=== PATIENT | female | born 1935 | race Caucasian/White ===

== ENCOUNTER 2017-01-09 09:01 | Day surgery (SDC) | payer MEDICARE ==
[~2017-01-09] VITALS: Ht 165.1 cm; Wt 75.3 kg
[~2017-01-09 09:01] MED LIST: AMLODIPINE BESY10 MG PO; COMBIGAN EYE DRO5 ML OD; CONTOUR NEXT1 EACH MISC; FENOFIBRATE160 MG PO; FUROSEMIDE20 MG PO; HYDRALAZINE; HYDROCODON-ACE1 EA10 PO; LATANOPROST2.5 ML OPTH; METFORMIN HCL500 MG PO; MORPHINE SULFAT10 MG PO; SIMVASTATIN40 MG PO
[2017-01-09] MEDS ORDERED: HYDRALAZINE HCL10 MG PO (09:38)
[2017-01-09] MEDS ORDERED: VITAMIN D-32000 UNI1 PO (09:39)
[2017-01-09] MEDS ORDERED: B COMPLEX # 11 EACH PO (09:40)
== END 2017-01-09 11:00 | disposition home or self-care (01) ==
LOC: OPS 09:01 → DS 09:01 → OPS 10:00
PROVIDERS: Ophthalmology
PROC: 08933ZZ Drainage of Left Anterior Chamber, Percutaneous Approach (ICD-10-PCS; principal; 2017-01-09 10:00)
DX: H40.1123 Primary open-angle glaucoma, left eye, severe stage (principal); E11.9 Type 2 diabetes mellitus without complications; I10 Essential (primary) hypertension; E78.00 Pure hypercholesterolemia, unspecified; Z87.891 Personal history of nicotine dependence
CPT/HCPCS: 140

== ENCOUNTER 2017-04-21 12:52 | Observation (INO) | payer MEDICARE ==
[~2017-04-21] VITALS: Ht 175.3 cm; Wt 75.3 kg
[~2017-04-21 12:52] MED LIST changes: +B COMPLEX # 11 EACH PO; +HYDRALAZINE HCL10 MG PO; +VITAMIN D-32000 UNI1 PO
[2017-04-21] MEDS ORDERED: BACLOFEN20 MG PO (13:14)
--- NOTE | 2017-04-21 16:20 | NUR ---
PATIENT ADMITTED FROM ER VIA WHEELCHAIR, ORIENTED TO HER ROOM AT THIS TIME. PATIENT IS ON RA AND GOWN PLACED ON THE PATIENT.
--- NOTE | 2017-04-21 16:33 | NUR ---
IV ABX GIVEN AT THIS TIME.
[2017-04-21] MEDS ORDERED: HYDRALAZINE HCL50 MG PO (16:37)
--- NOTE | 2017-04-21 16:45 | NUR ---
PT RECEIVED FROM ED, ARRIVED IN WHEEL CHAIR, TRANSFERED TO BED. PT SALINE LOCKED. PT VERY HARD OF HEARING, ORIENTED TO ALL BUT YEARS, STATES IT IS 2016. PT DENIES NAUSEA, DENIES HEAD AHCE, DENIES NUMBNESS/TINGLING. NEUROCHECK COMPLETED, SLIGHT LEFT SIDED DRIFTING. BOWEL TONES ACTIVE, ASSISTED WITH ORDERING DINNER. PT WITHOUT EDEMA, CMS INTACT, PULSES STRONG. PT WITH BRUISING TO LEFT UPPER ARM AND SCATTERED LOWER ARM, SKIN GROSSLY INTACT. PT ASSISTED TO CHAIR FOR DINNER. PT DENIES OTHER NEEDS AT THIS TIME.
--- NOTE | 2017-04-21 16:48 | NUR ---
insulin held at this time due to blood glucose of 86
--- NOTE | 2017-04-21 17:52 | NUR ---
PATIENT C/O CHRONIC NECK PAIN, 05/16 PATIENT GIVEN 500MG OF TYLENOL PO AT THSI TIME
--- NOTE | 2017-04-21 18:10 | NUR ---
HEALTH HISTORY COMPLETED WITH DAUGHTER CONNOR. PT RESTING IN BED, COMPLAINT OF NECK PAIN, RECENTLY RECEIVED TYLENOL. PROVIDED WITH WARM PACK. PT TAKES NORCO FOR CHRONIC PAIN, DISCUSSED WITH MD SIL TO ORDER NORCO. PT DENIES OTHER NEEDS AT THIS TIME.
--- NOTE | 2017-04-21 18:15 | NUR ---
PT RECEIVED FROM ED FOR STROKE SYMPTOMS. NEUROCHECK SHOWS SLIGHT LEFT SIDE DRIFT, ALERT AND ORIENTED EXCEPT FOR YEAR. PT ON ROOM AIR, LUNG SOUNDS CLEAR. PT TOELRATING ADA DIET, ACHS ACCUCHECK, BLOOD SUGAR AT DINNER 86, SS INSULIN HELD. PT UP WITH 1PA. HYPERTENSIVE SINCE ARRIVING, GIVEN NORVASC AND HYDRALAZINE.
--- NOTE | 2017-04-21 18:21 | NUR ---
PATIENT IN BED, DAUGHTER AND CHELO DIXON IN ROOM. VITALS DONE. RESP, KB IN TO SEE PATIENT. CALL LIGHT IN REACH. NO OTHER ROOMS.
--- NOTE | 2017-04-21 19:00 | NUR ---
SHIFT REPORT RECEIVED AT BEDSIDE. FAMILY IN ROOM. PATIENT RESTING IN BED WATCHING TV. DENIES NEEDS.
--- NOTE | 2017-04-21 19:50 | NUR ---
SCHEDULED HYDRALAZINE PROVIDED. BP 141/57, HR 62. DISCUSSED PLAN OF CARE WITH PATIENT AND FAMILY. NO QUESTIONS AT THIS TIME.
--- NOTE | 2017-04-21 20:04 | NUR ---
CHARGE NURSE ROUNDING NOTE:. PT IN BED WATCHING TV. EKUK. NO C/O PAIN OR N/V. FAMILY AT BEDSIDE, CALL LIGHT AT BEDSIDE.
--- NOTE | 2017-04-21 21:00 | NUR ---
EVENING MEDS GIVEN TO PATIENT. SHE IS ATTEMPTING TO SLEEP, AROUSED EASILY TO VOICE. SHE IS ORIENTED TO ALL EXCEPT THE DATE/YEAR. HER SPEECH IS SLIGHTLY SLURRED. STRENGTH IS EQUAL AND NORMAL. CORRDINATION INTACT. CMS INTACT. LUNGS ARE CLEAR. NO GI CONCERNS. NO EDEMA. PATIENT DENIES PAIN. PATIENT DENIES TOILETING NEEDS AT THIS TIME. FAMILY AT BEDSIDE. CALL LIGHT IN REACH.
--- NOTE | 2017-04-21 23:17 | NUR ---
PATIENT UP TO THE BATHROOM. HER DAUGHTER ASSISTED HER. SHE APPEARED STEADY ON HER FEET BUT REPORTS FEELING DIZZY. SHE IS ABLE TO FOLLOW COMMANDS, IS ORIENTED TO ALL EXCEPT THE YEAR. HER SPEECH IS CLEAR AND NO DEFECITS NOTED. HER PUPILS ARE EQUAL, ROUND AND REACTIVE. PATIENT DENIES VISUAL DISTURBANCES. FAMILY AT BEDSIDE. PATIENT RESTING. SHE DENIES PAIN.
--- NOTE | 2017-04-22 00:15 | NUR ---
SCHEDULED HYDRALAZINE PROVIDED. BP 142/62, HR 91 AT REST. PATIENT'S NERUO CHECK IS UNCHANGED. NO WEAKNESS. DISORIENTED ONLY TO THE DATE. PATIENT ATTEMPTING TO SLEEP.
--- NOTE | 2017-04-22 01:50 | NUR ---
PATIENT'S VS WNL. SHE DENIED TOILETING NEEDS. CALL LIGHT IN REACH. DAUGHTER IN ROOM.
--- NOTE | 2017-04-22 05:16 | NUR ---
VITAL SIGNS COMPLETE. PATIENT IS ORIENTED TO ALL BUT THE DATE. SPEECH IS CLEAR, SHE DOES SEEM TO BE SEARCHING FOR WORDS AT TIMES. PATIENT REPORTS BEING DIZZY. 2PA TO THE BATHROOM, PATIENT APPEARED SLIGHTLY UNSTEADY ON HER FEET. PATIENT BACK IN BED.
--- NOTE | 2017-04-22 05:22 | NUR ---
PATIENT SLEPT WELL THROGUHOUT THE NIGHT. SHE REMAINS ORIENTED TO ALL BY THE DATE. SPEECH IS CLEAR. SHE DOES APPEAR TO BE SPEARCHING FOR WORDS AT TIMES. COMPLAINS OF DIZZINESS. 1PA TO BATHROOM. PATIENT HAS BEEN SLIGHTLY HYPERTENSIVE SINCE ADMISSION, MD AWARE. URINE OUTPUT IS QS. FAMILY IN ROOM.
--- NOTE | 2017-04-22 07:00 | NUR ---
BEDSIDE HANDOFF REPORT RECEIVED FROM [employer]ER[employer] MERCHANDISING MANAGER RN. PT RESTING IN BED. FAMILY AT BEDSIDE. PT ASSISTED WITH ORDERING BREAKFAST. PT DENIES OTHER NEEDS AT THIS TIME.
--- NOTE | 2017-04-22 07:46 | NUR ---
MARTHA SITTING UP IN BED, FAMILY IN ROOM. PT STATES SHE DID NOT SLEEP AT ALL LAST NIGHT, DAUGHTER SAYS SHE INFACT SLEPT QUITE A BIT. PRADIP RIVAS IN FOR B/S CHECK, CHELO DIXON IN .
--- NOTE | 2017-04-22 08:00 | NUR ---
MRI SCREENING FORM COMPLETED WITH PT AND DAUGHTER. DENTURES AND JEWELRY REMOVED. PT TO MRI WITH TECH.
--- NOTE | 2017-04-22 08:45 | NUR ---
PT RESTING IN BED, EATING BREAKFAST, FAMILY AT BEDSIDE. PT ALERT AND ORIENTED X3, STATES IT IS OFF BY 2 DAYS. PT ON ROOM AIR, LUNG SOUNDS CLEAR. PT STRENGTH EQUAL IN ALL EXTREMITIES, DENIES NUMBNESS OR TINGLING. PT WITH GOOD APPETITE, TOLERATING ADA DIET, BOWEL TONES ACTIVE. PT WIHTOUT EDEMA. PT DENIES PAIN AT THIS TIME. SALINE LOCKED. PT CONTINUES TO BE HYPERTENSIVE, HYDRALAZINE GIVEN. PT DENIES OTHER NEEDS AT THIS TIME.
[2017-04-22] MEDS ORDERED: VITAMIN D3400 UNI1 PO (09:05)
[2017-04-22] MEDS ORDERED: NORCO 5-325 TA1 EACH PO (09:08)
[2017-04-22] MEDS ORDERED: PRESERVISION A1 EAC1 PO (09:09)
[2017-04-22] MEDS ORDERED: FOLIC ACID0.4 MG PO (09:10)
[2017-04-22] MEDS ORDERED: DAILY VITAMIN1 EAC3 PO (09:12)
--- NOTE | 2017-04-22 09:17 | NUR ---
MED REC COMPLETE WITH PATIENT'S HOME LIST AND DAUGHTER INTERVIEW.
--- NOTE | 2017-04-22 09:29 | NUR ---
DR WEBB IN ROOM, PATIENTS DAUGHTER SAYS PATIENT IS READY FOR PAIN MEDS.RN NOTIFIED.
--- NOTE | 2017-04-22 09:30 | NUR ---
PATIENT SITTING UP IN BED. VITALS DONE. DR WEBB IN TO SEE PATIENT. CALL LIGHT IN REACH.
[2017-04-22] MEDS ORDERED: HYDRALAZINE HCL50 MG PO (09:41)
[2017-04-22] MEDS ORDERED: CEPHALEXIN500 MG PO (09:42)
--- NOTE | 2017-04-22 12:03 | NUR ---
PATIENT SITTING UP IN BED, DAUGHTER IN RM. FRESH ICE WATER IN CUP. PRADIP RIVAS IN TO DO BLOOD SUGAR. CALL BUTTON IN REACH
--- NOTE | 2017-04-22 14:53 | EKG ---
[facility] [address] [place], [place] [address] Signed Sinus bradycardia Septal infarct , age undetermined Abnormal ECG No previous ECGs available Confirmed by EPHRAIM WEBB MD ([id number]) on 04/22/2017 2:52:59 PM Electronically Signed By: EPHRAIM WEBB MD 04/22/17 1453 PATIENT NAME: EUGENIO GÓMEZ Electrocardiogram DATE OF : 35 PHYSICIAN: EPHRAIM WEBB MD REPORT #: [id number] REPORT IS CONFIDENTIAL AND NOT TO BE RELEASED WITHOUT AUTHORIZATION
[2017-04-25] MEDS ORDERED: COREG6.25 MG PO (11:17)
== END 2017-04-22 14:18 | disposition home or self-care (01) ==
LOC: ED 12:52 → MS 12:54
PROVIDERS: ADMIT Internal Medicine
DX: N39.0 Urinary tract infection, site not specified (principal); G93.41 Metabolic encephalopathy; I10 Essential (primary) hypertension; E11.9 Type 2 diabetes mellitus without complications; E78.5 Hyperlipidemia, unspecified; H40.9 Unspecified glaucoma; H91.10 Presbycusis, unspecified ear; Z87.891 Personal history of nicotine dependence; Z79.899 Other long term (current) drug therapy; Z66 Do not resuscitate; Z79.84 Long term (current) use of oral hypoglycemic drugs; Z88.5 Allergy status to narcotic agent; Z88.2 Allergy status to sulfonamides
CPT/HCPCS: 70450; 70551; 71045; 80053; 81001; 83690; 85025; 87088; 93005; 93010; 96372; 96374; 99285; G0378; J0696; J1650; J7040

== ENCOUNTER 2017-10-20 22:37 | Inpatient (IN) | payer MEDICARE ==
[~2017-10-20] VITALS: Ht 175.3 cm; Wt 69.0 kg
--- OUTSIDE RECORDS SUMMARY | ~2017-10-20 | XMS | Clinical Summary ---
Demographics + + + | Address | [address] | | | [place] [address] | + + + | Home Phone | | + + + | Preferred Language | Unknown | + + + | Marital Status | | + + + | Hindu Affiliation | Unknown | + + + [...] Providers + +------+ + | Care Manager Night Name | Role | Phone | + +------+ + | Manuel Adames MD | PP | | + +------+ + Source Comments DANIA is fully live on both [facility] and [facility] Allergies Not on File Current Medications [...] | + + + + + | INFLUENZA VACCINE | | | | | (FLU SHOT) | 8 | | | + + [...] MEDICA | | re | [phone] | [place] [address] | | | RE HMO | | [...] | Self | [birth year] | Home: | [address] | | | al/Fam | | [phone] | [phone] | [place] | | | [place] | | | [phone] | + +--------+ +--------+ + +"
--- OUTSIDE RECORDS SUMMARY | ~2017-10-20 | XMS | Clinical Summary ---
Demographics + + + | Address | [address] | | | [place] [address] | + + + | Home Phone | | + + + | Preferred Language | Unknown | + + + | Marital Status | | + + + | Church Affiliation | Unknown | + + + [...] Team Providers + +------+ + | Care Technical Business Systems Analyst Name | Role | Phone | + +------+ + | Manuel Adames MD | PP | | + +------+ + Source Comments DANIA is fully live on both [facility] and [facility] Allergies Not on File Current Medications [...] MEDICA | | re | [phone] | [place] [address] | | | RE HMO | | [...] | Self | [birth year] | Home: | [address] | | | al/Fam | | [phone] | [phone] | [place] | | | [place] | | | [phone] | [phone] | + +--------+ +--------+ + +"
--- OUTSIDE RECORDS SUMMARY | ~2017-10-20 | XMS | Clinical Summary ---
Demographics + + + | Address | [address] | | | [place] [address] | + + + | Home Phone [...] Team Providers + +------+ + | Care Guzzler Builder Name | Role | Phone | + +------+ + | Manuel Adames MD | PP | | + +------+ + Source Comments DANIA is fully live on both [facility] and [facility] Allergies Not on File Current Medications [...] MEDICA | | re | [phone] | [place] [address] | | | RE HMO | | [...] | Self | [birth year] | Home: | [address] | | | al/Fam | | 1936 | [phone] | [place] | | | [place] | | | [phone] | + +--------+ +--------+ + +"
--- OUTSIDE RECORDS SUMMARY | ~2017-10-20 | XMS | Clinical Summary ---
Demographics + + + | Address | [address] | | | [place] [address] | + + + | Home Phone | | + + + | Preferred Language | Unknown | + + + | Marital Status | | + + + | Caodaism Affiliation | Unknown | + + + | Race | Unknown | + + + | Ethnic Group | Unknown | + + + Author + + + | Author | [facility] [employer] [facility] | + + + | Organization | [facility] [employer] | + + + | Address | Unknown | + + + | Phone | Unavailable | + + + Support + + + + + | Name | Relationship | Address | Phone | + + + + + | Vera Somers | [place] | [place] | | | | | [phone] | | + + + + + | John Casillas | ECON | Unknown | | + + + + + Care Team Providers + +------+ + | Care Scalemaker Name | Role | Phone | + +------+ + | Manuel Adames MD | PP | | + +------+ + Allergies + + + + + + | Active Allergy | Reactions | Severity | Noted | Comments | | | | | Date | | + + + + + + | Cephalexin | Other (See Comments) | Medium | 12/06/19 | unknown | | | | | 11 | | + + + + + + | Penicillins | Other (See Comments) | Medium | 12/06/19 | unknown | | | | | 11 | | + + + + + + | Saccharin | Other (See Comments) | Medium | 12/06/19 | unknown | | | | | 11 | | + + + + + + | Sulfa Antibiotics | Other (See Comments) | Medium | 12/06/19 | unknown | | | | | [...] | + + + + + | Diabetic Eye Exam | | | | | | 6 | | | + + + + + | Diabetic Foot Exam | | | | | | 6 | | | + + + + + | Hemoglobin A1c | | | | | | 6 | | | + + + + + | Microalbumin | | | | | Screening | 6 | | | + + [...] | | | | | (#1) | 8 | | | + [...] | MA - PREMIERCARE | MA-PRE | [id number] | Medica | | | | FAMILY [...] | Self | [birth year] | Home: | [address] | | | al/Fam | | [phone] | [phone] | [address] [place] | | | [place] | | | [phone] | [phone] | + +--------+ +--------+ + + | MAGDALENA CASILLAS | Third | Self | [birth year] | Home: | [address] | | | [employer] [place] | | [phone] | [phone] | [place] | | | [place] | | | [phone] | [phone] | | | ity | | | | | + +--------+ +--------+ + +
--- OUTSIDE RECORDS SUMMARY | ~2017-10-20 | XMS | Clinical Summary ---
Demographics + + + | Address | [address] | | | [place] [address] | + + + | Home Phone | | + + + | Preferred Language | Unknown | + + + | Marital Status | | + + + | Cheondoism Affiliation | Unknown | + + + | Race | Unknown | + + + | Ethnic Group | Unknown | + + + Author + + + | Author | [facility] [employer] [facility] | + + + | Organization | [facility] [facility] | + + + | Address | Unknown | + + + | Phone | Unavailable | + + + Support + + + + + | Name | Relationship | Address | Phone | + + + + + | Vera Somers | [place] | [place] | | | | | [phone] | | + + + + + | John Casillas | ECON | Unknown | | + + + + + Care Team Providers + +------+ + | Care Card Filer Name | Role | Phone | + [...] | MA - PREMIERCARE | MA-PRE | [id number] | Medica | | | | FAMILY [...] | Self | [birth year] | Home: | [address] | | | al/Fam | | [phone] | [phone] | [address] [place] | | | [place] | | | [phone] | [phone] | + +--------+ +--------+ + + | MAGDALENA CASILLAS | Third | Self | [birth year] | Home: | [address] | | | [employer] | | [phone] | [phone] | [place] | | | [place] | | | [phone] | [phone] | | | ity | | | | | + +--------+ +--------+ + +
--- OUTSIDE RECORDS SUMMARY | ~2017-10-20 | XMS | Clinical Summary ---
Demographics + + + | Address | [address] | | | [place] [address] | + + + | Home Phone | | + + + | Preferred Language | Unknown | + + + | Marital Status | | + + + | Latter-Day Affiliation | Unknown | + + + | Race | Unknown | + + + | Ethnic Group | Unknown | + + + Author + + + | Author | [facility] [email or web address] [facility] | + + + | Organization | [facility] [email or web address] [facility] | + + + | Address | Unknown | + + + | Phone | Unavailable | + + + Support + + + + + | Name | Relationship | Address | Phone | + + + + + | Vera Somers | [place] | [place] | | | | | [phone] | | + + + + + | John Casillas | ECON | Unknown | | + + + + + Care Team Providers + +------+ + | Care Container Shop Welder Name | Role | Phone | + +------+ + | Manuel dAames MD | PP | | + +------+ [...] | MA - PREMIERCARE | MA-PRE | [id number] | Medica | | | | FAMILY [...] | Self | [birth year] | Home: | [address] | | | al/Fam | | [phone] | [phone] | [address] [place] | | | [place] | | | [phone] | [phone] | + +--------+ +--------+ + + | MAGDALENA CASILLAS | Third | Self | [birth year] | Home: | [address] | | | Libertarian | | [phone] | [phone] | [place] | | | [place] | | | [phone] | [phone] | | | ity | | | | | + +--------+ +--------+ + +
[~2017-10-20 22:37] MED LIST changes: +BACLOFEN20 MG PO; +CEPHALEXIN500 MG PO; -COMBIGAN EYE DRO5 ML OD; +COMBIGAN EYE DRO5 ML OPTH; +COREG6.25 MG PO; +DAILY VITAMIN1 EAC3 PO; +FOLIC ACID0.4 MG PO; +HYDRALAZINE HCL50 MG PO; +NORCO 5-325 TA1 EACH PO; +PRESERVISION A1 EAC1 PO; +VITAMIN D3400 UNI1 PO
--- NOTE | 2017-10-21 02:50 | NUR ---
PT ARRIVES TO ICU ROOM 128 ADMITTED FROM ER FOR NEW CHF AND PNEUMONIA. SHE IS ALERT AND ORIENTED, AWAKE ON 2L/O2 WITH SPO2 94% RR 18 AND SLIGHTLY LABORED. TRANSFERRED TO BED WITH SLIDER SHEET. ACCOMPANIED BY DAUGHTER AND , DISCUSSED PLAN OF CARE WITH FAMILY AND PT, NO QUESTIONS AT THIS TIME. POTASSIUM PILLS GIVEN AND TAKEN WITHOUT DIFFICULTY AND IV ABX STARTED. LUNGS HAVE A FEW CRACKLES IN THE BASES, WAS GIVEN LASIX IV IN ED AND VOIDED 400 ML AFTER. DAUGHTER TO STAY THE NIGHT.
--- NOTE | 2017-10-21 04:06 | NUR ---
UP TO BSC TO VOID 200ML CLEAR YELLOW URINE, HR STEADY WHILE UP BUT DOES GET SLIGHTLY SOB WITH SMALL AMOUNT OF ACTIVITY. BACK TO BED AND TRYING TO SLEEP NOW.
--- NOTE | 2017-10-21 04:45 | NUR ---
PT SLEEPING, O2/2L ON AND SPO2 DOWN TO 88% SO OXYGEN TURNED UP TO 3L/NC.
--- NOTE | 2017-10-21 05:27 | NUR ---
PT PULLED O2 OFF WHILE SLEEPING- SPO2 80% ON ROOM AIR, RR 18 AND HR 60'S. O2 REPLACED AND SATS SLOWLY BACK UP TO 91%.
--- NOTE | 2017-10-21 08:17 | NUR ---
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 PT TIRED AT THIS TIME, IS COOPERATIVE WITH HOSPITAL ROUTINE, DAUGHTER HAS REMAINED AT THE BEDSIDE ALL NIGHT.
--- NOTE | 2017-10-21 09:14 | NUR ---
PT DID NOT EAT WELL THIS AM, SHE APPEARS TO HAVE A HARD TIME TO SWOLLOW SOLID FOODS, DAUGHTER STATES THAT THIS IS NOT NEW AND SHE FEELS SHE IS ASPERATING AT TIME. PT TOOK HER PO MEDS WELL AND WHEN TAKE SHE LIFTS HEAD AND NECK UP TO SWOLLOW. PTS DAUGHTERS DOES NOT WANT PT TO HAVE HER FLU INJUCTION AT THIS TIME.
--- NOTE | 2017-10-21 10:00 | NUR ---
SPUTUM SAMPLE SENT TO LAB AT THIS TIME. DAUGHTER AND AT THE BEDSIDE AT THIS TIME.
--- NOTE | 2017-10-21 10:51 | NUR ---
PT REMAINS IN BED, TALKING WITH AND GRANDSON.
--- NOTE | 2017-10-21 11:43 | NUR ---
PT APPEARS TO BE SLEEPING AT THIS TIME, AND GRANDSON REMAIN AT THE BEDSIDE, PT REMAIN IN SBRADY AT THIS TIME, SPO2 100% ON 2 L'S VIA NC.
[2017-10-21] MEDS ORDERED: COMBIGAN EYE DRO5 ML OPTH (11:47)
[2017-10-21] MEDS ORDERED: HYDRALAZINE HCL50 MG PO (11:50)
--- NOTE | 2017-10-21 12:01 | NUR ---
PT FAMILY HAS LEFT AT THIS TIME, BED ALARM ON AT THIS TIME. SIDE RAILS X 4 AND BED IN THE LOWEST POSITION. PT IS ACROSS FROM THE NURSES STATION.
--- NOTE | 2017-10-21 12:09 | NUR ---
PT UP TO THE BEDSIDE COMMODE, DID NOT VOID AND BACK TO BED. SIDE RAILS X 4, BED ALARM ON.
--- NOTE | 2017-10-21 12:41 | NUR ---
PT DENIES THE NEED TO EAT LUNCH AT THIS TIME, STAFF WILL ORDER HER SOMETHING LATER TODAY.
--- NOTE | 2017-10-21 13:15 | NUR ---
PT GIVEN PUDDING THICK FOOD FOR LUNCH; MASH POPATOES AND COTTAGE CHEESE, SHE DID WELL WITH THIS, NO COUGHING AND OR SPITTING FOOD UP AT THIS TIME. SHE DOES WELL WITH TAKING FLUIDS, PT WANTED A PEPSI OR COKE SO ONE GIVEN. PT HUSBANDS HAS RETURNED AT THIS TIME.
--- NOTE | 2017-10-21 13:18 | NUR ---
PT DOES REQUIRD THE HOB UP
--- NOTE | 2017-10-21 13:30 | NUR ---
PT UP TO BEDSIDE COMMODE, VOIDED SMALL AMOUNT AT THIS TIME. PT IS AT BEDSIDE NOW.
--- NOTE | 2017-10-21 14:17 | NUR ---
UP TO BSC, BED ALARM SOUNDING. PATIENT TO EDGE OF BED BEFORE STAFF IN ROOM. AT BEDSIDE SLEEPING. PATIENT STATED " I CAN'T WAIT FOR YOU, I NEED TO PEE NOW". ASSISTED PATIENT TO BSC, APPEARS STEADY TRANSFERING. UNABLE TO URINATE, STATES " I GET SO FRUSTRATED WHEN I FEEL LIKE I HAVE TO GO AND JUST CAN'T." PATIENT BACK TO BED, BED ALARM ON. CALL LIGHT WITHIN REACH. NOW AWAKE AND CONVERSING WITH PATIENT.
--- NOTE | 2017-10-21 14:52 | NUR ---
PT IN BED FAMILY AND FREINDS ARE AT THE BEDSIDE.
--- NOTE | 2017-10-21 17:08 | NUR ---
PT IS WANTING TO GO HOME, AT TIMES SHE WILL SIT UP IN BED AND TRY TO GET OUT, BUT IS REDIRECTABLE AT THIS TIME. SHE IS GIVING HER A BAD TIME.
--- NOTE | 2017-10-21 17:21 | NUR ---
PT SITTING FOR DINNER AT THIS TIME, TAKING PO MEDS WELL AND DOES WELL WITH THIN LIQUIDS. DINNER ORDER FOR PT IN PUDDING THICK ITEMS. PT WAS UP TO THE BEDSIDE COMMODE VOIDED AND BACK TO BED. BED ALARM IS ON AT THIS TIME.
--- NOTE | 2017-10-21 17:48 | NUR ---
PT REQUSTED HER PURSE TO GET HEARING AID BATTERY, THEN TRYED TO PLCE THE BATTERY IN HER GLASSES. EXPLAINED THAT IT WENT IN HER EAR, SHE GOT FLUSTERED AND PUT THE BATTERY ON THE TABLE. AND THEN CONTIOUED TO DRINK HER ORANGE JUICE.
--- NOTE | 2017-10-21 20:32 | NUR ---
IN TO SEE PT AT 2004. MOSTLY SLEEPING SINCE SHIFT REPORT AT 1900. PT DIOMEDE, CONFUSED AT TIMES TO SITUATION/EVENT. LIMITED UNDERSTANDING OF MEDICAL PROCEDURES. AT BEDSIDE. PT DENIES PT. C/O OF BP CUFF BEING TIGHT AND TRIES TO REMOVE. EXPLAINED TO PT AND REASSURED. REMOVED PREVIOUS NITROPASTE AND PLACED NEW 0.5IN. BED ALARM ON. PT REFUSED TO REMOVE DENTURES OR BRUSH AT THIS TIME. O2 ON 3L NC.
--- NOTE | 2017-10-21 21:11 | EKG ---
[facility] [address] [place] [address] Signed Sinus rhythm with premature supraventricular complexes Anteroseptal infarct , age undetermined Abnormal ECG When compared with ECG of 23-APR-2017 21:00, premature supraventricular complexes are now present Vent. rate has increased BY 37 BPM Anteroseptal infarct is now present ST now depressed in Inferior leads ST now depressed in Anterior leads Confirmed by GALI KNIGHT MD ([id number]) on 10/21/2017 9:11:40 PM Electronically Signed By: GALI KNIGHT MD 10/21/172110 PATIENT NAME: EUGENIO GÓMEZ Electrocardiogram DATE OF : 35 PHYSICIAN: GALI KNIGHT MD REPORT #: [id number] REPORT IS CONFIDENTIAL AND NOT TO BE RELEASED WITHOUT AUTHORIZATION
--- NOTE | 2017-10-21 21:12 | EKG ---
[facility] [address] [place] [address] Signed Sinus rhythm with occasional premature ventricular complexes and premature atrial complexes Septal infarct (cited on or before 20-OCT-2017) Abnormal ECG When compared with ECG of 20-OCT-2017 22:55, (Unconfirmed) premature ventricular complexes are now present Confirmed by GALI KNIGHT MD ([id number]) on 10/21/2017 9:12:02 PM Electronically Signed By: GALI KNIGHT MD 10/21/17 2112 PATIENT NAME: EUGENIO GÓMEZ Electrocardiogram DATE OF : 35 PHYSICIAN: GALI KNIGHT MD REPORT #: [id number] REPORT IS CONFIDENTIAL AND NOT TO BE RELEASED WITHOUT AUTHORIZATION
--- NOTE | 2017-10-22 00:03 | NUR ---
PT SLEEPING MOSTLY SINCE LAST ASSESSMENT, DAUGHTER AT BEDSIDE WELL. DENIES NEEDS. BED ALARM ON. RAILS UPX4.
--- NOTE | 2017-10-22 03:02 | NUR ---
PT UP TO BSC TO ATTEMPT TO VOID. UNABLE TO VOID. BLADDER SCANNED FOR 55ML. PT IRRITABLE. PREVIOUSLY REMOVED LEADS AND PULSE OX. REMOVING O2 WELL. DAUGHTER TO ASSIST WITH REPLACING MONITOR LEADS AND O2. BED ALARM ON NOW. ASSESSMENT COMPLETE.
--- NOTE | 2017-10-22 03:36 | NUR ---
PT GIVEN 650MG TYLENOL PO FOR C/O OF R KNEE PAIN. HOLDING KNEE AND CRYING OUT. PLACED WARM PACK ON KNEE WELL. BED ALARM ON.
--- NOTE | 2017-10-22 06:44 | NUR ---
PT REMOVED O2, MONITOR LEADS, SPO2 MONITOR. STARTING TO GET OOB. UP TO BSC WITH ASSIST TO VOID 250ML CONCENTRATED URINE. PT REFUSING TO WEAR MONTITOR LEADS. DAUGHTER CONVINCED TO WEAR 02. FREQUENTLY ATTEMPTS TO REMOVE AND REMAINS CONFUSED.
--- NOTE | 2017-10-22 08:25 | NUR ---
PT HAS PULLED ALL EQUIPMENT OFF HER BODY THIS EVENING AND NOW GAS METER REPAIRER HAS PLACED A TELE #4 ON HER TO MONITOR HEART RATE. PT HAD BEEN UP TO THE CHAIR THIS AM, AND TO THE BS COMMODE. THEN BACK TO BED. [facility] ORDER FOR PT AND SHE IS CURRENTLY SITTING UP IN BED EATTING BKF.
--- NOTE | 2017-10-22 08:41 | NUR ---
PT ATE SOME OF HER FOOD FOR BKF, BUT THEN WENT BACK TO SLEEP.
--- NOTE | 2017-10-22 09:34 | NUR ---
PT UP TO BEDSIDE COMMODE VOIDED AND BACK TO BED AT THIS TIME, SHE ATE SOME BKF. FAMILY AND FREINDS REMAIN AT THE BEDSIDE.
--- NOTE | 2017-10-22 09:46 | NUR ---
DR KNIGHT INTO SEE PT THIS AM, PT WILL BE TRANSFERD TO THE M/S UNIT AT SOMEPOINT TODAY. TELE #4 REMOVED, DAUGHTER REMAINS AT THE BEDSIDE AT THIS TIME, PT APPEARS VERY TIRED TODAY.
--- NOTE | 2017-10-22 10:30 | NUR ---
REPORT CALLED TO M/S UNIT ALL QUESTIONS ANSWERED AT THIS TIME, ALL PERSOANL BELONGINGS AND PT DAUGHTER WENT TO ROOM 110 ON THE M/S UNIT.
--- NOTE | 2017-10-22 10:36 | NUR ---
PT HAS ARRIVED INTO ROOM 110 ON MED/SURG AT THIS TIME. PT IS PLEASANT, CALM AND COOPERATIVE. 2 FAMILY MEMBERS AT BEDSIDE. NO C/O PAIN. OXYGEN VIA NC AT 3L/MIN. PT ORIENTED TO ROOM AND CALL LIGHT. PT X1 ASSIST TO AND FROM WHEELCHAIR, COMMODE AND BED. PT HAS NO CURRENT QUESTIONS OR CONCERNS. VSS. ASSESSMENT COMPLETED. CALL LIGHT WITHIN REACH. BED LOCKED IN LOWEST POSITION WITH BED ALARM ON. PT VISIBLE FROM NURSES STATION. WILL CONTINUE TO MONITOR.
--- NOTE | 2017-10-22 12:50 | NUR ---
PT RESTING IN BED COMFORTABLY AT THIS TIME WITH FAMILY VISITING AT BEDSIDE. PT STATES THAT SHE'S HAVING NO PAIN AND IS COMFORTABLE. NO QUESTIONS OR CONCERNS AT THIS TIME. CALL LIGHT WITHIN REACH. BED ALARM ON AND FALL PRECAUTIONS IN PLACE. WILL CONTINUE TO MONITOR.
--- NOTE | 2017-10-22 14:33 | NUR ---
PT RESTING COMFORTABLY IN HER BED AT THIS TIME WITH 2 VISITOR FRIENDS AT BEDSIDE. ASSESSMENT COMPLETED AND NITRO PATCH ADDED TO CHEST; OLD ONE REMOVED. PT 02 SAT WAS MAINTAINING AT 88, SO I INCREASED HER TO 3.5 L/MIN O2 VIA NC. HER O2 SAT INCREASED TO 91 AND IS MAINTAINING THERE. PT HAS NO C/O PAIN, NO SOB OR BREATHING ISSUES. PT HAS NO QUESTIONS OR CONCERNS. CALL LIGHT WITHIN REACH, BED ALARM ON AND FALL PRECAUTIONS IN PLACE. WILL CONTINUE TO MONITOR.
--- NOTE | 2017-10-22 16:40 | NUR ---
PT RESTING IN BED WITH SOME VISITORS AT THE BEDSIDE. PT HAS NO QUESTIONS OR CONCERNS AT THIS TIME. CALL LIGHT WITHIN REACH. BED LOCKED, LOW AND WITH ALARM ON. WILL CONTINUE TO MONITOR.
--- NOTE | 2017-10-22 18:04 | NUR ---
PT VS AND CONDITION STABLE TODAY ON 10/22/17 DAY SHIFT SINCE ARRIVING ON UNIT FROM CCU. PT HAS BEEN PLEASANT, CALM AND COOPERATIVE THROUGHOUT SHIFT. SHE IS DISORIENTED TO PLACE, TIME AND SITUATION- SHE'S ORIENTED TO HERSELF AND FAMILY MEMBERS. NO AGITATION OR RESTLESSNESS. PT CONFUSED AND FORGETFUL, REQUIRES REORIENTATION AND REINFORCEMENT OF INFORMATION. PT CURRENTLY AT 3.5 L/MIN OF O2 VIA NC WITH HUMIDITY. PT HAVING PRODUCTIVE COUGH, SMALL AMOUNT OF CLEAR SPUTUM SHE SPITS INTO TISSUE. NITRO PASTE PRESENT ON LEFT SIDE OF CHEST. STAND BY ASSISTANCE; SOME WEAKNESS BUT STEADY ON HER FEET; USES COMMODE; URGENCY WHEN NEEDING TO URINATE. SALINE LOCKED. AWAITING ST EVAL AND BARIUM SWALLOW STUDY. PT CURRENTLY RESTING IN BED WITH NO QUESTIONS OR CONCERNS. CALL LIGHT WITHIN REACH. BED LOCKED, LOW AND BED ALARM IN PLACE. WILL CONTINUE TO MONITOR.
--- NOTE | 2017-10-22 19:05 | NUR ---
bedside report received from offgoing rn. pt lying in bed. pt ham[place], attempting to adjust hearing aide. pt assisted with hearing aide. pt denies needs at this time. call light within reach, bed alarm active. room within view of rn station.
--- NOTE | 2017-10-22 20:45 | NUR ---
PT ASSESSMENT COMPLETE. PT DENIES PAIN, NAUSEA, SOB. LUNG SOUNDS DIM TO R BASE, CRACKLES TO L BASE. OCCASIONAL COUGH NOTED WHILE PRESS CLIPPINGS CUTTER AND PASTER IN ROOM, NON PRODUCTIVE AT THIS TIME. PT DISORIENTED TO PLACE, TIME, EVENTS. PT TALKING ABOUT HOBBIES SHE USED TO PARTAKE IN, AT BEDSIDE. PT DENIES NEEDS AT THIS TIME. CALL LIGHT WITHIN REACH. BED ALARM ACTIVE. ROOM WITHIN VIEW OF RN STATION WITH CURTAIN OPEN.
--- NOTE | 2017-10-22 21:55 | NUR ---
PT REPORTS HEADACHE, UNABLE TO RATE PAIN. PRN TYLENOL ADMINISTERED. PT'S AND DAUGHTER ARE AT BEDSIDE. CALL LIGHT WITHIN REACH. BED ALARM ACTIVE. ROOM WITHIN VIEW OF RN STATION.
--- NOTE | 2017-10-22 23:01 | NUR ---
PT ASSISTED TO THE BSC. TOLERATED WELL. PT UNABLE TO VOID AT THIS TIME. NOTIFIED REGARDING ZERO URINE OUTPUT FOR 0.
--- NOTE | 2017-10-23 00:11 | NUR ---
PT RESTING IN BED WITH EYES CLOSED. RESPIRATIONS EVEN AND UNLABORED. PT APPEARS TO BE SLEEPING. PT'S DAUGHTER AWAKE AT BEDSIDE. CALL LIGHT WITHIN PT REACH. ROOM WITHIN VIEW OF RN STATION.
--- NOTE | 2017-10-23 00:34 | NUR ---
PT'S DAUGHTER IN ROOM, SAO2 ALARM SOUNDING. PT'S DAUGHTER STATES THAT PT TOOK HER O2 OFF, DAUGHTER CHECKING SAO2 OUTOF CURIOSITY. SAO2 71% ON RA. O2 REPLACED AT 3 LPM, SAO2 INCREASED TO 92%. PT REPORTS SEEING MEN IN HER ROOM. POINTS TOWARDS THE CEILING. PT'S DAUGHTER STATES THAT HALLUCINATIONS ARE NOT PT'S BASELIEN. PT STATES SHE WILL TRY TO GO BACK TO SLEEP. DENIES SEEING ANYTHING OUT OF THE ORDINARY IN ROOM AT THIS TIME. PT'S DAUGHTER REMAINS AT BEDSIDE. CALL LIGHT WITHIN REACH. ROOM WITHIN VIEW OF RN STATION.
--- NOTE | 2017-10-23 02:38 | NUR ---
PT ASSESSMENT COMPLETE. PT WAKES EASILY FOR BP MEASUREMENT. PT REMAINS DROWSY THROUGHOUT THE ASSESSMENT. NO REPORTS OF PAIN, NAUSEA, OR SOB. LUNG SOUNDS CLEAR IN UPPER LOBES BILATERALLY, DIMINISHED IN BILATERAL LOWER LOBES. NO COUGH NOTED DURING THIS ASSESSMENT. O2 REMAINS IN PLACE VIA NC, 3 LPM. PT'S DAUGHTER STAYING THE NIGHT, RESTING ON COUCH IN ROOM. CALL LIGHT WITHIN PT REACH. ROOM WITHIN VIEW OF RN STATION.
--- NOTE | 2017-10-23 05:57 | NUR ---
PT EXPERIENCING INCREASED CONFUSION. PT REQUESTING REPEATEDLY TO GO HOME DESPITE REORIENTATION FROM TILE SHADER AND PT'S DAUGHTER. PT'S DAUGHTER REQUESTS PT HAVE TYLENOL FOR POTENTIAL PAIN. PT BECOMES AGRESSIVE, HITS TYLENOL FROM WRITERS HANDS. PT STATES, "YOU'RE JUST TRYING TO GIVE ME SOMETHING BAD AND DO WHAT YOU WANT TO ME." PT REFUSING TO WEAR O2, SITTING UP IN RECLIENR. PT'S DAUGHTER REMAINS IN ROOM. SHE STATES, "WHATEVER HAPPENS, HAPPENS." PT SITTING IN RECLINER WITH PT'S DAUGHTER IN ROOM. DAUGHTER WOULD LIKE HER MOM TO HAVE SOME TIME TO RELAX, AGREES TO CALL TILE SHADER FOR NEEDS.
--- NOTE | 2017-10-23 06:06 | NUR ---
PT SLEPT OFF AND ON THIS SHIFT. TYLENOL X 1 FOR ARZATE @ ~2200. PT ORIENTED TO SELF ONLY. DEMENTIA AT BASELINE. PT BECOMMING INCREASINGLY AGITATED AND COMBATIVE THIS AM, REQUESTING TO GO HOME DESPITE REORIENTATION FROM STAFF AND HER DAUGHTER. PT REFUSING TO WEAR O2. O2 SATS IN 70'S ON RA. 92-94 ON 3.5 LPM VIA NC. OCC NON PRODUCTIVE COUGH. LUNG SOUNDS CLEAR IN UPPER LOBES, DIM IN R BASE, CRACKLES TO DIM IN LLL. 1 PA TO BR/BSC. SL. UO INSUFFICIENT THIS SHIFT, NOTIFIED. PT AWAITING ST AND BARIUM STUDY. NITROPASTE SCHEDULED.
--- NOTE | 2017-10-23 07:11 | NUR ---
HAND OFF REPORT TAKEN FROM CHELO ROJAS. PT REPORTS HEADACHE, DAUGHTER REQUESTS TYLENOL FOR PT. PT WILL ONLY TAKE 1 TABLET OF TYLENOL STATING "ILL TAKE THE OTHER ONE LATER." 3.5 L O2 BY NC REPLACED TO PTS FACE. PT RESTING IN BED. BED RAILS UP. CALL LIGHT WITHIN REACH. BED ALARM ON.
--- NOTE | 2017-10-23 08:23 | NUR ---
MORNING ASSESSMENT AND MEDICATION DUE. THIS RN TO BEDSIDE. PT RESTING CALMLY IN BED. O2 BY NC AT 3.[address] PT DENIES PAIN. ASSESSMENT DONE. OCCATIONAL COUGH NOTED. MEDICATIONS GIVEN (SEE APR). PHARMACY CONSULTED REGARDING PTS HR OF 51 AND NITRO ADMINISTRATION. PHARAMCIST STATES NITRO IS SAFE TO GIVE WITH THIS HEART RATE. PT ABLE TO SWALLOW PILLS WITH WATER. AWAITING SWALLOW STUDY. PT ASSISTED UP TO COMODE (NO RESULTS) AND BACK TO BED. WARM BLANKET PROVIDED. BED RAILS UP. CALL LIGHT WITHIN REACH. FAMILY AT BEDSIDE. BED ALARM ON.
--- NOTE | 2017-10-23 08:25 | NUR ---
Patient sitting in bed hands and face washed, patient stated that she might like a shower later.warm blanket waas given, call light in reach. No other needs at this time.
--- NOTE | 2017-10-23 09:30 | NUR ---
SUBSTANCE ABUSE SERVICES DIRECTOR INFORMED THIS RN THAT PT IS HAVING PAIN AT IV SITE. PIV ASSESSED, LEAKING AND PAINFUL WITH FLUSH. PIV DC'D PER PROTOCOL. THIS RN AND CHELO CARDENAS ATTEMPTED IV START PER PROTOCOL. NO SUCESS. TRANSPORTATION DEPARTMENT HEAD CALLED. WILL START IV. PT RESTING IN BED. NO REQUESTS OR COMPLAINTS. BED ALARM ON. FAMILY AT BEDSIDE. MD TO ROOM FOR ROUNDS
--- NOTE | 2017-10-23 10:03 | NUR ---
PIV STARTED PER PROTOCOL BY ADAMS RN/BUDDHIST MONK. IV ABX RESTRATED BY THIS RN. PT RESTING IN BED. AND DAUGHTER AT BEDSIDE. BED RAILS UP. CALL LIGHT WITHIN REACH. BED ALARM ON.
--- NOTE | 2017-10-23 11:00 | NUR ---
PUMP ALARMING, ABX INFUSION AND FLUSH COMPLETE. PIV ASSESSED, WNL. PIV SALINE LOCKED. PER PROTOCOL. PT RESTING IN BED. NO REQUESTS OR COMPLAINTS. FAMILY AT BEDSIDE. BED ALARM ON. BED RAILS UP. CALL LIGHT WITHIN REACH.
--- NOTE | 2017-10-23 11:45 | NUR ---
PATIENT UP TO COMMODE. ASSESSMENT DONE. PATIENT EATING LUNCH. PATIENT OXYGEN SAT 94% ON 3.5 LPM VIA NC. PATIENT COMPLAINED OF PAIN IN HAND, WRAP ON IV ADJUSTED, NO OTHER PAIN REPORTED. PATIENT ORIENTED ONLY TO SELF. DAUGHTER AT BEDSIDE. BED ALARM ON. CALL LIGHT WITHIN REACH. CURTAIN OPEN TO NURSES STATION. NO FURTHER REQUESTS AT THIS TIME.
--- NOTE | 2017-10-23 11:53 | NUR ---
NOTIFIED MD OF CHANGE IN LUNG SOUNDS. NO NEW ORDERS AT THIS TIME.
--- NOTE | 2017-10-23 13:15 | NUR ---
PATIENT ASLEEP IN BED. SPOKE WITH PATIENTS . PATIENT LIVES WITH AND ADULT GRANDDAUGHTER. STATES THEY HAVE A DAUGHTER WHO IS A NURSE AND SHE COMES ONCE A WEEK TO OVER SEE MEDICATIONS. THEY HAVE OTHER FAMILY MEMBERS WHO HELP WHEN ASKED. STATES PATIENT HAS MEMORY ISSUES AND MORE AND MORE CANNOT BE LEFT ALONE. HE IS THINKING OF HIRING SOME IN-HOME CARE SO HE CAN HAVE SOME TIMES DURING THE WEEK TO GET THINGS DONE. HE STATES HE HAS SEVERAL RENTALS HE TAKES CARE OF AND HE HAS PROJECTS AROUND THE HOME HE NEEDS TO GET DONE, SUCH PUTTING IN A WALK-IN SHOWER FOR PATIENT. DISCUSSED POSSIBLE OPTIONS INCLUDING HELPING HANDS WHO HE CAN HIRE HELP FROM. HE STATES HE WANTS TO CHECK WITH FAMILY FIRST THEY MIGHT BE ABLE TO COME IN MORE REGULAR OR KNOW OF SOMEONE TO HIRE. DISCUSSED THAT I CAN HAVE A CHW CHECK IN WITH THEM AFTER DISCHARGE IN CASE HE NEEDS RESOURCES. HE IS IN AGREEMENT WITH THIS.
--- NOTE | 2017-10-23 13:39 | NUR ---
PATIENT IN BED RESTING WITH EYES CLOSED. BEDSIDE. CALL LIGHT IN REACH. NO FURTHER NEEDS AT THIS TIME.
--- NOTE | 2017-10-23 14:36 | NUR ---
BOTH PT AND HER ASLEEP. WILL COME BACK BY AGAIN.
--- NOTE | 2017-10-23 14:41 | NUR ---
MEDICATION DUE. PT FINISHED WITH SHOWER. PT RESTING IN BED. O2 IN PLACE. MEDICAITON GIVEN ORDERED. BED RAILS UP. AT BEDSIDE. BED ALARM ON. CALL LIGHT WITHIN REACH.
--- NOTE | 2017-10-23 16:13 | NUR ---
ASSESSMENT DUE. PATIENT RESTING WITH EYES CLOSED RESPIRATIONS 16 PER MINUTE. PATIENT COOPERATIVE WITH ASSESSMENT. ORIENTED TO SELF. OXYGEN SAT 94% ON 3.5 LPM VIA NC. BED ALARM ON, SIDE RAILS UP. CURTAIN OPEN TO NURSES STATION FOR EASY VIEWING. CALL LIGHT WITHIN REACH.
--- NOTE | 2017-10-23 17:21 | NUR ---
MEDICATIONS DUE. CONTACT LENS FITTER TAKING VITAL SIGNS. AT BEDSIDE. PATIENT AWAKE. MEDICATIONS GIVEN (SEE MAR). PATIENT TOOK MEDICATIONS WITH OUT COUGHING JUST CLEARING HER THROAT A FEW TIMES. BED ALARM ON. CALL LIGHT WITHIN REACH. NO FURTHER REQUESTS AT THIS TIME. CURTAIN OPEN TO NURSES STATION FOR EASY VIEWING.
--- NOTE | 2017-10-23 17:29 | NUR ---
PATIENT HERE FOR PNEUMONIA AND NEW DIAGNOSIS OF CHF. PATIENT IS FREQUENTLY AND URGENTLY UP TO THE COMMODE, SBA. PATIENT IS IMPULSIVE WITH ACTIVITY. BED ALARM ON. PATIENT IS ON 3.5 LPM VIA NC TO MAINTAIN OXYGEN SATURATIONS. SPEECH EVALUATION DONE, THERAPIST SUGGESTED BARIUM SWALLOW. PATIENT IS ON A SOFT DIET. PATIENT HAS DEMENTIA AND DOES NOT USE CALL LIGHT APPROPRIATELY.
--- NOTE | 2017-10-23 19:15 | NUR ---
IN ROOM FOR REPORT, PT IS RESTING WITH EYES CLOSED AND RESPIRATIONS ARE EVEN AND NONLABORED. PT'S IS AT BEDSIDE. CALL LIGHT IS WITHIN REACH.
--- NOTE | 2017-10-23 21:15 | NUR ---
IN ROOM TO ASSESS PT AND ADMINISTER MEDICATIONS. PT DENIES PAIN. SHE IS ON 2 LNC AT THIS TIME WITH OXYGEN SAT OF 93%. PT'S IS AT BEDSIDE. SHE CAN STATE HER NAME BUT WAS NOT ABLE TO STATE WITHOUT HELP. SHE NEEDS REORIENTATION OFTEN. PT HAD DRY SOUNDING COUGH AFTER ASKING HER TO TAKE DEEP BREATHS. WAS CONCERNED ABOUT THIS ADVISED HIM THAT WE COULD HAVE R.T. ASSESS HER AND OFFER PRN NEB TRT. PT DENIES NEEDS AT THIS TIME. CALL LIGHT IS WITHIN REACH.
--- NOTE | 2017-10-23 21:47 | NUR ---
ROUNDED CHARGE PATIENT IS RESTING IN BED. FAMILY IS AT THE BEDSIDE. PATIENT AND FAMILY DENY ANY COMMNETS, QUESTIONS, OR CONCERNS. NO NEEDS NOTED. CALL LIGHT IN REACH.
--- NOTE | 2017-10-23 23:34 | NUR ---
INNA BAUER AND I WENT IN THE ROOM TO TRY TO GET UP THE PATIENT TO USE THE TOILET. PATIENT'S DAUGTHER IN THE ROOM STATED LET HER SLEEP. CHELO MCLAUGHLIN NOTIFIED.
--- NOTE | 2017-10-23 23:57 | NUR ---
HELPED PT TO THE COMMODE AND BACK TO BED. PT DENIES NEEDS, BED ALARM IS ON AND CALL LIGHT IS WITHIN REACH.
--- NOTE | 2017-10-24 01:21 | NUR ---
PT IS RESTING WITH EYES CLOSED, RESPIRATIONS ARE EVEN AND NONLABORED. PT'S DAUGHTER IS IN THE ROOM. BED ALARM IS ON.
--- NOTE | 2017-10-24 02:55 | NUR ---
ADMINISTERED MEDICATION, PT WOKE EASILY. SHE DENIES NEEDS AT THIS TIME. DAUGHTER IS IN THE ROOM.
--- NOTE | 2017-10-24 07:36 | NUR ---
HAND OFF REPORT TAKEN FROM CHELO MCLAUGHLIN. THIS RN AND LISSETTE RN NOTE THAT BP IS ELEVATED AT 184/83 TAKEN BY CNAS. THIS RN TO ROOM TO RETAKE BP. BP NOW 153/77 (MAP OF 96). PT RESTING IN BED. ASSESSMENT DONE. PT STATES SHE IS COLD, WARM BLANKETS PROVIDED (TEMP 97.9). PT DESNIES PAIN. NO SOB NOTED. MEDCATIONS GIVEN (SEE MAR). OCCATIONAL DRY COUGH NOTED. BED RAILS UP. DAUGHTER AT BEDSIDE. CALL LIGHT WITHIN REACH. BED ALARM ON.
--- NOTE | 2017-10-24 08:24 | NUR ---
PATIENT WAS RESTING IN BED. PATIENT REFUSED AN CARE. PATIENT AGGRAVATED AN REFUSE BREAKFAST. CALL LIGHT IN REACH. NO OTHER NEEDS AT THIS TIME.
--- NOTE | 2017-10-24 10:25 | NUR ---
MEDICATION DUE. HR RECORDED AT 41 BPM. RECHECKED 52 BPM. RT AT BEDSIDE RECORDED PULSE 54 BPM. PATIENT IS KNOWN TO BE BRADYCARDIC. MEDICATION GIVEN (SEE MAR). CALL LIGHT WITHIN REACH. CURTAIN OPEN TO NURSES STATION. FAMILY AT BEDSIDE. BED ALARM ON.
--- NOTE | 2017-10-24 11:17 | NUR ---
THIS RN TO ROOM WITH MD FOR ROUNDS. ROOM AIR TRIAL ATTEMPTED. PT DROPS TO 87% AFTER 10 MINUTES ON ROOM AIR. PT PLACED BACK ON 2L O2 BY NACHO. ORDERS HOME OXYGEN TRIAL. ORDER ENTERED. FOCUSSED ASSESSMENT DONE. PT RESTING IN BED. FAMILY STATES THEIR QUESTIONS HAVE BEEN ANSWERED. BED ALARM ON. BED RAILS UP. CALL LIGHT WITHIN REACH.
--- NOTE | 2017-10-24 12:32 | NUR ---
PT RESTING, FAMILY IN . HER INVITED ME IN, SHOOK MY HAND. BOTH HE AND THEIR DAUGHTER FEEL VERY GOOD ABOUT PT'S CARE, AND MENTIONED THAT SHE SLEPT REALLY WELL LAST NIGHT. PT AWOKE, AND WAS RATHER "SPUNKY" WITH HER RE- SPONSES TO MY QUESTIONS. HER DAUGHTER LAUGHED AND SAID THAT SHE IS FEELING MUCH BETTER! EXTENDED A BLESSING, WILL FOLLOW NEEDED
--- NOTE | 2017-10-24 12:48 | NUR ---
PATIENT'S REQUESTED INFORMATION ABOUT WHEN RT WILL DO THE HOME OXYGEN TRIAL. THIS RN CALLED RT, RT IS AWARE OF THE ORDER. PATIENT'S UPDATED. COMMUNITY HEALTH WORKER ON THE WAY TO SPEAK WITH PATIENT AND .
--- NOTE | 2017-10-24 13:44 | NUR ---
CHW NOTE REC'D CHW REFERRAL FROM SHIVA ChunRN FOR INFORMATION ON CAREGIVERS TO BE PROVIDED TO PATIENT AND HER "ISAIAH". IVETTE WITH CHF PROGRAM NOTIFIED OF PATIENT AND DX. MADE VISIT [facility] PATIENT AND HER WHILE IN HOSPITAL. PROVIDED CAREGIVER TOOLS AND LIST OF CAREGIVERS AVAILABLE FOR HIRE. ALSO FAXED A REFERRAL TO [facility] FOR [facility]IOR [facility] RO[facility]. DISCUSSED [facility] EVAL BUT PATIENT & OWNS HOME AND STORAGE RENTALS. PATIENT'S PCP DR. DIANE PEDRAZA NOTIFIED OF PATIENT'S HOSPITAL ADMISSION.
--- NOTE | 2017-10-24 13:50 | NUR ---
MEDICATIONS DUE. MEDICATION GIVEN. TITRATED OXGYEN DOWN TO 1 LPM, OXYGEN SATURATION HOLDING STEADY AT 97%. PATIENT IS ALERT AND AWAKE. PATIENT AGREED TO TRY DRINKING A MILKSHAKE. PATIENT WAS ABLE TO TELL THIS RN SHE WAS IN THE HOSPITAL AND HER NAME. BED ALARM ON. CURTAIN OPEN TO NURSES STATION. NO FURTHER REQUESTS AT THIS TIME.
--- NOTE | 2017-10-24 17:07 | NUR ---
ASSESSMENT AND MEDICATIONS DUE. ASSESSMENT DONE. PATIENT ALERT AND AWAKE. ORIENTED TO SELF, PLACE, AND SITUATION. UNSURE ABOUT DATE, DAY, AND TIME. PATIENT PLEASANT AND CHATTY. AT BEDSIDE. PATIENT ENJOYING CHOCOLATE ENSURE MILKSHAKE. CALL LIGHT WITHIN REACH. CURTAIN OPEN TO NURSES STATION. BED ALARM ON.
--- NOTE | 2017-10-24 17:33 | NUR ---
PATIENT HERE FOR PNEUMONIA AND A NEW DIAGNOSIS OF CHF. FREQUENTLY AND URGENTLY UP TO THE COMMODE. SBA. IMPULSIVE WITH ACTIVITY. BED ALARM ON. ON 1 LPM O2 TO MAINTAIN SATS. SOFT DIET. SWALLOWS PILLS BETTER IF CUT IN HALF. PATIENT HAS DEMENTIA AND DOES NOT ALWAYS USE CALL LIGHT APPROPRIATELY.
--- NOTE | 2017-10-24 19:23 | NUR ---
IN ROOM FOR REPORT, PT IS RESTING WITH EYES CLOSED. BED ALARM IS ON.
--- NOTE | 2017-10-24 20:18 | NUR ---
PT USED CALL LIGHT, ASSISTED TO THE BATHROOM WITH SBA, INDEPENDENT IN BATHROOM. OFFERED TO BRUSH TEETH BUT REFUSED. BACK TO BED WITH SIDE RAILS UP AND BED ALARM IN PLACE, CALL LIGHT WITH IN REACH.
--- NOTE | 2017-10-24 20:44 | NUR ---
IN ROOM TO ASSESS PT AND ADMINISTER MEDICATIONS. SHE STATES SHE HAS A HEADACHE, TYLENOL ADMINISTERED ALONG WITH OTHER MEDS. SHE HAS CONTINUOUS PULSEOX ON AND SHE DROPS TO 89% AT TIMES. INCREASED O2 TO 2LNC. PT'S HR REMAINS IN MID TO UPPER 50'S. PT DENIES NEEDS AT THIS TIME. BED ALARM IS ON.
--- NOTE | 2017-10-24 21:45 | NUR ---
BED ALARM ACTIVATED, PT WAS SITTING UP IN BED AND WANTING TO USE THE RESTROOM. HELPED HER TO THE RESTROOM AND BACK TO BED. SHE DENIES FURTHER NEEDS. BED ALARM IS ON.
--- NOTE | 2017-10-24 22:19 | NUR ---
V/S AND I&O DONE AND CHARTED. PATIENT USED THE CALL LIGHT TO USE THE BATHROOM ASSISTED BY CHELO OWENS. PATIENT IS BACK IN BED. BED ALARM ON.
--- NOTE | 2017-10-24 22:30 | NUR ---
PT ATTEMPTED TO GET OUT OF BED, SHE WAS HELPED TO THE RESTROOM AND BACK TO BED BY ANOTHER RN. BED ALARM IS ON.
--- NOTE | 2017-10-25 | NUR ---
PT CALLED TO USE THE RESTROOM, HELPED PT TO RESTROOM AND BACK TO BED. SHE STATES IT IS GETTING EASIER TO MOVE AROUND. AFTER SHE WAS BACK IN BED HER O2 SAT WAS 85% ON 1 LNC, PLACED IT UP TO 2 LNC FOR A MINUTE THEN BACK TO 1 LNC TO REMAIN ABOVE 90%. BED ALARM IS ON AND CALL LIGHT IS WITHIN REACH.
--- NOTE | 2017-10-25 00:50 | NUR ---
PT TRIED TO GET OUT OF BED, ALARM SOUNDED. SHE STATED SHE WANTED TO COME OUT IN THE HALLWAY AND TALK TO THOSE PEOPLE. SHE IS PLEASANTLY WALKING THE STOCK WITH 2 PA AND O2 TANK AT 2 LNC. SHE IS STOPING TO GREET ALL THE NURSES IN THE STOCK.
--- NOTE | 2017-10-25 02:11 | NUR ---
IN ROOM TO ADMINISTER MEDICATION. PT STATED SHE WAS GOING HOME. TOLD HER THAT HER FAMILY WILL COME TOMORROW. SHE RESISTED FOR A BIT THEN GOT BACK INTO BED. SHE IS RESTING WITH EYES OPEN AND CALL LIGHT IS WITHIN REACH WITH BED ALARM ON.
--- NOTE | 2017-10-25 02:42 | NUR ---
PT TRIED TO GET OUT OF BED AGAIN. THIS TIME SHE STATES SHE HAS A HEADACHE AGAIN. OFFERED HER TYLENOL AND TURNED THE TV ON. ALSO GAVE HER ICECREAM MIXED WITH CHOCLOATE ENSURE. SHE SEEMS CONTENT AT THIS TIME. BED ALARM IS ON.
--- NOTE | 2017-10-25 03:23 | NUR ---
HELPED PT TO RESTROOM AND BACK TO BED. BED ALARM IS ON.
--- NOTE | 2017-10-25 04:41 | NUR ---
PT SET OFF BED ALARM, SHE WANTS TO MAKE SURE SHE DOESN'T GET FORGET AND LEFT HERE. LET HER KNOW SHE WON'T BE FORGOTTEN. SHE IS LAYING DOWN AGAIN WITH BED ALARM ON.
--- NOTE | 2017-10-25 04:45 | NUR ---
PT WAS UP ALOT THROUGHOUT THE NIGHT. SHE COMPLAINED OF A HEADACHE TWICE SHORTLY AFTER RECEIVING HER NITROBID PASTE AND WAS ADMINISTERED TYLENOL. SHE STARTED THE EVENING MORE ORIENTED, KNOWING HER NAME AND THAT SHE IS IN THE HOSPITAL. BY THIS MORNING SHE HAS BECOME UPSET WANTING TO GO HOME. SHE IS A SBA ON 1 LNC, AFTER GETTING UP TO THE RESTROOM SHE DESATS INTO THE UPPER 80'S THEN RECOVERS AFTER A MINUTE OR 2 BACK INTO THE 90'S. SHE IS ON A CARDIAC DIET WITH 2000 ML FLUID RESTRICTION. POSSIBLE DC HOME TODAY.
--- NOTE | 2017-10-25 05:03 | NUR ---
HAD TROUBLE GETTING A GOOD READING OF PT'S BP THIS AM. WHEN ATTEMPTING TO TAKE IT AGAIN PT BECAME ANGRY. PT HAS BEEN WANTING TO LEAVE AND ASKING FOR HER CLOTHES. IN AN EFFORT TO KEEP HER FROM GETTING MORE UPSET WE WILL TRY LATER WHEN SHE IS MORE COOPERATIVE.
--- NOTE | 2017-10-25 05:40 | NUR ---
PT IS SITTING IN CHAIR AT THIS TIME, IN VIEW OF THE NURSES STATION.
--- NOTE | 2017-10-25 08:16 | NUR ---
PATIENT MOVED TO THE CHAIR, PRESSURE ALARM UNDER THE PATIENT, BP TAKEN AND AM MEDICATION GIVEN AT THIS TIME. PATIENT HAD NO TROUBLE WITH SWALLOWING PILLS AND IS A STANDBY UP TO THE BATHROOM. SHE IS PLACED ON OXYGEN AT 1L PER NC WITH SATURATION OF 94%. SHE REMAINS CONFUSED BUT COULD TELL ME THE ROOM NUMBER SHE WAS IN.
--- NOTE | 2017-10-25 08:24 | NUR ---
PATIENT SITTING UP IN BEDSIDE RECLINER, RN IN ROOM. LINENS CHANGED. PATIENT WASHED HANDS AND FACE WITH WARM WASH CLOTH. PATIENT EATING BREAKFAST. CALL LIGHT IN REACH. NO OTHER NEEDS AT THIS TIME.
--- NOTE | 2017-10-25 09:37 | NUR ---
PATIENT RESTING IN BED, CALL LIGHT IN REACH. PATIENT APPEARS TO BE SLIGHTLY CONFUSED, AND CONTINUES ASKING IF THERES SOMEBODY IN THE BATHROOM. BED ALARM ON. NO OTHER NEEDS AT THIS TIME.
--- NOTE | 2017-10-25 09:59 | NUR ---
PATIENT RESTING IN BED WITH OXYGEN ON AT 1L PER NC, IN THE ROOM.
--- NOTE | 2017-10-25 10:30 | NUR ---
PATIENT ASSISTED UP TO THE BATHROOM, VOIDED IN THE TOILET AND MISSED THE HAT. SHE REMAINS A STANDBY ASSIST AT THIS TIME
--- NOTE | 2017-10-25 11:21 | NUR ---
PATIENT GIVEN 650MG AT THIS TIME FOR C/O ARZATE.
--- NOTE | 2017-10-25 12:26 | NUR ---
PATIENT FINISHED LUNCH, SHE WAS ABLE TO FEED HERSELF WITHOUT ASSISTANCE. LEFT, RAILS UP X4 AND ALARM ON IN THE BED.
--- NOTE | 2017-10-25 14:08 | NUR ---
Certified Heart Failure Nurse Notes: Diagnosis:CHF/PNEUMONIA PCP:MILO Date of echocardiogram -PENDING Bal Inhibitor or ARB for LVSD prescribed If either an BAL or an ARB is not ordered: PENDING ECHO Admit Wt.: 158 LB Admit BNP: 500 Social support system: Lives with spouse John. Daughter works in [place] Weight monitoring: Scale present in home- John was unable to state if they do or not. Education initiated on daily weights and when to notify PCP using-- teach back Symptom management: Specific written recommendations to follow-up for ongoing management, and to address changes in weight or symptoms Transportation mode: spouse Diet: Does not routinely use table salt. Dines out: [employer] chicken mcnuggets "as often as she can get them" Does not eat out at any other establishments Usual physical activity:not discussed at this introduction meeting Medication routine:Daughter fills pill boxes on Tuesdays. She does two weeks worth at a time in case she is unavailable some weeks. Advised John to potato picker any new meds on the day of discharge, and if possible have daughter check them that day. Smoking cessation:NA Advanced directive:not addressed at this initial meeting. Recommended prior to discharge: Documented ambulation oxygen saturations prior to discharge. Absence of orthostatic hypotension. Barriers to self-care include:Dementia Follow-up plans: Will return tomorrow to give spouse low sodium grocery list / Zones magnet and review daily symptom monitoring.
--- NOTE | 2017-10-25 14:08 | NUR ---
PATIENT RESTING IN BED, CALL LIGHT IN REACH, BED ALARM ON, NO OTHER NEEDS AT THIS TIME.
--- NOTE | 2017-10-25 15:32 | NUR ---
THIS EXHIBITS MANAGER ASSISTED PATIENT UP TO BEDSIDE RECLINER. PATIENT POSITIONED SO THAT SHE CAN SEE OUT THE WINDOW AND VISIT WITH FAMILY. CHAIR ALARM IN PLACE, CALL LIGHT IN REACH. PATIENT STATES SHE DOES NOT WANT TO SHOWER AT THIS TIME, BUT MAYBE LATER. NO OTHER NEEDS AT THIS TIME.
--- NOTE | 2017-10-25 15:39 | NUR ---
PATIENT AMBULATED AROUND THE NURSES STATION WITH OXYGEN ON AT 1L PER NC. PATIENT TOLERATED AMBULATION WITH FWW WELL
--- NOTE | 2017-10-25 16:37 | NUR ---
PATIENT REMAINS ON THE FLUID RESTRICTION BUT HAS NOT HAD MUCH INTAKE TODAY. SHE IS UP ON THE COUCH WITH HER SITTING WITH THE PRESSURE ALARM ON.
--- NOTE | 2017-10-25 17:24 | NUR ---
patient given tylenol po at this time for c/o paniagua
--- NOTE | 2017-10-25 19:30 | NUR ---
GETTING REPORT FROM DAYSHIFT RN. PATIENT RESTING IN BED VISITING WITH FAMILY. BED ALARM ON.
--- NOTE | 2017-10-25 21:00 | NUR ---
PATIENT NOT WANTING TO STAY IN BED, USED THE BATHROOM WITH WALKER AND 1PSBA. PATIENT THEN DECIDED SHE WANTED TO SIT UP IN THE RECLINER FOR AWHILE AND CHAIR ALARM ON.
--- NOTE | 2017-10-25 21:59 | NUR ---
PATIENT GOT BACK INTO BED AFTER SITTING IN THE RECLINER FOR ABOUT AN HOUR. CURRENTLY RESTING QUIETLY. EYES CLOSED, RESPIRATIONS EVEN AND REGULAR, BED ALARM ON, PATIENT ON 2L/NC FOR SLEEP.
--- NOTE | 2017-10-26 00:32 | NUR ---
PATIENT SUPINE IN BED, EYES CLOSED, REPIRATIONS EVEN AND REGULAR AT A RATE OF 16. PATIENT VISIBLE FROM NURSES STATION. BED ALARM ON AND CALL LIGHT IN REACH.
--- NOTE | 2017-10-26 02:00 | NUR ---
PATIENT UP TO THE BATHROOM WITH FWW AND 1PSBA. THEN BACK TO BED.
--- NOTE | 2017-10-26 03:17 | NUR ---
PATIENT SITTING UP IN THE RECLINER AGAIN AT THIS TIME, AWAKE AND JUST LOOKING AROUND. PATIENT WAS ASKED IF SHE NEEDED ANYTHING AND SHE SAID,"NO I'M OK."
--- NOTE | 2017-10-26 03:30 | NUR ---
PATIENT JUST ASSISTED BACK INTO BED AND GIVEN WARM BLANKETS.
--- NOTE | 2017-10-26 06:48 | NUR ---
PATIENT RESTING QUIETLY, EYES CLOSED, RESPIRATIONS EVEN AND REGULAR.
--- NOTE | 2017-10-26 07:57 | NUR ---
PATIENT SET OFF BED ALARM TO USE BR. ASSISTED TO BR BY INVOICING SPECIALIST. PATIENT ONE PERSON ASSIST WITH WALKER. PATIENT ORIENTED TO SELF. HAD TO THINK ABOUT BIRTHDAY BUT DID GET IT RIGHT. ABLE TO TELL ME SHE WAS IN THE HOSPITAL ( DID NOT KNOW THE NAME), UNABLE TO STATE DATE OR MONTH. PATIENT SET UP FOR BREAKFAST IN CHAIR. CHAIR ALARM IN PLACE. PATIENT CONTINUES TO BE ON 2 L SATING 94 PERCENT. VITALS DONE. RADIAL HR 50. VERIFIED WITH CHARGE NURSE ABOUT MORNING MEDICATIONS TO BE GIVEN.
--- NOTE | 2017-10-26 08:00 | NUR ---
PATIENT WAS TRYING TO GET OUT OF BED. BED ALARM WENT OFF TOOK HER TO THE BATHROOM NOW SHE IS UP IN HER CHAIR EATING BREAKFAST BED LINENS CHANGED.
--- NOTE | 2017-10-26 08:41 | NUR ---
PATIENT CALLED TO USE BR. ASSISTED TO BR WITH 1 ASSIST AND WALKER. IN ROOM.
--- NOTE | 2017-10-26 09:52 | NUR ---
AFTER TALKING WITH PT HE STATED TO GO AHEAD AND GET THE O2 SET UP THROUGH [facility] AND HE WOULD PAY THE MONTHLY FEES. FAXED CHART NOTES TO [facility] INCLUDING FACE SHEET, [facility] O2 QUALIFIER, ER NOTES, H AND P, AND PROG NOTES. RECIEVED FAX CONFIRMATION OF THIS.
--- NOTE | 2017-10-26 10:58 | NUR ---
rounded with dr. sr. plan to discharge home. in room for discharge instructions.
[2017-10-26] MEDS ORDERED: DOXYCYCLINE HY100 MG PO (10:59)
[2017-10-26] MEDS ORDERED: KLOR-CON 1010 MEQ PO (11:00)
[2017-10-26] MEDS ORDERED: FUROSEMIDE40 MG PO (11:07)
--- NOTE | 2017-10-26 11:39 | NUR ---
patient sitting up in bed. tolerating lunch well. plan to get dressed after lunch. in room.
--- NOTE | 2017-10-26 11:40 | NUR ---
pharmacy in room to given discharge education.
--- NOTE | 2017-10-26 11:55 | NUR ---
patient assisted to the br after lunch. tolerated well. changed into own clothing. vitals done. iv d/c'd.
== END 2017-10-26 12:08 | disposition home or self-care (01) | DRG 291 ==
LOC: ED 22:37 → CCU 10-21 02:32 → MS 10-21 02:32
PROVIDERS: ADMIT Internal Medicine
DX: I11.0 Hypertensive heart disease with heart failure (principal); J96.01 Acute respiratory failure with hypoxia; J18.9 Pneumonia, unspecified organism; F03.90 Unspecified dementia, unspecified severity, without behavioral disturbance, psychotic disturbance, mood disturbance, and anxiety; E78.5 Hyperlipidemia, unspecified; E11.9 Type 2 diabetes mellitus without complications; Z79.84 Long term (current) use of oral hypoglycemic drugs; I50.21 Acute systolic (congestive) heart failure; Z87.891 Personal history of nicotine dependence
CPT/HCPCS: 36415; 36600; 51798; 71045; 80048; 80053; 82803; 83605; 83735; 83880; 84484; 85025; 87070; 87205; 92610; 93005; 93010; 94668; 94761; 94762; 96374; 99285; J0456; J0696; J1630; J1650

== ENCOUNTER 2018-03-11 12:28 | Inpatient (IN) | payer MEDICARE ==
[~2018-03-11] VITALS: Ht 175.3 cm; Wt 67.3 kg
[~2018-03-11 12:28] MED LIST changes: +COMBIGAN EYE DRO5 ML OU; +DOXYCYCLINE HY100 MG PO; +FUROSEMIDE40 MG PO; +KLOR-CON 1010 MEQ PO; -LATANOPROST2.5 ML OPTH; +LATANOPROST2.5 ML OU; +VITAMIN D31000 UNIT PO; -VITAMIN D3400 UNI1 PO
--- NOTE | 2018-03-11 18:02 | NUR ---
PT ARRIVED TO THE CCU VIA STRETCH WITH HER AT HER SIDE. PT IS ALERT TO NAME AND PLACE. PT IS NOT ALERT TO DATE OR WHY SHE IS IN THE HOSPITAL. ORIENTED PT AND HER TO ROOM AND PLAN OF CARE. FOOD AT THE BEDSIDE. PT HAS A MATIAS CATHETER IN PLACE. PTS DAUGHTER IS ON HER WAY. PTS DAUGHTER HELPS HER WITH HER MEDICATIONS AT HOME. MEDICATIONS ADMINISTERED WITH NO ISSUES. WILL CONTINUE TO CLOSELY MONITOR.
--- NOTE | 2018-03-11 18:55 | NUR ---
PT RESTING IN BED WITH FAMILY AT THE BEDSIDE. PT DENIES ANY NEEDS. PLACED BACK ON 3L OXYMASK INSTEAD OF NASAL CANNULA WHILE PT IS RESTING. PT REMAINS ON CARDIZEM GTT AT 7.5MLS/HR. WILL CONTINUE TO CLOSELY MONITOR.
--- NOTE | 2018-03-11 19:15 | NUR ---
PTS HR IN THE 70'S AND BLOOD PRESSURE DOWN TO 95/63. TURNED CARDIZEM GTT DOWN TO 5MLS/HR. CALLED RT FOR A NEB TREATMENT D/T OXYGEN UP TO 5L OXYMASK. WILL CONTINUE TO CLOSELY MONITOR.
--- NOTE | 2018-03-11 19:30 | NUR ---
REPORT RC'D FROM DAY SHIFT NURSE THIAGO. REPORTS PT CONFUSED, DEMTENIA AT BASELINE, CARDIZEM GTT CURRENTLY AT 5 MH/HR, AND FAMILY TO REMAIN AT BEDSIDE. RT IN ROOM GIVING NEB TREATMENT. FULL ASSESSMENT TO BE COMPLETED.
--- NOTE | 2018-03-11 20:17 | NUR ---
PT RESTING IN BED WATCHING TV, DAUGHTER AT BEDSIDE. UPDATED PLAN OF CARE, PROVIDED EDUCATION ON CARDIZEM GTT AND USES, REINFORCED CHF EDUCATION AND FLUID RESTRICTION, REINFORCED FALLL PREVENTION. CARDIZEM GTT INFUSING AT 5 MG/HR, HR 79, BP 97/68, MAP 72, WILL CONTINUE TO MONITOR AND TITRATE. FINE CRACKLES IN BLL, BUL CLEAR, 4L NC. SPO2 97%, RR 17. MATIAS CATH IN PLACE DRAINING DILUTE YELLOW URINE. BASELINE DEMENTIA, ORIENTED TO SELF AND PLACE, REORIENTED, DAUGHTER TO REMAIN AT BEDSIDE. DENIES PAIN.
--- NOTE | 2018-03-11 20:42 | NUR ---
CARDIZEM GTT TITRATED TO 2.5 MG/HR AT THIS TIME, HR 77, BP 104/56, WILL CONTINUE TO MONITOR. CBG 120, NO SLIDING SCALE INSULIN NEEDED AT THIS TIME.
--- NOTE | 2018-03-11 21:02 | EKG ---
[facility] [address] [place] [address] Signed Atrial fibrillation with rapid ventricular response Low voltage QRS Cannot rule out Anteroseptal infarct (cited on or before 20-OCT-2017) Abnormal ECG When compared with ECG of 21-OCT-2017 00:41, Atrial fibrillation has replaced Sinus rhythm Vent. rate has increased BY 57 BPM Nonspecific T wave abnormality now evident in Inferior leads Nonspecific T wave abnormality, worse in Lateral leads Confirmed by DICK WALL DO ([id number]) on 03/11/2018 9:02:36 PM Electronically Signed By: DICK WALL DO 03/11/182101 PATIENT NAME: EUGENIO GÓMEZ Electrocardiogram DATE OF : 35 PHYSICIAN: DICK WALL DO REPORT #: [id number] REPORT IS CONFIDENTIAL AND NOT TO BE RELEASED WITHOUT AUTHORIZATION
--- NOTE | 2018-03-11 21:30 | NUR ---
CARDIZEM GGT DC'D AT THIS TIME, HR 82, BP 109/70. WILL CONTINUE TO MONITOR.
--- NOTE | 2018-03-11 22:00 | NUR ---
PT NOTED TO BE PICKING AT IV SITE AND REMOVING SPO2 MONITOR, IV SITE COVERED WITH MESH SLEEVE AND SPO2 SENSORY MOVED TO RIGHT GREATER TOE. VITAL SIGNS REMAIN WNL AFTER DC OF CARDIZEM GTT.
--- NOTE | 2018-03-11 23:18 | NUR ---
PT NOTED BY DAUGHTER TO BE RUBBING FORHEAD, PT HAVING ARZATE UNABLE TO RATE. GIVEN 650MG TYLENOL PO.
--- NOTE | 2018-03-12 00:30 | NUR ---
PT RESTING IN BED, DAUGHTER AT BEDSIDE, BED ALARM ON. PT AWAKENS EASILY TO VERBAL STIMULI, DISORIENTED, REORIENTED AND FALLS BACK TO SLEEP. PT'S HR 87, BP 108/61, MAP 70. NO ACUTE CHANGES TO ASSESSMENT. IV SITE REMAINS COVERED.
--- NOTE | 2018-03-12 01:04 | NUR ---
EXCESSIVE MOVEMENT NOTED ON MONITOR, IN ROOM TO ASSESS PT. PT FOUND TO HAVE PULLED IV SITE OUT, CATH INTACT, SITE DRESSED. PT REORIENTED TO SURROUNDINGS, DAUGHTER AT BEDSIDE, BED ALARM ON. WILL CONTINUE TO MONITOR.
--- NOTE | 2018-03-12 02:19 | NUR ---
BS 181 NO CHANGE INSULIN. PT REPOSITIONED AND ORAL CARE DONE. PT MILDLY RESISTED ORAL CARE BUT SETTLED BACK DOWN.
--- NOTE | 2018-03-12 03:08 | NUR ---
PT'S URINE OUTPUT NOTED TO DECREASE BETWEEN 0200 AND 0300, 20ML NOTED IN LAST HOUR. OVERALL PT HAS VOIDED QS IN LAST 8 HOURS WITH 300 ML OUTPUT TOTAL. WILL CONTINUE TO MONITOR HOURLY OUTPUT, WILL INFORM PROVIDER IF HOURLY OUTPUT CONTINUES TO BE LESS THAN 30 ML/HR.
--- NOTE | 2018-03-12 04:00 | NUR ---
PT HOURLY URINE OUTPUT NOTED TO [address] WALL REGARDING DECREASED URINE OUTPUT AND INCREASED CRACKLES TO BLL. PER PROVIDER, GIVE ONE TIME 20MG DOSE IV LASIX, READ BACK VERIFIED. WILL CONTINUE TO MONITOR.
--- NOTE | 2018-03-12 05:15 | NUR ---
NEW IV SITE INSERTED AND COVERED WITH MESH SLEEVE, PT TOLERATED WELL. 20MG IV LASIX GIVEN. HOURLY URINE OUTPUT 21 ML. WILL CONTINUE TO MONTIOR.
--- NOTE | 2018-03-12 06:49 | NUR ---
PT HAS REMAINED OFF CARDIZEM GTT FOR MOST OF NIGHT, HR HAS BEEN TRENDING UP BUT STILL WITHIN 80-90'S. URINE OUTPUT HAS INCREASED SINCE 20 MG LASIX GIVEN. CRACKLES REMAIN IN BLL, 4L OXYMASK, OXYGEN SATURATION GREATER THAN 92%. PT SLEPT ON AND OFF, EASILY AWAKENS, CONTINUES TO HAVE BASELINE CONFUSION, BED ALRAM ON, AND DAUGHTER AT BEDSIDE.
--- NOTE | 2018-03-12 07:30 | NUR ---
PT SHIFT REPORT RECEIVED FROM WEATHERIZATION DIRECTOR RN. PT RESTING IN BED WITH HER DAUGHTER AT BEDSIDE. ALL QUESTIONS ANSWERED. WILL CONTINUE TO CLOSELY MONITOR.
--- NOTE | 2018-03-12 09:51 | NUR ---
PT RESTING IN BED. PT EATING BREAKFAST WITH HER DAUGHTER AT BEDSIDE. MATIAS CATHETER EMPTIED. MD WALL IN TO SEE PATIENT. PT IS VERY [place]. ASSESSMENT COMPLETED. CRACKLES NOTED IN BASES OF LUNGS. BOWEL TONES ACTIVE. WILL CONTINUE TO CLOSELY MONITOR.
--- NOTE | 2018-03-12 10:57 | NUR ---
PT RESTING IN BED. PT HAD A COUGHING EPISODE AFTER EATING. MD WALL AWARE AND ORDERED ST EVALUATION. PT NOW RESTING IN BED RELAXING. PT HAS SWALLOWED PILLS AND WATER WITH NO ISSUES UNTIL THIS EPISODE WITH HER FOOD THIS AM. PTS FAMILY STATES THIS IS NORMAL FOR HER TO HAVE THESE COUGHING EP[ISODE WITH FOOD. WILL CONTINUE TO CLOSELY MONITOR.
[2018-03-12] MEDS ORDERED: FUROSEMIDE20 MG PO (11:23)
[2018-03-12] MEDS ORDERED: LYSINE500 MG PO (11:28)
[2018-03-12] MEDS ORDERED: CRANBERRY450 M2 PO (11:29)
[2018-03-12] MEDS ORDERED: CBD OIL PO (11:31)
[2018-03-12] MEDS ORDERED: VITAMIN B-12100 MCG PO (11:32)
[2018-03-12] MEDS ORDERED: VITAMIN B-6100 MG PO (11:33)
[2018-03-12] MEDS ORDERED: FOLIC ACID1 MG PO (11:34)
--- NOTE | 2018-03-12 12:39 | NUR ---
SPEECH THERAPY IN TO ASSESS PATIENT. PT DID NOT TOLERATE WELL. PT COUGHING WITH THERAPIST IN ROOM. THIS RN IN TO ASSESS. PT SPO2 99%. WILL CONTINUE TO CLOSELY MONITOR.
--- NOTE | 2018-03-12 14:57 | NUR ---
PT AWAKE AND VISITING WITH HER . CASE MANAGEMENT IN TO VISIT PT AND HER . WILL CONTINUE TO CLOSELY MONITOR.
--- NOTE | 2018-03-12 15:00 | NUR ---
PT HAS BEEN DROWSY MOST OF THE DAY. PT WAKES TO VOICE, BUT DRIFTS OFF TO SLEEP SHORTLY AFTER TALKING. PT IS ONLY ALERT TO NAME. PT HAS A HX OF DEMENTIA. VBG ORDERED. WILL CONTINUE TO CLOSELY MONITOR.
--- NOTE | 2018-03-12 15:15 | NUR ---
PT IS UP TO THE CHAIR. PTS HR INCREASED WITH ACTIVITY. MD IS AWARE. CHAIR ALARM IN PLACE FOR PATIENTS SAFETY.
--- NOTE | 2018-03-12 15:30 | NUR ---
PER MD SET-UP BIPAP AND INITIATE IF PATIENT DOES NOT STAY AWAKE. WILL CONTINUE TO CLOSELY MONITOR.
--- NOTE | 2018-03-12 17:45 | NUR ---
CALLED MD TO UPDATE THAT PT IS REFUSING THE BIPAP. PT IS CURRENTLY DOSING IN AND OUT. PT WAKES TO VOICE. PT IS ONLY ALERT TO NAME. WILL CONTINUE TO CLOSELY MOPNITOR. PER MD WILL RECHECK A VGB LATER.
--- NOTE | 2018-03-12 18:46 | NUR ---
MD AWARE THAT PATIENT HAS NOT HAD MUCH FLUID IN TODAY D/T DIFFICULTY WITH SWALLOWING AT TIMES. PER MD WILL CONTINUE TO CLOSELY MONITOR.
--- NOTE | 2018-03-12 19:30 | NUR ---
REPORT RC'D FROM DAY SHIFT NURSE. PT RESTING IN CHAIR WATCHING TV, CHAIR ALARM ON.
--- NOTE | 2018-03-12 21:30 | NUR ---
CBG NOTED TO BE 75, PO ENSURE GIVEN, REASSESSED AND CBG 128. PT DIORIENTED TO TIME AND EVENT, PT NOTED TO BE SLIGHTLY AGGITATED. PT ASSISTED BACK TO BED, SBA, GAIT STEADY. CRACKLES NOTED IN BASES, 2L NC, WILL CONTINUE TO MONITOR OXYGEN SATUATION AND ALERTNESS. DENIES PAIN. MATIAS CATH DRAINING DILUTE URINE. PT STATES, "I'M DONE, LEAVE ME ALONE." BED ALARM ON.
--- NOTE | 2018-03-12 22:00 | NUR ---
OXYGEN SATURATION DECREASED TO 77% RN IN ROOM TO ASSESS PT. PT SITTING UP IN BED WITH OXYGEN OFF. ATEMPTED TO PLACE NC, PT VEBALLY THREATENING AND SWATED CUP OUT OF NURSES HAND. PT REFUSING TO WEAR OXYGEN AND STATING TO "GET OUT" "LEAVE ME ALONE" "I'M GOING TO CALL THE POLICE." REASSURED PT AND PROVIDED EXPLAINATION, ALLOWED RN TO PUT ON OXYMASK BUT QUICKLY TOOK IT OFF AND THREW A CAP AT RN. PHONE CALL TO DR. WALL REGARING BEHAVIOR AND OXYGEN SATURATION. DR. WALL TO COME DOWN AND ASSESS PT.
--- NOTE | 2018-03-12 22:36 | NUR ---
PHONE CALL RC'D FROM PT'S DAUGHTER CONNOR. DAUGHTER AWARE OF PT'S AGGRESSIVE BEHAVIOR. PER CONNOR, "MY MOTHER HAS NEEDED HALDOL WITH PREVIOUS HOSPITALIZATIONS, SHE HAS ALSO NEEDED ZYPREXA, YOU COULD TRY AND GIVE HER THOSE. I CANNOT MAKE IT IN TONIGHT TO SIT WITH HER." DR. WALL TO SPEAK WITH CONNOR AND UPDATE PLAN OF CARE. WILL AWAIT ORDERS.
--- NOTE | 2018-03-12 23:30 | NUR ---
PT RESTING IN BED WITH EYES CLOSED, RESPIRATIONS EVN AND UNLABORED, NO ACUTE DISTRESS. SPO2 96% ON 2L OXYMASK.
--- NOTE | 2018-03-13 00:15 | NUR ---
PT RESTING WITH EYES CLOSED, RESPIATIONS EVEN AND UNLABORED, OXYMASK IN PLACE, NO ACUTE DISTRESS. EYES OPEN TO VERBAL STIMULI. BED ALARM ON.
--- NOTE | 2018-03-13 02:30 | NUR ---
PT AWAKENS EASILY TO VERBAL STIMULI, INCREASED AGGITATION, VERBALLY THREATENING, ATTEMPTING TO GET OUT OF BED. REORIENTED, REASSESSED, THERPUETIC COMMUNICATION, AGGITATION UNCHANGED. PPT REFUSING TO WEAR OXYGEN. PT EVENTUALLY SETTLED. BLOW BY OXYGEN AT 15L IN PLACE. WILL CONTINUE TO MONITOR.
--- NOTE | 2018-03-13 03:30 | NUR ---
PT REMAINS AGGITATED, SWING AT STAFF, VERBALLY THREATENING, FIGHTING TO GET OUT OF BED. 0.5 MG HALDOL GIVEN. PT CONTINUE TO BE AGGRESSIVE ADDITONAL 0.5 MG HALDOL GIVEN. PT REFUSING TO WEAR OXYGEN, SATURATIONS INTO 70'S. /T AT BEDSIDE TO ATTEMPT TO GET OXYGEN SOURCE. PT EVENTUALLY CALMED AND AGREEABLE TO NC.
--- NOTE | 2018-03-13 04:30 | NUR ---
PT RESTING IN BED WITH EYES CLOSED, AWAKENS EASILY TO VERBAL STIMULI, REQUESTING WATER, PROVIDED, PT MARIA G PLEASANT AND CALM AT THIS TIME. DENIES OTHER NEEDS. BED ALARM ON.
--- NOTE | 2018-03-13 05:30 | NUR ---
LAB IN ROOM TO OBTAIN BLOOD. PT MORE COOPERATIVE AND PLEASANT. PT AWAKENS EASILY AND VERRBALIZED DISCOMFT WITH LAB DRAW BUT IS REASSURED EASILY.
--- NOTE | 2018-03-13 07:51 | NUR ---
pt resting in bed with bed alarm on. morning assessment complete. pt confused but willing to cooperated with assessment. fresh water given.
--- NOTE | 2018-03-13 08:10 | NUR ---
in room with ptAshlyn
--- NOTE | 2018-03-13 08:30 | NUR ---
PT having coughing spell. productive cough with yellow sputum. sats dropped into the 80's. pt remained on 4l nc. took pt several minutes to recover after coughing spell. in room at this time. chest x-ray ordered.
--- NOTE | 2018-03-13 09:00 | NUR ---
x-ray tech in room with pt for chest x-ray.
--- NOTE | 2018-03-13 10:12 | NUR ---
pt resting in bed watching tv. bed alarm on. pt remains pleasantly confused.
--- NOTE | 2018-03-13 10:27 | NUR ---
in room to give pt bed bath to pt and do bansal care. pt tolerated bed bath well. pt less aggitated with in room. bed alarm remains on. O2 titrated to 3l NC.
--- NOTE | 2018-03-13 10:52 | NUR ---
physical therapy in room with pt.
--- NOTE | 2018-03-13 11:00 | NUR ---
pt ambulated in hallway with physical therapy. pt short of breath with activity. once back to room pts oxygen levels 86% on 4l NC. took pt several minutes to recover after ambulation. encouraged deep breathing. Pt remains on 4l NC. sats slowly increased to 90%.
--- NOTE | 2018-03-13 11:44 | NUR ---
PT WAS UP ALN AMBULATING THE HALLW WITH PArthur AND RN. WAS SITTING QUITLY IN , SAID MARGARITA. HE SEEMED PLEASED I STOPPED BY AND ASKED FOR A CUP OF COFFEE. CHELO RUSS WILL MAKE HIM A FRESH POT-HE GO EXCITED. WILL CHECK BACK AGAIN.
--- NOTE | 2018-03-13 11:51 | NUR ---
pt resting in bed with eye's closed. at bedside. bed alarm on.
--- NOTE | 2018-03-13 13:18 | NUR ---
AT BEDSIDE TO ASSIST PT WITH LUNCH. PT HAS DECREASED APPETITE. PT ABLE TO EAT MASHED POTATOES AND GRAVY WITHOUT HAVING COUGHING SPELL. PT IS A LARGE ASPIRATION RISK.
--- NOTE | 2018-03-13 17:48 | NUR ---
PATIENT IN BED VOMITING. O2 LOW, RN NOTIFIED. CALL LIGHT IN REACH. NO FURTHER NEEDS AT THIS TIME.
--- NOTE | 2018-03-13 18:00 | NUR ---
PT HAVING COUGHING FIT FOLLOWING DINNER. COUGHING UP LARGE AMOUNTS OF MUCUS. PTS O2 SATS DROPPED FOLLOWING COUGHING FIT. PTS SATS GRADUALLY INCREASED ONCE O2 BUMPED TO 4L NC.
--- NOTE | 2018-03-13 18:58 | NUR ---
RECIEVED CHANGE OF SHIFT REPORT FROM CHELO DENG. PATIENT RESTING AWAKE IN BED. TELE MONITOR [address] BED ALARM ON FOR SAFETY. PATIENT COUGHED UP SMALL-MODERATE AMOUNT OF THICK CLEAR/YELLOW SPUTUM. WHITE BOARD UPDATED.
--- NOTE | 2018-03-13 19:03 | NUR ---
CHARGE NURSE REPORT RECEIVED, PT IN BED, AWAKE.
--- NOTE | 2018-03-13 20:50 | NUR ---
ASSESSMENT COMPLETE. PATIENT DENIES PAIN. PATIENT REFUSED TO USE ACCAPELLA WHEN OFFERED. NO SIGNS OF RESPIRATORY DISTRESS. 4 L VIA NC. TELE MONITOR 2, HR: 97. MATIAS CATHETER DRAINGING YELLOW URINE. PATIENT EXHIBITED CONGESTED COUGH, SMALL TO MODERATE AMOUNT OF LIGHT YELLOW SPUTUM DURING SHIFT, EMESIS BAG AT BEDSIDE FOR PATIENT TO USE FOR SPUTUM PRODUCED. PATIENT ORIENTED TO SELF AND DATE OF , CONFUSED TO ALL OTHER. PATIENT COMPLIANT WITH MOST CARES DURING ASSESSMENT. SCHEDULED MEDICATIONS ADMINISTER PER MAR ORDER. PATIENT ABLE TO TAKE PILLS IN APPLESAUSE. BED ALARM ON AND CURTAIN OPEN FOR SAFETY. NO MORE NEEDS AT THIS TIME.
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
--- NOTE | 2018-03-13 23:33 | NUR ---
SCHEDULED MEDICATION ADMINISTERED PER APR ORDER. CHARGE NURSE GRACIELA AND THALIA RN HELPED TO COMFORT PATIENT WHILE ADMINSTERING SCHEDULED MEDICATION. THIS RN IS ONE ON ONE WITH PATIENT AT THIS TIME. BED ALARM ON FOR SAFETY. NEW STAT LOCK PLACED BY GRACIELA WHITNEY. NO MORE NEEDS AT THIS TIME.
--- NOTE | 2018-03-13 23:52 | NUR ---
THIS RN IS ONE ON ONE WITH PATIENT AT THIS TIME. PATIENT ATTEMPTED TO PULL OUT MATIAS CATHETER. THERAPEUTIC COMMUNICATION PROVIDED AND DISTRACTION USED. PATIENT DIFFICULT TO REIORIENT AT TIME, HOWEVER THIS RN IS ABLE TO DISTRACT PATIENT FROM PULLING MATIAS CATHETER. BED ALARM ON FOR SAFETY.
--- NOTE | 2018-03-14 00:30 | NUR ---
A NURSE IN ROOM WITH PATIENT ONE ON ONE AT THIS TIME. TELE MONITOR REMOVED DUE TO PATIENT UNABLE TO TOLERATE AND KEEP TELE LEADS IN PLACE.
--- NOTE | 2018-03-14 01:40 | NUR ---
@2350 ONE ON ONE WITH PATIENT. TRIED TO GET OUT OF BED SEVERAL TIMES. RE ORIENT THE PATIENT ABOUT TIME AND TIME TO BED. STILL INSISTED TO GET OUT OF BED STATED SHE WAS TO URINATE. EXPLAINED THAT SHE HAS A MATIAS CATHETER. TURNED THE LIGHTS AND TV OFF. PATIENT CLOSED HER EYES AROUND 0100.
--- NOTE | 2018-03-14 02:47 | NUR ---
rounded on patient to administer scheduled medication per apr order. medication crushed and placed in applesause, patient tolerated well. bed alarm on for safety. patient pleasant and cooperative with care at this time. no more needs at this time.
--- NOTE | 2018-03-14 04:04 | NUR ---
PATIENT'S DAUGHTER CALLED FOR UPDATE ON PATIENT. UPDATE PROVIDED.
--- NOTE | 2018-03-14 04:28 | NUR ---
ROUNDED ON PATIENT RESTING IN BED WITH EYES CLOSED, RESPIRATORY RATE IS EVEN AND UNLABORED. BED ALARM ON FOR SAFETY.
--- NOTE | 2018-03-14 05:15 | NUR ---
ASSESSMENT COMPLETE. PATIENT RESTING WITH EYES CLOSED, RESPIRATORY RATE IS EVEN AND UNLABORED. 3L VIA NC, NO SIGNS OF RESPIRATORY DISTRESS. TELE 2 MONITOR PLACED BACK ON PATIENT, PATIENT TOLERATED WELL. IV ASSESSED TO BE LEAKING, IV REMOVED, WNL. BED ALARM ON FOR SAFETY. MATIAS CATHETER PATENT. CALL LIGHT WITHIN REACH. NO MORE NEEDS AT THIS TIME.
--- NOTE | 2018-03-14 06:48 | NUR ---
PATIENT SLEPT ON AND OFF THROUGHOUT NIGHT. PATIENT ONE ON ONE DURING PORTION OF NIGHT DUE TO CONFUSION AND SLIGHT AGGITATION. BED ALARM ON FOR SAFETY. 1800 ML FLUID RESTRICTION. 2-4L VIA NC. TELE 2. MATIAS CATHETER. ACCU CHECK. IV REMOVED THIS SHIFT DUE TO LEAKING IV. DAILY WEIGHT. SBA W/FWW, NOT OUT OF BED THIS SHIFT. PATIENT DIFFICULT TO REORIENT.
--- NOTE | 2018-03-14 07:01 | NUR ---
CHELO LEVY NOTIFIED RE RODNEY.
--- NOTE | 2018-03-14 07:27 | NUR ---
PT IN BED SLEEPING SOUNDLY, RECIEVED BEDSIDE REPORT FROM CHELO LEVY AT 0714. PERSONAL SUPPLIES AND CALL BUTTON IN REACH. PT ON 3L O2 VIA NC.
--- NOTE | 2018-03-14 09:00 | NUR ---
PT SITTING UP IN BED, DAUGHTER AT BEDSIDE. PT DROWSY, DISORIENTED TO ALL, BUT DID ANSWER YES WHEN HER DAUGHTER ASKED IF HER NAME WAS RAMSES, WHICH WAS RIGHT. PT HAS A CONGESTED COUGH. ON 3L O2 VIA NC.
--- NOTE | 2018-03-14 10:26 | NUR ---
PT IN BED. WAS UP WITH PHYSICAL THERAPY AND NURSING STAFF, AMBULATED IN STOCK WITH FWW WITH 2 PERSON ASSIST. TOLERANCE FAIR. IS NOW RESTING QUIETLY WITH EYES CLOSED, PERSONAL SUPPLIES AND CALL LIGHT IN REACH. PT'S DAUGHTER AT BEDSIDE.
--- NOTE | 2018-03-14 11:25 | NUR ---
DR. WEBB IN TO ROUND ON PT. PT'S AT BEDSIDE. PT DROWSY. HAS A WEAK CONGESTED COUGH. ON 3L O2 VIA NC, OXYGEN SATURATION LEVEL 90%.
--- NOTE | 2018-03-14 11:46 | NUR ---
PT'S WATCH REMOVED FROM LEFT WRIST BY CHELO DE LEON, GIVEN TO PT'S SPOUSE. NEW IV TO LEFT WRIST PLACED BY CHELO DE LEON, 1ST ATTEMPT, 22G.
--- NOTE | 2018-03-14 12:13 | NUR ---
DR. WEBB NOTIFIED THAT PT'S URINE OUTPUT WAS LOW FOR FIRST 4 HOURS OF SHIFT, ONLY [address] WEBB AWARE.
--- NOTE | 2018-03-14 12:14 | NUR ---
CARE CONFERENCE CAME TO ROOM AND MET WITH PT, ISAIAH, DAUGHTER RAMSES. WE DISCUSSED HOW THE PT WAS DOING, THEN WENT ON TO DISCUSS SOME QUESTIONS THE FAMILY HAD. DAUGHTER AND WANTED TO KNOW ABOUT GETTING A DURABLE AND A MEDICAL POWER OF TAXATION ACCOUNTANT FOR HEALTH CARE AND SOMETHING FOR THE FINANCIALS SO THEY COULD PAY THE BILLS ETC. ADVISED THEM THAT THEY WOULD HAVE TO SEEK AN TAXATION ACCOUNTANT, THEY ASKED WHO THEY SHOULD GO TO AND I INFORMED THEM THAT I AM NOT ABLE TO MAKE THOSE CHOSES. THEY STATED UNDERSTANDING. I ALSO TALKED WITH MR RICO ABOUT PT WITH HER DIAGNOSIS OF CHF. HE STATES HE DOES NOT UNDERSTAND ALL THIS MEDICAL STUFF. I EXPLAINED TO HIM WHAT CHF IS AND SOME OF THE [place] POINTS ABOUT IT THAT HE NEEDS TO BE AWARE OF. WATCHING FOR WEIGHT GAIN ON A DAILY BASIS AND ALSO FOR SWELLING IN HER LEGS. HE STATED UNDERSTANDING AND I TOLD HIM I WOULD GET HIM SOME MORE INFORMATION. HE DID STATE THAT IF HE HAD REALIZED THAT HE WOULD HAVE GOTTEN A HOLD OF THE DR AND MAYBE PREVENTED HER FROM HAVING TO COME TO THE HOSPITAL.
--- NOTE | 2018-03-14 14:03 | NUR ---
PT RESTING QUIETLY IN BED. AROUSED TO VERBAL STIMULI, TOOK SCHEDULED MEDICATION IN APPLESAUCE. PERSONAL SUPPLIES AND CALL LIGHT IN REACH. PT REMAINS CONFUSED, DISORIENTED TO ALL BUT SELF.
--- NOTE | 2018-03-14 15:45 | NUR ---
PT RECIEVED BED BATH FROM [facility]. NOTED REDDENED AREA TO COCCYX THAT IS BLANCHABLE. PT REPOSITIONED, PILLOW UNDER RIGHT HIP. TURN CLOCK SET UP. PT ASSISTED IN DRINKING 4 DRINKS OF VANILLA ENSURE. PERSONAL SUPPLIES AND CALL LIGHT IN REACH. BED ALARM ON.
--- NOTE | 2018-03-14 17:57 | NUR ---
PT TURNED AND REPOSITIONED IN BED, NOW HAS PILLOW UNDER LEFT HIP, TURNED TOWARD RIGHT. AT BEDSIDE. BED ALARM ON. OFFERED PT WATER AND ENSURE, PT TOOK A DRINK OF EACH.
--- NOTE | 2018-03-14 18:51 | NUR ---
PT STOOD UP FROM BED WITHOUT CALLING FOR ASSISTANCE. BED ALARM ALARMED. THIS RN AND CHELO DE LEON TO PT'S SIDE IMEDIATELY. PT STATED SHE NEEDED TO PEE. REMINDED PT THAT SHE HAD A MATIAS CATHETER IN PLACE, DRAINING HER URINE. CATHETER INTACT, DRAINING URINE WNL. THIS HAD TO BE REITERATED SEVERAL TIMES BEFORE PT ACKNOWLEDGED THIS, THE PT STATED "WELL, WHY DIDN'T YOU SAY SO!" PT BACK IN BED WITH ASSISTANCE FROM NURSING STAFF IN POSITIONING. BED ALARM ON. CURTAIN AND DOOR OPEN. PERSONAL SUPPLIES AND CALL LIGHT IN REACH.
--- NOTE | 2018-03-14 20:40 | NUR ---
UP TO BR WITH ONE PERSON ASSIST AND FWW, [id number] IN PLACE, TOLERATED WELL, NO SOB NOTED WITH EXERTION. COOP WITH ASSESSMENT. SL IN PLACE PATENT, COVERED WITH NETTING TO PREVENT ACCIDENTAL PULLING BY PT. RED BUTTOCKS NOTED, LOTION APPLIED, HAD A SMALL SOFT BROWN BM. F.C PATENT DRAINING CLEAR YELLOW URINE. TOOK MEDS CRUSHED IN PUDIN AND TOLERARED SIPS OF FLUIDS WELL. SEMI COOPERATIVE WITH ASSESSMENT, NOT RECEPTIVE TO TEACHING DUE TO COGNITIVE DEFICIENCIES
--- NOTE | 2018-03-14 22:02 | NUR ---
CHECKED ON PT, EYES CLOSED, RESP EVEN AND UNLABORED, SKIN WARM AND DRY. BED ALARM ON
--- NOTE | 2018-03-15 00:50 | NUR ---
RESTING, O2 NC IN PLACE, BED ALARM IN PLACE, F/C PATENT. NO DISTRESS.CALL LIHGT WITHIN HANDS REACH,
--- NOTE | 2018-03-15 02:27 | NUR ---
MEDICATED WITH 10MG PO OXYCODONE PO C/O 4/10 L HIP PAIN. IN BED, WEARING HOME CPAP MACHINE, CLAIRE HOSE, HEEL PROTECTORS, SCDS, CRYOCUFF IN PLACE,
--- NOTE | 2018-03-15 02:56 | NUR ---
Pt resting supine in bed with hob elevated. Call light and h20 in reach. Pt takes cardizem with apple sauce. Assessment completed and Leos cath removed per MD request. Pt currently using accupella and denies furhter needs/concerns.
--- NOTE | 2018-03-15 03:22 | NUR ---
resting, Coop with vitals, turned, O2 3L NC inplace, f/c patent, took sips of wter and cardizem given crushed in applesauce
--- NOTE | 2018-03-15 05:44 | NUR ---
PT HAS RESTED ALL THIS SHIFT, AWAKENS EASILY TO TOUCH AND NAME CALLING, O23L N/C IN PLACE, NO RESP DISTRESS. UP TO BR X1 WITH 1PA AND FWW, TOLERATED WELL, HAD SMALL FORMED BM. F/C PATENT VOIDING SMALL AMOUNTS OF URINE BUT QS PER PARAMETERS. MEDS GIVEN WITH PUDING AND TOLERATED WELL, DRINKING AND TOLERATING SMALL AMOUNTS OF FLUIDS, HOB, ASPIRATION AND FALL PRECAUTIONS IN PLACE, BED ALARM ON. TURNED Q2H, NO COUCH THIS SHIFT. COOPERATIVE
--- NOTE | 2018-03-15 07:05 | NUR ---
PT RESTING SUPINE IN BED, EYES CLOSED AND RESPIRATIONS EVEN AND UNLABORED. CALL LIGHT AND H20 IN REACH AND BED ALARM ON. PT IS WITHIN VIEW OF NURSING STATION. BEDSIDE REPORT RECEIVED FROM CHELO MICHAEL.
--- NOTE | 2018-03-15 08:00 | NUR ---
PATIENT IN BED. PATIENT'S BREAKFAST ORDERED. CALL LIGHT WITHIN REACH. BED ALARM ON. NO OTHER NEEDS AT THIS TIME
--- NOTE | 2018-03-15 09:51 | NUR ---
PT RESTING SUPINE IN BED, EYES CLOSED BUT PT ALERT TO VOICE AND ORIENTED TO PERSON AND PLACE. PT REORIENTED TO DATE AND ROOM. CALL LIGHT AND H2O IN REACH. PT ASSESSMENT COMPLETED AND AM MEDS ADMINSITERED CRUSHED IN PUDDING. ATTEMTPED TO ASSIST PT EAT BREAKFAST BUT PT STATES "NO I'M NOT HUNGRY, I DON'T EAT BREAKFAST.". BED ALARM ON AND PT'S IN TO SEE PATIENT. PT DENIES FURTHER NEEDS. VSS AND BS 100.
--- NOTE | 2018-03-15 10:00 | NUR ---
PATIENT SITTING UP IN BED. IN ROOM. VITAL SIGNS AND I&O DONE. BED ALARM ON. CALL LIGHT WITHIN REACH. NO OTHER NEEDS AT THIS TIME.
--- NOTE | 2018-03-15 10:56 | NUR ---
PATIENT CALLS TO USE BATHROOM. PATIENT IN BED. IN ROOM. PATIENT WALKS TO USE BATHROOM. ONE PERSON ASSISTING. PATIENT BACKS TO BED. BED ALARM ON. PATIENT'S LUNCH ORDERED. CALL LIGHT WITHIN REACH. NO OTHER NEEDS AT THIS TIME.
--- NOTE | 2018-03-15 12:55 | NUR ---
PT ASSISTED UP WITH WC AND AMBULATES WITH SLOW BUT STEADY GAIT IN STOCK FOR APPROX 80 FEET. PT TOLERATED AMBULATING WELL WITH 2PA AND FWW. PT ASSISTED INTO POSITION OF COMFORT BACK IN BED. PT GIVEN SOME H20 PER HER REQUEST. PT DECLINES LUNCH "I'M NOT HUNGRY". CALL LIGHT AND H20 IN REACH AND PT ENCOURAGED TO USE ACCUPELLA AND IS ABLE TO DEMONSTRATE PROPER USE AT THIS TIME. PT DENIES FURTHER NEEDS. PT REMAINS IN VIEW OF NURSING STATION WITH BED ALARM ON AND SATTS IN MID 90'S ON 3LPNC.
--- NOTE | 2018-03-15 14:09 | NUR ---
PATIENT RESTING IN BED. VITAL SIGNS AND I&O DONE. CALL LIGHT WITHIN REACH. BED ALARM ON. NO OTHER NEEDS AT THIS TIME
[2018-03-15] MEDS ORDERED: COREG25 MG PO (14:54)
[2018-03-15] MEDS ORDERED: ASPIRIN325 MG PO (14:55)
[2018-03-15] MEDS ORDERED: DILTIAZEM ER180 MG PO (14:55)
[2018-03-15] MEDS ORDERED: FUROSEMIDE20 MG PO (14:56)
--- NOTE | 2018-03-15 16:26 | NUR ---
PATIENT IN BED. AND DAUGHTER IN ROOM. PATIENT IS DRESS AND THE FINAL VITAL SIGNS WHERE OBTAINED PRIOR TO DISCHARGE FROM THE UNIT.
== END 2018-03-15 16:55 | disposition home or self-care (01) | DRG 291 ==
LOC: ED 12:28 → CCU 16:38 → MS 03-13 13:50
PROVIDERS: ADMIT Student in an Organized Health Care Education/Training Program
DX: I11.0 Hypertensive heart disease with heart failure (principal); J96.21 Acute and chronic respiratory failure with hypoxia; G93.41 Metabolic encephalopathy; F03.91 Unspecified dementia, unspecified severity, with behavioral disturbance; I48.91 Unspecified atrial fibrillation; I50.33 Acute on chronic diastolic (congestive) heart failure; E11.9 Type 2 diabetes mellitus without complications; R45.1 Restlessness and agitation; R13.12 Dysphagia, oropharyngeal phase; Z88.5 Allergy status to narcotic agent; Z88.2 Allergy status to sulfonamides; Z79.84 Long term (current) use of oral hypoglycemic drugs; Z79.899 Other long term (current) drug therapy
CPT/HCPCS: 36415; 51702; 71045; 80048; 80053; 81001; 82803; 83735; 83880; 84484; 85025; 92526; 92610; 93005; 93010; 93306; 94640; 94660; 94667; 94668; 94761; 96374; 96375; 96376; 97116; 97163; 97165; 97530; 99285-25; J0696; J1120; J1630; J1650; J1815; J1940; J3475

== ENCOUNTER 2018-05-21 07:40 | Inpatient (IN) | payer MEDICARE ==
[~2018-05-21] VITALS: Ht 175.3 cm; Wt 60.4 kg
--- OUTSIDE RECORDS SUMMARY | ~2018-05-21 | XMS | Encounter Summary ---
Demographics + + + | Address | [address] | | | [place] [address] | + + + | Home Phone | | + + + | Preferred Language | Unknown | + + + | Marital Status | | + + + | Mandaeism Affiliation | Unknown | + + + | Race | Unknown | + + + | Ethnic Group | Unknown | + + + Author + + + | Author | [facility] [employer] [facility] | + + + | Organization | [facility] | + + + | Address | Unknown | + + + | Phone | Unavailable | + + + Support + + + + + | Name | Relationship | Address | Phone | + + + + + | Vera Somers | [place] | [place] | | | | | [address] | | + + + + + | John Casillas | ECON | Unknown | | + + + + + Care Team Providers + +------+ + | Care Mold Filler Name | Role | Phone | + +------+ + | Manuel Adames MD | PCP | | + +------+ + Encounter Details +--------+ + + + + | Date | Type | Department | Care Team | Description | +--------+ + + + + | 03/14/ | Ancillary | [facility] | Shwetha Newton MD | Congestive heart | | 2019 | Procedure | ECHO | [address] | failure, unspecified | | | | | [place], [place] | HF chronicity, | | | | | [address] | unspecified heart | | | | | | failure type (HCC); | | | | | | New onset a-fib | | | | | | (HCC) | +--------+ + + + + Social History + +-------+ +--------+------+ | Tobacco Use | Types | Packs/Day | Years | Date | | | | | Used | | + +-------+ +--------+------+ | Former Smoker | | | | | + +-------+ +--------+------+ + + | Comments: last time smoked was 15 years ago | + + + + +---------+ + | Alcohol Use | Drinks/We | oz/Week | Comments | | | ek | | | + + +---------+ + | No | | | | + + +---------+ + + + + | Sex Assigned at | Date Recorded | | | | + + + | Not on file | | + + + as of this encounter Plan of Treatment Not on fileas of this encounter Procedures + +--------+ + + + | Procedure Name | Priori | Date/Time | Associated Diagnosis | Comments | | | ty | | | | + +--------+ + + + | ECHO OUTSIDE | Routin | 03/14/2018 | Congestive heart | Results for this | | INTERPRETATION | e | 4:36 PM | failure, unspecified | procedure are in the | | STANDARD | | PST | HF chronicity, | results section. | | | | | unspecified heart | | | | | | failure type (HCC) | | | | | | New onset a-fib | | | | | | (HCC) | | + +--------+ + + + in this encounter Results ECHO outside interpretation standard (03/14/2018 4:36 PM) + + + | Impressions | Performed At | + + + | 1. This was a technically difficult study with suboptimal views, | [facility] | | patient declined completion of the exam. 2. The limited views of the | RADIOLOGY | | LV suggest preserved sytolic dysfuction. There appears to be mild LVH. | | | 3. Appears calcified with at least moderate stenosis. 4. There is | | | no pericardial effusion. | | + + + + + + | Narrative | Performed At | + + + | Patient Name: Magdalena Casillas Date of : 1935 | [facility] | | Performing Physician: Butch Tapia | RADIOLOGY | | | | | INDICATIONS Limited [...] ml IVSd: 1.22 cm LVIDd: 3.07 cm | | | LVPWd: 1.25 cm LVOT Area: 3.66 cm2 LVOT Diam: 2.15 cm | | | %FS: 19.27 % EF(Teich): 41.01 % ESV(Teich): 22.00 ml | | | LVIDs: 2.48 cm SV(Teich): 15.29 ml Electroencephalographic Technologist: [facility] | | | Authenticated by: Butch [facility] Report Date/Time: 03-15-2018 9:2:56 | | | | | + + + + + | Procedure Note | + + | John, Rad Results In - 03/15/2018 9:10 AM PST Patient Name: Oseas Casillas of | | : 1935ccession: [id number] Physician: Butch | | [facility] INDICATIONS------ | | -----Limited study Patient declined exam, CHF, New onset A-fibCONCLUSIONS 1. | | This was a technically difficult study with suboptimal views, patient declined | | completion of the exam.2. The limited views of the LV suggest preserved sytolic | | dysfuction. There appears to be mild LVH.3. Appears calcified with at least moderate | | stenosis.4. There is no pericardial effusion.FINDINGS--------ECG rhythm: Atrial | | fibrillation.Study: A limited 2-dimensional transthoracic echocardiogram with limited | | spectral and color flow Doppler was performed. Study: This was a technically difficult | | study with suboptimal views. Study: Elderly patient with dementia declined to complete [...] | | stenosis.Pericardium: There is no pericardial effusion.MEASUREMENTS Ao asc: | | 3.34 cmAo Diam: 3.30 cmAo sinus: 3.[address] junct: 3.03 cmEDV(Teich): 37.30 | | mlIVSd: 1.22 cmLVIDd: 3.07 cmLVPWd: 1.25 cmLVOT Area: 3.66 [id number] Diam: 2.15 | | cm%FS: 19.27 %EF(Teich): 41.01 %ESV(Teich): 22.00 mlLVIDs: 2.48 cmSV(Teich): | | 15.29 mlSonographer: ZEINAButhenticated by: Butch TapiaReport Date/Time: 03-15-2018 | | 9:2:56IMPRESSION:1. This was a technically difficult study with [...] | |SV(Teich): 15.29 ml | | | |Electroencephalographic Technologist: LOBITO | |Authenticated by: Butch Tapia | [...] is no pericardial effusion. | + + + + + + + | Performing | Address | City/State/Zipcode | Phone Number | | Organization | | | | + + + + + | [facility] | [address] | [place] [address] | | + + + + + in this encounter Visit Diagnoses + + | Diagnosis | + + | Congestive heart failure, unspecified HF chronicity, unspecified heart failure type | | (HCC) | + + | New onset a-fib (HCC) | + + | Atrial fibrillation | + +"
--- OUTSIDE RECORDS SUMMARY | ~2018-05-21 | XMS | Clinical Summary ---
Demographics + + + | Address | [address] | | | [place] [address] | + + + | Home Phone | | + + + | Preferred Language | Unknown | + + + | Marital Status | | + + + | Cheondoism Affiliation | Unknown | + + + [...] Team Providers + +------+ + | Care Trimmer Tailer Name | Role | Phone | + +------+ + | Manuel Adames MD | PP | | + +------+ + Source Comments DANIA is fully live on both [facility] Ambulatory and [facility] InPatient.[facility] Allergies Not on File Current Medications Not on file Active Problems Not [...] on file | | + + + Plan of Treatment + + + + + | Health Maintenance | Due Date | Last Done | Comments | + + + + + | Pneumococcal (Adult) | | | | | (1 of 2 - PCV13) | 1 | | | + + + + + | Influenza (Flu) | | | | | vaccination (#1) | 8 | | | + + + + + Results Not on filefrom Last 3 Months Insurance + +--------+ +--------+ + + | Payer | Benefi | Subscriber | Type | Phone | Address | | | t Plan | ID | | | | | | / | | | | | | | Group | | | | | + +--------+ +--------+ + + | [employer]ARE | MODA | xxxxxxxxx | Medica | [phone] | [address] | | | MEDICA | | re | [phone] | [place] [address] | | | RE HMO | | | | | + +--------+ +--------+ + + + +--------+ +--------+ + + | Guarantor Name | Accoun | Relation to | Date | Phone | Billing Address | | | t Type | Patient | of | | | | | | | | | | + +--------+ +--------+ + + | MAGDALENA CASILLAS | Person | Self [birth year] | Home: | [address] | | | al/Fam | | 1936 | [phone] | [place] | | | [place] | | | [phone] | [phone] | + +--------+ +--------+ + +"
--- OUTSIDE RECORDS SUMMARY | ~2018-05-21 | XMS | Clinical Summary ---
Demographics + + + | Address | [address] | | | [place] [address] | + + + | Home Phone | | + + + | Preferred Language | Unknown | + + + | Marital Status | | + + + | Taoism Affiliation | Unknown | + + + [...] Team Providers + +------+ + | Care Oil Refinery Process Technician Name | Role | Phone | + +------+ + | Manuel Adames MD | PP | | + +------+ + Source Comments DANIA is fully live on both [facility] Ambulatory and [facility] InPatient.[facility] Allergies Not on File Current Medications [...] MEDICA | | re | [phone] | [place] [address] | | | RE HMO | | [...] | Self | [birth year] | Home: | [address] | | | al/Fam | | 1936 | [phone] | [place] | | | [place] | | | [phone] | [phone] | + +--------+ +--------+ + +"
--- OUTSIDE RECORDS SUMMARY | ~2018-05-21 | XMS | Encounter Summary ---
Demographics + + + | Address | [address] | | | [place] [address] | + + + | Home Phone | | + + + | Preferred Language | Unknown | + + + | Marital Status | | + + + | Jew Affiliation | Unknown | + + + | Race | Unknown | + + + | Ethnic Group | Unknown | + + + Author + + + | Author | [facility] [facility] | + + + | Organization | [facility] | + + + | Address | Unknown | + + + | Phone | Unavailable | + + + Support + + + + + | Name | Relationship | Address | Phone | + + + + + | Vera Somers | [place] | [place] | | | | | [address] | | + + + + + | John Casillas | ECON | Unknown | | + + + + + Care Team Providers + +------+ + | Care Floor Winder Name | Role | Phone | + [...] HF chronicity, | | | | | [address] | unspecified heart | | | | [...] Magdalena Casillas Date of : 1935 | [facility] | | Performing Physician: Butch Tapia | [...] | LVIDs: 2.48 cm SV(Teich): 15.29 ml Service Coordinator Elderly Facility: [facility] | | | Authenticated by: Butch [facility] Report Date/Time: 03-15-2018 9:2:56 | | | | | + + + + + | Procedure Note | + + | John, Rad Results In - 03/15/2018 9:10 AM PST Patient Name: Oseas Casillas of | | : 1935ccession: [id number] Physician: Butch | | [facility] INDICATIONS------ | | -----Limited study Patient [...] cmLVIDd: 3.07 cmLVPWd: 1.25 cmLVOT Area: 3.66 [id number] Diam: 2.15 | | cm%FS: 19.27 %EF(Teich): [...] | |SV(Teich): 15.29 ml | | | |Service Coordinator Elderly Facility: [facility] | |Authenticated by: Butch Tapia | [...] | + + + + + | [facility] | [address] | [place] [address] | | + + + + + in this encounter Visit Diagnoses + + | Diagnosis | + + | Congestive heart failure, unspecified HF chronicity, unspecified heart failure type | | (HCC) | + + | New onset a-fib (HCC) | + + | Atrial fibrillation | + +"
--- OUTSIDE RECORDS SUMMARY | ~2018-05-21 | XMS | Clinical Summary ---
Demographics + + + | Address | [address] | | | [place] [address] | + + + | Home Phone | | + + + | Preferred Language | Unknown | + + + | Marital Status | | + + + | Pentecostal Affiliation | Unknown | + + + [...] Team Providers + +------+ + | Care One Piece Expansion Maker Hand Name | Role | Phone | + +------+ + | Manuel Adames MD | PP | | + +------+ + Source Comments DANIA is fully live on both [facility] Ambulatory and [facility] InPatient.[facility] Allergies Not on File Current Medications Not [...] [employer] | | re | [phone] | [place] [address] | | | RE HMO | | [...] | Self | [birth year] | Home: | [address] | | | al/Fam | | 1936 | [phone] | [place] | | | [place] | | | [phone] | [phone] | + +--------+ +--------+ + +"
--- OUTSIDE RECORDS SUMMARY | ~2018-05-21 | XMS | Encounter Summary ---
Demographics + + + | Address | [address] | | | [place] [address] | + + + | Home Phone | | + + + | Preferred Language | Unknown | + + + | Marital Status | | + + + | Tenriism Affiliation | Unknown | + + + | Race | Unknown | + + + | Ethnic Group | Unknown | + + + Author + + + | Author | [facility] [employer] [facility] | + + + | Organization | [facility] | + + + | Address | Unknown | + + + | Phone | Unavailable | + + + Support + + + + + | Name | Relationship | Address | Phone | + + + + + | Vera Somers | [place] | [place] | | | | | [address] | | + + + + + | John Casillas | ECON | Unknown | | + + + + + Care Team Providers + +------+ + | Care Area Captain Name | Role | Phone | + [...] HF chronicity, | | | | | [address] | unspecified heart | | | | [...] Magdalena Casillas Date of : 1935 | [facility] | | Performing Physician: Butch Tapia [...] | LVIDs: 2.48 cm SV(Teich): 15.29 ml Airport Location Manager: [facility] | | | Authenticated by: Butch [facility] Report Date/Time: 03-15-2018 9:2:56 | | | | | + + + + + | Procedure Note | + + | John, Rad Results In - 03/15/2018 9:10 AM PST Patient Name: Oseas Casillas of | | : 1935ccession: [id number] Physician: Butch | | [facility] INDICATIONS------ | | -----Limited study Patient declined [...] cmLVIDd: 3.07 cmLVPWd: 1.25 cmLVOT Area: 3.66 [id number] Diam: 2.15 | | cm%FS: 19.27 %EF(Teich): [...] | |SV(Teich): 15.29 ml | | | |Airport Location Manager: [facility] | |Authenticated by: Butch Tapia | [...] | + + + + + | [facility] | [address] | [place] [address] | | + + + + + in this encounter Visit Diagnoses + + | Diagnosis | + + | Congestive heart failure, unspecified HF chronicity, unspecified heart failure type | | (HCC) | + + | New onset a-fib (HCC) | + + | Atrial fibrillation | + +"
--- OUTSIDE RECORDS SUMMARY | ~2018-05-21 | XMS | Encounter Summary ---
Demographics + + + | Address | [address] | | | [place] [address] | + + + | Home Phone | | + + + | Preferred Language | Unknown | + + + | Marital Status | | + + + | Religion Affiliation | Unknown | + + + | Race | Unknown | + + + | Ethnic Group | Unknown | + + + Author + + + | Author | [facility] [employer] | + + + | Organization | [facility] [facility] | + + + | Address | Unknown | + + + | Phone | Unavailable | + + + Support + + + + + | Name | Relationship | Address | Phone | + + + + + | Vera Somers | [place] | [place] | | | | | [address] | | + + + + + | John Casillas | ECON | Unknown | | + + + + + Care Team Providers + +------+ + | Care Lamp Shade Sewer Name | Role | Phone | + +------+ + | Manuel Adames MD | PCP | | + +------+ + Encounter Details +--------+ + + + + | Date | Type | Department | Care Team | Description | +--------+ + + + + | 03/14/ | Ancillary | [facility] | Shwetha Newton MD | Congestive heart | | 2019 | Orders | ECHO | [address] | failure, unspecified | | | | | [place], [place] | HF chronicity, | | | | | [address] | unspecified heart | | | | [...] Treatment Not on fileas of this encounter Results ECHO outside interpretation standard (03/14/2018 4:36 PM) + + + | Impressions | Performed At | + + + | 1. This was a technically difficult study with suboptimal views, | [facility] | | patient declined completion of the [...] Magdalena Casillas Date of : 1935 | [facility] | | Performing Physician: Butch Tapia | [...] | LVIDs: 2.48 cm SV(Teich): 15.29 ml Pocket Marker: [facility] | | | Authenticated by: Butch Tapia Report Date/Time: 03-15-2018 9:2:56 | | | | | + + + + + | Procedure Note | + + | John, Rad Results In - 03/15/2018 9:10 AM PST Patient Name: Oseas Casillas of | | : 1935ccession: [id number] Physician: Butch | | [facility] INDICATIONS------ | | -----Limited study Patient declined [...] cmLVIDd: 3.07 cmLVPWd: 1.25 cmLVOT Area: 3.66 [id number] Diam: 2.15 | | cm%FS: 19.27 %EF(Teich): 41.01 %ESV(Teich): 22.00 mlLVIDs: 2.48 cmSV(Teich): | | 15.29 mlSonographer: Verónicaticated by: Butch Ballesteros Date/Time: 03-15-2018 | | 9:2:56IMPRESSION:1. This was [...] | |SV(Teich): 15.29 ml | | | |Pocket Marker: [facility] | |Authenticated by: Butch Tapia | [...] | + + + + + | [facility] | [address] | [place] [address] | | + + + + + in this encounter Visit Diagnoses + + | Diagnosis | + + | Congestive heart failure, unspecified HF chronicity, unspecified heart failure type | | (HCC) | + + | New onset a-fib (HCC) | + + | Atrial fibrillation | + +"
--- OUTSIDE RECORDS SUMMARY | ~2018-05-21 | XMS | Encounter Summary ---
Demographics + + + | Address | [address] | | | [place] [address] | + + + | Home Phone | | + + + | Preferred Language | Unknown | + + + | Marital Status | | + + + | Alevism Affiliation | Unknown | + + + | Race | Unknown | + + + | Ethnic Group | Unknown | + + + Author + + + | Author | [facility] | + + + | Organization | [facility] | + + + | Address | Unknown | + + + | Phone | Unavailable | + + + Support + + + + + | Name | Relationship | Address | Phone | + + + + + | Vera Somers | [place] | [place] | | | | | [address] | | + + + + + | John Casillas | ECON | Unknown | | + + + + + Care Team Providers + +------+ + | Care Hydroelectric Production Manager Name | Role | Phone | [...] HF chronicity, | | | | | [address] | unspecified heart | | | | [...] | LVIDs: 2.48 cm SV(Teich): 15.29 ml Cigar Machine Feeder: [facility] | | | Authenticated by: Butch Tapia Report Date/Time: 03-15-2018 9:2:56 | | | | | + + + + + | Procedure Note | + + | John, Rad Results In - 03/15/2018 9:10 AM PST Patient Name: Oseas Casillas of | | : 1935ccession: [id number] Physician: Butch | | [facility] INDICATIONS------ | [...] cmLVIDd: 3.07 cmLVPWd: 1.25 cmLVOT Area: 3.66 [id number] Diam: 2.15 | | cm%FS: 19.27 %EF(Teich): [...] | |SV(Teich): 15.29 ml | | | |Cigar Machine Feeder: [facility] | |Authenticated by: Butch Tapia | [...] [facility] | [address] | [place] [address] | | + + + + + in this encounter Visit Diagnoses + + | Diagnosis | + + | Congestive heart failure, unspecified HF chronicity, unspecified heart failure type | | (HCC) | + + | New onset a-fib (HCC) | + + | Atrial fibrillation | + +"
--- OUTSIDE RECORDS SUMMARY | ~2018-05-21 | XMS | Encounter Summary ---
Demographics + + + | Address | [address] | | | [place] [address] | + + + | Home Phone | | + + + | Preferred Language | Unknown | + + + | Marital Status | | + + + | Spiritism Affiliation | Unknown | + + + | Race | Unknown | + + + | Ethnic Group | Unknown | + + + Author + + + | Author | [facility] [employer] [facility] | + + + | Organization | [facility] | + + + | Address | Unknown | + + + | Phone | Unavailable | + + + Support + + + + + | Name | Relationship | Address | Phone | + + + + + | Vera Somers | [place] | [place] | | | | | [address] | | + + + + + | John Casillas | ECON | Unknown | | + + + + + Care Team Providers + +------+ + | Care Pig Machine Operator Name | Role | Phone [...] HF chronicity, | | | | | [address] | unspecified heart | | | | [...] | LVIDs: 2.48 cm SV(Teich): 15.29 ml Antenna Design Engineer: [facility] | | | Authenticated by: Butch Tapia Report Date/Time: 03-15-2018 9:2:56 | | | | | + + + + + | Procedure Note | + + | John, Rad Results In - 03/15/2018 9:10 AM PST Patient Name: Oseas Casillas of | | : 1935ccession: [id number] Physician: [facility] | | [facility] INDICATIONS------ | | -----Limited [...] cmLVIDd: 3.07 cmLVPWd: 1.25 cmLVOT Area: 3.66 [id number] Diam: 2.15 | | cm%FS: 19.27 %EF(Teich): 41.01 %ESV(Teich): 22.00 mlLVIDs: 2.48 cmSV(Teich): | | 15.29 mlSonographer: Verónicaticated by: uBtch Ballesteros Date/Time: 03-15-2018 | | 9:2:56IMPRESSION:1. This [...] | |SV(Teich): 15.29 ml | | | |Antenna Design Engineer: [facility] | |Authenticated by: Butch Tapia | [...] [facility] | [address] | [place] [address] | | + + + + + in this encounter Visit Diagnoses + + | Diagnosis | + + | Congestive heart failure, unspecified HF chronicity, unspecified heart failure type | | (HCC) | + + | New onset a-fib (HCC) | + + | Atrial fibrillation | + +"
--- OUTSIDE RECORDS SUMMARY | ~2018-05-21 | XMS | Clinical Summary ---
Demographics + + + | Address | [address] | | | [place] [address] | + + + | Home Phone | | + + + | Preferred Language | Unknown | + + + | Marital Status | | + + + | Gnosticism Affiliation | Unknown | + + + | Race | Unknown | + + + | Ethnic Group | Unknown | + + + Author + + + | Author | [facility] | + + + | Organization | [facility] | + + + | Address | Unknown | + + + | Phone | Unavailable | + + + Support + + + + + | Name | Relationship | Address | Phone | + + + + + | Vera Somers | [place] | [place] | | | | | [address] | | + + + + + | John Casillas | ECON | Unknown | | + + + + + Care Team Providers + +------+ + | Care Digital Technician Name | Role | Phone | [...] | 1 | + + + + Encounters +--------+ + + + + | Date | Type | Specialty | Care Team | Description | +--------+ + + + + | 03/14/ | Ancillary | | Shwetha Newton MD | Congestive heart | | 2019 | Procedure | | | failure, unspecified | | | | | | HF chronicity, | | | | | | unspecified heart | | | | | | failure type ([facility]); | | | | | | New onset a-fib | | | | | | ([facility]) | +--------+ + + + + | 03/14/ | Ancillary | | Shwetha Newton MD | Congestive heart | | 2019 | Orders | | | failure, unspecified | | | | | | HF chronicity, | | | | | | unspecified heart | | | | | | failure type ([facility]); | | | | | | New onset a-fib | | | | | | (H[facility]) | +--------+ + + + + from Last 3 Months Social History + +-------+ +--------+------+ | Tobacco [...] Vaccine: Influenza | | | | | (Season Ended) | 9 | | | + + + + + Procedures + +--------+ + + + | [...] | | + +--------+ + + + from Last 3 Months Results ECHO outside interpretation standard (03/14/2018 4:36 [...] Magdalena Casillas Date of : 1935 | [facility] | | Performing Physician: Butch Tapia [...] | LVIDs: 2.48 cm SV(Teich): 15.29 ml [address] Edger: LOBITO | | | Authenticated by: Butch [facility] Report Date/Time: 03-15-2018 9:2:56 | | | | | + + + + + | Procedure Note | + + | John, Rad Results In - 03/15/2018 9:10 AM PST Patient Name: Oseas Casillas of | | : 1935ccession: [id number] Physician: Butch | | [facility] IND[facility]------ | | -----Limited study Patient declined [...] cmLVIDd: 3.07 cmLVPWd: 1.25 cmLVOT Area: 3.66 [id number] Diam: 2.15 | | cm%FS: 19.27 %EF(Teich): 41.01 %ESV(Teich): 22.00 mlLVIDs: 2.48 cmSV(Teich): | | 15.29 mlSonographer: ZEINAButhenticated by: Butch Ballesteros Date/Time: 03-15-2018 | [...] | |SV(Teich): 15.29 ml | | | |Circle Edger: LOBITO | |Authenticated by: Butch Tapia | [...] | + + + + + | [facility] | [address] | [place] [address] | | + + + + + from Last 3 Months Insurance + +--------+ +--------+-------+---------+ | Payer | Benefi | Subscriber | Type | Phone | Address | | | t Plan | ID | | | | | | / | | | | | | | Group | | | | | + +--------+ +--------+-------+---------+ | [place] | [id number] | Medica | | | | FAMILY [...] | Self | [birth year] | Home: | [address] | | | al/Fam | | 1936 | [phone] | [place] | | | [place] | | | [phone] | [phone] | + +--------+ +--------+ + + | MAGDALENA CASILLAS | Third | Self | [birth year] | Home: | [address] | | | [place] | | 1936 | [phone] | [place] | | | [place] | | | [phone] | [phone] | | | ity | | | | | + +--------+ +--------+ + +
--- OUTSIDE RECORDS SUMMARY | ~2018-05-21 | XMS | Clinical Summary ---
Demographics + + + | Address | [address] | | | [place] [address] | + + + | Home Phone | | + + + | Preferred Language | Unknown | + + + | Marital Status | | + + + | Mormon Affiliation | Unknown | + + + | Race | Unknown | + + + | Ethnic Group | Unknown | + + + Author + + + | Author | [facility] | + + + | Organization | [facility] | + + + | Address | Unknown | + + + | Phone | Unavailable | + + + Support + + + + + | Name | Relationship | Address | Phone | + + + + + | Vera Somers | [place] | [place] | | | | | [address] | | + + + + + | John Casillas | ECON | Unknown | | + + + + + Care Team Providers + +------+ + | Care Rules Examiner Name | Role | Phone | [...] | | | | | failure type ([facility]); | | | | | | New onset a-fib | | | | | | ([facility]) | +--------+ + + + + | [...] Magdalena Casillas Date of : 1935 | [facility] | | Performing Physician: Butch Tapia | [...] | LVIDs: 2.48 cm SV(Teich): 15.29 ml Press Assistant And Feeder: LOBITO | | | Authenticated by: Butch [facility] Report Date/Time: 03-15-2018 9:2:56 | | | | | + + + + + | Procedure Note | + + | John, Rad Results In - 03/15/2018 9:10 AM PST Patient Name: Oseas Casillas of | | : 1935ccession: [id number] Physician: Butch | [facility] INDICATIONS------ | | -----Limited study Patient declined [...] cmLVIDd: 3.07 cmLVPWd: 1.25 cmLVOT Area: 3.66 [id number] Diam: 2.15 | | cm%FS: 19.27 %EF(Teich): [...] | |SV(Teich): 15.29 ml | | | |Press Assistant And Feeder: LOBITO | |Authenticated by: Butch Tapia [...] [facility] | [address] | [place] [address] | | + + + + + [...] | [place] - PREMIERCARE | [place]-PRE | [id number] | Medica | | | | FAMILY [...] | Self | [birth year] | Home: | [address] | | | al/Fam | | 1936 | [phone] | [place] | | | [place] | | | [phone] | [phone] | + +--------+ +--------+ + + | MAGDALENA CASILLAS | Third | Self | [birth year] | Home: | [address] | | | Libertarian | | 1936 | [phone] | [place] | | | [place] | | | [phone] | [phone] | | | ity | | | | | + +--------+ +--------+ + +
--- OUTSIDE RECORDS SUMMARY | ~2018-05-21 | XMS | Clinical Summary ---
Demographics + + + | Address | [address] | | | [place] [address] | + + + | Home Phone | | + + + | Preferred Language | Unknown | + + + | Marital Status | | + + + | Samaritan Affiliation | Unknown | + + + | Race | Unknown | + + + | Ethnic Group | Unknown | + + + Author + + + | Author | [facility] | + + + | Organization | [facility] | + + + | Address | Unknown | + + + | Phone | Unavailable | + + + Support + + + + + | Name | Relationship | Address | Phone | + + + + + | Vera Somers | [place] | [place] | | | | | [address] | | + + + + + | John Casillas | ECON | Unknown | | + + + + + Care Team Providers + +------+ + | Care Swing Ride Operator Name | Role | Phone | [...] | | | | | failure type ([facility]); | | | | | | New onset a-fib | | | | | | ([facility]) | +--------+ + + + + [...] Magdalena Casillas Date of : 1935 | [facility] | | Performing Physician: Butch [...] | LVIDs: 2.48 cm SV(Teich): 15.29 ml Field Applications Specialist: LOBITO | | | Authenticated by: Butch [facility] Report Date/Time: 03-15-2018 9:2:56 | | | | | + + + + + | Procedure Note | + + | John, Rad Results In - 03/15/2018 9:10 AM PST Patient Name: Oseas Casillas of | | : 1935ccession: [id number] Physician: Butch | | [facility] INDICATIONS------ | | -----Limited study Patient declined [...] cmLVIDd: 3.07 cmLVPWd: 1.25 cmLVOT Area: 3.66 [id number] Diam: 2.15 | | cm%FS: 19.27 %EF(Teich): [...] | |SV(Teich): 15.29 ml | | | |Field Applications Specialist: LOBITO | |Authenticated by: Butch Tapia | [...] [facility] | [address] | [place] [address] | | + + + + + [...] | [place] - PREMIERCARE | [place]-PRE | [id number] | Medica | | | | FAMILY [...] | Self | [birth year] | Home: | [address] | | | al/Fam | | 1936 | [phone] | [place] | | | [place] | | | [phone] | [phone] | + +--------+ +--------+ + + | MAGDALENA CASILLAS | Third | Self | [birth year] | Home: | [address] | | | Democrat | | 1936 | [phone] | [place] | | | [place] | | | [phone] | [phone] | | | ity | | | | | + +--------+ +--------+ + +
[~2018-05-21 07:40] MED LIST changes: +ASPIRIN325 MG PO; +CBD OIL PO; +COREG25 MG PO; +CRANBERRY450 M2 PO; +DILTIAZEM ER180 MG PO; +FOLIC ACID1 MG PO; +LYSINE500 MG PO; +VITAMIN B-12100 MCG PO; +VITAMIN B-6100 MG PO
[2018-05-21] MEDS ORDERED: POTASSIUM CHLO10 ME1 PO (10:10)
--- NOTE | 2018-05-21 12:08 | NUR ---
PT ARRIVED FROM ER VIA STRETCHER. SLIDE TRANSFER TO HOSPITAL BED WITH MINIMAL ASSIST. PT VERY CAMPO. ORIENTED TO NAME AND DAY AND MONTH OF HER BIRHTDAY BUT NOT YEAR. KNOWS SHE IS AT A HOSPITAL BUT OTHERWISE UNABLE TO APPROPRIATELY ANSWER ORIENTATION QUESTIONS. PT DENIES PAIN OR OTHER CONCENRS AT THIS TIME. PULSE OX ON, PT SATTING 94% ON CHRONIC 3L NC. TELE MONITOR ON, IRREGULAR RHTHYM NOTED, AND MURMUR HEARD. NO COUGH OR SOB. SKIN GROSSLY INTACT. BED ALARM ON. AT BEDSIDE. CALL LIGHT WITHIN REACH. IV LEFT WRIST FLUSHES EASILY, DRESSING CDI.
[2018-05-21] MEDS ORDERED: DILT-XR180 MG PO (13:03)
--- NOTE | 2018-05-21 14:10 | NUR ---
BED ALARM ON. PATIENT UP TO BSC AND BACK TO BED, 1PA. FAMILY IN ROOM. CALL LIGHT IN REACH. NO FURTHER NEEDS AT THIS TIME.
--- NOTE | 2018-05-21 14:27 | NUR ---
PT SLEEPING SOUNDLY UPON ENTERING ROOM. AWOKE EASILY TO VOICE. SAT PT UP AND ASSISTED HER TO DRINK SOME CLEAR ENSURE. PT STATES "MMM THAT TASTES GOOD." TURNED TV ON PER PT REQUEST. PT NOW SITTING UP AWAKE IN BED SIPPING ON CLEAR ENSURE. CALL LIGHT WITHIN REACH. BED ALARM ON.
--- NOTE | 2018-05-21 16:36 | NUR ---
PT 1 PERSON MINIMAL ASSIST TO BSC. VOIDED WITHOUT DIFFICULTY. ASSISTED BACK TO BED. DAUGHTER CONNOR AT BEDSIDE. CALL LIGHT WITHIN REACH. BED ALARM ON.
--- NOTE | 2018-05-21 17:04 | NUR ---
poc blood glucose obtained 125. pt 1pa to commode. voided and back to bed. pt refused to water, juice, or jello at this time. bed alarm on. call light within reach.
--- NOTE | 2018-05-21 18:16 | NUR ---
PATIENT UP TO BSC AND BACK TO BED, 1PA. FRESH WATER GIVEN. CALL LIGHT IN REACH. NO FURTHER NEEDS AT THIS TIME.
--- NOTE | 2018-05-21 20:05 | NUR ---
RECEIVED REPORT FOR[facility]LY [facility] DAY SHIFT RN. PATIENT IS RESTING IN BED. PATIENT DENIES ANY NEEDS. CALL LIGHT IN REACH.
--- NOTE | 2018-05-21 20:30 | NUR ---
PATIENT ASSESMENT COMPLETED. PATIENT IS RESTING IN BED VISTING WITH HER DAUGHTER. PATIENT APPEARS CONFUSED. PATIENT RECOGNIZES DAUGHTER BUT CALLS HER HER GRANDAUGHTER AND IS UNABLE TO STATE HER DAUGHTERS NAME. PATIENTS KNOWS FULL NAME AND IS ONLY ABLE TO STATE MONTH OF HER BIRTHDAY AND THAT IS IT. PATIENTS EVENING MEDICATIONS GIVEN PER ORDER. PATIENTS EVENING MEDICATIONS GIVEN PER ORDER. PATIENTS DAUGHTER REMAINS IN THE ROOM. PATIENT IS ON 3L VIA NC. PATIENT DENIES ANY NEEDS. CALL LIGHT IN REACH.
--- NOTE | 2018-05-21 22:54 | NUR ---
@1950 HELPED PATIENT USE THE BEDSIDE COMMODE. PATIENT VOIDED. PATIENT BACK IN BED. BED ALARM ON.
--- NOTE | 2018-05-21 23:51 | NUR ---
PATIENT ASSISTED TO THE RESTROOM A SBA. PATIENT WAS ABLE TO VOID A SMALL AMOUNT. PATIENT IS NOW BACK IN BED RESTING. PATIENT DENIES ANY FURTHER NEEDS. PATIENT REMAINS IN 2L VIA NC. CPOX IN PLACE. BED ALARM ON FOR SAFETY. CALL LIGHT IN REACH.
--- NOTE | 2018-05-22 02:27 | NUR ---
PATIENT ASSISTED TO THE RESTROOM A SBA. PATIENT WAS ABLE TO VOID. PATIENT IS BACK IN BED RESTING. PATIENTS VITALS TAKEN AND RECORDED. PATIENT DENIES ANY NEEDS. BED ALARM ON FOR SAFETY. CALL LIGHT IN REACH.
--- NOTE | 2018-05-22 03:33 | NUR ---
PATIENT IS RESTING IN BED WITH EYES CLOSED. PATIENTS OXYGEN SATURATION IS 100% ON 2L VIA NC. PATIENT TITRATED DOWN TO 2L VIA NC. PATIENT IS NOW SATTING 97%. PATIENTS BED ALARM IS ON FOR SAFETY. CALL LIGHT IN REACH.
--- NOTE | 2018-05-22 04:50 | NUR ---
PATIENT RESTED WELL THROUGHOUT THE SHIFT. PATIENT IS ON CLEARS AND WAS ABLE TO DRINK A CLEAR ENSURE. PATIENT IS SL AND IV FLUSHES WELL. PATIENT IS ON TELE #10, HR IN THE 60S. PATIENT IS ON 1L VIA NC. PATIENT DENIES SOB. PATIENT IS A SBA. PATIENT IS ONLY ORIENTED TO SELF. CPOX IN USE. PATIENT HAS BED ALARM ON FOR SAFETY. CALL LIGHT IN REACH, BUT PATIENT HOLLERS OUT WHEN SHE HAS A TORRES.
--- NOTE | 2018-05-22 06:25 | NUR ---
PATIENTS VITALS TAKEN AND RECORDED. PATIENTS INTAKE AND OUTPUT RECORDED. PATIENT AMBULATED TO THE RESTROOM A SBA. PATIENT WAS ABLE TO VOID. PATIENT IS NOW BACK IN BED RESTING. BED ALARM ON FOR SAFETY. CALL LIGHT IN REACH.
--- NOTE | 2018-05-22 08:45 | NUR ---
PT SITTING UP IN BED AWAKE. ORIENTED TO NAME, PART OF BIRTHDAY, AND "HOSPITAL". PT DENIES PAIN OR OTHER CONCERNS. LUNGS MORE CLEAR THIS SHIFT. SATTING 91% ON 1L NC. NO SIGNS OF DISTRESS. BED ALARM ON. CALL LIGHT WITHIN REACH.
--- NOTE | 2018-05-22 08:47 | NUR ---
PATIENT UP TO BSC THEN TO CHAIR FOR MICHELLE, 1PA. CHAIR ALARM ON, IN ROOM. PATIENT NOW IN BED AFTER BREAKFAST, BED ALARM ON. RN IN ROOM. CALL LIGHT IN REACH. NO FURTHER NEEDS AT THIS TIME.
--- NOTE | 2018-05-22 10:39 | NUR ---
PATIENT IN BED RESTING WITH EYES CLOSED. FRESH WATER GIVEN. CALL LIGHT IN REACH. NO FURTHER NEEDS AT THIS TIME.
--- NOTE | 2018-05-22 11:15 | NUR ---
PT SITTING UP IN BED VISITING WITH . DENIES NEEDS OR CONCERNS AT HTIS TIME. NO CHANGES TO MENTATION. BED ALARM ON. CALL LIGHT WITHIN REACH.
--- NOTE | 2018-05-22 13:04 | NUR ---
PT ADVANCED TO 60G CARB DIET. ATE 100% OF LUNCH. LISANDRO WELL. NO N/V. CALL LIGHT WITHIN REACH.
--- NOTE | 2018-05-22 13:53 | NUR ---
PATIENT IN BED WATCHING TV. CALL LIGHT IN REACH. NO FURTHER NEEDS AT THIS TIME.
[2018-05-22] MEDS ORDERED: FUROSEMIDE20 MG PO (14:27)
--- NOTE | 2018-05-22 15:03 | NUR ---
MED REC COMPLETE
--- NOTE | 2018-05-22 15:30 | NUR ---
PT 1PA TO RESTROOM. AMB TO RECLINER. CHAIR ALARM ON. CALL LIGHT WITHIN REACH. DAUGHTER AT BEDSIDE.
--- NOTE | 2018-05-22 16:54 | EKG ---
[facility] [address] [facility] [place] [address] Signed Atrial fibrillation Cannot rule out Anterior infarct (cited on or before 20-OCT-2017) Abnormal ECG When compared with ECG of 11-MAR-2018 12:43, Vent. rate has decreased BY 72 BPM Nonspecific T wave abnormality no longer evident in Inferior leads Nonspecific T wave abnormality, improved in Lateral leads Confirmed by DICK WALL DO ([id number]) on 05/22/2018 4:53:57 PM Electronically Signed By: DICK WALL DO 05/22/18 1654 PATIENT NAME: EUGENIO GÓMEZ Electrocardiogram DATE OF : 35 PHYSICIAN: DICK WALL DO REPORT #: [id number] REPORT IS CONFIDENTIAL AND NOT TO BE RELEASED WITHOUT AUTHORIZATION
--- NOTE | 2018-05-22 17:53 | NUR ---
PATIENT IN BED WATCHING TV, BED ALARM ON. FRESH WATER GIVEN. CALL LIGHT IN REACH. NO FURTHER NEEDS AT THIS TIME.
--- NOTE | 2018-05-22 19:53 | NUR ---
RECEIVED REPORT FROM DAY SHIFT RN. PATIENT IS RESTING IN BED. NO NEEDS NOTED. CALL LIGHT IN REACH. ALARM ON FOR SAFETY.
--- NOTE | 2018-05-22 20:25 | NUR ---
PATIENT ASSESEMENT COMPLETED. PATIENTS VITALS TAKEN AND RECORDED. PATIENT IS ONLY ORIENTED TO SELF. PATIENT ASSISTED TO THE RESTROOM. PATIENT IS A SBA AND IS STEADY ON HER FEET. PATIENT IS 98% ON RA. PATIENT IS BACK IN BED RESTING. BED ALARM ON FOR SAFETY AND CALL LIGHT IN REACH. PATIENTS CARDIZEM HELD FOR LOWER BP WILL NOTIFY
--- NOTE | 2018-05-22 20:45 | NUR ---
NOTIFIED DR WALL OF [facility]. DR WALL TO PUT IN NEW ORDER.
--- NOTE | 2018-05-22 21:35 | NUR ---
PATIENT GIVEN SCHEDULED MEDICATION GIVEN PER ORDER. PATIENT CONTINUES TO REST IN BED. PATIENT PROVIDED WITH COLOR CRAYONS AND COLORING BOOK. PATIENT DENIES ANY NEEDS. CALL LIGHT IN REACH.
--- NOTE | 2018-05-22 22:33 | NUR ---
PATIENT ASSISTED TO THE CHAIR. PATIENT HAS CHAIR ALARM ON. PATIENT PROVIDED WITH SANDWICH BOX. CALL LIGHT IN REACH.
--- NOTE | 2018-05-22 23:30 | NUR ---
PATIENT ASSISTED TO BED BY INSTRUCTIONAL MATERIAL DIRECTOR AND STUDENT RN. PATIENT PROVIDED WITH WARM BLANKET. PATIENTS BED ALARM IS ON FOR SAFETY. CALL LIGHT IN REACH.
--- NOTE | 2018-05-23 00:17 | NUR ---
PATIENT IS RESTING IN BED WITH EYES CLOSED, RR 17. CALL LIGHT IN REACH. BED ALARM ON FOR SAFETY. CALL LIGHT IN REACH.
--- NOTE | 2018-05-23 01:47 | NUR ---
PATIENT IS RESTING IN BED WITH EUYES CLOSED. CPOX WNL. BED ALARM ON FOR SAFETY. CALL LIGHT IN REACH.
--- NOTE | 2018-05-23 03:27 | NUR ---
PATIENT ASSISTED TO THE RESTRROM BY TREASURER. PATIENT WAS ABLE TO VOID. PATIENT IS BACL IN BED RESTING. PATIENT DENIES ANY SOB. PATIENT APPEARS CONFUSED. ATTEMPTED TO REORIENT PATEINT. BED ALARM IS ON FOR SAFETY. CALL LIGHT IN REACH.
--- NOTE | 2018-05-23 03:29 | NUR ---
1 PA TO THE BATHROOM USING WALKER AND BACK TO BED. BED ALARM ON.
--- NOTE | 2018-05-23 05:11 | NUR ---
PT'S BED ALARM SOUNDED, STAFF IN TO ASSIST PATIENT TO THE BATHROOM WITH STAND BY ASSIST, PT TOLERATED WELL. PT BACK TO BED, 1L/NC IN PLACE WITH SATS 95%, CPOX IN PLACE, BED ALARM ON, CALL LIGHT IN REACH.
--- NOTE | 2018-05-23 05:13 | NUR ---
PATIENT RESTED WELL THROUGHOUT THE SHIFT. PATIENT IS ON AN ADA DIET. PATIENT ATE A SNACK. PATIENT IS A SBA AND IS STEADY ON HIS FEET. PATIENT IS ON AND OFF 1L VIA NC, WHEN PATIENT WILL KEEP OXUGEN ON. PATIENT IS ONLY ORIENTED TO SELF. PATIENT IS ON TELE #10. CPOX IN USES WHEN PATIENT WILL WEAR IT. PATIENT HAS BED ALARM ON FOR SAFETY.
--- NOTE | 2018-05-23 05:32 | NUR ---
PATIENT GIVEN 650MG TYLENOL FOR GENERALIZED BODY ACHES 09/15.
--- NOTE | 2018-05-23 07:34 | NUR ---
RECEIVED REPORT FROM CHELO HAIRSTON. PT SITTING ON SIDE OF BED. CONFUSED AND ONERY. PT STATES SHE IS " AND CAN'T WE TELL" WOULD LIKE US TO GET OUT AND LEAVE HER ALONE. JIMBO STAYED IN ROOM TO TRY AND GET HER TO EITHER GET IN CHAIR FOR BREAKFAST OR BACK INTO BED FOR SAFETY .
--- NOTE | 2018-05-23 09:30 | NUR ---
PT GETTING MEDS FROM RN STUDENT AND INSTRUCTOR. IN ROOM EATING BREAKFAST. PT IN MUCH BETTER MOOD AND COOPERATIVE WITH ASSESSMENT. MURMUR HEARD.
[2018-05-23] MEDS ORDERED: COREG25 MG PO (10:36)
[2018-05-23] MEDS ORDERED: FUROSEMIDE20 MG PO (10:37)
--- NOTE | 2018-05-23 11:34 | NUR ---
RN STUDENT YVONNE IN ROOM ASSESSING BS WITH PRADIP RIVAS.
--- NOTE | 2018-05-23 12:23 | NUR ---
ASSISTED PT TO RESTROOM. TALKED TO PT ABOUT HER CONDITION AND THE MED ROUTINE AT HOME.
--- NOTE | 2018-05-23 13:49 | NUR ---
PT EDUCATION GIVEN TO DAUGHTER. SHE VERBALIZED UNDERSTANDING. STATES SHE WILL CALL AND CHANGE THE FOLLOW UP APPT. BUT APPRECIATED US MAKING THE APPT. WAITING FOR PROGRAM/MUSIC DIRECTOR TO GIVE PT A SHOWER.
--- NOTE | 2018-05-23 15:28 | NUR ---
PATIENT GOT A SHOWER BEFORE SHE DISCHARGED DAUGHTER HELPED. WASHED HER HAIR.
== END 2018-05-23 15:00 | disposition home or self-care (01) | DRG 291 ==
LOC: ED 07:40 → MS 11:03
PROVIDERS: ADMIT Internal Medicine
DX: I11.0 Hypertensive heart disease with heart failure (principal); J96.21 Acute and chronic respiratory failure with hypoxia; I50.33 Acute on chronic diastolic (congestive) heart failure; I48.91 Unspecified atrial fibrillation; E11.9 Type 2 diabetes mellitus without complications; F03.90 Unspecified dementia, unspecified severity, without behavioral disturbance, psychotic disturbance, mood disturbance, and anxiety; Z87.891 Personal history of nicotine dependence; Z99.81 Dependence on supplemental oxygen; Z79.84 Long term (current) use of oral hypoglycemic drugs; Z79.82 Long term (current) use of aspirin; Z79.899 Other long term (current) drug therapy; Z88.5 Allergy status to narcotic agent; Z88.2 Allergy status to sulfonamides
CPT/HCPCS: 36415; 36600; 70450; 71045; 80048; 80053; 81001; 82803; 83605; 83735; 83880; 84100; 84484; 85025; 85610; 85730; 93005; 93010; 94760; 94762; 97116; 97162; 99285-25; J1650; J1940

== ENCOUNTER 2018-07-20 22:11 | Emergency (ER) | payer MEDICARE ==
[~2018-07-20] VITALS: Ht 175.3 cm; Wt 64.7 kg
[~2018-07-20 22:11] MED LIST changes: +DILT-XR180 MG PO; +POTASSIUM CHLO10 ME1 PO
== END 2018-07-21 02:41 | disposition home or self-care (01) ==
LOC: ED 22:11
DX: S30.0XXA Contusion of lower back and pelvis, initial encounter (principal); F03.90 Unspecified dementia, unspecified severity, without behavioral disturbance, psychotic disturbance, mood disturbance, and anxiety; I10 Essential (primary) hypertension; E11.9 Type 2 diabetes mellitus without complications; Z87.891 Personal history of nicotine dependence; Z90.710 Acquired absence of both cervix and uterus; Z90.89 Acquired absence of other organs; Z88.2 Allergy status to sulfonamides; Z88.5 Allergy status to narcotic agent; Z79.899 Other long term (current) drug therapy; W18.30XA Fall on same level, unspecified, initial encounter
CPT/HCPCS: 71045; 72170; 80053; 81001; 83880; 85025; 96374; 99283-25; J3010

== ENCOUNTER 2019-01-04 05:34 | Emergency (ER) | payer MEDICARE ==
[~2019-01-04] VITALS: Ht 175.3 cm; Wt 62.2 kg
--- OUTSIDE RECORDS SUMMARY | ~2019-01-04 | XMS | Clinical Summary ---
Demographics + + + | Address | [address] | | | [place] [address] | + + + | Home Phone | | + + + | Preferred Language | Unknown | + + + | Marital Status | | + + + | Latter-Day Affiliation | Unknown | + + + [...] Team Providers + +------+ + | Care Automatic Shirring Machine Operator Name | Role | Phone | + +------+ + | Manuel Adames MD | PCP | | + +------+ + Source Comments DANIA is fully live on both [facility] and [facility] Allergies Not on File Medications Not on [...] RE HMO | | sent | | [place], | | | | | | | | [place] [address] | | + +--------+ +--------+ + +--------+ + +--------+ +--------+ + + | Guarantor Name | Accoun | Relation to | Date | Phone | Billing Address | | | t Type | Patient | of | | | | | | | | | | + +--------+ +--------+ + + | Magdalena Casillas | Person | Self | [birth year] | | [address] | | | al/Fam | | 1936 | [phone] | [place] | | | [place] | | | [address] (Home) | [address] | + +--------+ +--------+ + +"
--- OUTSIDE RECORDS SUMMARY | ~2019-01-04 | XMS | Encounter Summary ---
Demographics + + + | Address | [address] | | | [place] [address] | + + + | Home Phone | | + + + | Preferred Language | Unknown | + + + | Marital Status | | + + + | Religion Affiliation | Unknown | + + + [...] [place] | | | | | [address] | | + + + + + | John Casillas | ECON | Unknown | | + + + + + Care Team Providers + +------+ + | Care Refining Equipment Operator Name | Role | Phone | [...] | | | | INTERFACES | Drive [place], [place] | | | | | [phone] | [address] | | | | | | | [...] | + + + | MAGDALENA Chun Yvolver CT CERVICAL SPINE WO CONTRAST 02/03/2011 4:06 [...]
--- OUTSIDE RECORDS SUMMARY | ~2019-01-04 | XMS | Encounter Summary ---
Demographics + + + | Address | [address] | | | [place] [address] | + + + | Home Phone | | + + + | Preferred Language | Unknown | + + + | Marital Status | | + + + | Faith Affiliation | Unknown | + + + | Race | White | + + + | Ethnic Group | Other Race | + + + Author + + + | Author | [facility] | + + + | Organization | [facility] | + + + | Address | Unknown | + + + | Phone | Unavailable | + + + Support + + +---------+ + | Name | Relationship | Address | Phone | + + +---------+ + | John Casillas | ECON | Unknown | | + + +---------+ + Care Team Providers + +------+ + | Care Quality Tester Name | Role | Phone | + +------+ + | Manuel Adames MD | PCP | | + +------+ + Encounter Details +--------+ + + + + | Date | Type | Department | Care Team | Description | +--------+ + + + + | 04/24/ | Documentati | Neurophysiology | Jw Bettencourt | | | 2018 | on | EEG at [facility] [address] | G, DO [address] | | | | | [address] | [facility] | | | | | Mailcode: CR120 | [place], [place] | | | | | [facility] | [address] | | | | | [place], [place] | [phone] | | | | | [address] | | | | | | [phone] | | | +--------+ + + + [...] 04/24/2017 Place of | | | Service: [facility] Department: [facility]ICKY EEG TELEMEDICINE - | | | [id number] STAT EEG Reason for Exam: Evaluate for [...] directly to | | | Aman at [facility] on 4:23pm on 04/24/2017. Jw | | | DO Bettencourt MFA Electronically signed on 04/24/2017 at 4:19 PM | | | JW BETTENCOURT DO. Suggested CPT: 10286 - EEG Routine Awake | | | & Asleep Suggested Dx: G93.49 Other encephalopathy | | + + + documented in this encounter Visit Diagnoses Not on filedocumented in this encounter"
--- OUTSIDE RECORDS SUMMARY | ~2019-01-04 | XMS | Encounter Summary ---
Demographics + + + | Address | [address] | | | [place] [address] | + + + | Home Phone | | + + + | Preferred Language | Unknown | + + + | Marital Status | | + + + | Protestant Affiliation | Unknown | + + + | Race | Unknown | + + + | Ethnic Group | Unknown | + + + Author + + + | Author | [facility] | | | and [place] | + + + | Organization | [facility] | | | and [place] | + + + | Address | Unknown | + + + | Phone | Unavailable | + + + Support + + + + + | Name | Relationship | Address | Phone | + + + + + | Vera Somers | ECON | [place] | | | | | [address] | | + + + + + | John Casillas | ECON | Unknown | | + + + + + Care Team Providers + +------+ + | Care Blind Escort Name | Role | Phone | + [...] [place] | | | | | [address] | [address] | | | | | [phone] | [phone] | | | | | | | [...] Dictation FINDINGS -------- MEASUREMENTS | | | Diet Assistant: LOBITO Authenticated by: Dionicio Baltazar DO | | | Report Date/Time: -- [id number]:49:22 | | + + + + + [...] MEASUREMENTS | | | | | | Diet Assistant: LOBITO | | Authenticated by: Dionicio Baltazar DO | | Report Date/Time: -- [id number]:49:22 | | | | IMPRESSION: | | 1. See Dictation | + + documented in this encounter Visit Diagnoses Not on filedocumented in this encounter"
--- OUTSIDE RECORDS SUMMARY | ~2019-01-04 | XMS | Encounter Summary ---
Demographics + + + | Address | [address] | | | [place] [address] | + + + | Home Phone | | + + + | Preferred Language | Unknown | + + + | Marital Status | | + + + | Anabaptism Affiliation | Unknown | + + + | Race | White | + + + | Ethnic Group | Other Race | + + + Author + + + | Author | [facility] | + + + | Organization | [facility] | + + + | Address | Unknown | + + + | Phone | Unavailable | + + + Support + + +---------+ + | Name | Relationship | Address | Phone | + + +---------+ + | John Casillas | ECON | Unknown | | + + +---------+ + Care Team Providers + +------+ + | Care Registered Public Surveyor Name | Role | Phone | + +------+ + | Manuel Adames MD | PCP | | + +------+ + Encounter Details +--------+ + + + + | Date | Type | Department | Care Team | Description | +--------+ + + + + | 04/24/ | Documentati | Neurophysiology | Jw Bettencourt | | | 2018 | on | EEG at [facility] [address] | G, DO [address] | | | | | [address] | [facility] | | | | | Mailcode: CR[address] | [place], [place] | | | | | [facility] | [address] | | | | | [place], [place] | [phone] | | | | | [address] | | | | | | [phone] | | | +--------+ + + + [...] 04/24/2017 Place of | | | Service: [facility] Department: RICKY EEG TELEMEDICINE - | | | [id number] STAT EEG Reason for Exam: Evaluate for [...] directly to | | | Aman at [facility] on 4:23pm on 04/24/2017. Jw | | | DO Bettencourt MFA Electronically signed on 04/24/2017 at 4:19 PM | | | JW BETTENCOURT DO. Suggested CPT: 89903 - EEG Routine Awake | | | & Asleep Suggested Dx: G93.49 Other encephalopathy | | + + + documented in this encounter Visit Diagnoses Not on filedocumented in this encounter"
--- OUTSIDE RECORDS SUMMARY | ~2019-01-04 | XMS | Clinical Summary ---
Demographics + + + | Address | [address] | | | [place] [address] | + + + | Home Phone | | + + + | Preferred Language | Unknown | + + + | Marital Status | | + + + | Buddhism Affiliation | Unknown | + + + [...] Team Providers + +------+ + | Care Packing Checker Name | Role | Phone | + +------+ + | Manuel Adames MD | PCP | | + +------+ + Source Comments DANIA is fully live on both [facility] Amb[facility] and [facility] InPatient.[facility] Allergies Not on File Medications Not [...] RE HMO | | sent | | [place], | | | | | | | | [place] [address] | | + +--------+ +--------+ + +--------+ + +--------+ +--------+ + + | Guarantor Name | Accoun | Relation to | Date | Phone | Billing Address | | | t Type | Patient | of | | | | | | | | | | + +--------+ +--------+ + + | Magdalena Casillas | Person | Self [birth year] | [address] | | | al/Fam | | 1936 | [phone] | [place] | | | [place] | | | [address] (Home) | [address] | + +--------+ +--------+ + +"
--- OUTSIDE RECORDS SUMMARY | ~2019-01-04 | XMS | Encounter Summary ---
Demographics + + + | Address | [address] | | | [place] [address] | + + + | Home Phone | | + + + | Preferred Language | Unknown | + + + | Marital Status | | + + + | Yazdanism Affiliation | Unknown | + + + | Race | Unknown | + + + | Ethnic Group | Unknown | + + + Author + + + | Author | [facility] | | | and [place] | + + + | Organization | [facility] | | | and [place] | + + + | Address | Unknown | + + + | Phone | Unavailable | + + + Support + + + + + | Name | Relationship | Address | Phone | + + + + + | Vera Somers | ECON | [place] | | | | | [address] | | + + + + + | John Casillas | ECON | Unknown | | + + + + + Care Team Providers + +------+ + | Care Biodiesel Operations Manager Name | Role | Phone | [...] Provider Unknown | | | | | [phone] | [phone] | | | | | | | [...]
--- OUTSIDE RECORDS SUMMARY | ~2019-01-04 | XMS | Encounter Summary ---
Demographics + + + | Address | [address] | | | [place] [address] | + + + | Home Phone | | + + + | Preferred Language | Unknown | + + + | Marital Status | | + + + | Quaker Affiliation | Unknown | + + + | Race | Unknown | + + + | Ethnic Group | Unknown | + + + Author + + + | Author | [facility] | | | and [place] | + + + | Organization | [facility] | | | and [place] | + + + | Address | Unknown | + + + | Phone | Unavailable | + + + Support + + + + + | Name | Relationship | Address | Phone | + + + + + | Vera Somers | ECON | [place] | | | | | [address] | | + + + + + | John Gómez | ECON | Unknown | | + + + + + Care Team Providers + +------+ + | Care Bartenders Name | Role | Phone | + +------+ + | Manuel Adames | PCP | | | MD | | | + +------+ + Encounter Details +--------+ + + + + | Date | Type | Department | Care Team | Description | +--------+ + + + + | 12/05/ | Orders Only | [facility] | Jessica Booth MD | | | 2010 | | [facility] | [address] | | | | | CARE FLO[address] | [address] [facility] | | | | | [address] | [place] [address] | | | | | [place], [place] | [phone] | | | | | [address] | | | | | | [phone] | | | +--------+ + + + [...] | + + + | MAGDALENA Chun [employer] XR CHEST 2 VIEW FRONTAL AND LATERAL [...] Performed At | + + + | [facility] [address] Ph: | | | Patient Name: MAGDALENA GÓMEZ Date of : | | | 1935 Medical Record: [id number] Account: [id number] | | | Exam Date/Time: 12/05/2010 11:01 [...] - 09/29/2018 11:03 AM PDT | | [facility] | | [facility] [address] | | | | | | Patient Name: MAGDALENA GÓMEZ | | Date of : 1935 | | Medical Record: [id number] | | Account: [id number] | | | | | | Exam [...] Performed At | + + + | [facility] [address] Ph: | | | Patient Name: MAGDALENA GÓMEZ Date of : | | | 1935 Medical Record: [id number] Account: [id number] | | | Exam Date/Time: 12/05/2010 11:05 [...] - 09/29/2018 11:03 AM PDT | | [facility] | | [facility] [address] | | | | | | Patient Name: MAGDALENA GÓMEZ | | Date of : 1935 | | Medical Record: [id number] | | Account: [id number] | | | | | | Exam [...] EXTERNAL LAB | | Testing performed at [facility];[address];[place] [address] COLOR | | | RED Testing | | | performed at [facility];[address];[place] [address] APPEARANCE | | | CLOUDY Testing performed at [facility];[address];[place] [address] RBC'S | | | [id number] Testing performed at [facility];[address];[place] [address] TOTAL NUCLEATED CELLS 4770 | | | Testing performed at [facility];[address];[place] [address] | | | NEUTROPHILS 90 Testing | | | performed at [facility];[address];[place] [address] LYMPHOCYTES | | | 8 Testing performed at | | | [facility];[address];[place] [address] MONOCYTES/MACROPHAGES | | | 2 Testing performed at [facility];[address];[place] [address] CELLS COUNTED | | | 100 Testing performed at [facility], [place] | | | [address] | | + + + + +---------+ [...] EXTERNAL LAB | | Testing performed at [facility];[address] [place] [address];[place] [address] | | + + + + +---------+ [...] | EXTERNAL LAB | | not a phlebotomist lab assistant validated sample type for this method. No | | | reference ranges have been established. Testing performed at [facility];[address];[place] [address] FLUID TP SOURCE | | | PLEURAL FLUID Testing performed at [facility];[address];[place] [address] | | + + + + +---------+ + + | Performing | Address | City/State/[facility] | Phone Number | | Organization | [...] | EXTERNAL LAB | | not a phlebotomist lab assistant validated sample type for this method. No | | | reference ranges have been established. Testing performed at [facility] | | | [facility];[place] [address] Glucose, Fluid Type | | | PLEURAL FLUID Testing performed at [facility];[address] [place] [address];[place], [place] | | | [address] | | + + + + +---------+ [...] EXTERNAL LAB | | Testing performed at [facility];[address] [place] [address];[place] [address] | | + + + + +---------+ [...] | EXTERNAL LAB | | performed at [facility];[address] [place] [address];[place] [address] | | + + + + +---------+ [...] Performed At | + + + | [facility] [address] Ph: | | | Patient Name: MAGDALENA GÓMEZ Date of : | | | 1935 Medical Record: [id number] Account: [id number] | | | Exam Date/Time: 12/04/2010 18:49 [...] - 09/29/2018 11:03 AM PDT | | [facility] | | [facility] [address] | | | | | | Patient Name: MAGDALENA GÓMEZ | | Date of : 1935 | | Medical Record: [id number] | | Account: [id number] | | | | | | Exam [...] Performed At | + + + | [facility] [address] Ph: | | | Patient Name: MAGDALENA GÓMEZ Date of : | | | 1935 Medical Record: [id number] Account: [id number] | | | Exam Date/Time: 12/04/2010 16:29 [...] - 09/29/2018 11:03 AM PDT | | [facility] | | [facility] [address] | | | | | | Patient Name: MAGDALENA GÓMEZ | | Date of : 1935 | | Medical Record: [id number] | | Account: [id number] | | | | | | Exam [...] Performed At | + + + | [facility] [address] Ph: | | | Patient Name: MAGDALENA GÓMEZ Date of : | | | 1935 Medical Record: [id number] Account: [id number] | | | Exam Date/Time: 12/04/2010 10:57 [...] - 09/29/2018 11:03 AM PDT | | [facility] | | [facility] [address] | | | | | | Patient Name: MAGDALENA GÓMEZ | | Date of : 1935 | | Medical Record: [id number] | | Account: [id number] | | | | | | Exam [...] EXTERNAL LAB | | Testing performed at [facility];[address] [place] [address];[place] [address] MRSA PCR | | | NEGATIVE Testing performed at | | | [address];[place] [address] | | + + + + +---------+ [...] Performed At | + + + | [facility] [address] Ph: | | | Patient Name: MAGDALENA GÓMEZ Date of : | | | 1935 Medical Record: [id number] Account: [id number] | | | Exam Date/Time: 11/30/2010 19:01 Ordering | | | Physician: DISHA Mujica Detail: [id number] Exam Description: XR | | | CHEST [...] - 09/29/2018 11:03 AM PDT | | [facility] | | [facility] [address] | | | | | | Patient Name: MAGDALENA GÓMEZ | | Date of : 1935 | | Medical Record: [id number] | | Account: [id number] | | | | | | Exam [...] Performed At | + + + | [facility] [address] Ph: | | | Patient Name: MAGDALENA GÓMEZ Date of : | | | 1935 Medical Record: [id number] Account: [id number] | | | Exam Date/Time: 11/30/2010 17:15 [...] - 09/29/2018 11:03 AM PDT | | [facility] | | [facility] [address] | | | | | | Patient Name: MAGDALENA GÓMEZ | | Date of : 1935 | | Medical Record: [id number] | | Account: [id number] | | | | | | Exam [...] Performed At | + + + | [facility] [address] Ph: | | | Patient Name: MAGDALENA GÓMEZ Date of : | | | 1935 Medical Record: [id number] Account: [id number] | | | Exam Date/Time: 11/29/2010 05:00 [...] - 09/29/2018 11:03 AM PDT | | [facility] | | [facility] [address] | | | | | | Patient Name: MAGDALENA GÓMEZ | | Date of : 1935 | | Medical Record: [id number] | | Account: [id number] | | | | | | Exam [...] Performed At | + + + | [facility] [address] Ph: | | | Patient Name: MAGDALENA GÓMEZ Date of : | | | 1935 Medical Record: [id number] Account: [id number] | | | Exam Date/Time: 11/28/2010 00:30 Ordering | | | Physician: LUIS ALBERTO Mujica Detail: 5000 Exam Description: US | | | VENOUS UPPER EXT UNILATERAL | | | LEFT | | | UPPER EXTREMITY DOPPLER ULTRASOUND HISTORY: Left arm and neck | | | swelling. TECHNIQUE: Real-time sonographic vascular imaging was | | | performed by the family intervention specialist through the upper extremity utilizing | | | both color-flow and Doppler flow analysis. Multiple inbound call center representative | | | static images were [...] - 09/29/2018 11:03 AM PDT | | [facility] | | [facility] [address] | | | | | | Patient Name: HICKEY, MAGDALENA M | | Date of : 1935 | | Medical Record: [id number] | | Account: [id number] | | | | | | Exam [...] imaging was performed by the | | family intervention specialist through the upper extremity utilizing both color-flow and | | Doppler flow analysis. Multiple inbound call center representative static images were saved for | [...] Performed At | + + + | [facility] [address] Ph: | | | Patient Name: MAGDALENA GÓMEZ Date of : | | | 1935 Medical Record: [id number] Account: [id number] | | | Exam Date/Time: 11/28/2010 05:00 [...] - 09/29/2018 11:03 AM PDT | | [facility] | | [facility] [address] | | | | | | Patient Name: MAGDALENA GÓMEZ | | Date of : 1935 | | Medical Record: [id number] | | Account: [id number] | | | | | | Exam [...] Performed At | + + + | [facility] [address] Ph: | | | Patient Name: MAGDALENA GÓMEZ Date of : | | | 1935 Medical Record: [id number] Account: [id number] | | | Exam Date/Time: 11/27/2010 19:00 [...] - 09/29/2018 11:03 AM PDT | | [facility] | | [facility] [address] | | | | | | Patient Name: MAGDALENA GÓMEZ | | Date of : 1935 | | Medical Record: [id number] | | Account: [id number] | | | | | | Exam [...] Performed At | + + + | [facility] [address] Ph: | | | Patient Name: MAGDALENA GÓMEZ Date of : | | | 1935 Medical Record: [id number] Account: [id number] | | | Exam Date/Time: 11/27/2010 05:00 [...] - 09/29/2018 11:03 AM PDT | | [facility] | | [facility] [address] | | | | | | Patient Name: MAGDALENA GÓMEZ | | Date of : 1935 | | Medical Record: [id number] | | Account: [id number] | | | | | | Exam [...] Performed At | + + + | [facility] [address] Ph: | | | Patient Name: MAGDALENA GÓMEZ Date of : | | | 1935 Medical Record: [id number] Account: [id number] | | | Exam Date/Time: 11/26/2010 05:00 [...] - 09/29/2018 11:03 AM PDT | | [facility] | | [facility] [address] | | | | | | Patient Name: MAGDALENA GÓMEZ | | Date of : 1935 | | Medical Record: [id number] | | Account: [id number] | | | | | | Exam [...] Performed At | + + + | [facility] [address] Ph: | | | Patient Name: RICO MAGDALENA Chun Date of : | | | 1935 Medical Record: [id number] Account: [id number] | | | Exam Date/Time: 11/25/2010 07:18 [...] - 09/29/2018 11:03 AM PDT | | [facility] | | [facility] [address] | | | | | | Patient Name: MAGDALENA GÓMEZ | | Date of : 1935 | | Medical Record: [id number] | | Account: [id number] | | | | | | Exam [...] Performed At | + + + | [facility] [address] Ph: | | | Patient Name: MAGDALENA GÓMEZ Date of : | | | 1935 Medical Record: [id number] Account: [id number] | | | Exam Date/Time: 11/25/2010 06:19 [...] - 09/29/2018 11:03 AM PDT | | [facility] | | [facility] [address] | | | | | | Patient Name: MAGDALENA GÓMEZ | | Date of : 1935 | | Medical Record: [id number] | | Account: [id number] | | | | | | Exam [...] Read by Sesar | | | Gerda Vcikers MD on 11/25/10 07:16. Addendum [facility] | | | [facility] [address] | | | Patient Name: MAGDALENA GÓMEZ Date of : 1935 | | | Medical Record: [id number] Account: [id number] Accession: | | | [id number] Exam Date/Time: 11/25/2010 05:00 Ordering Physician: | [...] | Addendum [facility] | | | | [facility] | | [facility] [address] | | | | | | Patient Name: MAGDALENA GÓMEZ | | Date of : 1935 | | Medical Record: [id number] | | Account: [id number] | | | | | | Exam [...] Performed At | + + + | [facility] [address] Ph: | | | Patient Name: MAGDALENA GÓMEZ Date of : | | | 1935 Medical Record: [id number] Account: [id number] | | | Exam Date/Time: 11/24/2010 05:00 Ordering | | | Physician: SERGIO JENNINGS Order Detail: [id number] Exam Description: | | | XR CHEST [...] - 09/29/2018 11:03 AM PDT | | [facility] | | [facility] [address] | | | | | | Patient Name: HICKEY, MAGDALENA M | | Date of : 1935 | | Medical Record: [id number] | | Account: [id number] | | | | | | Exam [...] Performed At | + + + | [facility] [address] Ph: | | | Patient Name: MAGDALENA GÓMEZ Adiel Date of : | | | 1935 Medical Record: [id number] Account: [id number] | | | Exam Date/Time: 11/23/2010 16:31 [...] - 09/29/2018 11:03 AM PDT | | [facility] | | [facility] [address] | | | | | | Patient Name: MAGDALENA GÓMEZ | | Date of : 1935 | | Medical Record: [id number] | | Account: [id number] | | | | | | Exam [...] Performed At | + + + | [facility] [address] Ph: | | | Patient Name: KAREN GONZALEZ Date of : | | | 02/06/1859 Medical Record: [id number] Account: [id number] | | | Exam Date/Time: 11/23/2010 05:00 [...] - 09/29/2018 11:03 AM PDT | | [facility] | | [facility] [address] | | | | | | Patient Name: KAREN GONZALEZ 26 | | Date of : 02/06/1859 | | Medical Record: [id number] | | Account: [id number] | | | | | | Exam [...] Performed At | + + + | [facility] [address] Ph: | | | Patient Name: TRAUMAKAREN 26 Date of : | | | 02/06/1859 Medical Record: [id number] Account: [id number] | | | Exam Date/Time: 11/22/2010 14:48 [...] - 09/29/2018 11:03 AM PDT | | [facility] | | [facility] [address] | | | | | | Patient Name: KAREN GONZALEZ | | Date of : 02/06/1859 | | Medical Record: [id number] | | Account: [id number] | | | | | | Exam [...] Performed At | + + + | [facility] [address] Ph: | | | Patient Name: KAREN GONZALEZ Date of : | | | 02/06/1859 Medical Record: [id number] Account: [id number] | | | Exam Date/Time: 11/22/2010 12:59 [...] was also examined with | | | [employer] 3D software for evaluation of the cerebral [...] posterior cerebral artery: | | | Normal. [place]: Anterior communicating artery: Normal. | [...] - 09/29/2018 11:03 AM PDT | | [facility] | | [facility] [address] | | | | | | Patient Name: TRAUMA, KAREN Luciano | | Date of : 02/06/1859 | | Medical Record: [id number] | | Account: [id number] | | | | | | Exam [...] The data set was also examined with [employer] 3D software for | | evaluation of [...] cerebral artery: Normal. | | | | [place]: | | Anterior communicating artery: [...] | | | 8:40 AM Addendum [facility] | | | [place] [address] Patient Name: KAREN GONZALEZ | | | Date of : 02/06/1859 Medical Record: [id number] Account: | | | [id number] Exam Date/Time: 11/22/2010 | | | 11:20 [...] | pelvis. Oral Contrast:Readi-Cat IV contrast:100 mL [id number] | | | COMPARISON: None. FINDINGS: CT [...] | Addendum Ends | | | | [facility] | | [facility] [address] | | | | | | Patient Name: KAREN GONZALEZ | | Date of : 02/06/1859 | | Medical Record: [id number] | | Account: [id number] | | | | | | Exam [...] Oral Contrast:Readi-Cat | | IV contrast:100 mL [id number] | | | | COMPARISON: | | [...] WBCS/LPF | | | Testing performed at [facility] | | | [place] [address] CULTURE | | | 1+ NORMAL UPPER RESPIRATORY FERNANDA | | | Testing performed at [facility], [address] [facility] | | | [place] [address] REPORT STATUS | | | 11/24/2010 FINAL [...] Performed At | + + + | [facility] [address] Ph: | | | Patient Name: KAREN GONZALEZ Date of : | | | 02/06/1859 Medical Record: [id number] Account: [id number] | | | Exam Date/Time: 11/22/2010 11:55 [...] - 09/29/2018 11:03 AM PDT | | [facility] | | [facility] [address] | | | | | | Patient Name: CARLOS, KAREN Luciano | | Date of : 02/06/1859 | | Medical Record: [id number] | | Account: [id number] | | | | | | Exam [...] Performed At | + + + | [facility] [address] Ph: | | | Patient Name: KAREN GONZALEZ Date of : | | | 02/06/1859 Medical Record: [id number] Account: [id number] | | | Exam Date/Time: 11/22/2010 11:20 [...] - 09/29/2018 11:03 AM PDT | | [facility] | | [facility] [address] | | | | | | Patient Name: TRAUMA, KAREN 26 | | Date of : 02/06/1859 | | Medical Record: [id number] | | Account: [id number] | | | | | | Exam [...] Performed At | + + + | [facility] [address] Ph: | | | Patient Name: KAREN GONZALEZ Date of : | | | 02/06/1859 Medical Record: [id number] Account: [id number] | | | Exam Date/Time: 11/22/2010 11:56 [...] - 09/29/2018 11:03 AM PDT | | [facility] | | [facility] [address] | | | | | | Patient Name: TRAUMA, KAREN Luciano | | Date of : 02/06/1859 | | Medical Record: [id number] | | Account: [id number] | | | | | | Exam Date/Time: 11/22/2010 11:56 | | Ordering Physician: JSOE ALFREDO CORRAL | | Order Detail: [id number] [...] Performed At | + + + | [facility] [address] Ph: | | | Patient Name: KAREN GONZALEZ Date of : | | | 02/06/1859 Medical Record: [id number] Account: [id number] | | | Exam Date/Time: 11/22/2010 11:20 [...] - 09/29/2018 11:03 AM PDT | | [facility] | | [facility] [address] | | | | | | Patient Name: KAREN GONZALEZ | | Date of : 02/06/1859 | | Medical Record: [id number] | | Account: [id number] | | | | | | Exam [...] EXTERNAL LAB | | Testing performed at [facility];[address] [place] [address];[place] [address] MRSA PCR | | | NEGATIVE Testing performed at | | | [facility];[address] [place] [address];[place] [address] | | + + + + +---------+ + + | Performing | Address | City/State/Zipcode | Phone Number | | Organization | | | | + +---------+ + + | EXTERNAL LAB | | | | + +---------+ + + documented in this encounter Visit Diagnoses Not on filedocumented in this encounter"
--- OUTSIDE RECORDS SUMMARY | ~2019-01-04 | XMS | Clinical Summary ---
Demographics + + + | Address | [address] | | | [place] [address] | + + + | Home Phone | | + + + | Preferred Language | Unknown | + + + | Marital Status | | + + + | Oriental Orthodox Affiliation | Unknown | + + + | Race | Unknown | + + + | Ethnic Group | Unknown | + + + Author + + + | Author | [employer] [facility] (Historical as of | | | 09-22-18) | + + + | Organization | [facility] (Historical as of | | | 09-22-18) | + + + | Address | Unknown | + + + | Phone | Unavailable | + + + Support + + + + + | Name | Relationship | Address | Phone | + + + + + | Vera Somers | ECON | [place] | | | | | [address] | | + + + + + | John Casillas | ECON | Unknown | | + + + + + Care Team Providers + +------+ + | Care Riveting Machine Operator Automatic Name | Role | Phone | + [...] | MA - [employer] | MA-PRE | [id number] | [employer] | | | | FAMILY [...] | Self | [birth year] | Home: | [address] | | | al/Fam | | 1935 | [phone] | [place] | | | [place]annan | | | [phone] | [phone] | + +--------+ +--------+ + + | MAGDALENA CASILLAS | Third | Self | [birth year] | Home: | [address] | | | [place] | | [phone] | [place] | | | [place] | | | [phone] | [phone] | | | ity | | | | | + +--------+ +--------+ + +
--- OUTSIDE RECORDS SUMMARY | ~2019-01-04 | XMS | Clinical Summary ---
Demographics + + + | Address | [address] | | | [place] [address] | + + + | Home Phone [...] + + | Author | [facility] | | | and [place] | + + + | Organization | [facility] | | | and [place] | + + + | Address | Unknown | + + + | Phone | Unavailable | + + + Support + + + + + | Name | Relationship | Address | Phone | + + + + + | Vera Somers | ECON | [place] | | | | | [address] | | + + + + + | John Casillas | ECON | Unknown | | + + + + + Care Team Providers + +------+ + | Care Dive Superintendent Name | Role | Phone | + [...]
--- OUTSIDE RECORDS SUMMARY | ~2019-01-04 | XMS | Encounter Summary ---
Demographics + + + | Address | [address] | | | [place] [address] | + + + | Home Phone | | + + + | Preferred Language | Unknown | + + + | Marital Status | | + + + | Taoist Affiliation | Unknown | + + + | Race | White | + + + | Ethnic Group | Other Race | + + + Author + + + | Author | [facility] | + + + | Organization | [facility] | + + + | Address | Unknown | + + + | Phone | Unavailable | + + + Support + + +---------+ + | Name | Relationship | Address | Phone | + + +---------+ + | John Casillas | ECON | Unknown | | + + +---------+ + Care Team Providers + +------+ + | Care Organ Pipe Finisher Name | Role | Phone | + +------+ + | Manuel Adames MD | PCP | | + +------+ + Encounter Details +--------+ + + + + | Date | Type | Department | Care Team | Description | +--------+ + + + + | 05/02/ | Document-Sc | Health Information | Unknown . | | | 2018 | anned | Services [address] | | | | | [address] | | | | | | Mailcode: OP17A | | | | | | [facility] | | | | | | [place], [place] | | | | | | [address] | | | | | | [phone] | | | +--------+ + + + [...]
--- OUTSIDE RECORDS SUMMARY | ~2019-01-04 | XMS | Encounter Summary ---
Demographics + + + | Address | [address] | | | [place] [address] | + + + | Home Phone | | + + + | Preferred Language | Unknown | + + + | Marital Status | | + + + | Voodoo Affiliation | Unknown | + + + | Race | Unknown | + + + | Ethnic Group | Unknown | + + + Author + + + | Author | [facility] | | | and [place] | + + + | Organization | [facility] | | | and [place] | + + + | Address | Unknown | + + + | Phone | Unavailable | + + + Support + + + + + | Name | Relationship | Address | Phone | + + + + + | Vera Somers | ECON | [place] | | | | | [address] | | + + + + + | John Casillas | ECON | Unknown | | + + + + + Care Team Providers + +------+ + | Care Ecommerce Analyst Name | Role | Phone | [...] [place] | | | | | [place] | [id number] | | | | | [address] | | | | | | [phone] | | | +--------+ + + + [...] | | 2.48 cm SV(Teich): 15.29 ml Color Receiver: LOBITO Authenticated by: | | | Butch [...] cmLVIDd: 3.07 cmLVPWd: 1.25 cmLVOT Area: 3.66 qa7YDOU Diam: 2.15 | | cm%FS: 19.27 %EF(Teich): 41.01 %ESV(Teich): 22.00 mlLVIDs: 2.48 cmSV(Teich): | | 15.29 ml Color Receiver: ZEINAButhenticated by: Butch Ballesteros Date/Time: 03-15-2018 | [...] | |SV(Teich): 15.29 ml | | | |Color Receiver: LOBITO | |Authenticated by: Butch Tapia | [...]
--- OUTSIDE RECORDS SUMMARY | ~2019-01-04 | XMS | Encounter Summary ---
Demographics + + + | Address | [address] | | | [place] [address] | + + + | Home Phone | | + + + | Preferred Language | Unknown | + + + | Marital Status | | + + + | Yazdanism Affiliation | Unknown | + + + | Race | Unknown | + + + | Ethnic Group | Unknown | + + + Author + + + | Author | [facility] | | | and [place] | + + + | Organization | [facility] | | | and [place] | + + + | Address | Unknown | + + + | Phone | Unavailable | + + + Support + + + + + | Name | Relationship | Address | Phone | + + + + + | Vera Somers | ECON | [place] | | | | | [address] | | + + + + + | John Casillas | ECON | Unknown | | + + + + + Care Team Providers + +------+ + | Care Assembler Type Bar And Segment Name | Role | Phone | + [...] Provider Unknown | | | | | [phone] | [phone] | | | | | | | [...]
--- OUTSIDE RECORDS SUMMARY | ~2019-01-04 | XMS | Encounter Summary ---
Demographics + + + | Address | [address] | | | [place] [address] | + + + | Home Phone | | + + + | Preferred Language | Unknown | + + + | Marital Status | | + + + | Mormon Affiliation | Unknown | + + + | Race | Unknown | + + + | Ethnic Group | Unknown | + + + Author + + + | Author | [facility] | | | and [place] | + + + | Organization | [facility] | | | and [place] | + + + | Address | Unknown | + + + | Phone | Unavailable | + + + Support + + + + + | Name | Relationship | Address | Phone | + + + + + | Vera Somers | ECON | [place] | | | | | [address] | | + + + + + | John Casillas | ECON | Unknown | | + + + + + Care Team Providers + +------+ + | Care Health Information Management Director Name | Role | Phone | + [...] | | | | INTERFACES | Drive [place], [place] | | | | | [phone] | [address] | | | | | | | [...] | + + + | MAGDALENA Chun ELIKE CT CERVICAL SPINE WO CONTRAST 02/03/2011 4:06 [...]
--- OUTSIDE RECORDS SUMMARY | ~2019-01-04 | XMS | Encounter Summary ---
Demographics + + + | Address | [address] | | | [place] [address] | + + + | Home Phone | | + + + | Preferred Language | Unknown | + + + | Marital Status | | + + + | Jehovah'S Witness Affiliation | Unknown | + + + [...] [place] | | | | | [address] | | + + + + + | John Gómez | ECON | Unknown | | + + + + + Care Team Providers + +------+ + | Care Envelope Fold Operator Name | Role | Phone | + +------+ + | Manuel Adames | PCP | | | MD | | | + +------+ + Encounter Details +--------+ + + + + | Date | Type | Department | Care Team | Description | +--------+ + + + + | 12/05/ | Orders Only | [facility] | Jessica Booth MD | | | 2010 | | [facility] | [address] | | | | | CARE FLOOR [address] | [address] [facility] | | | | | [address] | [place] [address] | | | | | [place], [place] | [phone] | | | | | [address] | | | | | | [phone] | | | +--------+ + + + [...] | + + + | MAGDALENA Chun LC Style.comKEY XR CHEST 2 VIEW FRONTAL AND LATERAL [...] Performed At | + + + | [facility] [address] Ph: | | | Patient Name: MAGDALENA GÓMEZ Date of : | | | 1935 Medical Record: [id number] Account: [id number] | | | Exam Date/Time: 12/05/2010 11:01 [...] 09/29/2018 11:03 AM PDT | | [facility] | | [facility] [address] | | | | | | Patient Name: MAGDALENA GÓMEZ | | Date of : 1935 | | Medical Record: [id number] | | Account: [id number] | | | | | | Exam [...] Performed At | + + + | [facility] [address] Ph: | | | Patient Name: MAGDALENA GÓMEZ Date of : | | | 1935 Medical Record: [id number] Account: [id number] | | | Exam Date/Time: 12/05/2010 11:05 [...] 09/29/2018 11:03 AM PDT | | [facility] | | [facility] [address] | | | | | | Patient Name: MAGDALENA GÓMEZ | | Date of : 1935 | | Medical Record: [id number] | | Account: [id number] | | | | | | Exam [...] EXTERNAL LAB | | Testing performed at [facility];[address];[place] [address] COLOR | | | RED Testing | | | performed at [facility];[address];[place] [address] APPEARANCE | | | CLOUDY Testing performed at [facility];[address];[place] [address] RBC'S | | | [id number] Testing performed at [facility];[address];[place] [address] TOTAL NUCLEATED CELLS 4770 | | | Testing performed at [facility];[address];[place] [address] | | | NEUTROPHILS 90 Testing | | | performed at [facility];[address];[place] [address] LYMPHOCYTES | | | 8 Testing performed at | | | [facility];[address];[place] [address] MONOCYTES/MACROPHAGES | | | [address] [facility];[address];[place] [address] CELLS COUNTED | | | [address] [facility], [place] | | | [address] | | + + + + +---------+ [...] EXTERNAL LAB | | Testing performed at [facility];[address] [place] [address];[place] [address] | | + + + + +---------+ [...] | EXTERNAL LAB | | not a rubber stamps and dies supervisor validated sample type for this method. No | | | reference ranges have been established. Testing performed at [facility];[address];[place] [address] FLUID TP SOURCE | | | PLEURAL FLUID Testing performed at [facility];[address];[place] [address] | | + + + + +---------+ + + | Performing | Address | City/State[facility] | Phone Number | | [...] | EXTERNAL LAB | | not a rubber stamps and dies supervisor validated sample type for this method. No | | | reference ranges have been established. Testing performed at [facility] | | | [facility];[place] [address] Glucose, Fluid Type | | | PLEURAL FLUID Testing performed at [facility];[address] [place] [address];[place], [place] | | | [address] | | + + + + +---------+ [...] EXTERNAL LAB | | Testing performed at [facility];[address] [place] [address];[place] [address] | | + + + + +---------+ [...] | EXTERNAL LAB | | performed at [facility];[address] [place] [address];[place] [address] | | + + + + +---------+ [...] Performed At | + + + | [facility] [address] Ph: | | | Patient Name: MAGDALENA GÓMEZ Date of : | | | 1935 Medical Record: [id number] Account: [id number] | | | Exam Date/Time: 12/04/2010 18:49 [...] 09/29/2018 11:03 AM PDT | | [facility] | | [facility] [address] | | | | | | Patient Name: MAGDALENA GÓMEZ | | Date of : 1935 | | Medical Record: [id number] | | Account: [id number] | | | | | | Exam [...] Performed At | + + + | [facility] [address] Ph: | | | Patient Name: MAGDALENA GÓMEZ Date of : | | | 1935 Medical Record: [id number] Account: [id number] | | | Exam Date/Time: 12/04/2010 16:29 [...] 09/29/2018 11:03 AM PDT | | [facility] | | [facility] [address] | | | | | | Patient Name: MAGDAELNA GÓMEZ | | Date of : 1935 | | Medical Record: [id number] | | Account: [id number] | | | | | | Exam [...] Performed At | + + + | [facility] [address] Ph: | | | Patient Name: MAGDALENA GÓMEZ Date of : | | | 1935 Medical Record: [id number] Account: [id number] | | | Exam Date/Time: 12/04/2010 10:57 [...] 09/29/2018 11:03 AM PDT | | [facility] | | [facility] [address] | | | | | | Patient Name: MAGDALENA GÓMEZ | | Date of : 1935 | | Medical Record: [id number] | | Account: [id number] | | | | | | Exam [...] EXTERNAL LAB | | Testing performed at [facility];[address] [place] [address];[place] [address] MRSA PCR | | | NEGATIVE Testing performed at | | | [address];[place] [address] | | + + + + +---------+ [...] Performed At | + + + | [facility] [address] Ph: | | | Patient Name: MAGDALENA GÓMEZ Date of : | | | 1935 Medical Record: [id number] Account: [id number] | | | Exam Date/Time: 11/30/2010 19:01 Ordering | | | Physician: DISHA Mujica Detail: [id number] Exam Description: XR | | | CHEST [...] 09/29/2018 11:03 AM PDT | | [facility] | | [facility] [address] | | | | | | Patient Name: MAGDALENA GÓMEZ | | Date of : 1935 | | Medical Record: [id number] | | Account: [id number] | | | | | | Exam [...] Performed At | + + + | [facility] [address] Ph: | | | Patient Name: MAGDALENA GÓMEZ Date of : | | | 1935 Medical Record: [id number] Account: [id number] | | | Exam Date/Time: 11/30/2010 17:15 [...] 09/29/2018 11:03 AM PDT | | [facility] | | [facility] [address] | | | | | | Patient Name: MAGDALENA GÓMEZ | | Date of : 1935 | | Medical Record: [id number] | | Account: [id number] | | | | | | Exam [...] Performed At | + + + | [facility] [address] Ph: | | | Patient Name: MAGDALENA GÓMEZ Date of : | | | 1935 Medical Record: [id number] Account: [id number] | | | Exam Date/Time: 11/29/2010 05:00 [...] 09/29/2018 11:03 AM PDT | | [facility] | | [facility] [address] | | | | | | Patient Name: MAGDALENA GÓMEZ | | Date of : 1935 | | Medical Record: [id number] | | Account: [id number] | | | | | | Exam [...] Performed At | + + + | [facility] [address] Ph: | | | Patient Name: MAGDALENA GÓMEZ Date of : | | | 1935 Medical Record: [id number] Account: [id number] | | | Exam Date/Time: 11/28/2010 00:30 Ordering | | | Physician: LUIS ALBERTO Mujica Detail: [id number] Exam Description: US | | | VENOUS UPPER EXT UNILATERAL | | | LEFT | | | UPPER EXTREMITY DOPPLER ULTRASOUND HISTORY: Left arm and neck | | | swelling. TECHNIQUE: Real-time sonographic vascular imaging was | | | performed by the quality officer through the upper extremity utilizing | | | both color-flow and Doppler flow analysis. Multiple termite control representative | | | static images were [...] 09/29/2018 11:03 AM PDT | | [facility] | | [facility] [address] | | | | | | Patient Name: HICKEY, MAGDALENA M | | Date of : 1935 | | Medical Record: [id number] | | Account: [id number] | | | | | | Exam [...] imaging was performed by the | | quality officer through the upper extremity utilizing both color-flow and | | Doppler flow analysis. Multiple termite control representative static images were saved for | [...] Performed At | + + + | [facility] [address] Ph: | | | Patient Name: MAGDALENA GÓMEZ Date of : | | | 1935 Medical Record: [id number] Account: [id number] | | | Exam Date/Time: 11/28/2010 05:00 [...] 09/29/2018 11:03 AM PDT | | [facility] | | [facility] [address] | | | | | | Patient Name: MAGDALENA GÓMEZ | | Date of : 1935 | | Medical Record: [id number] | | Account: [id number] | | | | | | Exam [...] Performed At | + + + | [facility] [address] Ph: | | | Patient Name: MAGDALENA GÓMEZ Date of : | | | 1935 Medical Record: [id number] Account: [id number] | | | Exam Date/Time: 11/27/2010 19:00 [...] 09/29/2018 11:03 AM PDT | | [facility] | | [facility] [address] | | | | | | Patient Name: MAGDALENA GÓMEZ | | Date of : 1935 | | Medical Record: [id number] | | Account: [id number] | | | | | | Exam [...] Performed At | + + + | [facility] [address] Ph: | | | Patient Name: MAGDALENA GÓMEZ Date of : | | | 1935 Medical Record: [id number] Account: [id number] | | | Exam Date/Time: 11/27/2010 05:00 [...] 09/29/2018 11:03 AM PDT | | [facility] | | [facility] [address] | | | | | | Patient Name: MAGDALENA GÓMEZ | | Date of : 1935 | | Medical Record: [id number] | | Account: [id number] | | | | | | Exam [...] Performed At | + + + | [facility] [address] Ph: | | | Patient Name: MAGDALENA GÓMEZ Date of : | | | 1935 Medical Record: [id number] Account: [id number] | | | Exam Date/Time: 11/26/2010 05:00 [...] 09/29/2018 11:03 AM PDT | | [facility] | | [facility] [address] | | | | | | Patient Name: MAGDALENA GÓMEZ | | Date of : 1935 | | Medical Record: [id number] | | Account: [id number] | | | | | | Exam [...] Performed At | + + + | [facility] [address] Ph: | | | Patient Name: RICO MAGDALENA Chun Date of : | | | 1935 Medical Record: [id number] Account: [id number] | | | Exam Date/Time: 11/25/2010 07:18 [...] 09/29/2018 11:03 AM PDT | | [facility] | | [facility] [address] | | | | | | Patient Name: MAGDALENA GÓMEZ | | Date of : 1935 | | Medical Record: [id number] | | Account: [id number] | | | | | | Exam [...] Performed At | + + + | [facility] [address] Ph: | | | Patient Name: MAGDALENA GÓMEZ Date of : | | | 1935 Medical Record: [id number] Account: [id number] | | | Exam Date/Time: 11/25/2010 06:19 [...] 09/29/2018 11:03 AM PDT | | [facility] | | [facility] [address] | | | | | | Patient Name: MAGDALENA GÓMEZ | | Date of : 1935 | | Medical Record: [id number] | | Account: [id number] | | | | | | Exam [...] Vickers MD on 11/25/10 07:16. Addendum Ends [facility] | | | [facility] [address] | | | Patient Name: MAGDALENA GÓMEZ Date of : 1935 | | | Medical Record: [id number] Account: [id number] Accession: | | | [id number] Exam Date/Time: 11/25/2010 05:00 Ordering Physician: | [...] Addendum Ends | | | | [facility] | | [facility] [address] | | | | | | Patient Name: MAGDALENA GÓMEZ | | Date of : 1935 | | Medical Record: [id number] | | Account: [id number] | | | | | | Exam [...] Performed At | + + + | [facility] [address] Ph: | | | Patient Name: MAGDALENA GÓMEZ Date of : | | | 1935 Medical Record: [id number] Account: [id number] | | | Exam Date/Time: 11/24/2010 05:00 Ordering | | | Physician: SERGIO JENNINGS Order Detail: [id number] Exam Description: | | | XR CHEST [...] 09/29/2018 11:03 AM PDT | | [facility] | | [facility] [address] | | | | | | Patient Name: HICKEY, MAGDALENA M | | Date of : 1935 | | Medical Record: [id number] | | Account: [id number] | | | | | | Exam [...] Performed At | + + + | [facility] [address] Ph: | | | Patient Name: MAGDALENA GÓMEZ Adiel Date of : | | | 1935 Medical Record: [id number] Account: [id number] | | | Exam Date/Time: 11/23/2010 16:31 [...] 09/29/2018 11:03 AM PDT | | [facility] | | [facility] [address] | | | | | | Patient Name: MAGDALENA GÓMEZ | | Date of : 1935 | | Medical Record: [id number] | | Account: [id number] | | | | | | Exam [...] Performed At | + + + | [facility] [address] Ph: | | | Patient Name: KAREN GONZALEZ Date of : | | | 02/06/1859 Medical Record: [id number] Account: [id number] | | | Exam Date/Time: 11/23/2010 05:00 [...] 09/29/2018 11:03 AM PDT | | [facility] | | [facility] [address] | | | | | | Patient Name: KAREN GONZALEZ 26 | | Date of : 02/06/1859 | | Medical Record: [id number] | | Account: [id number] | | | | | | Exam [...] Performed At | + + + | [facility] [address] Ph: | | | Patient Name: TRAUMAKAREN 26 Date of : | | | 02/06/1859 Medical Record: [id number] Account: [id number] | | | Exam Date/Time: 11/22/2010 14:48 [...] 09/29/2018 11:03 AM PDT | | [facility] | | [facility] [address] | | | | | | Patient Name: KAREN GONZALEZ | | Date of : 02/06/1859 | | Medical Record: [id number] | | Account: [id number] | | | | | | Exam [...] Performed At | + + + | [facility] [address] Ph: | | | Patient Name: KAREN GONZALEZ Date of : | | | 02/06/1859 Medical Record: [id number] Account: [id number] | | | Exam Date/Time: 11/22/2010 12:59 [...] was also examined with | | | CartoDB 3D software for evaluation of the cerebral [...] posterior cerebral artery: | | | Normal. [place]: Anterior communicating artery: Normal. | [...] 09/29/2018 11:03 AM PDT | | [facility] | | [facility] [address] | | | | | | Patient Name: TRAUMA, KAREN Luciano | | Date of : 02/06/1859 | | Medical Record: [id number] | | Account: [id number] | | | | | | Exam [...] The data set was also examined with CartoDB 3D software for | | evaluation of [...] cerebral artery: Normal. | | | | [place]: | | Anterior communicating artery: [...] | | 8:[address] [facility] | | | [place] [address] Patient Name: KAREN GONZALEZ | | | Date of : 02/06/1859 Medical Record: [id number] Account: | | | [id number] Exam Date/Time: 11/22/2010 | | | 11:20 [...] | pelvis. Oral Contrast:Readi-Cat IV contrast:100 mL [id number] | | | COMPARISON: None. FINDINGS: CT [...] Addendum Ends | | | | [facility] | | [facility] [address] | | | | | | Patient Name: KAREN GONZALEZ | | Date of : 02/06/1859 | | Medical Record: [id number] | | Account: [id number] | | | | | | Exam [...] Oral Contrast:Readi-Cat | | IV contrast:100 mL [id number] | | | | COMPARISON: | | [...] WBCS/LPF | | | Testing performed at [facility], [facility] | | | [place] [address] CULTURE | | | 1+ NORMAL UPPER RESPIRATORY FERNANDA | | | Testing performed at [facility], [address] [facility] | | | [place] [address] REPORT STATUS | | | 11/24/2010 FINAL [...] Performed At | + + + | [facility] [address] Ph: | | | Patient Name: KAREN GONZALEZ Date of : | | | 02/06/1859 Medical Record: [id number] Account: [id number] | | | Exam Date/Time: 11/22/2010 11:55 [...] 09/29/2018 11:03 AM PDT | | [facility] | | [facility] [address] | | | | | | Patient Name: CARLOS, KAREN Luciano | | Date of : 02/06/1859 | | Medical Record: [id number] | | Account: [id number] | | | | | | Exam [...] Performed At | + + + | [facility] [address] Ph: | | | Patient Name: KAREN GONZALEZ Date of : | | | 02/06/1859 Medical Record: [id number] Account: [id number] | | | Exam Date/Time: 11/22/2010 11:20 [...] 09/29/2018 11:03 AM PDT | | [facility] | | [facility] [address] | | | | | | Patient Name: TRAUMA, KAREN 26 | | Date of : 02/06/1859 | | Medical Record: [id number] | | Account: [id number] | | | | | | Exam [...] Performed At | + + + | [facility] [address] Ph: | | | Patient Name: KAREN GONZALEZ Date of : | | | 02/06/1859 Medical Record: [id number] Account: [id number] | | | Exam Date/Time: 11/22/2010 11:56 [...] 09/29/2018 11:03 AM PDT | | [facility] | | [facility] [address] | | | | | | Patient Name: TRAUMA, KAREN Luciano | | Date of : 02/06/1859 | | Medical Record: [id number] | | Account: [id number] | | | | | | Exam [...] Performed At | + + + | [facility] [address] Ph: | | | Patient Name: KAREN GONZALEZ Date of : | | | 02/06/1859 Medical Record: [id number] Account: [id number] | | | Exam Date/Time: 11/22/2010 11:20 [...] 09/29/2018 11:03 AM PDT | | [facility] | | [facility] [address] | | | | | | Patient Name: KAREN GONZALEZ | | Date of : 02/06/1859 | | Medical Record: [id number] | | Account: [id number] | | | | | | Exam [...] EXTERNAL LAB | | Testing performed at [facility];[address] [place] [address];[place] [address] MRSA PCR | | | NEGATIVE Testing performed at | | | [facility];[address] [place] [address];[place] [address] | | + + + + +---------+ + + | Performing | Address | City/State/Zipcode | Phone Number | | Organization | | | | + +---------+ + + | EXTERNAL LAB | | | | + +---------+ + + documented in this encounter Visit Diagnoses Not on filedocumented in this encounter"
--- OUTSIDE RECORDS SUMMARY | ~2019-01-04 | XMS | Encounter Summary ---
Demographics + + + | Address | [address] | | | [place] [address] | + + + | Home Phone | | + + + | Preferred Language | Unknown | + + + | Marital Status | | + + + | Sabianism Affiliation | Unknown | + + + | Race | Unknown | + + + | Ethnic Group | Unknown | + + + Author + + + | Author | [facility] | | | and [place] | + + + | Organization | [facility] | | | and [place] | + + + | Address | Unknown | + + + | Phone | Unavailable | + + + Support + + + + + | Name | Relationship | Address | Phone | + + + + + | Vera Somers | ECON | [place] | | | | | [address] | | + + + + + | oJhn Casillas | ECON | Unknown | | + + + + + Care Team Providers + +------+ + | Care Computer Systems Design Analyst Name | Role | Phone | [...] [place] | | | | | [address] | [address] | | | | | [phone] | [phone] | | | | | | | [...] Dictation FINDINGS -------- MEASUREMENTS | | | Senior Principal: LOBITO Authenticated by: Dionicio Baltazar DO | | | Report Date/Time: -- [id number] | | + + + + + [...] MEASUREMENTS | | | | | | Senior Principal: LOBITO | | Authenticated by: Dionicio Baltazar DO | | Report Date/Time: -- [id number] | | | | IMPRESSION: | | 1. See Dictation | + + documented in this encounter Visit Diagnoses Not on filedocumented in this encounter"
--- OUTSIDE RECORDS SUMMARY | ~2019-01-04 | XMS | Encounter Summary ---
Demographics + + + | Address | [address] | | | [place] [address] | + + + | Home Phone | | + + + | Preferred Language | Unknown | + + + | Marital Status | | + + + | Taoist Affiliation | Unknown | + + + | Race | Unknown | + + + | Ethnic Group | Unknown | + + + Author + + + | Author | [facility] | | | and [place] | + + + | Organization | [facility] | | | and [place] | + + + | Address | Unknown | + + + | Phone | Unavailable | + + + Support + + + + + | Name | Relationship | Address | Phone | + + + + + | Vera Somers | ECON | [place] | | | | | [address] | | + + + + + | John Casillas | ECON | Unknown | | + + + + + Care Team Providers + +------+ + | Care Housing Inspectors Name | Role | Phone | + [...] [place] | | | | | [place] | [id number] | | | | | [address] | | | | | | [phone] | | | +--------+ + + + [...] | | 2.48 cm SV(Teich): 15.29 ml College Service Officer: LOBITO Authenticated by: | | | Butch [...] cmLVIDd: 3.07 cmLVPWd: 1.25 cmLVOT Area: 3.66 [id number] Diam: 2.15 | | cm%FS: 19.27 %EF(Teich): 41.01 %ESV(Teich): 22.00 mlLVIDs: 2.48 cmSV(Teich): | | 15.29 ml College Service Officer: ZEINAButhenticated by: Butch Ballesteros Date/Time: 03-15-2018 | [...] | |SV(Teich): 15.29 ml | | | |College Service Officer: LOBITO | |Authenticated by: Butch Tapia | [...]
--- OUTSIDE RECORDS SUMMARY | ~2019-01-04 | XMS | Clinical Summary ---
Demographics + + + | Address | [address] | | | [place] [address] | + + + | Home Phone | | + + + | Preferred Language | Unknown | + + + | Marital Status | | + + + | Congregational Affiliation | Unknown | + + + | Race | Unknown | + + + | Ethnic Group | Unknown | + + + Author + + + | Author | [facility] (Historical as of | | | 09-22-18) | + + + | Organization | [facility] (Historical as of | | | 09-22-18) | + + + | Address | Unknown | + + + | Phone | Unavailable | + + + Support + + + + + | Name | Relationship | Address | Phone | + + + + + | Vera Somers | ECON | [place] | | | | | [address] | | + + + + + | John Casillas | ECON | Unknown | | + + + + + Care Team Providers + +------+ + | Care Slot Operations Director Name | Role | Phone | [...] | MA - [employer] | MA-PRE | [id number] | Medica | | | | FAMILY [...] | Self | [birth year] | Home: | [address] | | | al/Fam | | 1935 | [phone] | [place] | | | [place] | | | [phone] | [phone] | + +--------+ +--------+ + + | MAGDALENA CASILLAS | Third | Self | [birth year] | Home: | [address] | | | Libertarian | | [phone] | [phone] | [place] | | | [place] | | | [phone] | [phone] | | | ity | | | | | + +--------+ +--------+ + +
--- OUTSIDE RECORDS SUMMARY | ~2019-01-04 | XMS | Encounter Summary ---
Demographics + + + | Address | [address] | | | [place] [address] | + + + | Home Phone | | + + + | Preferred Language | Unknown | + + + | Marital Status | | + + + | Buddhist Affiliation | Unknown | + + + | Race | White | + + + | Ethnic Group | Other Race | + + + Author + + + | Author | [facility] | + + + | Organization | [facility] | + + + | Address | Unknown | + + + | Phone | Unavailable | + + + Support + + +---------+ + | Name | Relationship | Address | Phone | + + +---------+ + | John Casillas | ECON | Unknown | | + + +---------+ + Care Team Providers + +------+ + | Care Gold Leaf Laborer Name | Role | Phone | + +------+ + | Manuel Adames MD | PCP | | + +------+ + Encounter Details +--------+ + + + + | Date | Type | Department | Care Team | Description | +--------+ + + + + | 05/02/ | Document-Sc | Health Information | Unknown . | | | 2018 | anned | Services [id number] | | | | | [address] | | | | | | Mailcode: [id number] | | | | | | [facility] | | | | | | [place], [place] | | | | | | [address] | | | | | | [phone] | | | +--------+ + + + [...]
--- OUTSIDE RECORDS SUMMARY | ~2019-01-04 | XMS | Encounter Summary ---
Demographics + + + | Address | [address] | | | [place] [address] | + + + | Home Phone | | + + + | Preferred Language | Unknown | + + + | Marital Status | | + + + | Muslim Affiliation | Unknown | + + + | Race | Unknown | + + + | Ethnic Group | Unknown | + + + Author + + + | Author | [facility] | | | and [place] | + + + | Organization | [facility] | | | and [place] | + + + | Address | Unknown | + + + | Phone | Unavailable | + + + Support + + + + + | Name | Relationship | Address | Phone | + + + + + | Vera Somers | ECON | [place] | | | | | [address] | | + + + + + | John Casillas | ECON | Unknown | | + + + + + Care Team Providers + +------+ + | Care Shoe Cementer Name | Role | Phone | + [...] Provider Unknown | | | | | [phone] | [phone] | | | | | | | [...]
--- OUTSIDE RECORDS SUMMARY | ~2019-01-04 | XMS | Clinical Summary ---
Demographics + + + | Address | [address] | | | [place] [address] | + + + | Home Phone | | + + + | Preferred Language | Unknown | + + + | Marital Status | | + + + | Mandaeism Affiliation | Unknown | + + + | Race | Unknown | + + + | Ethnic Group | Unknown | + + + Author + + + | Author | [facility] | | | and [place] | + + + | Organization | [facility] | | | and [place] | + + + | Address | Unknown | + + + | Phone | Unavailable | + + + Support + + + + + | Name | Relationship | Address | Phone | + + + + + | Vera Somers | ECON | [place] | | | | | [address] | | + + + + + | John Casillas | ECON | Unknown | | + + + + + Care Team Providers + +------+ + | Care Senior Sas Developer Name | Role | Phone | [...]
--- OUTSIDE RECORDS SUMMARY | ~2019-01-04 | XMS | Encounter Summary ---
Demographics + + + | Address | [address] | | | [place] [address] | + + + | Home Phone | | + + + | Preferred Language | Unknown | + + + | Marital Status | | + + + | Lutheran Affiliation | Unknown | + + + | Race | Unknown | + + + | Ethnic Group | Unknown | + + + Author + + + | Author | [facility] | | | and [place] | + + + | Organization | [facility] | | | and [place] | + + + | Address | Unknown | + + + | Phone | Unavailable | + + + Support + + + + + | Name | Relationship | Address | Phone | + + + + + | Vera Somers | ECON | [place] | | | | | [address] | | + + + + + | John Casillas | ECON | Unknown | | + + + + + Care Team Providers + +------+ + | Care Rehabilitation Director Name | Role | Phone | [...] Provider Unknown | | | | | [phone] | [phone] | | | | | | | [...]
--- NOTE | 2019-01-05 22:53 | EKG ---
[facility] [address] [place] [address] Signed Atrial fibrillation with rapid ventricular response Nonspecific ST and T wave abnormality Abnormal ECG When compared with ECG of 21-MAY-2018 08:15, Vent. rate has increased BY 54 BPM Minimal criteria for Anterior infarct are no longer present Confirmed by EPHRAIM WEBB MD ([id number]) on 01/05/2019 10:52:51 PM Electronically Signed By: EPHRAIM WEBB MD 01/05/19 2253 PATIENT NAME: EUGENIO GÓMEZ PAULA Electrocardiogram DATE OF : 35 PHYSICIAN: EPHRAIM WEBB MD REPORT #: [id number] REPORT IS CONFIDENTIAL AND NOT TO BE RELEASED WITHOUT AUTHORIZATION
== END 2019-01-04 09:42 | disposition home or self-care (01) ==
LOC: ED 05:34
DX: I48.91 Unspecified atrial fibrillation (principal); I10 Essential (primary) hypertension; E11.9 Type 2 diabetes mellitus without complications; E78.5 Hyperlipidemia, unspecified; F03.90 Unspecified dementia, unspecified severity, without behavioral disturbance, psychotic disturbance, mood disturbance, and anxiety; Z87.891 Personal history of nicotine dependence; Z88.2 Allergy status to sulfonamides; Z88.5 Allergy status to narcotic agent; Z79.899 Other long term (current) drug therapy; Z79.82 Long term (current) use of aspirin; Z79.84 Long term (current) use of oral hypoglycemic drugs
CPT/HCPCS: 36415; 71045; 80053; 84484; 85025; 85610; 85730; 86850; 86900; 86901; 93005; 93010; 96374; 99285-25; J7030

== ENCOUNTER 2019-01-16 19:33 | Inpatient (IN) | payer MEDICARE ==
[~2019-01-16] VITALS: Ht 175.3 cm; Wt 62.9 kg
--- OUTSIDE RECORDS SUMMARY | ~2019-01-16 | XMS | Encounter Summary ---
Demographics + + + | Address | [address] | | | [place] [address] | + + + | Home Phone | | + + + | Preferred Language | Unknown | + + + | Marital Status | | + + + | Mu-Ism Affiliation | Unknown | + + + | Race | Unknown | + + + | Ethnic Group | Unknown | + + + Author + + + | Author | [facility] | | | and [place] | + + + | Organization | [facility] | | | and [place] | + + + | Address | Unknown | + + + | Phone | Unavailable | + + + Support + + + + + | Name | Relationship | Address | Phone | + + + + + | Vera Somers | ECON | [place] | | | | | [address] | | + + + + + | John Casillas | ECON | Unknown | | + + + + + Care Team Providers + +------+ + | Care Work Distributor Name | Role | Phone | + +------+ + | Manuel Adames | PCP | | | MD | | | + +------+ + Encounter Details +--------+ + + + + | Date | Type | Department | Care Team | Description | +--------+ + + + + | 03/14/ | Orders Only | [facility] | Shwetha Newton V, | | | 2018 | | CONVERSION [address] | MD [address] | | | | | [address] | [place] | | | | | [place] | [address] | | | | | [address] | | | | | | [phone] | | | +--------+ + + + + Social History + +-------+ +--------+------+ | Tobacco Use | Types | Packs/Day | Years | Date | | | | | Used | | + +-------+ +--------+------+ | Former Smoker | | | | | + +-------+ +--------+------+ + + | Comments: last time smoked was 15 years ago | + + + + + | Sex Assigned at | Date Recorded | | | | + + + | Not on file | | + + + + + + + | Job Start Date | Occupation | Industry | + + + + | Not on file | Not on file | Not on file | + + + + + + + + | Travel History | Travel Start | Travel End | + + + + + + | No recent travel history available. | + + documented as of this encounter Plan of Treatment Not on filedocumented as of this encounter Procedures + +--------+ + + + | Procedure Name | Priori | Date/Time | Associated Diagnosis | Comments | | | ty | | | | + +--------+ + + + | ECHO INTERPRETATION | Routin | 03/14/2018 | | Results for this | | OF OUTSIDE FILMS | e | 4:36 PM | | procedure are in the | | | | PST | | results section. | + +--------+ + + + documented in this encounter Results ECHO Interpretation of Outside Films (03/14/2018 4:36 PM PST) + + | Specimen | + + | | + + + + + | Impressions | Performed At | + + + | 1. This was a technically difficult study with suboptimal views, | | | patient declined completion of the exam. 2. The limited views of the | | | LV suggest preserved sytolic dysfuction. There appears to be mild LVH. | | | 3. Appears calcified with at least moderate stenosis. 4. There is | | | no pericardial effusion. | | + + + + + + | Narrative | Performed At | + + + | Patient Name: Magdalena Casillas Date of : 1935 | | | Performing Physician: Butch Tapia | | | | | | INDICATIONS Limited study Patient declined exam, CHF, | | | New onset A-fib CONCLUSIONS 1. This was a | | | technically difficult study with suboptimal views, patient declined | | | completion of the exam. 2. The limited views of the LV suggest | | | preserved sytolic dysfuction. There appears to be mild LVH. 3. | | | Appears calcified with at least moderate stenosis. 4. There is no | | | pericardial effusion. FINDINGS -------- ECG rhythm: Atrial | | | fibrillation. Study: A limited 2-dimensional transthoracic | | | echocardiogram with limited spectral and color flow Doppler was | | | performed. Study: This was a technically difficult study with | | | suboptimal views. Study: Elderly patient with dementia declined to | | | complete the exam. Left Ventricle: The limited views of the LV | | | suggest preserved sytolic dysfuction. There appears to be mild LVH. | | | Right Ventricle: The RV was not well visualized. Left Atrium: The | | | left atrium was not well visualized. Right Atrium: The right atrium | | | was not well visualized. Aortic Valve: Appears calcified with at | | | least moderate stenosis. Pericardium: There is no pericardial | | | effusion. MEASUREMENTS Ao asc: 3.34 cm Ao | | | Diam: 3.30 cm Ao sinus: 3.[address] junct: 3.03 cm | | | EDV(Teich): 37.30 ml IVSd: 1.22 cm LVIDd: 3.07 cm LVPWd: | | | 1.25 cm LVOT Area: 3.66 cm2 LVOT Diam: 2.15 cm %FS: | | | 19.27 % EF(Teich): 41.01 % ESV(Teich): 22.00 ml LVIDs: | | | 2.48 cm SV(Teich): 15.29 ml Line Worker: [email or web address] Authenticated by: | | | Butch Tapia Report Date/Time: 03-15-2018 9:2:56 | | + + + + + | Procedure Note | + + | Sebastián Lopez Conversion - 09/27/2018 1:03 PM PDT Patient Name: Oseas Casillas of | | : 1935 Performing Physician: Butch | | [place] INDICATIONS------ | | -----Limited study Patient declined exam, CHF, New onset A-fib CONCLUSIONS 1. | | This was a technically difficult study with suboptimal views, patient declined | | completion of the exam.2. The limited views of the LV suggest preserved sytolic | | dysfuction. There appears to be mild LVH.3. Appears calcified with at least moderate | | stenosis.4. There is no pericardial effusion. FINDINGS--------ECG rhythm: Atrial | | fibrillation.Study: A limited 2-dimensional transthoracic echocardiogram with limited | | spectral and color flow Doppler was performed.Study: This was a technically difficult | | study with suboptimal views.Study: Elderly patient with dementia declined to complete | | the exam.Left Ventricle: The limited views of the LV suggest preserved sytolic | | dysfuction. There appears to be mild LVH.Right Ventricle: The RV was not well | | visualized.Left Atrium: The left atrium was not well visualized.Right Atrium: The right | | atrium was not well visualized.Aortic Valve: Appears calcified with at least moderate | | stenosis.Pericardium: There is no pericardial effusion. MEASUREMENTS Ao asc: | | 3.34 cmAo Diam: 3.30 cmAo sinus: 3.[address] junct: 3.03 cmEDV(Teich): 37.30 | | mlIVSd: 1.22 cmLVIDd: 3.07 cmLVPWd: 1.25 cmLVOT Area: 3.66 [id number] Diam: 2.15 | | cm%FS: 19.27 %EF(Teich): 41.01 %ESV(Teich): 22.00 mlLVIDs: 2.48 cmSV(Teich): | | 15.29 ml Line Worker: [email or web address] by: Butch Ballesteros Date/Time: 03-15-2018 | | 9:2:56 IMPRESSION: 1. This was a technically difficult study with suboptimal views, | | patient declined completion of the exam.2. The limited views of the LV suggest preserved | | sytolic dysfuction. There appears to be mild LVH.3. Appears calcified with at least | | moderate stenosis.4. There is no pericardial effusion. | |Study: Elderly patient with dementia declined to complete the exam. | |Left Ventricle: The limited views of the LV suggest preserved sytolic dysfuction. There sukhdeep ears to be mild LVH. | |Right Ventricle: The RV was not well visualized. | |Left Atrium: The left atrium was not well visualized. | |Right Atrium: The right atrium was not well visualized. | |Aortic Valve: Appears calcified with at least moderate stenosis. | |Pericardium: There is no pericardial effusion. | | | |MEASUREMENTS | | | |Ao asc: 3.34 cm | |Ao Diam: 3.30 cm | |Ao sinus: 3.49 cm | |Ao st junct: 3.03 cm | |EDV(Teich): 37.30 ml | |IVSd: 1.22 cm | |LVIDd: 3.07 cm | |LVPWd: 1.25 cm | |LVOT Area: 3.66 cm2 | |LVOT Diam: 2.15 cm | |%FS: 19.27 % | |EF(Teich): 41.01 % | |ESV(Teich): 22.00 ml | |LVIDs: 2.48 cm | |SV(Teich): 15.29 ml | | | |Line Worker: LOBITO | |Authenticated by: Butch Tapia | |Report Date/Time: 03-15-2018 9:2:56 | | | |IMPRESSION: | |1. This was a technically difficult study with suboptimal views, patient declined completio n of the exam. | |2. The limited views of the LV suggest preserved sytolic dysfuction. There appears to be mi ld LVH. | |3. Appears calcified with at least moderate stenosis. | |4. There is no pericardial effusion. | + + documented in this encounter Visit Diagnoses Not on filedocumented in this encounter"
--- OUTSIDE RECORDS SUMMARY | ~2019-01-16 | XMS | Encounter Summary ---
Demographics + + + | Address | [address] | | | [place] [address] | + + + | Home Phone | | + + + | Preferred Language | Unknown | + + + | Marital Status | | + + + | Tenriism Affiliation | Unknown | + + + | Race | Unknown | + + + | Ethnic Group | Unknown | + + + Author + + + | Author | [facility] | | | and [place] | + + + | Organization | [facility] | | | and [place] | + + + | Address | Unknown | + + + | Phone | Unavailable | + + + Support + + + + + | Name | Relationship | Address | Phone | + + + + + | Vera Somers | ECON | [place] | | | | | [address] | | + + + + + | John Casillas | ECON | Unknown | | + + + + + Care Team Providers + +------+ + | Care Youth Care Professional Name | Role | Phone | + +------+ + | Manuel Adames | PCP | | | MD | | | + +------+ + Encounter Details +--------+ + + + + | Date | Type | Department | Care Team | Description | +--------+ + + + + | 02/03/ | Orders Only | [facility] | Kristin Smalls | | | 2010 | | CONVERSION | [address] | | | | | INTERFACES | Drive [place], [place] | | | | | [phone] | [address] | | | | | | | | +--------+ + + + [...] | + +--------+ + + + | CT CERVICAL SPINE WO | Routin | 02/03/2011 | | Results for this | | CONTRAST | e | 4:18 PM | | procedure are in the | | | | PST | | results section. | + +--------+ + + + documented in this encounter Results CT Cervical Spine wo Contrast (02/03/2011 4:18 PM PST) + + | Specimen | + + | | + + + + + | Narrative | Performed At | + + + | MAGDAL[facility] Chun [facility] CERVICAL SPINE WO CONTRAST 02/03/2011 4:06 PM | | | HISTORY: Cervical spine fracture, follow-up TECHNIQUE: Axial | | | 1.25-mm images of the cervical spine were acquired from the lower | | | posterior fossa through the upper thoracic spine and reconstructed in | | | coronal and sagittal planes. COMPARISON: 11/23/10 FINDINGS: | | | The mastoid air cells are well-aerated. The middle and inner ear | | | structures are grossly normal in appearance. No dislocation of the | | | TMJ is present. There are no aggressive lytic or blastic lesions. | | | The craniocervical junction is maintained. Mild degeneration | | | along the anterior C1/2 articulation is present. Bilateral | | | coronally oriented fractures through the body of C2 are again | | | present. Mild displacement of the fracture fragments is again noted. | | | Greatest displacement on the left side measures approximately 3 mm. | | | Greatest displacement on the right side measures approximately 2.4 | | | mm. The degree of distraction or displacement is improved from the | | | prior study. No significant callus formation is noted bridging | | | across the fracture lines. At C3/4, is severe extensive facet | | | arthropathy on the left side with a fair degree of facet hypertrophy | | | on the right side as well. There is critical severe left-sided | | | neural foraminal stenosis with mild narrowing on the right side. | | | Facet arthropathy encroaches into the left foramen transversarium | | | which is unchanged from prior study. At the level of C5/6, severe | | | uncovertebral and facet arthropathy contribute to severe stenosis and | | | probable impingement of the exiting nerve root. There is mild left | | | neural foraminal stenosis. Mild bilateral neural foraminal | | | narrowing is seen at C6/7. There is generalized osteopenia of the | | | cervical spine with no aggressive lytic or blastic lesions. Mild | | | paraseptal emphysema is seen along the lung apices bilaterally. A | | | dystrophic calcification is noted within the left lobe of the thyroid | | | which is unchanged. Extensive bilateral carotid calcification is | | | seen at the carotid bulb. The cervical lymph nodes appear within | | | normal limits. There is no mucosal surface lesion of the | | | nasopharynx or oropharynx. IMPRESSION: 1. There is slight | | | improvement in coronal oriented fractures of the C2 vertebral body | | | posteriorly. 2. 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 3. Severe neural foraminal stenosis as described above. | | | Potential impingement of the left C4 and C6 nerve roots. | | | | | + + + + + | Procedure Note | + + | John, Rad Conversion - 09/29/2018 11:03 AM PDT MAGDALENA CASILLAS | | CT CERVICAL SPINE WO CONTRAST | | 02/03/2011 4:06 PM | | | | HISTORY: Cervical spine fracture, follow-up | | | | TECHNIQUE: Axial 1.25-mm images of the cervical spine were acquired from | | the lower posterior fossa through the upper thoracic spine and | | reconstructed in coronal and sagittal planes. | | | | COMPARISON: 11/23/10 | | | | FINDINGS: The mastoid air cells are well-aerated. The middle and inner ear | | structures are grossly normal in appearance. No dislocation of the TMJ is | | present. There are no aggressive lytic or blastic lesions. | | | | The craniocervical junction is maintained. Mild degeneration along the | | anterior C1/2 articulation is present. | | | | Bilateral coronally oriented fractures through the body of C2 are again | | present. Mild displacement of the fracture fragments is again noted. | | Greatest displacement on the left side measures approximately 3 mm. | | Greatest displacement on the right side measures approximately 2.4 mm. The | | degree of distraction or displacement is improved from the prior study. No | | significant callus formation is noted bridging across the fracture lines. | | | | At C3/4, is severe extensive facet arthropathy on the left side with a fair | | degree of facet hypertrophy on the right side as well. There is critical | | severe left-sided neural foraminal stenosis with mild narrowing on the | | right side. Facet arthropathy encroaches into the left foramen | | transversarium which is unchanged from prior study. | | | | At the level of C5/6, severe uncovertebral and facet arthropathy contribute | | to severe stenosis and probable impingement of the exiting nerve root. | | There is mild left neural foraminal stenosis. Mild bilateral neural | | foraminal narrowing is seen at C6/7. There is generalized osteopenia of | | the cervical spine with no aggressive lytic or blastic lesions. | | | | Mild paraseptal emphysema is seen along the lung apices bilaterally. A | | dystrophic calcification is noted within the left lobe of the thyroid which | | is unchanged. Extensive bilateral carotid calcification is seen at the | | carotid bulb. The cervical lymph nodes appear within normal limits. There | | is no mucosal surface lesion of the nasopharynx or oropharynx. | | | | IMPRESSION: | | 1. There is slight improvement in coronal oriented fractures of the C2 | | vertebral body posteriorly. | | 2. Severe narrowing of the left foramen transversarium at C3. | | 3. Severe neural foraminal stenosis as described above. Potential | | impingement of the left C4 and C6 nerve roots. | | | | | + + documented in this encounter Visit Diagnoses Not on filedocumented in this encounter"
--- OUTSIDE RECORDS SUMMARY | ~2019-01-16 | XMS | Clinical Summary ---
Demographics + + + | Address | [address] | | | [place] [address] | + + + | Home Phone | | + + + | Preferred Language | Unknown | + + + | Marital Status | | + + + | Yarsani Affiliation | Unknown | + + + | Race | Unknown | + + + | Ethnic Group | Unknown | + + + Author + + + | Author | [facility] | | | and [place] | + + + | Organization | [facility] | | | and [place] | + + + | Address | Unknown | + + + | Phone | Unavailable | + + + Support + + + + + | Name | Relationship | Address | Phone | + + + + + | Vera Somers | ECON | [place] | | | | | [address] | | + + + + + | John Casillas | ECON | Unknown | | + + + + + Care Team Providers + +------+ + | Care Rfid Developer Name | Role | Phone | + [...] | | | Dtap/Tdap/Td (1 - | 5 | | | | Tdap) | | [...]
--- OUTSIDE RECORDS SUMMARY | ~2019-01-16 | XMS | Encounter Summary ---
Demographics + + + | Address | [address] | | | [place] [address] | + + + | Home Phone | | + + + | Preferred Language | Unknown | + + + | Marital Status | | + + + | Denominational Affiliation | Unknown | + + + | Race | White | + + + | Ethnic Group | Other Race | + + + Author + + + | Author | [facility] | + + + | Organization | [facility] | + + + | Address | Unknown | + + + | Phone | Unavailable | + + + Support + + +---------+ + | Name | Relationship | Address | Phone | + + +---------+ + | John Casillas | ECON | Unknown | | + + +---------+ + Care Team Providers + +------+ + | Care Wharf Laborer Name | Role | Phone | + +------+ + | Maunel Adames MD | PCP | | + +------+ + Encounter Details +--------+ + + + + | Date | Type | Department | Care Team | Description | +--------+ + + + + | 04/24/ | Documentati | Neurophysiology | Jw Bettencourt | | | 2018 | on | EEG at [facility] [address] | G, DO [address] | | | | | [address] | [facility] | | | | | Mailcode: CR120 | [place], [place] | | | | | [facility] | [address] | | | | | [place], [place] | [phone] | | | | | [address] | | | | | | [phone] | | | +--------+ + + + [...] | + +--------+ + + + | EEG ROUTINE | Routin | 04/24/2017 | | Results for this | | | e | | | procedure are in the | | | | | | results section. | + +--------+ + + + documented in this encounter Results EEG ROUTINE (04/24/2017) + + + | Narrative | Performed At | + + + | Patient Name: Magdalena Casillas Date of : 1935 | | | Date of Test: 04/24/2017 Place of | | | Service: [facility] Department: [facility] EEG TELEMEDICINE - | | | [id number] STAT EEG Reason for Exam: Evaluate for | | | Epileptiform Activity. History: 81 year old Female with | | | possible cognitive impairment with recurrent episodes of | | | confusion/Encephalopathy and somnolence concerning for possible | | | seizures. Medications: No current outpatient prescriptions on | | | file. No current facility-administered medications for this visit. | | | Methods: This study was a Routine EEG with a duration of 23:05 | | | minutes. The recording was performed with routine electrodes applied | | | according to the 10-20 electrode placement system. Video, EKG, and EOG | | | monitoring were utilized. The recording was obtained on a digital | | | system. EEG computer review was utilized. Automated digital spike and | | | seizure detection analysis was used, along with patient-activated | | | alarms and nursing observations. Technologist's Note: No skull | | | defect or scalp edema were present. EEG Description: | | | Background: The record was obtained in awake, drowsy and sleep states. | | | No sedation was used. The posterior awake dominant background | | | activity was a continuous, reactive rhythm of 7.5-8 Hz. This was | | | symmetric and well modulated, and attenuated with eye opening. | | | Symmetric diffuse frontocentral beta range activity was present. | | | As the patient grew drowsy, a drop out of the background rhythm | | | occurred with vertex sharp waves and sleep spindles appearing | | | symmetrically over the central region. Stage II sleep was evident. | | | Sleep patterns were symmetrical. K-complexes, vertex waves, and sleep | | | spindles were noted. Interictal Findings: Abnormal slow wave | | | activity: - Diffuse slowing of the background, as above, with | | | intermittent bursts of greater generalized slowing. Epileptiform | | | activity: - No clearly Epileptiform discharges seen. Ictal | | | Activity: No seizures were observed. Clinical Events: None | | | captured. Extra leads: Single EKG lead showed a regular rhythm. | | | IMPRESSION This awake/drowsy/asleep STAT EEG is mildly | | | abnormal due to the presence of: - Generalized mild to moderate | | | background slowing; this is finding is non-specific and could be | | | related to toxic or metabolic factors including medication effects | | | or diffuse/multi-focal disease. The degree of slowing is consistent | | | with a mild encephalopathy. No seizures or clearly epileptiform | | | activity were seen. These results were conveyed directly to | | | Aman at [facility] on 4:23pm on 04/24/2017. Jw | | | DO Bettencourt MFA Electronically signed on 04/24/2017 at 4:19 PM | | | JW BETTENCOURT DO. Suggested CPT: 35006 - EEG Routine Awake | | | & Asleep Suggested Dx: G93.49 Other encephalopathy | | + + + documented in this encounter Visit Diagnoses Not on filedocumented in this encounter"
--- OUTSIDE RECORDS SUMMARY | ~2019-01-16 | XMS | Clinical Summary ---
Demographics + + + | Address | [address] | | | [place] [address] | + + + | Home Phone | | + + + | Preferred Language | Unknown | + + + | Marital Status | | + + + | Mandaeism Affiliation | Unknown | + + + | Race | Unknown | + + + | Ethnic Group | Unknown | + + + Author + + + | Author | [facility] (Historical as of | | | 09-22-18) | + + + | Organization | [facility]erg[facility] With [facility] (Historical as of | | | 09-22-18) | + + + | Address | Unknown | + + + | Phone | Unavailable | + + + Support + + + + + | Name | Relationship | Address | Phone | + + + + + | Vera Somers | ECON | [place] | | | | | [address] | | + + + + + | John Casillas | ECON | Unknown | | + + + + + Care Team Providers + +------+ + | Care Manager General Name | Role | Phone | + [...] | MA - [employer] | MA-PRE | [phone] | Medica | | | | FAMILY [...] | Self | [birth year] | Home: | [address] | | | al/Fam | | 1935 | [phone] | [place] | | | [place] | | | [phone] | [address] | + +--------+ +--------+ + + | MAGDALENA CASILLAS | Third | Self | [birth year] | Home: | [address] | | | [place] | | [phone] | [place] | | | [place] | | | [phone] | [phone] | | | ity | | | | | + +--------+ +--------+ + +
--- OUTSIDE RECORDS SUMMARY | ~2019-01-16 | XMS | Clinical Summary ---
Demographics + + + | Address | [address] | | | [place] [address] | + + + | Home Phone | | + + + | Preferred Language | Unknown | + + + | Marital Status | | + + + | Amish Affiliation | Unknown | + + + [...] Team Providers + +------+ + | Care Timber Repairer Name | Role | Phone | + +------+ + | Manuel Adames MD | PCP | | + +------+ + Source Comments DANIA is fully live on both [facility] Ambulatory and [facility] InPatient.[facility] Allergies Not on File Medications Not on [...] RE HMO | | sent | | [place], | | | | | | | | [place] [address] | | + +--------+ +--------+ + +--------+ + +--------+ +--------+ + + | Guarantor Name | Accoun | Relation to | Date | Phone | Billing Address | | | t Type | Patient | of | | | | | | | | | | + +--------+ +--------+ + + | Magdalena Casillas | Person | Self [birth year] | [address] | | | al/Fam | | 1936 | [phone] | [place] | | | [place] | | | [address] (Home) | [address] | + +--------+ +--------+ + +"
--- OUTSIDE RECORDS SUMMARY | ~2019-01-16 | XMS | Encounter Summary ---
Demographics + + + | Address | [address] | | | [place] [address] | + + + | Home Phone | | + + + | Preferred Language | Unknown | + + + | Marital Status | | + + + | Muslim Affiliation | Unknown | + + + | Race | White | + + + | Ethnic Group | Other Race | + + + Author + + + | Author | [facility] | + + + | Organization | [facility] | + + + | Address | Unknown | + + + | Phone | Unavailable | + + + Support + + +---------+ + | Name | Relationship | Address | Phone | + + +---------+ + | John Casillas | ECON | Unknown | | + + +---------+ + Care Team Providers + +------+ + | Care Audit Control Clerk Name | Role | Phone | + +------+ + | Manuel Adames MD | PCP | | + +------+ + Encounter Details +--------+ + + + + | Date | Type | Department | Care Team | Description | +--------+ + + + + | 05/02/ | Document-Sc | Health Information | Unknown . | | | 2018 | anned | [id number] | | | | | [address] | | | | | | Mailcode: OP17A | | | | | | [facility] | | | | | | [place], [place] | | | | | | [address] | | | | | | [phone] | | | +--------+ + + + [...] Not on filedocumented as of this encounter Visit Diagnoses Not on filedocumented in this encounter"
--- OUTSIDE RECORDS SUMMARY | ~2019-01-16 | XMS | Encounter Summary ---
Demographics + + + | Address | [address] | | | [place] [address] | + + + | Home Phone | | + + + | Preferred Language | Unknown | + + + | Marital Status | | + + + | Scientologist Affiliation | Unknown | + + + | Race | White | + + + | Ethnic Group | Other Race | + + + Author + + + | Author | [facility] | + + + | Organization | [facility] | + + + | Address | Unknown | + + + | Phone | Unavailable | + + + Support + + +---------+ + | Name | Relationship | Address | Phone | + + +---------+ + | John Casillas | ECON | Unknown | | + + +---------+ + Care Team Providers + +------+ + | Care Patch Machine Operator Name | Role | Phone [...] | 2018 | on | EEG at [facility] [address] | G, DO [address] | | | | | [address] | [facility] | | | | | Mailcode: [address] | [place], [place] | | | | | [facility] | [address] | | | | | [place], [place] | [phone] | | | | | [address] | | | | | | [phone] | | | +--------+ + + + [...] 04/24/2017 Place of | | | Service: [facility] Department: [facility] EEG TELEMEDICINE - | | | [id number] STAT EEG Reason for Exam: Evaluate for [...] directly to | | | Aman at [facility] on 4:23pm on 04/24/2017. Jw | | | DO Bettencourt MFA Electronically signed on 04/24/2017 at 4:19 PM | | | JW BETTENCOURT DO. Suggested CPT: 18796 - EEG Routine Awake | | | & Asleep Suggested Dx: G93.49 Other encephalopathy | | + + + documented in this encounter Visit Diagnoses Not on filedocumented in this encounter"
--- OUTSIDE RECORDS SUMMARY | ~2019-01-16 | XMS | Encounter Summary ---
Demographics + + + | Address | [address] | | | [place] [address] | + + + | Home Phone | | + + + | Preferred Language | Unknown | + + + | Marital Status | | + + + | Yarsanism Affiliation | Unknown | + + + | Race | Unknown | + + + | Ethnic Group | Unknown | + + + Author + + + | Author | [facility] | | | and [place] | + + + | Organization | [facility] | | | and [place] | + + + | Address | Unknown | + + + | Phone | Unavailable | + + + Support + + + + + | Name | Relationship | Address | Phone | + + + + + | Vera Somers | ECON | [place] | | | | | [address] | | + + + + + | John Gómez | ECON | Unknown | | + + + + + Care Team Providers + +------+ + | Care Wafer Fabricator Name | Role | Phone | + +------+ + | Manuel Adames | PCP | | | MD | | | + +------+ + Encounter Details +--------+ + + + + | Date | Type | Department | Care Team | Description | +--------+ + + + + | 12/05/ | Orders Only | [facility] | Jessica Booth MD | | | 2010 | | [facility] | [address] | | | | | CARE FLOOR [address] | [address] [facility] | | | | | [address] | [place] [address] | | | | | [place], [place] | [phone] | | | | | [address] | | | | | | [phone] | | | +--------+ + + + [...] | + + + | MAGDALENA Chun Nu-B-2BKEY XR CHEST 2 VIEW FRONTAL AND LATERAL [...] Performed At | + + + | [facility] [address] Ph: | | | Patient Name: MAGDALENA GÓMEZ Date of : | | | 1935 Medical Record: [id number] Account: [id number] | | | Exam Date/Time: 12/05/2010 11:01 [...] - 09/29/2018 11:03 AM PDT | | [facility] | | [facility] [address] | | | | | | Patient Name: MAGDALENA GÓMEZ | | Date of : 1935 | | Medical Record: [id number] | | Account: [id number] | | | | | | Exam [...] Performed At | + + + | [facility] [address] Ph: | | | Patient Name: MAGDALENA GÓMEZ Date of : | | | 1935 Medical Record: [id number] Account: [id number] | | | Exam Date/Time: 12/05/2010 11:05 [...] - 09/29/2018 11:03 AM PDT | | [facility] | | [facility] [address] | | | | | | Patient Name: MAGDALENA GÓMEZ | | Date of : 1935 | | Medical Record: [id number] | | Account: [id number] | | | | | | Exam [...] EXTERNAL LAB | | Testing performed at [facility];[address];[place] [address] COLOR | | | RED Testing | | | performed at [facility];[address];[place] [address] APPEARANCE | | | CLOUDY Testing performed at [facility];[address];[place] [address] RBC'S | | | [id number] Testing performed at [facility];[address];[place] [address] TOTAL NUCLEATED CELLS 4770 | | | Testing performed at [facility];[address];[place] [address] | | | NEUTROPHILS 90 Testing | | | performed at [facility];[address];[place] [address] LYMPHOCYTES | | | 8 Testing performed at | | | [facility];[address];[place] [address] MONOCYTES/MACROPHAGES | | | 2 Testing performed at [facility];[address];[place] [address] CELLS COUNTED | | | 100 Testing performed at [facility], [place] | | | [address] | | + + + + +---------+ [...] EXTERNAL LAB | | Testing performed at [facility];[address] [place] [address];[place] [address] | | + + + + +---------+ [...] | EXTERNAL LAB | | not a middle school coach validated sample type for this method. No | | | reference ranges have been established. Testing performed at [facility];[address];[place] [address] FLUID TP SOURCE | | | PLEURAL FLUID Testing performed at [facility];[address] | | [address];[place] [address] | | + + + + +---------+ + + | Performing | Address | City/State[facility] | Phone Number | | Organization | [...] | EXTERNAL LAB | | not a middle school coach validated sample type for this method. No | | | reference ranges have been established. Testing performed at [facility] | | | [facility];[place] [address] Glucose, Fluid Type | | | PLEURAL FLUID Testing performed at [facility];[address] [place] [address];[place], [place] | | | [address] | | + + + + +---------+ [...] EXTERNAL LAB | | Testing performed at [facility];[address] [place] [address];[place] [address] | | + + + + +---------+ [...] | EXTERNAL LAB | | performed at [facility];[address] [place] [address];[place] [address] | | + + + + +---------+ [...] Performed At | + + + | [facility] [address] Ph: | | | Patient Name: AMGDALENA GÓMEZ Date of : | | | 1935 Medical Record: [id number] Account: [id number] | | | Exam Date/Time: 12/04/2010 18:49 Ordering | | | Physician: SERGIO JENNINGS [...] - 09/29/2018 11:03 AM PDT | | [facility] | | [facility] [address] | | | | | | Patient Name: MAGDALENA GÓMEZ | | Date of : 1935 | | Medical Record: [id number] | | Account: [id number] | | | | | | Exam [...] Performed At | + + + | [facility] [address] Ph: | | | Patient Name: MAGDALENA GÓMEZ Date of : | | | 1935 Medical Record: [id number] Account: [id number] | | | Exam Date/Time: 12/04/2010 16:29 [...] physician at 6:37 p.m. Read by Timbo Toibn MD on | | | 12/04/2010 18:37 Electronically signed by Timbo Tobin MD on | | | 12/06/2010 12:25 PM | | + + + + + | Procedure Note | + + | John, Rad Conversion - 09/29/2018 11:03 AM PDT | | [facility] | | [facility] [address] | | | | | | Patient Name: MAGDALENA GÓMEZ | | Date of : 1935 | | Medical Record: [id number] | | Account: [id number] | | | | | | Exam [...] Performed At | + + + | [facility] [address] Ph: | | | Patient Name: MAGDALENA GÓMEZ Date of : | | | 1935 Medical Record: [id number] Account: [id number] | | | Exam Date/Time: 12/04/2010 10:57 [...] - 09/29/2018 11:03 AM PDT | | [facility] | | [facility] [address] | | | | | | Patient Name: MAGDALENA GÓMEZ | | Date of : 1935 | | Medical Record: [id number] | | Account: [id number] | | | | | | Exam [...] EXTERNAL LAB | | Testing performed at [facility];[address] [place] [address];[place] [address] MRSA PCR | | | NEGATIVE Testing performed at | | | [address];[place] [address] | | + + + + +---------+ [...] Performed At | + + + | [facility] [address] Ph: | | | Patient Name: MAGDALENA GÓMEZ Date of : | | | 1935 Medical Record: [id number] Account: [id number] | | | Exam Date/Time: 11/30/2010 19:01 Ordering | | | Physician: DISHA Mujica Detail: [id number] Exam Description: XR | | | CHEST [...] - 09/29/2018 11:03 AM PDT | | [facility] | | [facility] [address] | | | | | | Patient Name: MAGDALENA GÓMEZ | | Date of : 1935 | | Medical Record: [id number] | | Account: [id number] | | | | | | Exam [...] Performed At | + + + | [facility] [address] Ph: | | | Patient Name: MAGDALENA GÓMEZ Date of : | | | 1935 Medical Record: [id number] Account: [id number] | | | Exam Date/Time: 11/30/2010 17:15 [...] - 09/29/2018 11:03 AM PDT | | [facility] | | [facility] [address] | | | | | | Patient Name: MAGDALENA GÓMEZ | | Date of : 1935 | | Medical Record: [id number] | | Account: [id number] | | | | | | Exam [...] Performed At | + + + | [facility] [address] Ph: | | | Patient Name: MAGDALENA GÓMEZ Date of : | | | 1935 Medical Record: [id number] Account: [id number] | | | Exam Date/Time: 11/29/2010 05:00 [...] - 09/29/2018 11:03 AM PDT | | [facility] | | [facility] [address] | | | | | | Patient Name: MAGDALENA GÓMEZ | | Date of : 1935 | | Medical Record: [id number] | | Account: [id number] | | | | | | Exam [...] Performed At | + + + | [facility] [address] Ph: | | | Patient Name: MAGDALENA GÓMEZ Date of : | | | 1935 Medical Record: [id number] Account: [id number] | | | Exam Date/Time: 11/28/2010 00:30 Ordering | | | Physician: LUIS ALBERTO Mujica Detail: [id number] Exam Description: US | | | VENOUS UPPER EXT UNILATERAL | | | LEFT | | | UPPER EXTREMITY DOPPLER ULTRASOUND HISTORY: Left arm and neck | | | swelling. TECHNIQUE: Real-time sonographic vascular imaging was | | | performed by the prosthetic technician through the upper extremity utilizing | | | both color-flow and Doppler flow analysis. Multiple artist representative | | | static images were [...] - 09/29/2018 11:03 AM PDT | | [facility] | | [facility] [address] | | | | | | Patient Name: HICKEY, MAGDALENA M | | Date of : 1935 | | Medical Record: [id number] | | Account: [id number] | | | | | | Exam [...] imaging was performed by the | | prosthetic technician through the upper extremity utilizing both color-flow and | | Doppler flow analysis. Multiple artist representative static images were saved for | [...] Performed At | + + + | [facility] [address] Ph: | | | Patient Name: MAGDALENA GÓMEZ Date of : | | | 1935 Medical Record: [id number] Account: [id number] | | | Exam Date/Time: 11/28/2010 05:00 [...] - 09/29/2018 11:03 AM PDT | | [facility] | | [facility] [address] | | | | | | Patient Name: MAGDALENA GÓMEZ | | Date of : 1935 | | Medical Record: [id number] | | Account: [id number] | | | | | | Exam [...] Performed At | + + + | [facility] [address] Ph: | | | Patient Name: MAGDALENA GÓMEZ Date of : | | | 1935 Medical Record: [id number] Account: [id number] | | | Exam Date/Time: 11/27/2010 19:00 [...] - 09/29/2018 11:03 AM PDT | | [facility] | | [facility] [address] | | | | | | Patient Name: MAGDALENA GÓMEZ | | Date of : 1935 | | Medical Record: [id number] | | Account: [id number] | | | | | | Exam [...] Performed At | + + + | [facility] [address] Ph: | | | Patient Name: MAGDALENA GÓMEZ Date of : | | | 1935 Medical Record: [id number] Account: [id number] | | | Exam Date/Time: 11/27/2010 05:00 [...] - 09/29/2018 11:03 AM PDT | | [facility] | | [facility] [address] | | | | | | Patient Name: MAGDALENA GÓMEZ | | Date of : 1935 | | Medical Record: [id number] | | Account: [id number] | | | | | | Exam [...] Performed At | + + + | [facility] [address] Ph: | | | Patient Name: MAGDALENA GÓMEZ Date of : | | | 1935 Medical Record: [id number] Account: [id number] | | | Exam Date/Time: 11/26/2010 05:00 [...] - 09/29/2018 11:03 AM PDT | | [facility] | | [facility] [address] | | | | | | Patient Name: MAGDALENA GÓMEZ | | Date of : 1935 | | Medical Record: [id number] | | Account: [id number] | | | | | | Exam [...] Performed At | + + + | [facility] [address] Ph: | | | Patient Name: RICO MAGDALENA Chun Date of : | | | 1935 Medical Record: [id number] Account: [id number] | | | Exam Date/Time: 11/25/2010 07:18 [...] - 09/29/2018 11:03 AM PDT | | [facility] | | [facility] [address] | | | | | | Patient Name: MAGDALENA GÓMEZ | | Date of : 1935 | | Medical Record: [id number] | | Account: [id number] | | | | | | Exam [...] Performed At | + + + | [facility] [address] Ph: | | | Patient Name: MAGDALENA GÓMEZ Date of : | | | 1935 Medical Record: [id number] Account: [id number] | | | Exam Date/Time: 11/25/2010 06:19 [...] - 09/29/2018 11:03 AM PDT | | [facility] | | [facility] [address] | | | | | | Patient Name: MAGDALENA GÓMEZ | | Date of : 1935 | | Medical Record: [id number] | | Account: [id number] | | | | | | Exam [...] Vickers MD on 11/25/10 07:16. Addendum Ends [facility] | | | [facility] [address] | | | Patient Name: MAGDALENA GÓMEZ Date of : 1935 | | | Medical Record: [id number] Account: [id number] Accession: | | | [id number] Exam Date/Time: 11/25/2010 05:00 Ordering Physician: | [...] | Procedure Note | + + | Sebastiná Lopez Conversion - 09/29/2018 11:03 AM PDT [...] | Addendum Ends | | | | [facility] | | [facility] [address] | | | | | | Patient Name: MAGDALENA GÓMEZ | | Date of : 1935 | | Medical Record: [id number] | | Account: [id number] | | | | | | Exam [...] Performed At | + + + | [facility] [address] Ph: | | | Patient Name: MAGDALENA GÓMEZ Date of : | | | 1935 Medical Record: [id number] Account: [id number] | | | Exam Date/Time: 11/24/2010 05:00 Ordering | | | Physician: SERGIO JENNINGS Order Detail: [id number] Exam Description: | | | XR CHEST [...] - 09/29/2018 11:03 AM PDT | | [facility] | | [facility] [address] | | | | | | Patient Name: HICKEY, MAGDALENA M | | Date of : 1935 | | Medical Record: [id number] | | Account: [id number] | | | | | | Exam [...] Performed At | + + + | [facility] [address] Ph: | | | Patient Name: MAGDALENA GÓMEZ Adiel Date of : | | | 1935 Medical Record: [id number] Account: [id number] | | | Exam Date/Time: 11/23/2010 16:31 [...] - 09/29/2018 11:03 AM PDT | | [facility] | | [facility] [address] | | | | | | Patient Name: MAGDALENA GÓMEZ | | Date of : 1935 | | Medical Record: [id number] | | Account: [id number] | | | | | | Exam [...] Performed At | + + + | [facility] [address] Ph: | | | Patient Name: KAREN GONZALEZ Date of : | | | 02/06/1859 Medical Record: [id number] Account: [id number] | | | Exam Date/Time: 11/23/2010 05:00 [...] - 09/29/2018 11:03 AM PDT | | [facility] | | [facility] [address] | | | | | | Patient Name: KAREN GONZALEZ 26 | | Date of : 02/06/1859 | | Medical Record: [id number] | | Account: [id number] | | | | | | Exam [...] Performed At | + + + | [facility] [address] Ph: | | | Patient Name: TRAUMAKAREN 26 Date of : | | | 02/06/1859 Medical Record: [id number] Account: [id number] | | | Exam Date/Time: 11/22/2010 14:48 [...] - 09/29/2018 11:03 AM PDT | | [facility] | | [facility] [address] | | | | | | Patient Name: KAREN GONZALEZ | | Date of : 02/06/1859 | | Medical Record: [id number] | | Account: [id number] | | | | | | Exam [...] Performed At | + + + | [facility] [address] Ph: | | | Patient Name: KAREN GONZALEZ Date of : | | | 02/06/1859 Medical Record: [id number] Account: [id number] | | | Exam Date/Time: 11/22/2010 12:59 [...] was also examined with | | | Viewpoints 3D software for evaluation of the cerebral [...] posterior cerebral artery: | | | Normal. [place]: Anterior communicating artery: Normal. | [...] - 09/29/2018 11:03 AM PDT | | [facility] | | [facility] [address] | | | | | | Patient Name: TRAUMA, KAREN Luciano | | Date of : 02/06/1859 | | Medical Record: [id number] | | Account: [id number] | | | | | | Exam [...] The data set was also examined with Viewpoints 3D software for | | evaluation of [...] cerebral artery: Normal. | | | | [place]: | | Anterior communicating artery: [...] | | | 8:40 AM Addendum Ends [facility] | | | [place] [address] Patient Name: KAREN GONZALEZ | | | Date of : 02/06/1859 Medical Record: [id number] Account: | | | [id number] Exam Date/Time: 11/22/2010 | | | 11:20 [...] | pelvis. Oral Contrast:Readi-Cat IV contrast:100 mL [id number] | | | COMPARISON: None. FINDINGS: CT [...] | Addendum Ends | | | | [facility] | | [facility] [address] | | | | | | Patient Name: KAREN GONZALEZ | | Date of : 02/06/1859 | | Medical Record: [id number] | | Account: [id number] | | | | | | Exam [...] Oral Contrast:Readi-Cat | | IV contrast:100 mL [id number] | | | | COMPARISON: | | [...] WBCS/LPF | | | Testing performed at [facility], [facility] [address] [facility] | | | [place] [address] CULTURE | | | 1+ NORMAL UPPER RESPIRATORY FERNANDA | | | Testing performed at [facility], [address] [facility] | | | [place] [address] REPORT STATUS | | | 11/24/2010 FINAL [...] Performed At | + + + | [facility] [address] Ph: | | | Patient Name: KAREN GONZALEZ Date of : | | | 02/06/1859 Medical Record: [id number] Account: [id number] | | | Exam Date/Time: 11/22/2010 11:55 [...] - 09/29/2018 11:03 AM PDT | | [facility] | | [facility] [address] | | | | | | Patient Name: CARLOS, KAREN Luciano | | Date of : 02/06/1859 | | Medical Record: [id number] | | Account: [id number] | | | | | | Exam [...] Performed At | + + + | [facility] [address] Ph: | | | Patient Name: KAREN GONZALEZ Date of : | | | 02/06/1859 Medical Record: [id number] Account: [id number] | | | Exam Date/Time: 11/22/2010 11:20 [...] - 09/29/2018 11:03 AM PDT | | [facility] | | [facility] [address] | | | | | | Patient Name: TRAUMA, KAREN 26 | | Date of : 02/06/1859 | | Medical Record: [id number] | | Account: [id number] | | | | | | Exam [...] Performed At | + + + | [facility] [address] Ph: | | | Patient Name: KAREN GONZALEZ Date of : | | | 02/06/1859 Medical Record: [id number] Account: [id number] | | | Exam Date/Time: 11/22/2010 11:56 [...] - 09/29/2018 11:03 AM PDT | | [facility] | | [facility] [address] | | | | | | Patient Name: TRAUMA, KAREN Luciano | | Date of : 02/06/1859 | | Medical Record: [id number] | | Account: [id number] | | | | | | Exam [...] Performed At | + + + | [facility] [address] Ph: | | | Patient Name: KAREN GONZALEZ Date of : | | | 02/06/1859 Medical Record: [id number] Account: [id number] | | | Exam Date/Time: 11/22/2010 11:20 [...] - 09/29/2018 11:03 AM PDT | | [facility] | | [facility] [address] | | | | | | Patient Name: KAREN GONZALEZ | | Date of : 02/06/1859 | | Medical Record: [id number] | | Account: [id number] | | | | | | Exam [...] EXTERNAL LAB | | Testing performed at [facility];[address] [place] [address];[place] [address] MRSA PCR | | | NEGATIVE Testing performed at | | | [facility];[address] [place] [address];[place] [address] | | + + + + +---------+ + + | Performing | Address | City/State/Zipcode | Phone Number | | Organization | | | | + +---------+ + + | EXTERNAL LAB | | | | + +---------+ + + documented in this encounter Visit Diagnoses Not on filedocumented in this encounter"
--- OUTSIDE RECORDS SUMMARY | ~2019-01-16 | XMS | Encounter Summary ---
Demographics + + + | Address | [address] | | | [place] [address] | + + + | Home Phone | | + + + | Preferred Language | Unknown | + + + | Marital Status | | + + + | Rastafari Affiliation | Unknown | + + + | Race | Unknown | + + + | Ethnic Group | Unknown | + + + Author + + + | Author | [facility] | | | and [place] | + + + | Organization | [facility] | | | and [place] | + + + | Address | Unknown | + + + | Phone | Unavailable | + + + Support + + + + + | Name | Relationship | Address | Phone | + + + + + | Vera Somers | ECON | [place] | | | | | [address] | | + + + + + | John Casillas | ECON | Unknown | | + + + + + Care Team Providers + +------+ + | Care Materials Handling Coordinator Name | Role | Phone | [...] [place] | | | | | [place] | [address] | | | | | [address] | | | | | | [phone] | | | +--------+ + + + [...] | | 2.48 cm SV(Teich): 15.29 ml Anvil Worker: LOBITO Authenticated by: | | | [...] cmLVIDd: 3.07 cmLVPWd: 1.25 cmLVOT Area: 3.66 [id number] Diam: 2.15 | | cm%FS: 19.27 %EF(Teich): 41.01 %ESV(Teich): 22.00 mlLVIDs: 2.48 cmSV(Teich): | | 15.29 ml Anvil Worker: ZEINAButhenticated by: Butch Ballesteros Date/Time: 03-15-2018 [...] | |SV(Teich): 15.29 ml | | | |Anvil Worker: LOBITO | |Authenticated by: Butch Tapia [...]
--- OUTSIDE RECORDS SUMMARY | ~2019-01-16 | XMS | Clinical Summary ---
Demographics + + + | Address | [address] | | | [place] [address] | + + + | Home Phone | | + + + | Preferred Language | Unknown | + + + | Marital Status | | + + + | Islam Affiliation | Unknown | + + + [...] Team Providers + +------+ + | Care Show Host/Hostess Name | Role | Phone | + +------+ + | Manuel Adames MD | PCP | | + +------+ + Source Comments DANIA is fully live on both [facility] and [facility] InPatient.[facility] Allergies Not on File Medications Not [...] RE HMO | | sent | | [place], | | | | | | | | [place] [address] | | + +--------+ +--------+ + +--------+ + +--------+ +--------+ + + | Guarantor Name | Accoun | Relation to | Date | Phone | Billing Address | | | t Type | Patient | of | | | | | | | | | | + +--------+ +--------+ + + | Magdalena Casillas | Person | Self [birth year] | [address] | | | al/Fam | | 1936 | [phone] | [place] | | | shannan | | | [address] (Home) | [address] | + +--------+ +--------+ + +"
--- OUTSIDE RECORDS SUMMARY | ~2019-01-16 | XMS | Encounter Summary ---
Demographics + + + | Address | [address] | | | [place] [address] | + + + | Home Phone | | + + + | Preferred Language | Unknown | + + + | Marital Status | | + + + | Nondenominational Affiliation | Unknown | + + + | Race | Unknown | + + + | Ethnic Group | Unknown | + + + Author + + + | Author | [facility] | | | and [place] | + + + | Organization | [facility] | | | and [place] | + + + | Address | Unknown | + + + | Phone | Unavailable | + + + Support + + + + + | Name | Relationship | Address | Phone | + + + + + | Vera Somers | ECON | [place] | | | | | [address] | | + + + + + | John Casillas | ECON | Unknown | | + + + + + Care Team Providers + +------+ + | Care Curator Herbarium Name | Role | Phone | + +------+ + | Manuel Adames | PCP | | | MD | | | + +------+ + Encounter Details +--------+ + + + + | Date | Type | Department | Care Team | Description | +--------+ + + + + | 07/18/ | Orders Only | [facility] | Conversion | | | 2011 | | CONVERSION | Transaction, | | | | | INTERFACES | Provider Unknown | | | | | [phone] | [phone] | | | | | | | [...] CT CERVICAL SPINE WO | Routin | 07/19/2011 | | Results for this | | CONTRAST | e | 2:11 PM | | procedure are in the | | | | PDT | | results section. | + +--------+ + + + documented in this encounter Results CT Cervical Spine wo Contrast (07/19/2011 2:11 PM PDT) + + | Specimen | + + | | + + + + + | Narrative | Performed At | + + + | This is a non-reportable procedure without a radiologist report and | | | is used for image storage only | | + + + + + | Procedure Note | + + | Sebastián Lopez - 09/29/2018 1:28 AM PDT This is a non-reportable procedure | | without a radiologist report and isused for image storage only | + + documented in this encounter Visit Diagnoses Not on filedocumented in this encounter"
--- OUTSIDE RECORDS SUMMARY | ~2019-01-16 | XMS | Encounter Summary ---
Demographics + + + | Address | [address] | | | [place] [address] | + + + | Home Phone | | + + + | Preferred Language | Unknown | + + + | Marital Status | | + + + | Buddhism Affiliation | Unknown | + + + | Race | Unknown | + + + | Ethnic Group | Unknown | + + + Author + + + | Author | [facility] | | | and [place] | + + + | Organization | [facility] | | | and [place] | + + + | Address | Unknown | + + + | Phone | Unavailable | + + + Support + + + + + | Name | Relationship | Address | Phone | + + + + + | Vera Somers | ECON | [place] | | | | | [address] | | + + + + + | John Casillas | ECON | Unknown | | + + + + + Care Team Providers + +------+ + | Care Manufacturers Agent Name | Role | Phone | + [...] [place] | | | | | [address] | [address] | | | | | [phone] | [phone] | | | | | | | [...] Dictation FINDINGS -------- MEASUREMENTS | | | Asp Net Mvc Developer: LOBITO Authenticated by: Dionicio Baltazar DO | | | Report Date/Time: -- [id number] | | + + + + + [...] MEASUREMENTS | | | | | | Asp Net Mvc Developer: LOBITO | | Authenticated by: Dionicio Baltazar DO | | Report Date/Time: -- [id number] | | | | IMPRESSION: | | 1. See Dictation | + + documented in this encounter Visit Diagnoses Not on filedocumented in this encounter"
--- OUTSIDE RECORDS SUMMARY | ~2019-01-16 | XMS | Clinical Summary ---
Demographics + + + | Address | [address] | | | [place] [address] | + + + | Home Phone [...] Team Providers + +------+ + | Care Mill Helper Name | Role | Phone | + +------+ + | Manuel Adames MD | PCP | | + +------+ + Source Comments DANIA is fully live on both [facility] and [facility] InPatient.[facility] Allergies Not on File Medications [...] RE HMO | | sent | | [place], | | | | | | | | [place] [address] | | + +--------+ +--------+ + +--------+ + +--------+ +--------+ + + | Guarantor Name | Accoun | Relation to | Date | Phone | Billing Address | | | t Type | Patient | of | | | | | | | | | | + +--------+ +--------+ + + | Magdalena Casillas | Person | Self [birth year] | [address] | | | al/Fam | | 1936 | [phone] | [place] | | | shannan | | | 6 (Home) | [address] | + +--------+ +--------+ + +"
--- OUTSIDE RECORDS SUMMARY | ~2019-01-16 | XMS | Encounter Summary ---
Demographics + + + | Address | [address] | | | [place] [address] | + + + | Home Phone | | + + + | Preferred Language | Unknown | + + + | Marital Status | | + + + | Confucianism Affiliation | Unknown | + + + | Race | White | + + + | Ethnic Group | Other Race | + + + Author + + + | Author | [facility] | + + + | Organization | [facility] | + + + | Address | Unknown | + + + | Phone | Unavailable | + + + Support + + +---------+ + | Name | Relationship | Address | Phone | + + +---------+ + | John Casillas | ECON | Unknown | | + + +---------+ + Care Team Providers + +------+ + | Care Computer Forensic Examiner Name | Role | Phone | + +------+ + | Manuel Adames MD | PCP | | + +------+ + Encounter Details +--------+ + + + + | Date | Type | Department | Care Team | Description | +--------+ + + + + | 05/02/ | Document-Sc | Health Information | Unknown . | | | 2018 | anned | Services [address] | | | | | [address] | | | | | | Mailcode: [id number] | | | | | | [facility] | | | | | | [place], [place] | | | | | | [address] | | | | | | [phone] | | | +--------+ + + + [...]
--- OUTSIDE RECORDS SUMMARY | ~2019-01-16 | XMS | Encounter Summary ---
Demographics + + + | Address | [address] | | | [place] [address] | + + + | Home Phone | | + + + | Preferred Language | Unknown | + + + | Marital Status | | + + + | Pentecostal Affiliation | Unknown | + + + | Race | Unknown | + + + | Ethnic Group | Unknown | + + + Author + + + | Author | [facility] | | | and [place] | + + + | Organization | [facility] | | | and [place] | + + + | Address | Unknown | + + + | Phone | Unavailable | + + + Support + + + + + | Name | Relationship | Address | Phone | + + + + + | Vera Somers | ECON | [place] | | | | | [address] | | + + + + + | John Gómez | ECON | Unknown | | + + + + + Care Team Providers + +------+ + | Care Automobile Service Advisor Name | Role | Phone | + +------+ + | Manuel Adames | PCP | | | MD | | | + +------+ + Encounter Details +--------+ + + + + | Date | Type | Department | Care Team | Description | +--------+ + + + + | 12/05/ | Orders Only | [facility] | Jessica Booth MD | | | 2010 | | [facility] | [address] | | | | | CARE FLOOR [address] | [address] [facility] | | | | | [address] | [place] [address] | | | | | [place], [place] | [phone] | | | | | [address] | | | | | | [phone] | | | +--------+ + + + [...] | + + + | MAGDALENA Chun Aqua Skin ScienceKEY XR CHEST 2 VIEW FRONTAL AND LATERAL [...] Performed At | + + + | [facility] [address] Ph: | | | Patient Name: MAGDALENA GÓMEZ Date of : | | | 1935 Medical Record: [id number] Account: [id number] | | | Exam Date/Time: 12/05/2010 11:01 [...] | arterial catheter. Electronically signed by Jonathan Pinead MD on | | | 12/05/2010 1:48 PM | | + + + + + | Procedure Note | + + | Sebastián Lopez Conversion - 09/29/2018 11:03 AM PDT | | [facility] | | [facility] [address] | | | | | | Patient Name: MAGDALENA GÓMEZ | | Date of : 1935 | | Medical Record: [id number] | | Account: [id number] | | | | | | Exam [...] Performed At | + + + | [facility] [address] Ph: | | | Patient Name: MAGDALENA GÓMEZ Date of : | | | 1935 Medical Record: [id number] Account: [id number] | | | Exam Date/Time: 12/05/2010 11:05 [...] - 09/29/2018 11:03 AM PDT | | [facility] | | [facility] [address] | | | | | | Patient Name: MAGDALENA GÓMEZ | | Date of : 1935 | | Medical Record: [id number] | | Account: [id number] | | | | | | Exam [...] EXTERNAL LAB | | Testing performed at [facility];[address];[place] [address] COLOR | | | RED Testing | | | performed at [facility];[address];[place] [address] APPEARANCE | | | CLOUDY Testing performed at [facility];[address];[place] [address] RBC'S | | | [id number] Testing performed at [facility];[address];[place] [address] TOTAL NUCLEATED CELLS 4770 | | | Testing performed at [facility];[address];[place] [address] | | | NEUTROPHILS 90 Testing | | | performed at [facility];[address];[place] [address] LYMPHOCYTES | | | 8 Testing performed at | | | [facility];[address];[place] [address] MONOCYTES/MACROPHAGES | | | 2 Testing performed at [facility];[address];[place] [address] CELLS COUNTED | | | 100 Testing performed at [facility], [place] | | | [address] | | + + + + +---------+ [...] EXTERNAL LAB | | Testing performed at [facility];[address] [place] [address];[place] [address] | | + + + + +---------+ [...] | EXTERNAL LAB | | not a face cleaner validated sample type for this method. No | | | reference ranges have been established. Testing performed at [facility];[address];[place] [address] FLUID TP SOURCE | | | PLEURAL FLUID Testing performed at [facility];[address];[place] [address] | | + + + + +---------+ + + | Performing | Address | City/State/[facility] | Phone Number | | [...] | EXTERNAL LAB | | not a face cleaner validated sample type for this method. No | | | reference ranges have been established. Testing performed at [facility] | | | [facility];[place] [address] Glucose, Fluid Type | | | PLEURAL FLUID Testing performed at [facility];[address] [place] [address];[place], [place] | | | [address] | | + + + + +---------+ [...] EXTERNAL LAB | | Testing performed at [facility];[address] [place] [address];[place] [address] | | + + + + +---------+ [...] | EXTERNAL LAB | | performed at [facility];[address] [place] [address];[place] [address] | | + + + + +---------+ [...] Performed At | + + + | [facility] [address] Ph: | | | Patient Name: MAGDALENA GÓMEZ Date of : | | | 1935 Medical Record: [id number] Account: [id number] | | | Exam Date/Time: 12/04/2010 18:49 [...] - 09/29/2018 11:03 AM PDT | | [facility] | | [facility] [address] | | | | | | Patient Name: MAGDALENA GÓMEZ | | Date of : 1935 | | Medical Record: [id number] | | Account: [id number] | | | | | | Exam [...] Performed At | + + + | [facility] [address] Ph: | | | Patient Name: MAGDALENA GÓMEZ Date of : | | | 1935 Medical Record: [id number] Account: [id number] | | | Exam Date/Time: 12/04/2010 16:29 [...] - 09/29/2018 11:03 AM PDT | | [facility] | | [facility] [address] | | | | | | Patient Name: MAGDALENA GÓMEZ | | Date of : 1935 | | Medical Record: [id number] | | Account: [id number] | | | | | | Exam [...] Performed At | + + + | [facility] [address] Ph: | | | Patient Name: MAGDALENA GÓMEZ Date of : | | | 1935 Medical Record: [id number] Account: [id number] | | | Exam Date/Time: 12/04/2010 10:57 [...] - 09/29/2018 11:03 AM PDT | | [facility] | | [facility] [address] | | | | | | Patient Name: MAGDALENA GÓMEZ | | Date of : 1935 | | Medical Record: [id number] | | Account: [id number] | | | | | | Exam [...] EXTERNAL LAB | | Testing performed at [facility];[address] [place] [address];[place] [address] MRSA PCR | | | NEGATIVE Testing performed at | | | [address];[place] [address] | | + + + + +---------+ [...] Performed At | + + + | [facility] [address] Ph: | | | Patient Name: MAGDALENA GÓMEZ Date of : | | | 1935 Medical Record: [id number] Account: [id number] | | | Exam Date/Time: 11/30/2010 19:01 Ordering | | | Physician: DISHA Mujica Detail: [id number] Exam Description: XR | | | CHEST [...] - 09/29/2018 11:03 AM PDT | | [facility] | | [facility] [address] | | | | | | Patient Name: MAGDALENA GÓMEZ | | Date of : 1935 | | Medical Record: [id number] | | Account: [id number] | | | | | | Exam [...] Performed At | + + + | [facility] [address] Ph: | | | Patient Name: MAGDALENA GÓMEZ Date of : | | | 1935 Medical Record: [id number] Account: [id number] | | | Exam Date/Time: 11/30/2010 17:15 [...] - 09/29/2018 11:03 AM PDT | | [facility] | | [facility] [address] | | | | | | Patient Name: MAGDALENA GÓMEZ | | Date of : 1935 | | Medical Record: [id number] | | Account: [id number] | | | | | | Exam [...] Performed At | + + + | [facility] [address] Ph: | | | Patient Name: MAGDALENA GÓMEZ Date of : | | | 1935 Medical Record: [id number] Account: [id number] | | | Exam Date/Time: 11/29/2010 05:00 [...] - 09/29/2018 11:03 AM PDT | | [facility] | | [facility] [address] | | | | | | Patient Name: MAGDALENA GÓMEZ | | Date of : 1935 | | Medical Record: [id number] | | Account: [id number] | | | | | | Exam [...] Performed At | + + + | [facility] [address] Ph: | | | Patient Name: MAGDALENA GÓMEZ Date of : | | | 1935 Medical Record: [id number] Account: [id number] | | | Exam Date/Time: 11/28/2010 00:30 Ordering | | | Physician: LUIS ALBERTO Mujica Detail: [id number] Exam Description: US | | | VENOUS UPPER EXT UNILATERAL | | | LEFT | | | UPPER EXTREMITY DOPPLER ULTRASOUND HISTORY: Left arm and neck | | | swelling. TECHNIQUE: Real-time sonographic vascular imaging was | | | performed by the ice cream machine operator through the upper extremity utilizing | | | both color-flow and Doppler flow analysis. Multiple senior customer service representative | | | static images [...] - 09/29/2018 11:03 AM PDT | | [facility] | | [facility] [address] | | | | | | Patient Name: HICKEY, MAGDALENA M | | Date of : 1935 | | Medical Record: [id number] | | Account: [id number] | | | | | | Exam [...] imaging was performed by the | | ice cream machine operator through the upper extremity utilizing both color-flow and | | Doppler flow analysis. Multiple senior customer service representative static images were saved for [...] Performed At | + + + | [facility] [address] Ph: | | | Patient Name: MAGDALENA GÓMEZ Date of : | | | 1935 Medical Record: [id number] Account: [id number] | | | Exam Date/Time: 11/28/2010 05:00 [...] - 09/29/2018 11:03 AM PDT | | [facility] | | [facility] [address] | | | | | | Patient Name: MAGDALENA GÓMEZ | | Date of : 1935 | | Medical Record: [id number] | | Account: [id number] | | | | | | Exam [...] Performed At | + + + | [facility] [address] Ph: | | | Patient Name: MAGDALENA GÓMEZ Date of : | | | 1935 Medical Record: [id number] Account: [id number] | | | Exam Date/Time: 11/27/2010 19:00 [...] - 09/29/2018 11:03 AM PDT | | [facility] | | [facility] [address] | | | | | | Patient Name: MAGDALENA GÓMEZ | | Date of : 1935 | | Medical Record: [id number] | | Account: [id number] | | | | | | Exam [...] Performed At | + + + | [facility] [address] Ph: | | | Patient Name: MAGDALENA GÓMEZ Date of : | | | 1935 Medical Record: [id number] Account: [id number] | | | Exam Date/Time: 11/27/2010 05:00 [...] - 09/29/2018 11:03 AM PDT | | [facility] | | [facility] [address] | | | | | | Patient Name: MAGDALENA GÓMEZ | | Date of : 1935 | | Medical Record: [id number] | | Account: [id number] | | | | | | Exam [...] Performed At | + + + | [facility] [address] Ph: | | | Patient Name: MAGDALENA GÓMEZ Date of : | | | 1935 Medical Record: [id number] Account: [id number] | | | Exam Date/Time: 11/26/2010 05:00 [...] | Procedure Note | + + | Sebsatián Lopez - 09/29/2018 11:03 AM PDT | | [facility] | | [facility] [address] | | | | | | Patient Name: MAGDALENA GÓMEZ | | Date of : 1935 | | Medical Record: [id number] | | Account: [id number] | | | | | | Exam [...] Performed At | + + + | [facility] [address] Ph: | | | Patient Name: RICO MAGDALENA Chun Date of : | | | 1935 Medical Record: [id number] Account: [id number] | | | Exam Date/Time: 11/25/2010 07:18 [...] - 09/29/2018 11:03 AM PDT | | [facility] | | [facility] [address] | | | | | | Patient Name: MAGDALENA GÓMEZ | | Date of : 1935 | | Medical Record: [id number] | | Account: [id number] | | | | | | Exam [...] Performed At | + + + | [facility] [address] Ph: | | | Patient Name: MAGDALENA GÓMEZ Date of : | | | 1935 Medical Record: [id number] Account: [id number] | | | Exam Date/Time: 11/25/2010 06:19 [...] - 09/29/2018 11:03 AM PDT | | [facility] | | [facility] [address] | | | | | | Patient Name: MAGDALENA GÓMEZ | | Date of : 1935 | | Medical Record: [id number] | | Account: [id number] | | | | | | Exam [...] Vickers MD on 11/25/10 07:16. Addendum Ends [facility] | | | [facility] [address] | | | Patient Name: MAGDALENA GÓMEZ Date of : 1935 | | | Medical Record: [id number] Account: [id number] Accession: | | | [id number] Exam Date/Time: 11/25/2010 05:00 Ordering Physician: | [...] | Addendum Ends | | | | [facility] | | [facility] [address] | | | | | | Patient Name: MAGDALENA GÓMEZ | | Date of : 1935 | | Medical Record: [id number] | | Account: [id number] | | | | | | Exam [...] Performed At | + + + | [facility] [address] Ph: | | | Patient Name: MAGDALENA GÓMEZ Date of : | | | 1935 Medical Record: [id number] Account: [id number] | | | Exam Date/Time: 11/24/2010 05:00 Ordering | | | Physician: SERGIO JENNINGS Order Detail: [id number] Exam Description: | | | XR CHEST [...] - 09/29/2018 11:03 AM PDT | | [facility] | | [facility] [address] | | | | | | Patient Name: HICKEY, MAGDALENA M | | Date of : 1935 | | Medical Record: [id number] | | Account: [id number] | | | | | | Exam [...] Performed At | + + + | [facility] [address] Ph: | | | Patient Name: MAGDALENA GÓMEZ Adiel Date of : | | | 1935 Medical Record: [id number] Account: [id number] | | | Exam Date/Time: 11/23/2010 16:31 [...] - 09/29/2018 11:03 AM PDT | | [facility] | | [facility] [address] | | | | | | Patient Name: MAGDALENA GÓMEZ | | Date of : 1935 | | Medical Record: [id number] | | Account: [id number] | | | | | | Exam [...] Performed At | + + + | [facility] [address] Ph: | | | Patient Name: KAREN GONZALEZ Date of : | | | 02/06/1859 Medical Record: [id number] Account: [id number] | | | Exam Date/Time: 11/23/2010 05:00 [...] - 09/29/2018 11:03 AM PDT | | [facility] | | [facility] [address] | | | | | | Patient Name: KAREN GONZALEZ 26 | | Date of : 02/06/1859 | | Medical Record: [id number] | | Account: [id number] | | | | | | Exam [...] Performed At | + + + | [facility] [address] Ph: | | | Patient Name: TRAUMAKAREN 26 Date of : | | | 02/06/1859 Medical Record: [id number] Account: [id number] | | | Exam Date/Time: 11/22/2010 14:48 [...] - 09/29/2018 11:03 AM PDT | | [facility] | | [facility] [address] | | | | | | Patient Name: KAREN GONZALEZ | | Date of : 02/06/1859 | | Medical Record: [id number] | | Account: [id number] | | | | | | Exam [...] Performed At | + + + | [facility] [address] Ph: | | | Patient Name: KARNE GONZALEZ Date of : | | | 02/06/1859 Medical Record: [id number] Account: [id number] | | | Exam Date/Time: 11/22/2010 12:59 [...] was also examined with | | | eeden 3D software for evaluation of the cerebral [...] posterior cerebral artery: | | | Normal. [place]: Anterior communicating artery: Normal. | [...] - 09/29/2018 11:03 AM PDT | | [facility] | | [facility] [address] | | | | | | Patient Name: TRAUMA, KAREN Luciano | | Date of : 02/06/1859 | | Medical Record: [id number] | | Account: [id number] | | | | | | Exam [...] The data set was also examined with eeden 3D software for | | evaluation of [...] cerebral artery: Normal. | | | | [place]: | | Anterior communicating artery: [...] | | | 8:40 AM Addendum Ends [facility] | | | [place] [address] Patient Name: KAREN GONZALEZ | | | Date of : 02/06/1859 Medical Record: [id number] Account: | | | [id number] Exam Date/Time: 11/22/2010 | | | 11:20 [...] | pelvis. Oral Contrast:Readi-Cat IV contrast:100 mL [id number] | | | COMPARISON: None. FINDINGS: CT [...] | Addendum Ends | | | | [facility] | | [facility] [address] | | | | | | Patient Name: KAREN GONZALEZ | | Date of : 02/06/1859 | | Medical Record: [id number] | | Account: [id number] | | | | | | Exam [...] Oral Contrast:Readi-Cat | | IV contrast:100 mL [id number] | | | | COMPARISON: | | [...] WBCS/LPF | | | Testing performed at [facility] [address] [facility] | | | [place] [address] CULTURE | | | 1+ NORMAL UPPER RESPIRATORY FERNANDA | | | Testing performed at [facility], [address] [facility] | | | [place] [address] REPORT STATUS | | | 11/24/2010 FINAL [...] Performed At | + + + | [facility] [address] Ph: | | | Patient Name: KAREN GONZALEZ Date of : | | | 02/06/1859 Medical Record: [id number] Account: [id number] | | | Exam Date/Time: 11/22/2010 11:55 [...] - 09/29/2018 11:03 AM PDT | | [facility] | | [facility] [address] | | | | | | Patient Name: CARLOS, KAREN Luciano | | Date of : 02/06/1859 | | Medical Record: [id number] | | Account: [id number] | | | | | | Exam [...] Performed At | + + + | [facility] [address] Ph: | | | Patient Name: KAREN GONZALEZ Date of : | | | 02/06/1859 Medical Record: [id number] Account: [id number] | | | Exam Date/Time: 11/22/2010 11:20 [...] - 09/29/2018 11:03 AM PDT | | [facility] | | [facility] [address] | | | | | | Patient Name: TRAUMA, KAREN 26 | | Date of : 02/06/1859 | | Medical Record: [id number] | | Account: [id number] | | | | | | Exam [...] Performed At | + + + | [facility] [address] Ph: | | | Patient Name: KAREN GONZALEZ Date of : | | | 02/06/1859 Medical Record: [id number] Account: [id number] | | | Exam Date/Time: 11/22/2010 11:56 [...] - 09/29/2018 11:03 AM PDT | | [facility] | | [facility] [address] | | | | | | Patient Name: TRAUMA, KAREN Luciano | | Date of : 02/06/1859 | | Medical Record: [id number] | | Account: [id number] | | | | | | Exam [...] Performed At | + + + | [facility] [address] Ph: | | | Patient Name: KAREN GONZALEZ Date of : | | | 02/06/1859 Medical Record: [id number] Account: [id number] | | | Exam Date/Time: 11/22/2010 11:20 [...] - 09/29/2018 11:03 AM PDT | | [facility] | | [facility] [address] | | | | | | Patient Name: KAREN GONZALEZ | | Date of : 02/06/1859 | | Medical Record: [id number] | | Account: [id number] | | | | | | Exam [...] EXTERNAL LAB | | Testing performed at [facility];[address] [place] [address];[place] [address] MRSA PCR | | | NEGATIVE Testing performed at | | | [facility];[address] [place] [address];[place] [address] | | + + + + +---------+ + + | Performing | Address | City/State/Zipcode | Phone Number | | Organization | | | | + +---------+ + + | EXTERNAL LAB | | | | + +---------+ + + documented in this encounter Visit Diagnoses Not on filedocumented in this encounter"
--- OUTSIDE RECORDS SUMMARY | ~2019-01-16 | XMS | Encounter Summary ---
Demographics + + + | Address | [address] | | | [place] [address] | + + + | Home Phone | | + + + | Preferred Language | Unknown | + + + | Marital Status | | + + + | Baptism Affiliation | Unknown | + + + | Race | Unknown | + + + | Ethnic Group | Unknown | + + + Author + + + | Author | [facility] | | | and [place] | + + + | Organization | [facility] | | | and [place] | + + + | Address | Unknown | + + + | Phone | Unavailable | + + + Support + + + + + | Name | Relationship | Address | Phone | + + + + + | Vera Somers | ECON | [place] | | | | | [address] | | + + + + + | John Casillas | ECON | Unknown | | + + + + + Care Team Providers + +------+ + | Care Acid Blower Name | Role | Phone | + [...] Provider Unknown | | | | | [phone] | [phone] | | | | | | | [...]
--- OUTSIDE RECORDS SUMMARY | ~2019-01-16 | XMS | Encounter Summary ---
Demographics + + + | Address | [address] | | | [place] [address] | + + + | Home Phone | | + + + | Preferred Language | Unknown | + + + | Marital Status | | + + + | Temple Affiliation | Unknown | + + + | Race | Unknown | + + + | Ethnic Group | Unknown | + + + Author + + + | Author | [facility] | | | and [place] | + + + | Organization | [facility] | | | and [place] | + + + | Address | Unknown | + + + | Phone | Unavailable | + + + Support + + + + + | Name | Relationship | Address | Phone | + + + + + | Vera Somers | ECON | [place] | | | | | [address] | | + + + + + | John Casillas | ECON | Unknown | | + + + + + Care Team Providers + +------+ + | Care Pediatric Rn Name | Role | Phone | + [...] | | | | INTERFACES | Drive [place], [place] | | | | | [phone] | [address] | | | | | | | [...] | + + + | MAGDALENA Chun [address] CERVICAL SPINE WO CONTRAST 02/03/2011 4:06 [...]
--- OUTSIDE RECORDS SUMMARY | ~2019-01-16 | XMS | Encounter Summary ---
Demographics + + + | Address | [address] | | | [place] [address] | + + + | Home Phone | | + + + | Preferred Language | Unknown | + + + | Marital Status | | + + + | Christian Affiliation | Unknown | + + + [...] [place] | | | | | [address] | | + + + + + | John Casillas | ECON | Unknown | | + + + + + Care Team Providers + +------+ + | Care Cashier Clerk Name | Role | Phone | [...] Provider Unknown | | | | | [phone] | [phone] | | | | | | | [...]
--- OUTSIDE RECORDS SUMMARY | ~2019-01-16 | XMS | Encounter Summary ---
Demographics + + + | Address | [address] | | | [place] [address] | + + + | Home Phone | | + + + | Preferred Language | Unknown | + + + | Marital Status | | + + + | Jainism Affiliation | Unknown | + + + [...] [place] | | | | | [address] | | + + + + + | John Gómez | ECON | Unknown | | + + + + + Care Team Providers + +------+ + | Care Chin Strap Cutter Name | Role | Phone | + +------+ + | Manuel Adames | PCP | | | MD | | | + +------+ + Encounter Details +--------+ + + + + | Date | Type | Department | Care Team | Description | +--------+ + + + + | 12/05/ | Orders Only | [facility] | Jessica Booth MD | | | 2010 | | [facility] | [address] | | | | | CARE FLOOR [address] | [address] [facility] | | | | | [address] | [place] [address] | | | | | [place], [place] | [phone] | | | | | [address] | | | | | | [phone] | | | +--------+ + + + [...] | + + + | MAGDALENA Chun [employer] XR CHEST 2 VIEW FRONTAL AND LATERAL [...] At | + + + | [facility] [address] Ph: | | | Patient Name: MAGDALENA GÓMEZ Date of : | | | 1935 Medical Record: [id number] Account: [id number] | | | Exam Date/Time: 12/05/2010 11:01 [...] - 09/29/2018 11:03 AM PDT | | [facility] | | [facility] [address] | | | | | | Patient Name: MAGDALENA GÓMEZ | | Date of : 1935 | | Medical Record: [id number] | | Account: [id number] | | | | | | Exam [...] At | + + + | [facility] [address] Ph: | | | Patient Name: MAGDALENA GÓMEZ Date of : | | | 1935 Medical Record: [id number] Account: [id number] | | | Exam Date/Time: 12/05/2010 11:05 [...] - 09/29/2018 11:03 AM PDT | | [facility] | | [facility] [address] | | | | | | Patient Name: MAGDALENA GÓMEZ | | Date of : 1935 | | Medical Record: [id number] | | Account: [id number] | | | | | | Exam [...] EXTERNAL LAB | | Testing performed at [facility];[address];[place] [address] COLOR | | | RED Testing | | | performed at [facility];[address];[place] [address] APPEARANCE | | | CLOUDY Testing performed at [facility];[address];[place] [address] RBC'S | | | [id number] Testing performed at [facility];[address];[place] [address] TOTAL NUCLEATED CELLS 4770 | | | Testing performed at [facility];[address];[place] [address] | | | NEUTROPHILS 90 Testing | | | performed at [facility];[address];[place] [address] LYMPHOCYTES | | | 8 Testing performed at | | | [facility];[address];[place] [address] MONOCYTES/MACROPHAGES | | | 2 Testing performed at [facility];[address];[place] [address] CELLS COUNTED | | | 100 Testing performed at [facility], [place] | | | [address] | | + + + + +---------+ [...] EXTERNAL LAB | | Testing performed at [facility];[address] [place] [address];[place] [address] | | + + + + +---------+ [...] | EXTERNAL LAB | | not a telephone solicitor validated sample type for this method. No | | | reference ranges have been established. Testing performed at [facility];[address];[place] [address] FLUID TP SOURCE | | | PLEURAL FLUID Testing performed at [facility];[address];[place] [address] | | + + + + +---------+ + + | Performing | Address | City/State/[facility] | Phone Number | | Organization | [...] | EXTERNAL LAB | | not a telephone solicitor validated sample type for this method. No | | | reference ranges have been established. Testing performed at [facility] | | | [facility];[place] [address] Glucose, Fluid Type | | | PLEURAL FLUID Testing performed at [facility];[address] [place] [address];[place], [place] | | | [address] | | + + + + +---------+ [...] EXTERNAL LAB | | Testing performed at [facility];[address] [place] [address];[place] [address] | | + + + + +---------+ [...] | EXTERNAL LAB | | performed at [facility];[address] [place] [address];[place] [address] | | + + + + +---------+ [...] At | + + + | [facility] [address] Ph: | | | Patient Name: MAGDALENA GÓMEZ Date of : | | | 1935 Medical Record: [id number] Account: [id number] | | | Exam Date/Time: 12/04/2010 18:49 [...] - 09/29/2018 11:03 AM PDT | | [facility] | | [facility] [address] | | | | | | Patient Name: MAGDALENA GÓMEZ | | Date of : 1935 | | Medical Record: [id number] | | Account: [id number] | | | | | | Exam [...] At | + + + | [facility] [address] Ph: | | | Patient Name: MAGDALENA GÓMEZ Date of : | | | 1935 Medical Record: [id number] Account: [id number] | | | Exam Date/Time: 12/04/2010 16:29 [...] - 09/29/2018 11:03 AM PDT | | [facility] | | [facility] [address] | | | | | | Patient Name: MAGDALENA GÓMEZ | | Date of : 1935 | | Medical Record: [id number] | | Account: [id number] | | | | | | Exam [...] At | + + + | [facility] [address] Ph: | | | Patient Name: MAGDALENA GÓMEZ Date of : | | | 1935 Medical Record: [id number] Account: [id number] | | | Exam Date/Time: 12/04/2010 10:57 [...] - 09/29/2018 11:03 AM PDT | | [facility] | | [facility] [address] | | | | | | Patient Name: MAGDALENA GÓMEZ | | Date of : 1935 | | Medical Record: [id number] | | Account: [id number] | | | | | | Exam [...] EXTERNAL LAB | | Testing performed at [facility];[address] [place] [address];[place] [address] MRSA PCR | | | NEGATIVE Testing performed at | | | [address];[place] [address] | | + + + + +---------+ [...] At | + + + | [facility] [address] Ph: | | | Patient Name: MAGDALENA GÓMEZ Date of : | | | 1935 Medical Record: [id number] Account: [id number] | | | Exam Date/Time: 11/30/2010 19:01 Ordering | | | Physician: DISHA Mujica Detail: [id number] Exam Description: XR | | | CHEST [...] - 09/29/2018 11:03 AM PDT | | [facility] | | [facility] [address] | | | | | | Patient Name: MAGDALENA GÓMEZ | | Date of : 1935 | | Medical Record: [id number] | | Account: [id number] | | | | | | Exam [...] At | + + + | [facility] [address] Ph: | | | Patient Name: MAGDALENA GÓMEZ Date of : | | | 1935 Medical Record: [id number] Account: [id number] | | | Exam Date/Time: 11/30/2010 17:15 [...] - 09/29/2018 11:03 AM PDT | | [facility] | | [facility] [address] | | | | | | Patient Name: MAGDALENA GÓMEZ | | Date of : 1935 | | Medical Record: [id number] | | Account: [id number] | | | | | | Exam [...] At | + + + | [facility] [address] Ph: | | | Patient Name: MAGDALENA GÓMEZ Date of : | | | 1935 Medical Record: [id number] Account: [id number] | | | Exam Date/Time: 11/29/2010 05:00 [...] - 09/29/2018 11:03 AM PDT | | [facility] | | [facility] [address] | | | | | | Patient Name: MAGDALENA GÓMEZ | | Date of : 1935 | | Medical Record: [id number] | | Account: [id number] | | | | | | Exam [...] At | + + + | [facility] [address] Ph: | | | Patient Name: MAGDALENA GÓMEZ Date of : | | | 1935 Medical Record: [id number] Account: [id number] | | | Exam Date/Time: 11/28/2010 00:30 Ordering | | | Physician: LUIS ALBERTO Mujica Detail: 5000 Exam Description: US | | | VENOUS UPPER EXT UNILATERAL | | | LEFT | | | UPPER EXTREMITY DOPPLER ULTRASOUND HISTORY: Left arm and neck | | | swelling. TECHNIQUE: Real-time sonographic vascular imaging was | | | performed by the senior cost accountant through the upper extremity utilizing | | | both color-flow and Doppler flow analysis. Multiple agency sales representative | | | static images were [...] - 09/29/2018 11:03 AM PDT | | [facility] | | [facility] [address] | | | | | | Patient Name: HICKEY, MAGDALENA M | | Date of : 1935 | | Medical Record: [id number] | | Account: [id number] | | | | | | Exam [...] imaging was performed by the | | senior cost accountant through the upper extremity utilizing both color-flow and | | Doppler flow analysis. Multiple agency sales representative static images were saved for | [...] At | + + + | [facility] [address] Ph: | | | Patient Name: MAGDALENA GÓMEZ Date of : | | | 1935 Medical Record: [id number] Account: [id number] | | | Exam Date/Time: 11/28/2010 05:00 [...] - 09/29/2018 11:03 AM PDT | | [facility] | | [facility] [address] | | | | | | Patient Name: MAGDALENA GÓMEZ | | Date of : 1935 | | Medical Record: [id number] | | Account: [id number] | | | | | | Exam [...] At | + + + | [facility] [address] Ph: | | | Patient Name: MAGDALENA GÓMEZ Date of : | | | 1935 Medical Record: [id number] Account: [id number] | | | Exam Date/Time: 11/27/2010 19:00 [...] - 09/29/2018 11:03 AM PDT | | [facility] | | [facility] [address] | | | | | | Patient Name: MAGDALENA GÓMEZ | | Date of : 1935 | | Medical Record: [id number] | | Account: [id number] | | | | | | Exam [...] At | + + + | [facility] [address] Ph: | | | Patient Name: MAGDALENA GÓMEZ Date of : | | | 1935 Medical Record: [id number] Account: [id number] | | | Exam Date/Time: 11/27/2010 05:00 [...] - 09/29/2018 11:03 AM PDT | | [facility] | | [facility] [address] | | | | | | Patient Name: MAGDALENA GÓMEZ | | Date of : 1935 | | Medical Record: [id number] | | Account: [id number] | | | | | | Exam [...] At | + + + | [facility] [address] Ph: | | | Patient Name: MAGDALENA GÓMEZ Date of : | | | 1935 Medical Record: [id number] Account: [id number] | | | Exam Date/Time: 11/26/2010 05:00 [...] - 09/29/2018 11:03 AM PDT | | [facility] | | [facility] [address] | | | | | | Patient Name: MAGDALENA GÓMEZ | | Date of : 1935 | | Medical Record: [id number] | | Account: [id number] | | | | | | Exam [...] At | + + + | [facility] [address] Ph: | | | Patient Name: RICO MAGDALENA Chun Date of : | | | 1935 Medical Record: [id number] Account: [id number] | | | Exam Date/Time: 11/25/2010 07:18 [...] - 09/29/2018 11:03 AM PDT | | [facility] | | [facility] [address] | | | | | | Patient Name: MAGDALENA GÓMEZ | | Date of : 1935 | | Medical Record: [id number] | | Account: [id number] | | | | | | Exam [...] At | + + + | [facility] [address] Ph: | | | Patient Name: MAGDALENA GÓMEZ Date of : | | | 1935 Medical Record: [id number] Account: [id number] | | | Exam Date/Time: 11/25/2010 06:19 [...] - 09/29/2018 11:03 AM PDT | | [facility] | | [facility] [address] | | | | | | Patient Name: MAGDALENA GÓMEZ | | Date of : 1935 | | Medical Record: [id number] | | Account: [id number] | | | | | | Exam [...] Vickers MD on 11/25/10 07:16. Addendum Ends [facility] | | | [facility] [address] | | | Patient Name: MAGDALENA GÓMEZ Date of : 1935 | | | Medical Record: [id number] Account: [id number] Accession: | | | [id number] Exam Date/Time: 11/25/2010 05:00 Ordering Physician: | [...] | Addendum Ends | | | | [facility] | | [facility] [address] | | | | | | Patient Name: MAGDALENA GÓMEZ | | Date of : 1935 | | Medical Record: [id number] | | Account: [id number] | | | | | | Exam [...] At | + + + | [facility] [address] Ph: | | | Patient Name: MAGDALENA GÓMEZ Date of : | | | 1935 Medical Record: [id number] Account: [id number] | | | Exam Date/Time: 11/24/2010 05:00 Ordering | | | Physician: SERGIO JENNINGS Order Detail: [id number] Exam Description: | | | XR CHEST [...] - 09/29/2018 11:03 AM PDT | | [facility] | | [facility] [address] | | | | | | Patient Name: HICKEY, MAGDALENA M | | Date of : 1935 | | Medical Record: [id number] | | Account: [id number] | | | | | | Exam [...] At | + + + | [facility] [address] Ph: | | | Patient Name: MAGDALENA GÓMEZ Adiel Date of : | | | 1935 Medical Record: [id number] Account: [id number] | | | Exam Date/Time: 11/23/2010 16:31 [...] - 09/29/2018 11:03 AM PDT | | [facility] | | [facility] [address] | | | | | | Patient Name: MAGDALENA GÓMEZ | | Date of : 1935 | | Medical Record: [id number] | | Account: [id number] | | | | | | Exam [...] At | + + + | [facility] [address] Ph: | | | Patient Name: KAREN GONZALEZ Date of : | | | 02/06/1859 Medical Record: [id number] Account: [id number] | | | Exam Date/Time: 11/23/2010 05:00 [...] - 09/29/2018 11:03 AM PDT | | [facility] | | [facility] [address] | | | | | | Patient Name: KAREN GONZALEZ 26 | | Date of : 02/06/1859 | | Medical Record: [id number] | | Account: [id number] | | | | | | Exam [...] At | + + + | [facility] [address] Ph: | | | Patient Name: TRAUMAKAREN 26 Date of : | | | 02/06/1859 Medical Record: [id number] Account: [id number] | | | Exam Date/Time: 11/22/2010 14:48 [...] - 09/29/2018 11:03 AM PDT | | [facility] | | [facility] [address] | | | | | | Patient Name: KAREN GONZALEZ | | Date of : 02/06/1859 | | Medical Record: [id number] | | Account: [id number] | | | | | | Exam [...] At | + + + | [facility] [address] Ph: | | | Patient Name: KAREN GONZALEZ Date of : | | | 02/06/1859 Medical Record: [id number] Account: [id number] | | | Exam Date/Time: 11/22/2010 12:59 [...] was also examined with | | | [employer] 3D software for evaluation of the cerebral [...] posterior cerebral artery: | | | Normal. [place]: Anterior communicating artery: Normal. | [...] - 09/29/2018 11:03 AM PDT | | [facility] | | [facility] [address] | | | | | | Patient Name: TRAUMA, KAREN Luciano | | Date of : 02/06/1859 | | Medical Record: [id number] | | Account: [id number] | | | | | | Exam [...] The data set was also examined with [employer] 3D software for | | evaluation of [...] cerebral artery: Normal. | | | | [place]: | | Anterior communicating artery: [...] | | | 8:40 AM Addendum Ends [facility] | | | [place] [address] Patient Name: KAREN GONZALEZ | | | Date of : 02/06/1859 Medical Record: [id number] Account: | | | [id number] Exam Date/Time: 11/22/2010 | | | 11:20 [...] | pelvis. Oral Contrast:Readi-Cat IV contrast:100 mL [id number] | | | COMPARISON: None. FINDINGS: CT [...] | Addendum Ends | | | | [facility] | | [facility] [address] | | | | | | Patient Name: KAREN GONZALEZ | | Date of : 02/06/1859 | | Medical Record: [id number] | | Account: [id number] | | | | | | Exam [...] Oral Contrast:Readi-Cat | | IV contrast:100 mL [id number] | | | | COMPARISON: | | [...] WBCS/LPF | | | Testing performed at [facility], [facility] [address] [facility] | | | [place] [address] CULTURE | | | 1+ NORMAL UPPER RESPIRATORY FERNANDA | | | Testing performed at [facility], [address] [facility] | | | [place] [address] REPORT STATUS | | | 11/24/2010 FINAL [...] At | + + + | [facility] [address] Ph: | | | Patient Name: KAREN GONZALEZ Date of : | | | 02/06/1859 Medical Record: [id number] Account: [id number] | | | Exam Date/Time: 11/22/2010 11:55 [...] - 09/29/2018 11:03 AM PDT | | [facility] | | [facility] [address] | | | | | | Patient Name: CARLOS, KAREN Luciano | | Date of : 02/06/1859 | | Medical Record: [id number] | | Account: [id number] | | | | | | Exam [...] At | + + + | [facility] [address] Ph: | | | Patient Name: KAREN GONZALEZ Date of : | | | 02/06/1859 Medical Record: [id number] Account: [id number] | | | Exam Date/Time: 11/22/2010 11:20 [...] - 09/29/2018 11:03 AM PDT | | [facility] | | [facility] [address] | | | | | | Patient Name: TRAUMA, KAREN 26 | | Date of : 02/06/1859 | | Medical Record: [id number] | | Account: [id number] | | | | | | Exam [...] At | + + + | [facility] [address] Ph: | | | Patient Name: KAREN GONZALEZ Date of : | | | 02/06/1859 Medical Record: [id number] Account: [id number] | | | Exam Date/Time: 11/22/2010 11:56 [...] - 09/29/2018 11:03 AM PDT | | [facility] | | [facility] [address] | | | | | | Patient Name: TRAUMA, KAREN Luciano | | Date of : 02/06/1859 | | Medical Record: [id number] | | Account: [id number] | | | | | | Exam [...] At | + + + | [facility] [address] Ph: | | | Patient Name: KAREN GONZALEZ Date of : | | | 02/06/1859 Medical Record: [id number] Account: [id number] | | | Exam Date/Time: 11/22/2010 11:20 [...] - 09/29/2018 11:03 AM PDT | | [facility] | | [facility] [address] | | | | | | Patient Name: KAREN GONZALEZ | | Date of : 02/06/1859 | | Medical Record: [id number] | | Account: [id number] | | | | | | Exam [...] EXTERNAL LAB | | Testing performed at [facility];[address] [place] [address];[place] [address] MRSA PCR | | | NEGATIVE Testing performed at | | | [facility];[address] [place] [address];[place] [address] | | + + + + +---------+ + + | Performing | Address | City/State/Zipcode | Phone Number | | Organization | | | | + +---------+ + + | EXTERNAL LAB | | | | + +---------+ + + documented in this encounter Visit Diagnoses Not on filedocumented in this encounter"
--- OUTSIDE RECORDS SUMMARY | ~2019-01-16 | XMS | Encounter Summary ---
Demographics + + + | Address | [address] | | | [place] [address] | + + + | Home Phone | | + + + | Preferred Language | Unknown | + + + | Marital Status | | + + + | Adventist Affiliation | Unknown | + + + | Race | Unknown | + + + | Ethnic Group | Unknown | + + + Author + + + | Author | [facility] | | | and [place] | + + + | Organization | [facility] | | | and [place] | + + + | Address | Unknown | + + + | Phone | Unavailable | + + + Support + + + + + | Name | Relationship | Address | Phone | + + + + + | Vera Somers | ECON | [place] | | | | | [address] | | + + + + + | John Casillas | ECON | Unknown | | + + + + + Care Team Providers + +------+ + | Care Oil Well Shooter Name | Role | Phone | + [...] [place] | | | | | [address] | [address] | | | | | [phone] | [phone] | | | | | | | [...] Dictation FINDINGS -------- MEASUREMENTS | | | Scarfing Machine Operator: LOBITO Authenticated by: Dionicio Baltazar DO | | | Report Date/Time: -- [id number] | | + + + + + [...] MEASUREMENTS | | | | | | Scarfing Machine Operator: LOBITO | | Authenticated by: Dionicio Baltazar DO | | Report Date/Time: -- [id number] | | | | IMPRESSION: | | 1. See Dictation | + + documented in this encounter Visit Diagnoses Not on filedocumented in this encounter"
--- OUTSIDE RECORDS SUMMARY | ~2019-01-16 | XMS | Encounter Summary ---
Demographics + + + | Address | [address] | | | [place] [address] | + + + | Home Phone | | + + + | Preferred Language | Unknown | + + + | Marital Status | | + + + | Rastafari Affiliation | Unknown | + + + | Race | Unknown | + + + | Ethnic Group | Unknown | + + + Author + + + | Author | [facility] | | | and [place] | + + + | Organization | [facility] | | | and [place] | + + + | Address | Unknown | + + + | Phone | Unavailable | + + + Support + + + + + | Name | Relationship | Address | Phone | + + + + + | Vera Somers | ECON | [place] | | | | | [address] | | + + + + + | John Casillas | ECON | Unknown | | + + + + + Care Team Providers + +------+ + | Care Communications Controller Name | Role | Phone | + [...] Provider Unknown | | | | | [phone] | [phone] | | | | | | | [...]
--- OUTSIDE RECORDS SUMMARY | ~2019-01-16 | XMS | Clinical Summary ---
Demographics + + + | Address | [address] | | | [place] [address] | + + + | Home Phone | | + + + | Preferred Language | Unknown | + + + | Marital Status | | + + + | Nondenominational Affiliation | Unknown | + + + | Race | Unknown | + + + | Ethnic Group | Unknown | + + + Author + + + | Author | [facility] | | | and [place] | + + + | Organization | [facility] | | | and [place] | + + + | Address | Unknown | + + + | Phone | Unavailable | + + + Support + + + + + | Name | Relationship | Address | Phone | + + + + + | Vera Somers | ECON | [place] | | | | | [address] | | + + + + + | John Casillas | ECON | Unknown | | + + + + + Care Team Providers + +------+ + | Care Stem Roller Operator Name | Role | Phone | [...]
--- OUTSIDE RECORDS SUMMARY | ~2019-01-16 | XMS | Encounter Summary ---
Demographics + + + | Address | [address] | | | [place] [address] | + + + | Home Phone [...] + + | Author | [facility] | | | and [place] | + + + | Organization | [facility] | | | and [place] | + + + | Address | Unknown | + + + | Phone | Unavailable | + + + Support + + + + + | Name | Relationship | Address | Phone | + + + + + | Vera Somers | ECON | [place] | | | | | [address] | | + + + + + | John Casillas | ECON | Unknown | | + + + + + Care Team Providers + +------+ + | Care Cylinder Press Operator Apprentice Name | Role | Phone | + [...] [place] | | | | | [address] | [address] | | | | | [phone] | [phone] | | | | | | | [...] Dictation FINDINGS -------- MEASUREMENTS | | | Home Child Care Provider: LOBITO Authenticated by: Dionicio Baltazar DO | | | Report Date/Time: -- [id number] | | + + + + + [...] MEASUREMENTS | | | | | | Home Child Care Provider: LOBITO | | Authenticated by: Dionicio Baltazar DO | | Report Date/Time: -- [id number] | | | | IMPRESSION: | | 1. See Dictation | + + documented in this encounter Visit Diagnoses Not on filedocumented in this encounter"
--- OUTSIDE RECORDS SUMMARY | ~2019-01-16 | XMS | Encounter Summary ---
Demographics + + + | Address | [address] | | | [place] [address] | + + + | Home Phone | | + + + | Preferred Language | Unknown | + + + | Marital Status | | + + + | Hoahaoism Affiliation | Unknown | + + + [...] [place] | | | | | [address] | | + + + + + | John Casillas | ECON | Unknown | | + + + + + Care Team Providers + +------+ + | Care Ballet Company Member Name | Role | Phone | + [...] [place] | | | | | [place] | [id number] | | | | | [address] | | | | | | [phone] | | | +--------+ + + + [...] | | 2.48 cm SV(Teich): 15.29 ml Forging Operator: LOBITO Authenticated by: | | | [...] cmLVIDd: 3.07 cmLVPWd: 1.25 cmLVOT Area: 3.66 wb6TWMK Diam: 2.15 | | cm%FS: 19.27 %EF(Teich): 41.01 %ESV(Teich): 22.00 mlLVIDs: 2.48 cmSV(Teich): | | 15.29 ml Forging Operator: ZEINAButhenticated by: Butch Ballesteros Date/Time: 03-15-2018 [...] | |SV(Teich): 15.29 ml | | | |Forging Operator: LOBITO | |Authenticated by: Butch Tapia [...]
--- OUTSIDE RECORDS SUMMARY | ~2019-01-16 | XMS | Clinical Summary ---
Demographics + + + | Address | [address] | | | [place] [address] | + + + | Home Phone | | + + + | Preferred Language | Unknown | + + + | Marital Status | | + + + | Bahai Affiliation | Unknown | + + + | Race | Unknown | + + + | Ethnic Group | Unknown | + + + Author + + + | Author | [facility] [employer] (Historical as of | | | 09-22-18) | + + + | Organization | [facility] [employer] [facility] (Historical as of | | | 09-22-18) | + + + | Address | Unknown | + + + | Phone | Unavailable | + + + Support + + + + + | Name | Relationship | Address | Phone | + + + + + | Vera Somers | ECON | [place] | | | | | [address] | | + + + + + | John Casillas | ECON | Unknown | | + + + + + Care Team Providers + +------+ + | Care Asbestos Wire Finisher Name | Role | Phone | [...] | MA - [employer] | MA-PRE | [id number] | Medica | | | | FAMILY [...] | Self | [birth year] | Home: | [address] | | | al/Fam | | 1935 | [phone] | [place] | | | [place] | | | [phone] | [phone] | + +--------+ +--------+ + + | MAGDALENA CASILLAS | Third | Self | [birth year] | Home: | [address] | | | Green Party | | [phone] | [phone] | [place] | | | [place] | | | [phone] | [phone] | | | ity | | | | | + +--------+ +--------+ + +
--- OUTSIDE RECORDS SUMMARY | ~2019-01-16 | XMS | Clinical Summary ---
Demographics + + + | Address | [address] | | | [place] [address] | + + + | Home Phone | | + + + | Preferred Language | Unknown | + + + | Marital Status | | + + + | Yarsani Affiliation | Unknown | + + + | Race | Unknown | + + + | Ethnic Group | Unknown | + + + Author + + + | Author | [email or web address] [facility] (Historical as of | | | 09-22-18) | + + + | Organization | [facility] (Historical as of | | | 09-22-18) | + + + | Address | Unknown | + + + | Phone | Unavailable | + + + Support + + + + + | Name | Relationship | Address | Phone | + + + + + | Vera Somers | ECON | [place] | | | | | [address] | | + + + + + | John Casillas | ECON | Unknown | | + + + + + Care Team Providers + +------+ + | Care Wildlife Refuge Specialist Name | Role | Phone | [...] | MA - [employer] | MA-PRE | [id number] | Medica | | | | FAMILY [...] | Self | [birth year] | Home: | [address] | | | al/Fam | | 1935 | [phone] | [place] | | | [place] | | | [phone] | [phone] | + +--------+ +--------+ + + | MAGDALENA CASILLAS | Third | Self | [birth year] | Home: | [address] | | | Libertarian | | [phone] | [phone] | [place] | | | [place] | | | [phone] | [phone] | | | ity | | | | | + +--------+ +--------+ + +
--- OUTSIDE RECORDS SUMMARY | ~2019-01-16 | XMS | Clinical Summary ---
Demographics + + + | Address | [address] | | | [place] [address] | + + + | Home Phone | | + + + | Preferred Language | Unknown | + + + | Marital Status | | + + + | Mandaeism Affiliation | Unknown | + + + | Race | Unknown | + + + | Ethnic Group | Unknown | + + + Author + + + | Author | [facility] | | | and [place] | + + + | Organization | [facility] | | | and [place] | + + + | Address | Unknown | + + + | Phone | Unavailable | + + + Support + + + + + | Name | Relationship | Address | Phone | + + + + + | Vera Somers | ECON | [place] | | | | | [address] | | + + + + + | John Casillas | ECON | Unknown | | + + + + + Care Team Providers + +------+ + | Care Parole Board Member Name | Role | Phone | [...]
--- OUTSIDE RECORDS SUMMARY | ~2019-01-16 | XMS | Encounter Summary ---
Demographics + + + | Address | [address] | | | [place] [address] | + + + | Home Phone | | + + + | Preferred Language | Unknown | + + + | Marital Status | | + + + | Amish Affiliation | Unknown | + + + | Race | Unknown | + + + | Ethnic Group | Unknown | + + + Author + + + | Author | [facility] | | | and [place] | + + + | Organization | [facility] | | | and [place] | + + + | Address | Unknown | + + + | Phone | Unavailable | + + + Support + + + + + | Name | Relationship | Address | Phone | + + + + + | Vera Somers | ECON | [place] | | | | | [address] | | + + + + + | John Casillas | ECON | Unknown | | + + + + + Care Team Providers + +------+ + | Care Quality Control Technician Name | Role | Phone | [...] Provider Unknown | | | | | [phone] | [phone] | | | | | | | [...]
--- OUTSIDE RECORDS SUMMARY | ~2019-01-16 | XMS | Encounter Summary ---
Demographics + + + | Address | [address] | | | [place] [address] | + + + | Home Phone | | + + + | Preferred Language | Unknown | + + + | Marital Status | | + + + | Rastafarian Affiliation | Unknown | + + + | Race | Unknown | + + + | Ethnic Group | Unknown | + + + Author + + + | Author | [facility] | | | and [place] | + + + | Organization | [facility] | | | and [place] | + + + | Address | Unknown | + + + | Phone | Unavailable | + + + Support + + + + + | Name | Relationship | Address | Phone | + + + + + | Vera Somers | ECON | [place] | | | | | [address] | | + + + + + | John Casillas | ECON | Unknown | | + + + + + Care Team Providers + +------+ + | Care Die Designer Name | Role | Phone | + [...] | | | | INTERFACES | [address] [place], [place] | | | | | [phone] | [address] | | | | | | | [...] | + + + | MAGDALENA Chun [facility] CERVICAL SPINE WO CONTRAST 02/03/2011 4:06 [...]
--- OUTSIDE RECORDS SUMMARY | ~2019-01-16 | XMS | Encounter Summary ---
Demographics + + + | Address | [address] | | | [place] [address] | + + + | Home Phone | | + + + | Preferred Language | Unknown | + + + | Marital Status | | + + + | Yarsani Affiliation | Unknown | + + + | Race | White | + + + | Ethnic Group | Other Race | + + + Author + + + | Author | [facility] | + + + | Organization | [facility] | + + + | Address | Unknown | + + + | Phone | Unavailable | + + + Support + + +---------+ + | Name | Relationship | Address | Phone | + + +---------+ + | John Casillas | ECON | Unknown | | + + +---------+ + Care Team Providers + +------+ + | Care Internet Researcher Name | Role | Phone | + +------+ + | Manuel Adames MD | PCP | | + +------+ + Encounter Details +--------+ + + + + | Date | Type | Department | Care Team | Description | +--------+ + + + + | 04/24/ | Documentati | Neurophysiology | Jw Bettencourt | | | 2018 | on | EEG at [facility] [address] | G, DO [address] | | | | | [address] | [facility] | | | | | Mailcode: CR120 | [place], [place] | | | | | [facility] | [address] | | | | | [place], [place] | [phone] | | | | | [address] | | | | | | [phone] | | | +--------+ + + + [...] Place of | | | Service: [facility] Department: [facility]LEMEDICINE - | | | [id number] STAT EEG Reason for Exam: Evaluate for [...] directly to | | | Aman at [facility] on 4:23pm on 04/24/2017. Jw | | | DO Bettencourt MFA Electronically signed on 04/24/2017 at 4:19 PM | | | JW BETTENCOURT DO. Suggested CPT: 47401 - EEG Routine Awake | | | & Asleep Suggested Dx: G93.49 Other encephalopathy | | + + + documented in this encounter Visit Diagnoses Not on filedocumented in this encounter"
--- OUTSIDE RECORDS SUMMARY | ~2019-01-16 | XMS | Encounter Summary ---
Demographics + + + | Address | [address] | | | [place] [address] | + + + | Home Phone | | + + + | Preferred Language | Unknown | + + + | Marital Status | | + + + | Advent Affiliation | Unknown | + + + | Race | White | + + + | Ethnic Group | Other Race | + + + Author + + + | Author | [facility] | + + + | Organization | [facility] | + + + | Address | Unknown | + + + | Phone | Unavailable | + + + Support + + +---------+ + | Name | Relationship | Address | Phone | + + +---------+ + | John Casillas | ECON | Unknown | | + + +---------+ + Care Team Providers + +------+ + | Care Law Firm Receptionist Name | Role | Phone | + +------+ + | Manuel Adames MD | PCP | | + +------+ + Encounter Details +--------+ + + + + | Date | Type | Department | Care Team | Description | +--------+ + + + + | 05/02/ | Document-Sc | Health Information | Unknown . | | | 2018 | anned | Services [id number] | | | | | [address] | | | | | | Mailcode: OP17A | | | | | | [facility] | | | | | | [place], [place] | | | | | | [address] | | | | | | [phone] | | | +--------+ + + + [...]
--- OUTSIDE RECORDS SUMMARY | ~2019-01-16 | XMS | Encounter Summary ---
Demographics + + + | Address | [address] | | | [place] [address] | + + + | Home Phone [...] + | Vera Somers | ECON | [place] | | | | | [address] | | + + + + + | John Casillas | ECON | Unknown | | + + + + + Care Team Providers + +------+ + | Care Secondary School Teacher Librarian Name | Role | Phone | + [...] Provider Unknown | | | | | [phone] | [phone] | | | | | | | [...]
[~2019-01-16 19:33] MED LIST changes: -FOLIC ACID1 MG PO
--- OUTSIDE RECORDS SUMMARY | 2019-01-16 19:36 | XMS ---
PreManage Notification: EUGENIO GÓMEZ Security Cst Events No recent Security Events currently on file CRITERIA MET - [facility] - 2 Visits in 30 Days CARE PROVIDERS LESLIE ADAMES [facility] 10/24/2017-Current PHONE: Unknown [facility] Case or Fish Housekeeper Current HEALTH AND HOSPICE PHONE: [phone] Leslie Adames MD PHONE: Unknown [facility] has no Care Guidelines for this patient. E.D. VISIT COUNT (12 MO.) 5 DEACON Rodriguez TOTAL 5 NOTE: Visits indicate total known visits. ED/UCC VISIT TRACKING (12 MO.) 01/16/2019 19:35 [facility] [place] TYPE: Emergency COMPLAINT: - VOMITING/DIARRHEA 01/04/2019 05:35 [facility] [place] TYPE: Emergency COMPLAINT: - RECTAL BLEEDING DIAGNOSES: - Other ferry terminal agent (current) drug therapy - Melena - Allergy status to narcotic agent status - Unspecified atrial fibrillation - Hyperlipidemia, unspecified - Unspecified dementia without behavioral disturbance - Allergy status to sulfonamides status - longterm (current) use of aspirin - Personal history of nicotine dependence - termite helper (current) use of oral hypoglycemic drugs - 1 Type 2 diabetes mellitus without complications - Essential (primary) hypertension 07/20/2018 22:13 [facility] [place] TYPE: Emergency COMPLAINT: - FALL/WEAKNESS DIAGNOSES: - Essential (primary) hypertension - 1 Type 2 diabetes mellitus without complications - Other ferry terminal agent (current) drug therapy - Fall on same level, unspecified, initial encounter - Pelvic and perineal pain - Unspecified dementia without behavioral disturbance - Acquired absence of both cervix and uterus - Contusion of lower back and pelvis, initial encounter - Personal history of nicotine dependence - Acquired absence of other organs - Allergy status to narcotic agent status - Allergy status to sulfonamides status 05/21/2018 07:41 [facility] [place] TYPE: Emergency COMPLAINT: - ALTERED MENTAL STATUS 03/11/2018 12:30 [facility] [place] TYPE: Emergency COMPLAINT: - MULTIPLE ISSUE/OXYGEN LEVELS LOW INPATIENT VISIT TRACKING (12 MO.) 05/21/2018 11:03 [facility] [place] TYPE: Medical Surgical COMPLAINT: - CHF DIAGNOSES: - termite helper (current) use of oral hypoglycemic drugs - Allergy status to sulfonamides status - Dependence on supplemental oxygen - Personal history of nicotine dependence - Acute on chronic diastolic (congestive) heart failure - longterm (current) use of aspirin - Unspecified dementia without behavioral disturbance - Allergy status to narcotic agent status - Other ferry terminal agent (current) drug therapy - Unspecified atrial fibrillation - 1 Type 2 diabetes mellitus without complications - Hypertensive heart disease with heart failure - Acute and chronic respiratory failure with hypoxia 03/11/2018 16:38 [facility] [place] TYPE: Medical Surgical COMPLAINT: - AFIB,RVR DIAGNOSES: - Metabolic encephalopathy - Allergy status to sulfonamides status - Acute and chronic respiratory failure with hypoxia - Dysphagia, oropharyngeal phase - Allergy status to sulfonamides status - Acute on chronic diastolic (congestive) heart failure - Other half-way (current) drug therapy - longterm (current) use of oral hypoglycemic drugs - Allergy status to narcotic agent status - Other half-way (current) drug therapy - Unspecified dementia with behavioral disturbance - Hypertensive heart disease with heart failure - Hypertensive heart disease with heart failure - Unspecified atrial fibrillation - Acute on chronic diastolic (congestive) heart failure - 1 Type 2 diabetes mellitus without complications - longterm (current) use of oral hypoglycemic drugs - Restlessness and agitation - Dysphagia, oropharyngeal phase - Unspecified dementia with behavioral disturbance - Acute and chronic respiratory failure with hypoxia - 1 Type 2 diabetes mellitus without complications - Metabolic encephalopathy - Allergy status to narcotic agent status - Restlessness and agitation [id number]
--- NOTE | 2019-01-17 01:12 | NUR ---
PATIENT ADMITTED TO ROOM #120, AT MIDNIGHT AND CAME FROM ER VIA STRETCHER AND MANUALLY MOVED BY STAFF TO THE BED. PATIENT IS VERY HARD OF HEARING, BUT APPEARS EXHAUSTED AND IS MAINLY JUST SLEEPING, MOST INFORMATION OBTAINED FROM REPORT AND OLD MEDICAL RECORDS. PATIENT'S "ISAIAH" SHOWED UP AND FILLED IN A FEW THINGS AND THEN HAD ME CALL THEIR DAUGHTER CONNOR WHO IS A 30 YEAR RN FROM [facility] IN [place]. HOME# [phone] AND CELL# [phone]. CONNOR IS THE PATIENT'S POA AND WILL BRING PAPERWORK IN TOMORROW. NO POLST FORM. PATIENT IS NORMALLY ON 4L/NC O2 AT HOME AND WALKS IN THE HOUSE WITH HER CANE NORMALLY, BUT HASN'T EATEN WELL FOR SEVERAL DAYS, AND THEIR GRAND-DAUGHTER LETA HAS THE FLU AND CONNOR THINKS THAT IS WERE HER MOM GOT IT. IS STAYING AT BEDSIDE AND OF COURSE DID NOT WANT A MASK. PATIENT RESTING QUIETLY AT THIS TIME. LUNGS GENERALY DEMINISHED THROUGHOUT AND IN THE MID 90'S FOR SATS ON CONTINUOUS PULSE OX ON 2L/NC. BOWEL TONES ACTIVE. CALL LIGHT IS WITH THE AT BEDSIDE. PATIENT'S SKIN LOOKED GOOD.
--- NOTE | 2019-01-17 03:06 | NUR ---
PATIENT PUMP WAS ALARMING BECAUSE SHE HAD BENT HER ARM AND I WENT IN AND HAD TO STRAIGHTEN HER ARM. PATIENT RESTING QUIETLY, EYES CLOSED, RESPIRATIONS SHALLOW, BUT EVEN ON 2L/NC. PATIENT RESTING QUIETLY ON THE COUCH. PATIENT'S SATS 95% AND HR=74. CALL LIGHT IN REACH.
--- NOTE | 2019-01-17 06:14 | NUR ---
PATIENT HAS RESTED WELL MOST OF THE SHIFT SINCE ARRIVAL. JUST GOT UP TO THE BEDSIDE COMMODE AND VOIDED 500MLS AND GOT BACK IN BED. IV STILL INFUSING FINE AND PATIENT'S STRENGTH SEEMED TO BE PRETTY GOOOD, BUT SHE REALLY DID NOT SEEM TO KNOW WHERE SHE WAS EVEN THOUGH COOPERATIVE. REMAINS IN THE ROOM ASLEEP ON THE COUCH. PATIENT'S DAUGHTER OCNNOR MAY NOT BE ABLE TO MAKE IT IN TODAY, BUT SHE CAN BE CALLED FOR THE POA PAPERS IF NEEDED AND SHE CAN FAX COPIES IF NEED BE. HER HOME # IS [phone] AND CELL#[phone]. PATIENT BACK ASLEEP AND CALL LIGHT IN REACH.
--- NOTE | 2019-01-17 06:39 | EKG ---
[facility] [address] [place] [address] Signed Atrial fibrillation Abnormal ECG When compared with ECG of 04-JAN-2019 06:20, Vent. rate has decreased BY 46 BPM Confirmed by GALI KNIGHT MD ([id number]) on 01/17/2019 6:39:23 AM Electronically Signed By: GALI KNIGHT MD 01/17/19 0639 PATIENT NAME: EUGENIO GÓEMZ PAULA Electrocardiogram DATE OF : 35 PHYSICIAN: GALI KNIGHT MD REPORT #: [id number] REPORT IS CONFIDENTIAL AND NOT TO BE RELEASED WITHOUT AUTHORIZATION
--- NOTE | 2019-01-17 07:01 | NUR ---
PT RESTING SUPINE IN BED EYES CLOSED AND RESPIRATIONS EVEN AND UNLABORED. PT APPEARS TO BE SLEEPING COMFORTABLY. CALL LIGHT AND H2O IN REACH.
--- NOTE | 2019-01-17 09:24 | NUR ---
PT RESTING SUPINE IN BED ALERT AND ORIENTED. PT CHITINA. ASSESSMENT COMPLETED. AM MEDS ADMINISTERED. CALL LIGHT AND H2O IN REACH. NO NEEDS OR CONCERNS VOICED.
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
[2019-01-17] MEDS ORDERED: FUROSEMIDE20 MG PO (10:45)
[2019-01-17] MEDS ORDERED: CARVEDILOL25 MG PO (10:54)
--- NOTE | 2019-01-17 11:37 | NUR ---
PT RESTING IN SEMIFOWLERS POSITION IN BED ALERT AND ORIENTED CALL LIGHT AND H2O IN REACH. PT DENIES NEEDS OR CONCERNS.
--- NOTE | 2019-01-17 13:00 | NUR ---
CHECKED ON PT-KNOCKED ON DOOR SEVERAL TIMES. PT SLEEPING, COULD NOT WAKE HER. WILL TRY AGAIN.
--- NOTE | 2019-01-17 14:19 | NUR ---
PT SITTING UP IN SEMIFOWLERS POSITION IN BED EATING LUNCH. PT IS ALERT AND ORIENTED CALL LIGHT AND H2O IN REACH. NO NEEDS OR CONCERNS VOICED.
[2019-01-17] MEDS ORDERED: FOLIC ACID0.4 MG PO (15:05)
--- NOTE | 2019-01-17 15:06 | NUR ---
MED REC COMPLETE
--- NOTE | 2019-01-17 16:05 | NUR ---
PT RESTING SUPINE IN BED, ASSISTED UP TO RESTROOM PER PT REQUEST. PT BACK TO BED CALL LIGHT AND H2O IN REACH. NO FURTHER NEEDS OR CONCERNS VOICED.
--- NOTE | 2019-01-17 19:31 | NUR ---
PT'S IV WAS BEEPING, HUNG NEW BAG OF IV FLUIDS. PT DENIES NEEDS AT THIS TIME. CALL LIGHT IS CLOSE.
--- NOTE | 2019-01-17 22:20 | NUR ---
PATIENT VISITING WITH AT BEDSIDE, NO NEEDS AT THIS TIME. CALL LIGHT IN REACH.
--- NOTE | 2019-01-17 22:24 | NUR ---
PATIENT SITIING IN BED COOPERATIVE AND WATCHING TV. NO NEEDS AT THIS TIME, CALL LIGHT IN REACH. PATIENT CAN BE SEEN FROM NURSES STATION.
--- NOTE | 2019-01-18 00:02 | NUR ---
PATIENT JUST SITTING IN BED WATCHING TV, NO NEEDS AT THIS TIME. CALL LIGHT IN REACH.
--- NOTE | 2019-01-18 01:56 | NUR ---
PATIENT RESTING QUIETLY ON HER RIGHT SIDE, EYES CLOSED, RESPIRATIONS REGULAR AND EVEN. PULSE UX READS PULSE AT 84 AND SAYS 95% ON 2L/NC. CALL LIGHT IN REACH.
--- NOTE | 2019-01-18 03:20 | NUR ---
PATIENT AWAKE TALKING WITH KARLOS WILL CALL ORDER CLERK AND PATIENT IS WATCHING TV. CALL LIGHT IN REACH.
--- NOTE | 2019-01-18 04:48 | NUR ---
PATIENT HAS NOT REALLY SLEPT TONIGHT, SHE HAS WATCHED TV MOST OF THE NIGHT AND WALKED TO THE BATHROOM WITH 1PSBA MULTIPLE TIMES. IV INFUSING FINE.PATIENT WANTING TO GO HOME. NEW ICE WATER GIVEN. PATIENT BACK IN BED FROM THE BATHROOM AGAIN O2 SATS 95 ON 2L/NC AND HR=62. CALL LIGHT IN REACH AND BED ALARM ON. PATIENT CAN BE SEEN FROM THE NURSES DESK.
--- NOTE | 2019-01-18 07:12 | NUR ---
PT UP TO RESTROOM WITH AID AND BACK TO BED. PT ALERT AND WATCHING TV AND IS IN NO APPERANT DISTRESS AT THIS TIME. CALL LIGHT AND H2O IN REACH. BED ALARM ON AND PT REMAINS IN VIEW OF NURSING STATION. REPORT RECEIVED FROM CHELO BROWN.
--- NOTE | 2019-01-18 08:12 | NUR ---
ORDERD PATIENT SOME BREAKFAST.
--- NOTE | 2019-01-18 08:50 | NUR ---
PT SITTING UP AT BSC WITH PRADIP VILLA. PT ASSISTED BACK TO BED WITH 1PA. ASSESSMENT COMPLETED. CALL LIGHT AND H2O IN REACH. VSS AND AM MEDS ADMINISTERED. NO NEEDS OR CONCERNS VOICED.
--- NOTE | 2019-01-18 09:43 | NUR ---
PATIENT UP TO COMMODE WITH STANDBY ASSIST TO VOID, PATIENT SITTING UP WITH BREAKFAST, DENIES HAVING APPETITE.
--- NOTE | 2019-01-18 11:13 | NUR ---
PT RESTING SUPINE IN BED, REQUESTS ASSISTANCE UP TO RESTROOM PT TOLERATING AMBULATING WELL WITH ONLY SBA. PT UP TO CHAIR WITH SBA. AT BEDSIDE WITH AND VOICED THAT HE WOULD LIKE HIS TO MBE DISCHARGED SOON. CALL LIGHT AND H2O IN REACH.
[2019-01-18] MEDS ORDERED: TESSALON PERLE100 MG PO (11:33)
--- NOTE | 2019-01-18 12:23 | NUR ---
PT RESTING IN BED, COVERS OFF. PT SEEMS CONFUSED, SAID SHE WAS MAD AT HER FOR LEAVING. WANTS TO GO HOME AND CAN'T UNTIL HE ARRIVES. SHE WAS UNAWARE WHY HE LEFT AND THAT MADE HER MORE ANGRY. WORKED TO CALM PT, WILL FOLLOW NEEDED
--- NOTE | 2019-01-18 12:35 | NUR ---
PT RESTING IN SEMIFOWLERS POSITION IN BED, PT REQUESTED AND RECEIVED WARM BLANKET. FRESH H2O AND CALL LIGHT IN REACH. NO FURTHER NEEDS OR CONCERNS VOICED.
== END 2019-01-18 12:25 | disposition home or self-care (01) | DRG 153 ==
LOC: ED 19:33 → MS 23:36
PROVIDERS: ADMIT Internal Medicine
DX: J11.1 Influenza due to unidentified influenza virus with other respiratory manifestations (principal); I48.20 Chronic atrial fibrillation, unspecified; I50.32 Chronic diastolic (congestive) heart failure; J96.11 Chronic respiratory failure with hypoxia; E86.0 Dehydration; I95.89 Other hypotension; E78.5 Hyperlipidemia, unspecified; F03.90 Unspecified dementia, unspecified severity, without behavioral disturbance, psychotic disturbance, mood disturbance, and anxiety; E11.22 Type 2 diabetes mellitus with diabetic chronic kidney disease; N18.3 Chronic kidney disease, stage 3 (moderate); R13.12 Dysphagia, oropharyngeal phase; H40.9 Unspecified glaucoma; Z88.2 Allergy status to sulfonamides; Z88.8 Allergy status to other drugs, medicaments and biological substances; Z79.84 Long term (current) use of oral hypoglycemic drugs; Z79.82 Long term (current) use of aspirin; Z79.899 Other long term (current) drug therapy
CPT/HCPCS: 36415; 71045; 80048; 80053; 81001; 83735; 84100; 85025; 87502; 93005; 93010; 94762; 96360; 99284-25; C9113; J1650; J7030; J7040

== ENCOUNTER 2019-01-30 12:56 | Emergency (ER) | payer MEDICARE ==
[~2019-01-30] VITALS: Ht 175.3 cm; Wt 63.0 kg
--- OUTSIDE RECORDS SUMMARY | ~2019-01-30 | XMS | Clinical Summary ---
Demographics + + + | Address | [address] | | | [place] [address] | + + + | Home Phone | | + + + | Preferred Language | Unknown | + + + | Marital Status | | + + + | Episcopalian Affiliation | Unknown | + + + | Race | White | + + + | Ethnic Group | Other Race | + + + Author + + + | Author | [facility] | + + + | Organization | [facility] | + + + | Address | Unknown | + + + | Phone | Unavailable | + + + Support + + +---------+ + | Name | Relationship | Address | Phone | + + +---------+ + | John Casillas | ECON | Unknown | | + + +---------+ + Care Team Providers + +------+ + | Care Veterinary Milk Specialist Name | Role | Phone | + +------+ + | Manuel Adames MD | PCP | | + +------+ + Source Comments DANIA is fully live on both [facility] and [facility] Allergies Not on File Medications Not on file Active Problems Not on file Social History + +-------+ +--------+------+ | Tobacco Use | Types | Packs/Day | Years | Date | | | | | Used | | + +-------+ +--------+------+ | Never Assessed | | | | | + +-------+ +--------+------+ + + + | Sex Assigned at [...] recent travel history available. | + + Last Filed Vital Signs Not on file Plan of Treatment + + + + + | Health Maintenance | Due Date | Last Done | Comments | + + + + + | Pneumococcal | | | | | vaccination (1 of 2 | 1 | | | | - PCV13) | | | | + + + + + | Influenza (Flu) | | | | | vaccination (#1) | 9 | | | + + + + + Results Not on filefrom Last 3 Months Insurance + +--------+ +--------+ + +--------+ | Payer | Benefi | Subscriber | Effect | Phone | Address | Type | | | t Plan | ID | alverto | | | | | | / | | Dates | | | | | | Group | | | | | | + +--------+ +--------+ + +--------+ | [employer] | [employer]A | xxxxxxxxx | 02/06/19 | [phone] | [address] | Medica | | | MEDICA | | [address]-Pre | [address] | [address] | | | RE HMO | | sent | | [place], | | | | | | | | [place] [address] | | + +--------+ +--------+ + +--------+ + +--------+ +--------+ + + | Guarantor Name | Accoun | Relation to | Date | Phone | Billing Address | | | t Type | Patient | of | | | | | | | | | | + +--------+ +--------+ + + | Magdalena Casillas | Person | Self [birth year] | [phone] | | | al/Fam | | 1936 | [phone] | [place] | | | [place] | | | [address] (Home) | [address] | + +--------+ +--------+ + +"
--- OUTSIDE RECORDS SUMMARY | ~2019-01-30 | XMS | Encounter Summary ---
Demographics + + + | Address | [address] | | | [place] [address] | + + + | Home Phone | | + + + | Preferred Language | Unknown | + + + | Marital Status | | + + + | Latter Day Affiliation | Unknown | + + + | Race | Unknown | + + + | Ethnic Group | Unknown | + + + Author + + + | Author | [facility] | | | and [place] | + + + | Organization | [facility] | | | and [place] | + + + | Address | Unknown | + + + | Phone | Unavailable | + + + Support + + + + + | Name | Relationship | Address | Phone | + + + + + | Vera Somers | ECON | [place] | | | | | [address] | | + + + + + | John Casillas | ECON | Unknown | | + + + + + Care Team Providers + +------+ + | Care Loan Administrator Name | Role | Phone | + +------+ + | Manuel Adames | PCP | | | MD | | | + +------+ + Encounter Details +--------+ + + + + | Date | Type | Department | Care Team | Description | +--------+ + + + + | 08/01/ | Orders Only | [facility] | Conversion | | | 2011 | | CONVERSION | Transaction, | | | | | INTER[facility]AC[facility] | Provider Unknown | | | | | [phone] | [phone] | | | | | | | [...] | + +--------+ + + + | XR CERVICAL SPINE 4 | Routin | 08/02/2011 | | Results for this | | OR 5 [facility] | e | 5:32 AM | | procedure are in the | | | | PDT | | results section. | + +--------+ + + + documented in this encounter Results XR Cervical Spine 4 or 5 [facility] (08/02/2011 5:32 AM PDT) + + | Specimen | + + | | + + + + + | Narrative | Performed At | + + + | This is a non-reportable procedure without a radiologist report and | | | is used for image storage only | | + + + + + | Procedure Note | + + | Sebastián Lopez - 09/28/2018 9:41 AM PDT This is a non-reportable procedure | | without a radiologist report and isused for image storage only | + + documented in this encounter Visit Diagnoses Not on filedocumented in this encounter"
--- OUTSIDE RECORDS SUMMARY | ~2019-01-30 | XMS | Encounter Summary ---
Demographics + + + | Address | [address] | | | [place] [address] | + + + | Home Phone | | + + + | Preferred Language | Unknown | + + + | Marital Status | | + + + | Druze Affiliation | Unknown | + + + | Race | Unknown | + + + | Ethnic Group | Unknown | + + + Author + + + | Author | [facility] | | | and [place] | + + + | Organization | [facility] | | | and [place] | + + + | Address | Unknown | + + + | Phone | Unavailable | + + + Support + + + + + | Name | Relationship | Address | Phone | + + + + + | Vera Somers | ECON | [place] | | | | | [address] | | + + + + + | John Gómez | ECON | Unknown | | + + + + + Care Team Providers + +------+ + | Care Marketing Technology Coordinator Name | Role | Phone | + +------+ + | Manuel Adames | PCP | | | MD | | | + +------+ + Encounter Details +--------+ + + + + | Date | Type | Department | Care Team | Description | +--------+ + + + + | 12/05/ | Orders Only | [facility] | Jessica Booth MD | | | 2010 | | [facility] | [address] | | | | | CARE FLOOR [address] | [address] [facility] | | | | | [address] | [place] [address] | | | | | [place], [place] | [phone] | | | | | [address] | | | | | | [phone] | | | +--------+ + + + [...] + +--------+ + + + | XR CHEST 2 VIEWS | Routin | 12/10/2010 | | Results for this | | | e | 9:22 AM | | procedure are in the | | | | PDT | | results section. | + +--------+ + + + | XR CHEST 2 VIEWS | Routin | 12/07/2010 | | Results for this | | | e | 2:02 PM | | procedure are in the | | | | PDT | | results section. | + +--------+ + + + | XR ABDOMEN AP | Routin | 12/05/2010 | | Results for this | | | e | 11:57 AM | | procedure are in the | | | | PDT | | results section. | + +--------+ + + + | XR CHEST 1 VIEW | Routin | 12/05/2010 | | Results for this | | | e | 11:54 AM | | procedure are in the | | | | PDT | | results section. | + +--------+ + + + | EXTERNAL LAB: | Timed | 12/05/2010 | | Results for this | | PROTEIN, TOTAL | | 11:14 AM | | procedure are in the | | | | PDT | | results section. | + +--------+ + + + | HEMATOCRIT, BODY | Timed | 12/05/2010 | | Results for this | | FLUID | | 11:14 AM | | procedure are in the | | | | PDT | | results section. | + +--------+ + + + | CELL COUNT, BODY | Timed | 12/05/2010 | | Results for this | | FLUID | | 11:14 AM | | procedure are in the | | | | PDT | | results section. | + +--------+ + + + | GLUCOSE, BODY FLUID | Timed | 12/05/2010 | | Results for this | | | | 11:14 AM | | procedure are in the | | | | PDT | | results section. | + +--------+ + + + | PH, BODY FLUID | STAT | 12/05/2010 | | Results for this | | | | 11:14 AM | | procedure are in the | | | | PDT | | results section. | + +--------+ + + + | EXTERNAL LAB: OCCULT | STAT | 12/05/2010 | | Results for this | | BLOOD, SCREENING | | 10:21 AM | | procedure are in the | | | | PDT | | results section. | + +--------+ + + + | XR CHEST 1 VIEW | Routin | 12/04/2010 | | Results for this | | | e | 7:02 PM | | procedure are in the | | | | PDT | | results section. | + +--------+ + + + | XR CHEST 1 VIEW | Routin | 12/04/2010 | | Results for this | | | e | 5:02 PM | | procedure are in the | | | | PDT | | results section. | + +--------+ + + + | XR CHEST 1 VIEW | Routin | 12/04/2010 | | Results for this | | | e | 11:29 AM | | procedure are in the | | | | PDT | | results section. | + +--------+ + + + | MRSA NAAT | Timed | 12/03/2010 | | Results for this | | | | 8:23 AM | | procedure are in the | | | | PDT | | results section. | + +--------+ + + + | XR CHEST 1 VIEW | Routin | 11/30/2010 | | Results for this | | | e | 7:18 PM | | procedure are in the | | | | PDT | | results section. | + +--------+ + + + | VAS ARM MAPPING FOR | Routin | 11/30/2010 | | Results for this | | DIALYSIS LEFT | e | 6:28 PM | | procedure are in the | | | | PDT | | results section. | + +--------+ + + + | XR CHEST 1 VIEW | Routin | 11/29/2010 | | Results for this | | | e | 6:05 AM | | procedure are in the | | | | PDT | | results section. | + +--------+ + + + | VAS ARM MAPPING FOR | Routin | 11/28/2010 | | Results for this | | DIALYSIS LEFT | e | 7:17 AM | | procedure are in the | | | | PDT | | results section. | + +--------+ + + + | XR CHEST 1 VIEW | Routin | 11/28/2010 | | Results for this | | | e | 5:22 AM | | procedure are in the | | | | PDT | | results section. | + +--------+ + + + | XR CHEST 1 VIEW | Routin | 11/27/2010 | | Results for this | | | e | 7:21 PM | | procedure are in the | | | | PDT | | results section. | + +--------+ + + + | XR CHEST 1 VIEW | Routin | 11/27/2010 | | Results for this | | | e | 4:59 AM | | procedure are in the | | | | PDT | | results section. | + +--------+ + + + | XR CHEST 1 VIEW | Routin | 11/26/2010 | | Results for this | | | e | 5:51 AM | | procedure are in the | | | | PDT | | results section. | + +--------+ + + + | XR CHEST 1 VIEW | Routin | 11/25/2010 | | Results for this | | | e | 7:38 AM | | procedure are in the | | | | PDT | | results section. | + +--------+ + + + | CT CHEST WO CONTRAST | Routin | 11/25/2010 | | Results for this | | | e | 6:44 AM | | procedure are in the | | | | PDT | | results section. | + +--------+ + + + | XR CHEST 1 VIEW | Routin | 11/25/2010 | | Results for this | | | e | 5:03 AM | | procedure are in the | | | | PDT | | results section. | + +--------+ + + + | XR CHEST 1 VIEW | Routin | 11/24/2010 | | Results for this | | | e | 5:30 AM | | procedure are in the | | | | PDT | | results section. | + +--------+ + + + | CT CERVICAL SPINE WO | Routin | 11/23/2010 | | Results for this | | CONTRAST | e | 5:45 PM | | procedure are in the | | | | PDT | | results section. | + +--------+ + + + | XR CHEST 1 VIEW | Routin | 11/23/2010 | | Results for this | | | e | 5:08 AM | | procedure are in the | | | | PDT | | results section. | + +--------+ + + + | XR CHEST 1 VIEW | Routin | 11/22/2010 | | Results for this | | | e | 3:54 PM | | procedure are in the | | | | PDT | | results section. | + +--------+ + + + | CT ANGIOGRAM HEAD | Routin | 11/22/2010 | | Results for this | | NECK W CONTRAST | e | 2:19 PM | | procedure are in the | | | | PDT | | results section. | + +--------+ + + + | XR CHEST 1 VIEW | Routin | 11/22/2010 | | Results for this | | | e | 2:17 PM | | procedure are in the | | | | PDT | | results section. | + +--------+ + + + | CT HEAD CERVICAL | Routin | 11/22/2010 | | Results for this | | SPINE WO CONTRAST | e | 2:01 PM | | procedure are in the | | CHEST ABDOMEN PELVIS | | PDT | | results section. | | W CONTRAST | | | | | + +--------+ + + + | GRAM STAIN, REFLEX | STAT | 11/22/2010 | | Results for this | | SPUTUM CULTURE | | 1:26 PM | | procedure are in the | | | | PDT | | results section. | + +--------+ + + + | XR FOREARM RIGHT 2 | Routin | 11/22/2010 | | Results for this | | VW | e | 12:48 PM | | procedure are in the | | | | PDT | | results section. | + +--------+ + + + | XR HAND LEFT 3 + VW | Routin | 11/22/2010 | | Results for this | | | e | 12:48 PM | | procedure are in the | | | | PDT | | results section. | + +--------+ + + + | XR CHEST 1 VIEW | Routin | 11/22/2010 | | Results for this | | | e | 12:09 PM | | procedure are in the | | | | PDT | | results section. | + +--------+ + + + | XR CHEST 1 VIEW | Routin | 11/22/2010 | | Results for this | | | e | 11:36 AM | | procedure are in the | | | | PDT | | results section. | + +--------+ + + + | MRSA NAAT | Routin | 11/22/2010 | | Results for this | | | e | 6:01 AM | | procedure are in the | | | | PDT | | results section. | + +--------+ + + + documented in this encounter Results XR Chest 2 Vws (12/10/2010 9:22 AM PDT) + + | Specimen | + + | | + + + + + | Narrative | Performed At | + + + | [facility] [employer] XR CHEST 2 VIEW FRONTAL AND LATERAL 12/10/2010 | | | 9:15 AM HISTORY: 75 years. Female. Left effusion. | | | TECHNIQUE: PA and lateral views of the chest are obtained. | | | COMPARISON: December 07, 2010.. FINDINGS: Interval removal of | | | the left lower chest pigtail drainage catheter, associated with | | | interval increase in the moderate sized left effusion, layering | | | posteriorly. There is most likely associated compressive | | | atelectasis/collapse of the left lower lung. Note that an underlying | | | infection or mass cannot be excluded. A now seen focal small | | | opacity in the right lower mid lung may represent a pulmonary vessel. | | | No evidence of a pneumothorax. Otherwise, cardiomediastinum and | | | visualized osseous structures remain stable. IMPRESSION: 1. | | | Removal of the left-sided pigtail chest tube, with interval increase | | | in the moderate left effusion and associated with atelectasis of the | | | left lower lobe. An underlying mass or infection cannot be | | | excluded. CT chest May be obtained for further relation to | | | | | + + + + + | Procedure Note | + + | John, Rad Conversion - 09/29/2018 11:03 AM RIVAS GÓMEZ | | XR CHEST 2 VIEW FRONTAL AND LATERAL | | 12/10/2010 9:15 AM | | | | HISTORY: | | 75 years. Female. Left effusion. | | | | TECHNIQUE: | | PA and lateral views of the chest are obtained. | | | | COMPARISON: | | December 07, 2010.. | | | | FINDINGS: | | | | Interval removal of the left lower chest pigtail drainage catheter, | | associated with interval increase in the moderate sized left effusion, | | layering posteriorly. There is most likely associated compressive | | atelectasis/collapse of the left lower lung. Note that an underlying | | infection or mass cannot be excluded. A now seen focal small opacity in | | the right lower mid lung may represent a pulmonary vessel. No evidence of | | a pneumothorax. Otherwise, cardiomediastinum and visualized osseous | | structures remain stable. | | | | IMPRESSION: | | 1. Removal of the left-sided pigtail chest tube, with interval increase | | in the moderate left effusion and associated with atelectasis of the left | | lower lobe. An underlying mass or infection cannot be excluded. CT chest | | May be obtained for further relation to | | | | | + + XR Chest 2 Vws (12/07/2010 2:02 PM PDT) + + | Specimen | + + | | + + + + + | Narrative | Performed At | + + + | History: Drainage catheter in the chest. Follow-up. | | | Comparison: 12/05/10. Findings: Frontal and lateral films the | | | chest again demonstrate a pigtail catheter in the posterior lateral | | | left chest, with persistent slightly increasing infiltrate in the | | | left mid to lower lung mcelroy, with further opacification of the left | | | hemidiaphragm, consistent with increasing infiltrate and effusion. | | | Right lung is clear. Heart size is upper normal, again with | | | prominent ectasia and tortuosity of the thoracic aorta. | | | Impression: 1. Increasing infiltrate and effusion in the left lung | | | base, again with pigtail catheter in the posterior medial left chest. | | | 2. No pneumothorax. 3. Fluid in the left major fissure. | | | | | + + + + + | Procedure Note | + + | John, Rad Conversion - 09/29/2018 11:03 AM PDT History: | | Drainage catheter in the chest. Follow-up. | | | | Comparison: | | 12/05/10. | | | | Findings: | | Frontal and lateral films the chest again demonstrate a pigtail catheter in | | the posterior lateral left chest, with persistent slightly increasing | | infiltrate in the left mid to lower lung mcelroy, with further opacification | | of the left hemidiaphragm, consistent with increasing infiltrate and | | effusion. Right lung is clear. Heart size is upper normal, again with | | prominent ectasia and tortuosity of the thoracic aorta. | | | | Impression: | | 1. Increasing infiltrate and effusion in the left lung base, again with | | pigtail catheter in the posterior medial left chest. | | 2. No pneumothorax. | | 3. Fluid in the left major fissure. | | | | | + + XR Abdomen AP (12/05/2010 11:57 AM PDT) + + | Specimen | + + | | + + + + + | Narrative | Performed At | + + + | [facility] [address] Ph: | | | Patient Name: MAGDALENA GÓMEZ Date of : | | | 1935 Medical Record: [id number] Account: [id number] | | | Exam Date/Time: 12/05/2010 11:01 Ordering | | | Physician: DISHA Mujica Detail: [id number] Exam Description: XR | | | ABDOMEN 1 VIEW | | | | | | HISTORY: 75 years. Female. Constipation. TECHNIQUE: Supine | | | radiographs of the abdomen. COMPARISON: None. FINDINGS: A | | | nonspecific nonobstructed bowel gas pattern is found. No definitive | | | free intraperitoneal air is identified. A catheter overlies the right | | | pelvis potentially femoral venous or femoral arterial. | | | IMPRESSION: 1. Nonspecific nonobstructed bowel gas pattern. No | | | significant retained colonic stool. 2. Right femoral venous or | | | arterial catheter. Electronically signed by Jonathan Pineda MD on | | | 12/05/2010 1:48 PM | | + + + + + | Procedure Note | + + | Sebastián Lopez Conversion - 09/29/2018 11:03 AM PDT | | [facility] | | [facility] [address] | | | | | | Patient Name: MAGDALENA GÓMEZ | | Date of : 1935 | | Medical Record: [id number] | | Account: [id number] | | | | | | Exam Date/Time: 12/05/2010 11:01 | | Ordering Physician: DISHA SCHUMACHER | | Order Detail: [id number] | | Exam Description: XR ABDOMEN 1 VIEW | | | | HISTORY: | | 75 years. Female. Constipation. | | | | TECHNIQUE: | | Supine radiographs of the abdomen. | | | | COMPARISON: | | None. | | | | FINDINGS: | | A nonspecific nonobstructed bowel gas pattern is found. No definitive free | | intraperitoneal air is identified. A catheter overlies the right pelvis | | potentially femoral venous or femoral arterial. | | | | IMPRESSION: | | 1. Nonspecific nonobstructed bowel gas pattern. No significant retained | | colonic stool. | | | | 2. Right femoral venous or arterial catheter. | | | | | + + XR Chest 1 Vw (12/05/2010 11:54 AM PDT) + + | Specimen | + + | | + + + + + | Narrative | Performed At | + + + | [facility] [address] Ph: | | | Patient Name: MAGDALENA GÓMEZ Date of : | | | 1935 Medical Record: [id number] Account: [id number] | | | Exam Date/Time: 12/05/2010 11:05 Ordering | | | Physician: JESSICA BOOTH Order Detail: [id number] Exam Description: | | | XR CHEST 1 VIEW | | | | | | HISTORY: 75 years. Female. Chest tube placement. TECHNIQUE: | | | AP view of the chest 1128 hrs. COMPARISON: Chest radiographs, the | | | most recent dated December 04, 2010. FINDINGS: A newly seen a | | | left pleural pigtail catheter is noted, with subsequent significant | | | decrease in left-sided pleural fluid collection. Opacity at the left | | | lung base likely reflect some subsegmental atelectasis as well as | | | residual pleural fluid. The pulmonary vascular lung markings have | | | normalized with interval resolution of pulmonary venous hypertension. | | | A small right pleural effusion remains. A tiny left apical | | | pneumothorax is again suggested, unchanged. The cardiac silhouette | | | remains enlarged. Left rib fractures are again seen. IMPRESSION: | | | 1. Newly found left pleural drainage catheter placement, with | | | unchanged tiny left apical pneumothorax. 2. Decreased current | | | small to moderate left pleural fluid collection. Left basilar opacity | | | equivocal for atelectasis, pneumonia, or lung contusion. 3. | | | Resolved pulmonary venous hypertension. 4. Small right pleural | | | effusion. 5. Unchanged cardiomegaly. | | + + + + + | Procedure Note | + + | Sebastián Lopez - 09/29/2018 11:03 AM PDT | | [facility] | | [facility] [address] | | | | | | Patient Name: MAGDALENA GÓMEZ | | Date of : 1935 | | Medical Record: [id number] | | Account: [id number] | | | | | | Exam Date/Time: 12/05/2010 11:05 | | Ordering Physician: JESSICA BOOTH | | Order Detail: [id number] | | Exam Description: XR CHEST 1 VIEW | | | | HISTORY: | | 75 years. Female. Chest tube placement. | | | | TECHNIQUE: | | AP view of the chest 1128 hrs. | | | | COMPARISON: | | Chest radiographs, the most recent dated December 04, 2010. | | | | FINDINGS: | | A newly seen a left pleural pigtail catheter is noted, with subsequent | | significant decrease in left-sided pleural fluid collection. Opacity at the | | left lung base likely reflect some subsegmental atelectasis as well as | | residual pleural fluid. The pulmonary vascular lung markings have | | normalized with interval resolution of pulmonary venous hypertension. A | | small right pleural effusion remains. A tiny left apical pneumothorax is | | again suggested, unchanged. The cardiac silhouette remains enlarged. Left | | rib fractures are again seen. | | | | IMPRESSION: | | 1. Newly found left pleural drainage catheter placement, with unchanged | | tiny left apical pneumothorax. | | | | 2. Decreased current small to moderate left pleural fluid collection. | | Left basilar opacity equivocal for atelectasis, pneumonia, or lung | | contusion. | | | | 3. Resolved pulmonary venous hypertension. | | | | 4. Small right pleural effusion. | | | | 5. Unchanged cardiomegaly. | | | | | + + Cell Count, Body Fluid (12/05/2010 11:14 AM PDT) + + | Specimen | + + | | + + + + + | Narrative | Performed At | + + + | FLUID TYPE PLEURAL FLUID | EXTERNAL LAB | | Testing performed at [facility];[address];[place] [address] COLOR | | | RED Testing | | | performed at [facility];[address];[place] [address] APPEARANCE | | | CLOUDY Testing performed at [facility];[address];[place] [address] RBC'S | | | [id number] Testing performed at [facility];[address];[place] [address] TOTAL NUCLEATED CELLS 4770 | | | Testing performed at [facility];[address];[place] [address] | | | NEUTROPHILS 90 Testing | | | performed at [facility];[address];[place] [address] LYMPHOCYTES | | | 8 Testing performed at | | | [facility];[address];[place] [address] MONOCYTES/MACROPHAGES | | | 2 Testing performed at [facility];[address];[place] [address] CELLS COUNTED | | | 100 Testing performed at [facility], [place] | | | [address] | | + + + + +---------+ + + | Performing | Address | City/State/Zipcode | Phone Number | | Organization | | | | + +---------+ + + | EXTERNAL LAB | | | | + +---------+ + + Hematocrit, Body Fluid (12/05/2010 11:14 AM PDT) + + | Specimen | + + | | + + + + + | Narrative | Performed At | + + + | FLUID HCT 20 | EXTERNAL LAB | | Testing performed at [facility];[address] [place] [address];[place] [address] | | + + + + +---------+ + + | Performing | Address | City/State/Zipcode | Phone Number | | Organization | | | | + +---------+ + + | EXTERNAL LAB | | | | + +---------+ + + External Lab: Protein, Total (12/05/2010 11:14 AM PDT) + + | Specimen | + + | | + + + + + | Narrative | Performed At | + + + | FLUID TOTAL PROTEIN 3.2 This is | EXTERNAL LAB | | not a computer security coordinator validated sample type for this method. No | | | reference ranges have been established. Testing performed at [facility];[address];[place] [address] FLUID TP SOURCE | | | PLEURAL FLUID Testing performed at [facility];[address];[place] [address] | | + + + + +---------+ + + | Performing | Address | City/State/[facility] | Phone Number | | Organization | | | | + +---------+ + + | EXTERNAL LAB | | | | + +---------+ + + Glucose, Body Fluid (12/05/2010 11:14 AM PDT) + + | Specimen | + + | | + + + + + | Narrative | Performed At | + + + | FLUID GLUCOSE 127 This is | EXTERNAL LAB | | not a computer security coordinator validated sample type for this method. No | | | reference ranges have been established. Testing performed at [facility] | | | [facility];[place] [address] Glucose, Fluid Type | | | PLEURAL FLUID Testing performed at [facility];[address] [place] [address];[place], [place] | | | [address] | | + + + + +---------+ + + | Performing | Address | City/State/Zipcode | Phone Number | | Organization | | | | + +---------+ + + | EXTERNAL LAB | | | | + +---------+ + + PH, Body Fluid (12/05/2010 11:14 AM PDT) + + | Specimen | + + | | + + + + + | Narrative | Performed At | + + + | FLUID PH 7.43 | EXTERNAL LAB | | Testing performed at [facility];[address] [place] [address];[place] [address] | | + + + + +---------+ + + | Performing | Address | City/State/Zipcode | Phone Number | | Organization | | | | + +---------+ + + | EXTERNAL LAB | | | | + +---------+ + + External Lab: Occult Blood, Screening (12/05/2010 10:21 AM PDT) + + | Specimen | + + | | + + + + + | Narrative | Performed At | + + + | Fecal Occult Blood NEGATIVE Testing | EXTERNAL LAB | | performed at [facility];[address] [place] [address];[place] [address] | | + + + + +---------+ + + | Performing | Address | City/State/Zipcode | Phone Number | | Organization | | | | + +---------+ + + | EXTERNAL LAB | | | | + +---------+ + + XR Chest 1 Vw (12/04/2010 7:02 PM PDT) + + | Specimen | + + | | + + + + + | Narrative | Performed At | + + + | [facility] [address] Ph: | | | Patient Name: MAGDALENA GÓMEZ Date of : | | | 1935 Medical Record: [id number] Account: [id number] | | | Exam Date/Time: 12/04/2010 18:49 Ordering | | | Physician: SERGIO EJNNINGS Order Detail: [id number] Exam Description: | | | XR CHEST 1 VIEW | | | | | | SINGLE VIEW CHEST INDICATION: Line placement. COMPARISON: | | | 12/04/2010 and 11/25/2010. FINDINGS: Left subclavian catheter is | | | again seen with the tip slight changed in position directed cephalad | | | with the tip likely in the inferior left IJ. There is a left pleural | | | effusion and bibasilar opacities. No pneumothorax. IMPRESSION: | | | 1. Slight change in position of the left subclavian catheter with the | | | very tip directed slightly cephalad, likely extending into the | | | inferior aspect of the left IJ. The coiled portion of the catheter is | | | less prominent. 2. No pneumothorax. Read by Sesar Vickers MD on | | | 12/04/2010 18:37 | | + + + + + | Procedure Note | + + | Sebastián Lopez - 09/29/2018 11:03 AM PDT | | [facility] | | [facility] [address] | | | | | | Patient Name: MAGDALENA GÓMEZ | | Date of : 1935 | | Medical Record: [id number] | | Account: [id number] | | | | | | Exam Date/Time: 12/04/2010 18:49 | | Ordering Physician: SERGIO JENNINGS | | Order Detail: [id number] | | Exam Description: XR CHEST 1 VIEW | | | | SINGLE VIEW CHEST | | | | INDICATION: Line placement. | | | | COMPARISON: 12/04/2010 and 11/25/2010. | | | | FINDINGS: Left subclavian catheter is again seen with the tip slight | | changed in position directed cephalad with the tip likely in the inferior | | left IJ. There is a left pleural effusion and bibasilar opacities. No | | pneumothorax. | | | | IMPRESSION: | | 1. Slight change in position of the left subclavian catheter with the very | | tip directed slightly cephalad, likely extending into the inferior aspect | | of the left IJ. The coiled portion of the catheter is less prominent. | | 2. No pneumothorax. | | | | Read by Sesar Vickers MD on 12/04/2010 18:37 | | | | | | | | | + + XR Chest 1 Vw (12/04/2010 5:02 PM PDT) + + | Specimen | + + | | + + + + + | Narrative | Performed At | + + + | [facility] [address] Ph: | | | Patient Name: MAGDALENA GÓMEZ Date of : | | | 1935 Medical Record: [id number] Account: [id number] | | | Exam Date/Time: 12/04/2010 16:29 Ordering | | | Physician: SERGIO JENNINGS Order Detail: [id number] Exam Description: | | | XR CHEST 1 VIEW | | | | | | SINGLE VIEW PORTABLE CHEST 12/04/2010 CLINICAL HISTORY: Central | | | line placement. COMPARISON: Prior chest x-ray 11/27/2010. | | | FINDINGS: New left subclavian central line with the tip looping back | | | upon itself in the left brachycephalic vein medial aspect by | | | approximately 4 cm. Increasing left pleural effusion, now moderate. | | | Trachea is partially deviated to the right as is the cardiac | | | silhouette. Heart is enlarged. Subcutaneous emphysema overlies left | | | axilla and to a lesser degree right axilla. Recent posterolateral | | | left upper rib fracture versus thoracotomy. Left-sided chest tube has | | | been removed. Multiple additional lateral left rib fractures are | | | also noted. IMPRESSION: 1. New left subclavian central line loops | | | back upon itself in the medial left brachiocephalic vein region by | | | approximately 4 cm. 2. Increasing left pleural effusion, now | | | moderate. Trachea and heart appear mildly shifted to the right. 3. | | | Multiple left-sided rib fractures. Results were telephoned to the | | | patient's physician at 6:37 p.m. Read by Timbo Tobin MD on | | | 12/04/2010 18:37 Electronically signed by Timbo Tobin MD on | | | 12/06/2010 12:25 PM | | + + + + + | Procedure Note | + + | John, Rad Conversion - 09/29/2018 11:03 AM PDT | | [facility] | | [facility] [address] | | | | | | Patient Name: MAGDALENA GÓMEZ | | Date of : 1935 | | Medical Record: [id number] | | Account: [id number] | | | | | | Exam Date/Time: 12/04/2010 16:29 | | Ordering Physician: SERGIO JENNINGS | | Order Detail: [id number] | | Exam Description: XR CHEST 1 VIEW | | | | SINGLE VIEW PORTABLE CHEST 12/04/2010 | | | | CLINICAL HISTORY: Central line placement. | | | | COMPARISON: Prior chest x-ray 11/27/2010. | | | | FINDINGS: | | New left subclavian central line with the tip looping back upon itself in | | the left brachycephalic vein medial aspect by approximately 4 cm. | | Increasing left pleural effusion, now moderate. Trachea is partially | | deviated to the right as is the cardiac silhouette. Heart is enlarged. | | Subcutaneous emphysema overlies left axilla and to a lesser degree right | | axilla. | | Recent posterolateral left upper rib fracture versus thoracotomy. | | Left-sided chest tube has been removed. Multiple additional lateral left | | rib fractures are also noted. | | | | IMPRESSION: | | 1. New left subclavian central line loops back upon itself in the medial | | left brachiocephalic vein region by approximately 4 cm. | | 2. Increasing left pleural effusion, now moderate. Trachea and heart appear | | mildly shifted to the right. | | 3. Multiple left-sided rib fractures. | | | | Results were telephoned to the patient's physician at 6:37 p.m. | | | | | | Read by Timbo Tobin MD on 12/04/2010 18:37 | | | | | + + XR Chest 1 Vw (12/04/2010 11:29 AM PDT) + + | Specimen | + + | | + + + + + | Narrative | Performed At | + + + | [facility] [address] Ph: | | | Patient Name: MAGDALENA GÓMEZ Date of : | | | 1935 Medical Record: [id number] Account: [id number] | | | Exam Date/Time: 12/04/2010 10:57 Ordering | | | Physician: DISHA Mujica Detail: [id number] Exam Description: XR | | | CHEST 1 VIEW | | | | | | HISTORY: Pneumonia. SCANNING PROTOCOL: One view of the chest. | | | FINDINGS: Compared with November 30, 2010. There is persistent | | | subcutaneous emphysema over the chest bilaterally, decreased from the | | | prior study. Mild cardiomegaly persists. There is increasing | | | diffuse hazy density throughout the left hemithorax, probably a | | | moderate to large left pleural effusion layering posteriorly. | | | Left-sided rib fractures are noted. No definite pneumothorax | | | identified. The right lung and pleural space are relatively clear. | | | There is a questionable right scapula fracture versus artifact from | | | the subcutaneous emphysema. IMPRESSION: 1. Developing hazy | | | density throughout the left chest, likely reaccumulate show to | | | moderate pleural effusion. 2. Decreasing subcutaneous emphysema | | | over the chest. 3. Left-sided rib fractures and cardiomegaly noted. | | | | | | 1:03 PM | | + + + + + | Procedure Note | + + | Sebastián Lopez Conversion - 09/29/2018 11:03 AM PDT | | [facility] | | [facility] [address] | | | | | | Patient Name: MAGDALENA GÓMEZ | | Date of : 1935 | | Medical Record: [id number] | | Account: [id number] | | | | | | Exam Date/Time: 12/04/2010 10:57 | | Ordering Physician: DISHA SCHUMACHER | | Order Detail: [id number] | | Exam Description: XR CHEST 1 VIEW | | | | HISTORY: | | Pneumonia. | | | | SCANNING PROTOCOL: | | One view of the chest. | | | | FINDINGS: | | Compared with November 30, 2010. There is persistent subcutaneous emphysema | | over the chest bilaterally, decreased from the prior study. Mild | | cardiomegaly persists. There is increasing diffuse hazy density throughout | | the left hemithorax, probably a moderate to large left pleural effusion | | layering posteriorly. Left-sided rib fractures are noted. No definite | | pneumothorax identified. The right lung and pleural space are relatively | | clear. There is a questionable right scapula fracture versus artifact from | | the subcutaneous emphysema. | | | | IMPRESSION: | | 1. Developing hazy density throughout the left chest, likely | | reaccumulate show to moderate pleural effusion. | | 2. Decreasing subcutaneous emphysema over the chest. | | 3. Left-sided rib fractures and cardiomegaly noted. | | | | | + + MRSA NAAT (12/03/2010 8:23 AM PDT) + + | Specimen | + + | | + + + + + | Narrative | Performed At | + + + | [facility] | EXTERNAL LAB | | Testing performed at [facility];[address] [place] [address];[place] [address] MRSA PCR | | | NEGATIVE Testing performed at | | | [address];[place] [address] | | + + + + +---------+ + + | Performing | Address | City/State/Zipcode | Phone Number | | Organization | | | | + +---------+ + + | EXTERNAL LAB | | | | + +---------+ + + XR Chest 1 Vw (11/30/2010 7:18 PM PDT) + + | Specimen | + + | | + + + + + | Narrative | Performed At | + + + | [facility] [address] Ph: | | | Patient Name: MAGDALENA GÓMEZ Date of : | | | 1935 Medical Record: [id number] Account: [id number] | | | Exam Date/Time: 11/30/2010 19:01 Ordering | | | Physician: DISHA Mujica Detail: [id number] Exam Description: XR | | | CHEST 1 VIEW | | | | | | HISTORY: 75 years. Female. Dyspnea TECHNIQUE: AP chest film | | | 1713 hrs. COMPARISON: AP chest film November 16. FINDINGS: | | | Unchanged subcutaneous emphysema is seen bilaterally overlying the | | | chest extending to the axillary regions. The left approach PICC line | | | likely has been removed, not definitively found. Patchy bilateral | | | basilar infiltrates have slightly improved. Small bilateral pleural | | | effusions have likely slightly improved as well. The cardiac | | | silhouette size is likely mildly enlarged, unchanged. IMPRESSION: | | | 1. Improving nonspecific bilateral patchy lower lobe airspace | | | disease, with improving bilateral pleural effusions. 2. | | | Probable unchanged cardiomegaly. | | + + + + + | Procedure Note | + + | Sebastián Lopez - 09/29/2018 11:03 AM PDT | | [facility] | | [facility] [address] | | | | | | Patient Name: MAGDALENA GÓMEZ | | Date of : 1935 | | Medical Record: [id number] | | Account: [id number] | | | | | | Exam Date/Time: 11/30/2010 19:01 | | Ordering Physician: DISHA SCHUMACHER | | Order Detail: [id number] | | Exam Description: XR CHEST 1 VIEW | | | | HISTORY: | | 75 years. Female. Dyspnea | | | | TECHNIQUE: | | AP chest film 1713 hrs. | | | | COMPARISON: | | AP chest film November 16. | | | | FINDINGS: | | Unchanged subcutaneous emphysema is seen bilaterally overlying the chest | | extending to the axillary regions. The left approach PICC line likely has | | been removed, not definitively found. Patchy bilateral basilar infiltrates | | have slightly improved. Small bilateral pleural effusions have likely | | slightly improved as well. The cardiac silhouette size is likely mildly | | enlarged, unchanged. | | | | IMPRESSION: | | 1. Improving nonspecific bilateral patchy lower lobe airspace disease, | | with improving bilateral pleural effusions. | | | | 2. Probable unchanged cardiomegaly. | | | | | + + VAS Arm Mapping For Dialysis Left (11/30/2010 6:28 PM PDT) + + | Specimen | + + | | + + + + + | Narrative | Performed At | + + + | [facility] [address] Ph: | | | Patient Name: MAGDALENA GÓMEZ Date of : | | | 1935 Medical Record: [id number] Account: [id number] | | | Exam Date/Time: 11/30/2010 17:15 Ordering | | | Physician: DISHA SCHUMACHER Order Detail: [id number] Exam Description: US | | | VENOUS UPPER EXT UNILATERAL | | | | | | MAGDALENA GÓMEZ VENOUS UPPER EXT UNILATERAL 11/30/2010 5:15 PM | | | HISTORY: 75 years. Female. Left arm and swelling. | | | TECHNIQUE: Left upper extremity venous Doppler performed with color | | | Doppler and spectral Doppler waveform analysis. FINDINGS: Normal | | | compressibility, augmentation of flow, and Doppler flow evident | | | within the deep venous system, where veins were visualized, including | | | the left subclavian vein, left axillary vein, left brachial vein, | | | left basilic vein, left cephalic vein, and left radial vein. No | | | evidence of deep venous thrombosis. Note the ulnar vein was not | | | visualized due to overlying edema. The internal jugular vein was not | | | visualized due to brace on the patient's neck. IMPRESSION: 1. | | | No evidence of upper extremity deep vein thrombosis, where veins | | | were visualized. Electronically signed by Jonathan Pineda MD on | | | 11/30/2010 6:31 PM | | + + + + + | Procedure Note | + + | Sebastián Lopez - 09/29/2018 11:03 AM PDT | | [facility] | | [facility] [address] | | | | | | Patient Name: MAGDALENA GÓMEZ | | Date of : 1935 | | Medical Record: [id number] | | Account: [id number] | | | | | | Exam Date/Time: 11/30/2010 17:15 | | Ordering Physician: DISHA SCHUMACHER | | Order Detail: [id number] | | Exam Description: US VENOUS UPPER EXT UNILATERAL | | | | MAGDALENA GÓMEZ | | US VENOUS UPPER EXT UNILATERAL | | 11/30/2010 5:15 PM | | | | HISTORY: | | 75 years. Female. Left arm and swelling. | | | | TECHNIQUE: | | Left upper extremity venous Doppler performed with color Doppler and | | spectral Doppler waveform analysis. | | | | FINDINGS: | | Normal compressibility, augmentation of flow, and Doppler flow evident | | within the deep venous system, where veins were visualized, including the | | left subclavian vein, left axillary vein, left brachial vein, left basilic | | vein, left cephalic vein, and left radial vein. No evidence of deep venous | | thrombosis. Note the ulnar vein was not visualized due to overlying edema. | | The internal jugular vein was not visualized due to brace on the patient's | | neck. | | | | IMPRESSION: | | 1. No evidence of upper extremity deep vein thrombosis, where veins | | were visualized. | | | | | + + XR Chest 1 Vw (11/29/2010 6:05 AM PDT) + + | Specimen | + + | | + + + + + | Narrative | Performed At | + + + | [facility] [address] Ph: | | | Patient Name: MAGDALENA GÓMEZ Date of : | | | 1935 Medical Record: [id number] Account: [id number] | | | Exam Date/Time: 11/29/2010 05:00 Ordering | | | Physician: FRANSISCO SALDANA Order Detail: [id number] Exam Description: | | | XR CHEST 1 VIEW | | | | | | HISTORY: Evaluate lung mcelroy. SCANNING PROTOCOL: One view | | | chest. FINDINGS: Compared with November 28, 2010. The left PICC | | | tip remains in the SVC. Mild subcutaneous edema over the chest | | | bilaterally is unchanged as well. Mild bibasilar atelectasis or | | | infiltrates and small bilateral pleural effusions are stable. Heart | | | size is difficult to assess. A skin fold projects over left upper | | | chest. IMPRESSION: 1. Stable chest compared to prior | | | examination. Electronically signed by Chu Liang MD on | | | 11/29/2010 6:47 AM | | + + + + + | Procedure Note | + + | Sebastián Lopez Conversion - 09/29/2018 11:03 AM PDT | | [facility] | | [facility] [address] | | | | | | Patient Name: MAGDALENA GÓMEZ | | Date of : 1935 | | Medical Record: [id number] | | Account: [id number] | | | | | | Exam Date/Time: 11/29/2010 05:00 | | Ordering Physician: FRANSISCO SALDANA | | Order Detail: [id number] | | Exam Description: XR CHEST 1 VIEW | | | | HISTORY: | | Evaluate lung mcelroy. | | | | SCANNING PROTOCOL: | | One view chest. | | | | FINDINGS: | | Compared with November 28, 2010. The left PICC tip remains in the SVC. | | Mild subcutaneous edema over the chest bilaterally is unchanged as well. | | Mild bibasilar atelectasis or infiltrates and small bilateral pleural | | effusions are stable. Heart size is difficult to assess. A skin fold | | projects over left upper chest. | | | | IMPRESSION: | | 1. Stable chest compared to prior examination. | | | | | + + VAS Arm Mapping For Dialysis Left (11/28/2010 7:17 AM PDT) + + | Specimen | + + | | + + + + + | Narrative | Performed At | + + + | [facility] [address] Ph: | | | Patient Name: MAGDALENA GÓMEZ Date of : | | | 1935 Medical Record: [id number] Account: [id number] | | | Exam Date/Time: 11/28/2010 00:30 Ordering | | | Physician: LUIS ALBERTO Mujica Detail: 5000 Exam Description: US | | | VENOUS UPPER EXT UNILATERAL | | | LEFT | | | UPPER EXTREMITY DOPPLER ULTRASOUND HISTORY: Left arm and neck | | | swelling. TECHNIQUE: Real-time sonographic vascular imaging was | | | performed by the board setter through the upper extremity utilizing | | | both color-flow and Doppler flow analysis. Multiple branch sales and service representative | | | static images were saved for review. FINDINGS: LEFT: Internal | | | Jugular Vein (IJV): Normal. Subclavian Vein (SCV): Normal. Axillary | | | Vein : Normal. Cephalic Vein: Normal. Basilic Vein: Normal. | | | Brachial Vein: Normal. Left internal jugular vein not visualized | | | due to the patient's brace. IMPRESSION: No DVT identified in the | | | left upper extremity. Left internal jugular vein unable to be | | | visualized due to patient's brace. Read by Timbo Awad MD | | | on 11/28/2010 07:54 | | + + + + + | Procedure Note | + + | Sebastián Lopez Conversion - 09/29/2018 11:03 AM PDT | | [facility] | | [facility] [address] | | | | | | Patient Name: HICKEY, MAGDALENA M | | Date of : 1935 | | Medical Record: [id number] | | Account: [id number] | | | | | | Exam Date/Time: 11/28/2010 00:30 | | Ordering Physician: LUIS ALBERTO GRISSOM | | Order Detail: 5000 | | Exam Description: US VENOUS UPPER EXT UNILATERAL | | | | LEFT UPPER EXTREMITY DOPPLER ULTRASOUND | | | | HISTORY: Left arm and neck swelling. | | | | TECHNIQUE: Real-time sonographic vascular imaging was performed by the | | board setter through the upper extremity utilizing both color-flow and | | Doppler flow analysis. Multiple branch sales and service representative static images were saved for | | review. | | | | FINDINGS: | | LEFT: | | Internal Jugular Vein (IJV): Normal. | | Subclavian Vein (SCV): Normal. | | Axillary Vein : Normal. | | Cephalic Vein: Normal. | | Basilic Vein: Normal. | | Brachial Vein: Normal. | | | | Left internal jugular vein not visualized due to the patient's brace. | | | | IMPRESSION: No DVT identified in the left upper extremity. Left internal | | jugular vein unable to be visualized due to patient's brace. | | | | Read by Timbo Awad MD on 11/28/2010 07:54 | | | | | | | + + XR Chest 1 Vw (11/28/2010 5:22 AM PDT) + + | Specimen | + + | | + + + + + | Narrative | Performed At | + + + | [facility] [address] Ph: | | | Patient Name: MAGDALENA GÓMEZ Date of : | | | 1935 Medical Record: [id number] Account: [id number] | | | Exam Date/Time: 11/28/2010 05:00 Ordering | | | Physician: SERGIO JENNINGS Order Detail: [id number] Exam Description: | | | XR CHEST 1 VIEW | | | | | | MAGDALENAERLINDA GÓMEZ XR CHEST 1 VIEW 11/28/2010 5:00 AM HISTORY: 75 | | | years. Female. Evaluate lines and tubes TECHNIQUE: A single | | | AP portable view of the chest is obtained. Time: 0448 hrs | | | COMPARISON: November 27, 2010 at 1851 hrs. FINDINGS/ IMPRESSION: | | | 1. Mild interval increase in bibasilar atelectasis and small | | | bilateral effusions. 2. Otherwise, no interval significant | | | change. Left upper extremity PICC line and appearance of the | | | cardiomediastinum is stable. 3. Mild decrease in chest wall and | | | anterior chest subcutaneous emphysema. | | + + + + + | Procedure Note | + + | Sebastián Lopez - 09/29/2018 11:03 AM PDT | | [facility] | | [facility] [address] | | | | | | Patient Name: MAGDALENA GÓMEZ | | Date of : 1935 | | Medical Record: [id number] | | Account: [id number] | | | | | | Exam Date/Time: 11/28/2010 05:00 | | Ordering Physician: SERGIO JENNINGS | | Order Detail: [id number] | | Exam Description: XR CHEST 1 VIEW | | | | MAGDALENA GÓMEZ | | XR CHEST 1 VIEW | | 11/28/2010 5:00 AM | | | | HISTORY: | | 75 years. Female. Evaluate lines and tubes | | | | TECHNIQUE: | | A single AP portable view of the chest is obtained. Time: 0448 hrs | | | | COMPARISON: | | November 27, 2010 at 1851 hrs. | | | | FINDINGS/ | | IMPRESSION: | | 1. Mild interval increase in bibasilar atelectasis and small bilateral | | effusions. | | | | 2. Otherwise, no interval significant change. Left upper extremity | | PICC line and appearance of the cardiomediastinum is stable. | | | | 3. Mild decrease in chest wall and anterior chest subcutaneous | | emphysema. | | | | | + + XR Chest 1 Vw (11/27/2010 7:21 PM PDT) + + | Specimen | + + | | + + + + + | Narrative | Performed At | + + + | [facility] [address] Ph: | | | Patient Name: MAGDALENA GÓMEZ Date of : | | | 1935 Medical Record: [id number] Account: [id number] | | | Exam Date/Time: 11/27/2010 19:00 Ordering | | | Physician: SERGIO JENNINGS Order Detail: [id number] Exam Description: | | | XR CHEST 1 VIEW | | | | | | MAGDALENA GÓMEZ XR CHEST 1 VIEW 11/27/2010 7:00 PM HISTORY: 75 | | | years. Female. Status post trauma. Now with removal of the | | | left-sided chest tube. TECHNIQUE: A single AP portable view of | | | the chest is obtained. Time: 1851 hrs COMPARISON: November 27, | | | 2010 at 0439 hrs. FINDINGS: Interval removal of the left chest | | | tube, without evidence of a pneumothorax. Slightly improved | | | aeration of the lungs, with decrease in atelectasis. Persistent | | | blunting of the costophrenic sulci, likely due to small effusions. | | | Otherwise, no interval significant change. Left upper extremity | | | PICC line, and he mediastinum, and osseous structures are in stable | | | in condition with multiple left lower lateral rib fractures again | | | seen. IMPRESSION: 1. Interval removal of the left chest tube, | | | without evidence of a pneumothorax. 2. Improved aeration of | | | both lower lungs, with decrease in atelectasis. 3. Otherwise, no | | | interval significant change. Read by Andi Guzman DO on | | | 11/27/2010 10:25 PM Electronically signed by Andi Guzman DO on | | | 11/27/2010 10:25 PM | | + + + + + | Procedure Note | + + | Sebastián Lopez Conversion - 09/29/2018 11:03 AM PDT | | [facility] | | [facility] [address] | | | | | | Patient Name: MAGDALENA GÓMEZ | | Date of : 1935 | | Medical Record: [id number] | | Account: [id number] | | | | | | Exam Date/Time: 11/27/2010 19:00 | | Ordering Physician: SERGIO JENNINGS | | Order Detail: [id number] | | Exam Description: XR CHEST 1 VIEW | | | | MAGDALENA GÓMEZ | | XR CHEST 1 VIEW | | 11/27/2010 7:00 PM | | | | HISTORY: | | 75 years. Female. Status post trauma. Now with removal of the left-sided | | chest tube. | | | | TECHNIQUE: | | A single AP portable view of the chest is obtained. Time: 1851 hrs | | | | COMPARISON: | | November 27, 2010 at 0439 hrs. | | | | FINDINGS: | | | | Interval removal of the left chest tube, without evidence of a | | pneumothorax. Slightly improved aeration of the lungs, with decrease in | | atelectasis. Persistent blunting of the costophrenic sulci, likely due to | | small effusions. Otherwise, no interval significant change. | | | | Left upper extremity PICC line, and he mediastinum, and osseous structures | | are in stable in condition with multiple left lower lateral rib fractures | | again seen. | | | | IMPRESSION: | | 1. Interval removal of the left chest tube, without evidence of a | | pneumothorax. | | | | 2. Improved aeration of both lower lungs, with decrease in atelectasis. | | | | 3. Otherwise, no interval significant change. | | | | Read by Andi Guzman DO on 11/27/2010 10:25 PM | | | | | + + XR Chest 1 Vw (11/27/2010 4:59 AM PDT) + + | Specimen | + + | | + + + + + | Narrative | Performed At | + + + | [facility] [address] Ph: | | | Patient Name: MAGDALENA GÓMEZ Date of : | | | 1935 Medical Record: [id number] Account: [id number] | | | Exam Date/Time: 11/27/2010 05:00 Ordering | | | Physician: SERGIO JENNINGS Order Detail: [id number] Exam Description: | | | XR CHEST 1 VIEW | | | | | | HISTORY: Difficulty breathing. A single AP view of the chest. | | | COMPARISON: 11/26/10. FINDINGS: Portable AP upright film of the | | | chest at 0320 hrs demonstrates persistent subcutaneous emphysema | | | throughout both sides of the chest. Left chest tube in the apical | | | region, with left PICC line tip in the proximal superior vena cava. | | | No evidence of pneumothorax or pneumomediastinum presently. Heart | | | size upper normal. Blunting of the lateral cost phrenic sulci. | | | Small effusions cannot be excluded. Density in the lung bases | | | probably due to combined atelectasis. I doubt infiltrates. | | | IMPRESSION: 1. Persistent bilateral subcutaneous emphysema. 2. | | | Unchanged left chest tube and left PICC line. 3. Densities in the | | | lung bases probably due to atelectasis with small effusions. | | | | | + + + + + | Procedure Note | + + | Sebastián Lopez Conversion - 09/29/2018 11:03 AM PDT | | [facility] | | [facility] [address] | | | | | | Patient Name: MAGDALENA GÓMEZ | | Date of : 1935 | | Medical Record: [id number] | | Account: [id number] | | | | | | Exam Date/Time: 11/27/2010 05:00 | | Ordering Physician: SERGIO JENNINGS | | Order Detail: [id number] | | Exam Description: XR CHEST 1 VIEW | | | | HISTORY: | | Difficulty breathing. | | | | A single AP view of the chest. | | | | COMPARISON: | | 11/26/10. | | | | FINDINGS: | | Portable AP upright film of the chest at 0320 hrs demonstrates persistent | | subcutaneous emphysema throughout both sides of the chest. Left chest tube | | in the apical region, with left PICC line tip in the proximal superior vena | | cava. No evidence of pneumothorax or pneumomediastinum presently. Heart | | size upper normal. Blunting of the lateral cost phrenic sulci. Small | | effusions cannot be excluded. Density in the lung bases probably due to | | combined atelectasis. I doubt infiltrates. | | | | IMPRESSION: | | 1. Persistent bilateral subcutaneous emphysema. | | 2. Unchanged left chest tube and left PICC line. | | 3. Densities in the lung bases probably due to atelectasis with small | | effusions. | | | | | + + XR Chest 1 Vw (11/26/2010 5:51 AM PDT) + + | Specimen | + + | | + + + + + | Narrative | Performed At | + + + | [facility] [address] Ph: | | | Patient Name: MAGDALENA GÓMEZ Date of : | | | 1935 Medical Record: [id number] Account: [id number] | | | Exam Date/Time: 11/26/2010 05:00 Ordering | | | Physician: SERGIO JENNINGS Order Detail: [id number] Exam Description: | | | XR CHEST 1 VIEW | | | | | | HISTORY: Evaluate tubes and lines. SCANNING PROTOCOL: One view | | | of the chest. FINDINGS: Compared with November 25, 2010. The | | | left pleural drain remains in place. No pneumothorax is identified. | | | There is decreasing subcutaneous emphysema over the chest | | | bilaterally. The left PICC tip is near the cavoatrial junction. | | | The endotracheal and nasogastric tubes have been removed. There | | | is mild diffuse bilateral interstitial lung disease, mildly | | | progressive. Would consider mild congestive heart failure or fluid | | | overload. IMPRESSION: 1. Changes to the life-support devices, | | | as above. No evidence of pneumothorax. 2. Increasing bilateral | | | interstitial lung disease, suggesting edema. Would consider | | | congestive heart failure or fluid overload. 3. Decreasing | | | subcutaneous emphysema. | | + + + + + | Procedure Note | + + | Sebastián Lopez - 09/29/2018 11:03 AM PDT | | [facility] | | [facility] [address] | | | | | | Patient Name: MAGDALENA GÓMEZ | | Date of : 1935 | | Medical Record: [id number] | | Account: [id number] | | | | | | Exam Date/Time: 11/26/2010 05:00 | | Ordering Physician: SERGIO JENNINGS | | Order Detail: [id number] | | Exam Description: XR CHEST 1 VIEW | | | | HISTORY: | | Evaluate tubes and lines. | | | | SCANNING PROTOCOL: | | One view of the chest. | | | | FINDINGS: | | Compared with November 25, 2010. The left pleural drain remains in place. | | No pneumothorax is identified. There is decreasing subcutaneous emphysema | | over the chest bilaterally. The left PICC tip is near the cavoatrial | | junction. The endotracheal and nasogastric tubes have been removed. There | | is mild diffuse bilateral interstitial lung disease, mildly progressive. | | Would consider mild congestive heart failure or fluid overload. | | | | IMPRESSION: | | 1. Changes to the life-support devices, as above. No evidence of | | pneumothorax. | | 2. Increasing bilateral interstitial lung disease, suggesting edema. | | Would consider congestive heart failure or fluid overload. | | 3. Decreasing subcutaneous emphysema. | | | | | + + XR Chest 1 Vw (11/25/2010 7:38 AM PDT) + + | Specimen | + + | | + + + + + | Narrative | Performed At | + + + | [facility] [id number] Ph: | | | Patient Name: RICO MAGDALENA Chun Date of : | | | 1935 Medical Record: [id number] Account: [id number] | | | Exam Date/Time: 11/25/2010 07:18 Ordering | | | Physician: CASEY BORREGO Order Detail: [id number] Exam | | | Description: XR CHEST 1 VIEW | | | | | | MAGDALENA GÓMEZ XR CHEST 1 VIEW 11/25/2010 7:18 AM HISTORY: 75 | | | years. Female. Chest tube placement, trauma patient. | | | TECHNIQUE: One view COMPARISON: Multiple prior studies obtained | | | this week FINDINGS: The chest is been advanced to the apex on the | | | left side. The left lung appears fully expanded except for some | | | minor atelectasis in left lung base.. Multiple left-sided rib | | | fractures are noted to be present but are difficult to discern on | | | this study. Nasogastric tube extends beneath the diaphragm. | | | Endotracheal tube is in the mid trachea. Rather extensive | | | subcutaneous emphysema mostly on the right side. No cardiac | | | enlargement or displacement identified. IMPRESSION: 1. | | | Advancement of pre-existing left pleural chest tube to apex. Left | | | lung appears fully expanded except for some basilar atelectasis. | | | Increased density right side may be due to overlying soft tissue. | | | Other life and support devices properly positioned 2. | | | Subcutaneous emphysema mostly on the right side.. 3. Some | | | | | + + + + + | Procedure Note | + + | John, Rad Conversion - 09/29/2018 11:03 AM PDT | | [facility] | | [facility] [address] | | | | | | Patient Name: MAGDALENA GÓMEZ | | Date of : 1935 | | Medical Record: [id number] | | Account: [id number] | | | | | | Exam Date/Time: 11/25/2010 07:18 | | Ordering Physician: CASEY BORREGO | | Order Detail: [id number] | | Exam Description: XR CHEST 1 VIEW | | | | MAGDALENA GÓMEZ | | XR CHEST 1 VIEW | | 11/25/2010 7:18 AM | | | | HISTORY: | | 75 years. Female. Chest tube placement, trauma patient. | | | | TECHNIQUE: | | One view | | | | COMPARISON: | | Multiple prior studies obtained this week | | | | FINDINGS: | | The chest is been advanced to the apex on the left side. The left lung | | appears fully expanded except for some minor atelectasis in left lung | | base.. Multiple left-sided rib fractures are noted to be present but are | | difficult to discern on this study. | | | | Nasogastric tube extends beneath the diaphragm. Endotracheal tube is in the | | mid trachea. Rather extensive subcutaneous emphysema mostly on the right | | side. No cardiac enlargement or displacement identified. | | | | IMPRESSION: | | 1. Advancement of pre-existing left pleural chest tube to apex. Left | | lung appears fully expanded except for some basilar atelectasis. Increased | | density right side may be due to overlying soft tissue. Other life and | | support devices properly positioned | | | | 2. Subcutaneous emphysema mostly on the right side.. | | | | 3. Some | | | | | + + CT Chest wo Contrast (11/25/2010 6:44 AM PDT) + + | Specimen | + + | | + + + + + | Narrative | Performed At | + + + | [facility] [id number] Ph: | | | Patient Name: MAGDALENA GÓMEZ Date of : | | | 1935 Medical Record: [id number] Account: [id number] | | | Exam Date/Time: 11/25/2010 06:19 Ordering | | | Physician: CASEY BORREGO Order Detail: [id number] Exam | | | Description: CT CHEST | | | CT | | | CHEST WITHOUT CONTRAST CLINICAL HISTORY: Pneumomediastinum. | | | COMPARISON: 12/02/2010. TECHNIQUE: Routine noncontrast chest CT. | | | FINDINGS: Lungs: There is a small left pneumothorax, decreased | | | compared to the prior examination. Small right pleural effusion is | | | present. Dependent atelectasis is seen bilaterally. The patient has a | | | left thoracostomy drain that extends into the left major fissure. | | | Mediastinum: Arterial calcifications indicate atherosclerosis. The | | | heart size is normal. No pericardial effusion. Upper | | | abdominal organs: Unremarkable. Bones: The patient has | | | nondisplaced fractures of the right anterior first through fourth | | | ribs. There are also fractures of the left anterior lateral first | | | through seventh ribs, some of which have displaced components. | | | Other: There is chest wall emphysema within the subcutaneous tissues | | | and the breasts. IMPRESSION: 1. Decreased left pneumothorax. 2. | | | Multiple bilateral rib fractures. 3. Persistent subcutaneous | | | emphysema. Read by Roxy Hinkle MD on 12/03/2010 1112 | | | | | | AM | | + + + + + | Procedure Note | + + | John, Rad Conversion - 09/29/2018 11:03 AM PDT | | [facility] | | [facility] [address] | | | | | | Patient Name: MAGDALENA GÓMEZ | | Date of : 1935 | | Medical Record: [id number] | | Account: [id number] | | | | | | Exam Date/Time: 11/25/2010 06:19 | | Ordering Physician: CASEY BORREGO | | Order Detail: [id number] | | Exam Description: CT CHEST | | | | CT CHEST WITHOUT CONTRAST | | | | CLINICAL HISTORY: Pneumomediastinum. | | | | COMPARISON: 12/02/2010. | | | | TECHNIQUE: Routine noncontrast chest CT. | | | | | | FINDINGS: | | Lungs: There is a small left pneumothorax, decreased compared to the prior | | examination. Small right pleural effusion is present. Dependent atelectasis | | is seen bilaterally. The patient has a left thoracostomy drain that extends | | into the left major fissure. | | | | Mediastinum: Arterial calcifications indicate atherosclerosis. The heart | | size is normal. | | | | No pericardial effusion. | | | | Upper abdominal organs: Unremarkable. | | | | Bones: The patient has nondisplaced fractures of the right anterior first | | through fourth ribs. There are also fractures of the left anterior lateral | | first through seventh ribs, some of which have displaced components. | | | | Other: There is chest wall emphysema within the subcutaneous tissues and | | the breasts. | | | | IMPRESSION: | | 1. Decreased left pneumothorax. | | 2. Multiple bilateral rib fractures. | | 3. Persistent subcutaneous emphysema. | | | | | | Read by Roxy Hinkle MD on 12/03/2010 1112 | | | | | + + XR Chest 1 Vw (11/25/2010 5:03 AM PDT) + + | Specimen | + + | | + + + + + | Narrative | Performed At | + + + | Addendum Begins ADDENDUM #1 SINGLE-VIEW | | | CHEST CLINICAL HISTORY: Intubated.Pneumorthorax. COMPARISON: | | | 11/22/2010. FINDINGS: ET tube is present with the tip 5.8 cm from | | | the dora. NG tube is present extending toward the upper abdomen, | | | although the tip is not visualized. There is extensive subcutaneous | | | emphysema. Left subclavian catheter is present with the tip in the | | | expected position of the upper SVC. There are bibasilar opacities and | | | small pleural effusions. There is likely a small left basilar | | | pneumothorax. There is a left pleural drain as before. Image is | | | rotated. Aorta is tortuous. IMPRESSION: 1. ET tube 5.8 cm from | | | the dora. NG tube present with the distal portion not visualized. | | | 2. Extensive subcutaneous emphysema. 3. Small left pneumothorax most | | | likely seen in the left lung base. 4. Left pleural drain, stable. 5. | | | Left subclavian catheter with the tip in the region of the upper SVC. | | | 6. Bibasilar opacities and small pleural effusions. Read by Sesar | | | Gerda Vickers MD on 11/25/10 07:16. Addendum Ends [facility] | | | [facility] [address] | | | Patient Name: MAGDALENA GÓMEZ Date of : 1935 | | | Medical Record: [id number] Account: [id number] Accession: | | | [id number] Exam Date/Time: 11/25/2010 05:00 Ordering Physician: | | | SERGIO JENNINGS Order Detail: [id number] Exam Description: XR CHEST 1 | | | VIEW | | | HISTORY: Evaluate lung mcelroy. SCANNING PROTOCOL: One view | | | chest. FINDINGS: Compared with November 24, 2010. The | | | endotracheal tube tip is 4 cm above the dora. The nasogastric | | | tube tip projects below the diaphragm. The left PICC tip is | | | probably in the SVC. The left pleural drain remains in place. No | | | pneumothorax. Diffuse subcutaneous emphysema is again noted over | | | the chest bilaterally and lower neck. The mild bibasilar atelectasis | | | is unchanged. IMPRESSION: 1. Tube positions, as above. | | | Extensive subcutaneous emphysema but no evidence of pneumothorax. | | | 2. Persistent mild bibasilar atelectasis. | | + + + + + | Procedure Note | + + | Sebastián Lopez Conversion - 09/29/2018 11:03 AM PDT | | Addendum Begins | | | | ADDENDUM #1 | | SINGLE-VIEW CHEST | | | | CLINICAL HISTORY: Intubated.Pneumorthorax. | | | | COMPARISON: 11/22/2010. | | | | FINDINGS: | | ET tube is present with the tip 5.8 cm from the dora. NG tube is present | | extending toward the upper abdomen, although the tip is not visualized. | | There is extensive subcutaneous emphysema. Left subclavian catheter is | | present with the tip in the expected position of the upper SVC. There are | | bibasilar opacities and small pleural effusions. There is likely a small | | left basilar pneumothorax. There is a left pleural drain as before. Image | | is rotated. Aorta is tortuous. | | | | IMPRESSION: | | 1. ET tube 5.8 cm from the dora. NG tube present with the distal portion | | not visualized. | | 2. Extensive subcutaneous emphysema. | | 3. Small left pneumothorax most likely seen in the left lung base. | | 4. Left pleural drain, stable. | | 5. Left subclavian catheter with the tip in the region of the upper SVC. | | 6. Bibasilar opacities and small pleural effusions. | | | | Read by Sesar Vickers MD on 11/25/10 07:16. | | | | | | | | | | | | Addendum Ends | | | | [facility] | | [facility] [address] | | | | | | Patient Name: MAGDALENA GÓMEZ | | Date of : 1935 | | Medical Record: [id number] | | Account: [id number] | | | | | | Exam Date/Time: 11/25/2010 05:00 | | Ordering Physician: SERGIO JENNINGS | | Order Detail: [id number] | | Exam Description: XR CHEST 1 VIEW | | | | HISTORY: | | Evaluate lung mcelroy. | | | | SCANNING PROTOCOL: | | One view chest. | | | | FINDINGS: | | Compared with November 24, 2010. The endotracheal tube tip is 4 cm above | | the dora. The nasogastric tube tip projects below the diaphragm. The | | left PICC tip is probably in the SVC. The left pleural drain remains in | | place. No pneumothorax. Diffuse subcutaneous emphysema is again noted | | over the chest bilaterally and lower neck. The mild bibasilar atelectasis | | is unchanged. | | | | IMPRESSION: | | 1. Tube positions, as above. Extensive subcutaneous emphysema but no | | evidence of pneumothorax. | | 2. Persistent mild bibasilar atelectasis. | | | | | + + XR Chest 1 Vw (11/24/2010 5:30 AM PDT) + + | Specimen | + + | | + + + + + | Narrative | Performed At | + + + | [facility] [address] Ph: | | | Patient Name: MAGDALENA GÓMEZ Date of : | | | 1935 Medical Record: [id number] Account: [id number] | | | Exam Date/Time: 11/24/2010 05:00 Ordering | | | Physician: SERGIO JENNINGS Order Detail: [id number] Exam Description: | | | XR CHEST 1 VIEW | | | | | | HISTORY: Evaluate tubes and lines. SCANNING PROTOCOL: One view | | | of the chest. FINDINGS: Compared with November 23, 2010. The | | | endotracheal tube tip is 2 cm above the dora. The nasogastric | | | tube tip projects below the diaphragm. The left pleural drain is | | | unchanged in position. The central line tip is in the SVC. There | | | is increasing mild to moderate bibasilar infiltrates or edema. A | | | small left pleural effusion is probably present. Multiple | | | left-sided rib fractures and subcutaneous emphysema again noted. | | | IMPRESSION: 1. Increasing bibasilar infiltrates or edema. 2. | | | Tube positions, as above. 3. Left-sided rib fractures and | | | subcutaneous emphysema. 4. Minimal left pleural effusion. | | | | | + + + + + | Procedure Note | + + | Sebastián Lopez Conversion - 09/29/2018 11:03 AM PDT | | [facility] | | [facility] [address] | | | | | | Patient Name: HICKEY, MAGDALENA M | | Date of : 1935 | | Medical Record: [id number] | | Account: [id number] | | | | | | Exam Date/Time: 11/24/2010 05:00 | | Ordering Physician: SERGIO JENNINGS | | Order Detail: [id number] | | Exam Description: XR CHEST 1 VIEW | | | | HISTORY: | | Evaluate tubes and lines. | | | | SCANNING PROTOCOL: | | One view of the chest. | | | | FINDINGS: | | Compared with November 23, 2010. The endotracheal tube tip is 2 cm above | | the dora. The nasogastric tube tip projects below the diaphragm. The | | left pleural drain is unchanged in position. The central line tip is in | | the SVC. There is increasing mild to moderate bibasilar infiltrates or | | edema. A small left pleural effusion is probably present. Multiple | | left-sided rib fractures and subcutaneous emphysema again noted. | | | | IMPRESSION: | | 1. Increasing bibasilar infiltrates or edema. | | 2. Tube positions, as above. | | 3. Left-sided rib fractures and subcutaneous emphysema. | | 4. Minimal left pleural effusion. | | | | | + + CT Cervical Spine wo Contrast (11/23/2010 5:45 PM PDT) + + | Specimen | + + | | + + + + + | Narrative | Performed At | + + + | [facility] [id number] Ph: | | | Patient Name: MAGDALENA GÓMEZ Adiel Date of : | | | 1935 Medical Record: [id number] Account: [id number] | | | Exam Date/Time: 11/23/2010 16:31 Ordering | | | Physician: CHRISTINA HAUSER Order Detail: [id number] Exam Description: | | | CT CERVICAL SPINE | | | | | | MAGDALENA GÓMEZ CT CERVICAL SPINE 11/23/2010 4:31 PM HISTORY: | | | 75 years. Female. Trauma patient. TECHNIQUE: Axial 1.25-mm | | | images of the cervical spine were acquired from the lower posterior | | | fossa through T2-3 and reconstructed in coronal and sagittal planes. | | | COMPARISON: CTA neck 11/22/2010 FINDINGS: The occipital | | | condyles are intact. The C1 vertebral body is intact. The C2 | | | vertebral body demonstrates a vertical fracture which is oriented | | | transversely at the level of the pedicles which appear sheared off | | | from the posterior margin of the vertebral body. They are displaced | | | posteriorly by 4.2 mm on the left and 6.6 mm on the right. These | | | distances have increased since 11/22/2010 previously measuring 3.9 mm | | | on the left and 4.0 mm on the right. The fracture lines extend | | | into the transverse foramina. Prior CT exam showed no evidence of | | | dissection or occlusion of the vertebral arteries at this level. | | | No fractures of the other vertebral bodies, facets or lamina are | | | demonstrated. Bulky degenerative facet hypertrophy is seen at C3-4 | | | on the left with facet osteophytes rising superiorly into the left | | | foramen transversarium at the C3 level causing severe narrowing. | | | There is also narrowing of the left neural foramen with possible | | | compression of the left C4 nerve root. These findings are | | | degenerative rather than traumatic in nature. The prior CT exam did | | | show narrowing of the vertebral artery in this region without | | | evidence of dissection or occlusion. Degenerative disk disease | | | with disk space narrowing is seen at C5-6 with uncovertebral joints | | | causing severe right-sided foraminal narrowing with likely | | | compression of the exiting right C6 nerve root. The left neural | | | foramen is patent at this level. The AP alignment of the vertebral | | | bodies is normal. No subluxations are noted. Subcutaneous | | | emphysema is seen in the anterior soft tissues of the neck has | | | significantly increased in volume since yesterday. A nasogastric | | | tube and endotracheal tube are visualized. Droplets of air are seen | | | in the pleural space of the lung apices bilaterally. Fractures of | | | the anterior first ribs are noted. IMPRESSION: 1. A slight | | | widening of the vertical sheer fractures of the pedicles of C2 from | | | the posterior margin of the C2 vertebral body noted in comparison to | | | 11/22/2010. 2. Fracture through the foramen transversarium at the | | | C2 level bilaterally. 3. Degenerative facet hypertrophy causes | | | narrowing of the left foramen transversarium at the C3 level as well | | | as the left neural foramen at C3-4. See above comments. 4. C5-6 | | | degenerative disk disease with right-sided foraminal narrowing and | | | likely compression of exiting right C6 nerve root. 5. Bilateral | | | anterior first rib fractures noted. 6. Droplets of air at the lung | | | apices noted. 7. Subcutaneous emphysema in the anterior soft | | | tissues of the neck which has increased from 11/22/2010. | | | | | + + + + + | Procedure Note | + + | Sebastián Lopez - 09/29/2018 11:03 AM PDT | | [facility] | | [facility] [address] | | | | | | Patient Name: MAGDALENA GÓMEZ | | Date of : 1935 | | Medical Record: [id number] | | Account: [id number] | | | | | | Exam Date/Time: 11/23/2010 16:31 | | Ordering Physician: CHRISTINA HAUSER | | Order Detail: [id number] | | Exam Description: CT CERVICAL SPINE | | | | MAGDALENA GÓMEZ | | CT CERVICAL SPINE | | 11/23/2010 4:31 PM | | | | HISTORY: | | 75 years. Female. Trauma patient. | | | | TECHNIQUE: | | Axial 1.25-mm images of the cervical spine were acquired from the lower | | posterior fossa through T2-3 and reconstructed in coronal and sagittal | | planes. | | | | COMPARISON: | | CTA neck 11/22/2010 | | | | FINDINGS: | | | | The occipital condyles are intact. | | | | The C1 vertebral body is intact. | | | | The C2 vertebral body demonstrates a vertical fracture which is oriented | | transversely at the level of the pedicles which appear sheared off from the | | posterior margin of the vertebral body. They are displaced posteriorly by | | 4.2 mm on the left and 6.6 mm on the right. These distances have increased | | since 11/22/2010 previously measuring 3.9 mm on the left and 4.0 mm on the | | right. The fracture lines extend into the transverse foramina. Prior CT | | exam showed no evidence of dissection or occlusion of the vertebral | | arteries at this level. | | | | No fractures of the other vertebral bodies, facets or lamina are | | demonstrated. | | | | Bulky degenerative facet hypertrophy is seen at C3-4 on the left with facet | | osteophytes rising superiorly into the left foramen transversarium at the | | C3 level causing severe narrowing. There is also narrowing of the left | | neural foramen with possible compression of the left C4 nerve root. These | | findings are degenerative rather than traumatic in nature. The prior CT | | exam did show narrowing of the vertebral artery in this region without | | evidence of dissection or occlusion. | | | | Degenerative disk disease with disk space narrowing is seen at C5-6 with | | uncovertebral joints causing severe right-sided foraminal narrowing with | | likely compression of the exiting right C6 nerve root. The left neural | | foramen is patent at this level. | | | | The AP alignment of the vertebral bodies is normal. No subluxations are | | noted. | | Subcutaneous emphysema is seen in the anterior soft tissues of the neck has | | significantly increased in volume since yesterday. A nasogastric tube and | | endotracheal tube are visualized. Droplets of air are seen in the pleural | | space of the lung apices bilaterally. Fractures of the anterior first ribs | | are noted. | | | | IMPRESSION: | | 1. A slight widening of the vertical sheer fractures of the pedicles of | | C2 from the posterior margin of the C2 vertebral body noted in comparison | | to 11/22/2010. | | 2. Fracture through the foramen transversarium at the C2 level | | bilaterally. | | 3. Degenerative facet hypertrophy causes narrowing of the left foramen | | transversarium at the C3 level as well as the left neural foramen at C3-4. | | See above comments. | | 4. C5-6 degenerative disk disease with right-sided foraminal narrowing | | and likely compression of exiting right C6 nerve root. | | 5. Bilateral anterior first rib fractures noted. | | 6. Droplets of air at the lung apices noted. | | 7. Subcutaneous emphysema in the anterior soft tissues of the neck | | which has increased from 11/22/2010. | | | | | + + XR Chest 1 Vw (11/23/2010 5:08 AM PDT) + + | Specimen | + + | | + + + + + | Narrative | Performed At | + + + | [facility] [id number] Ph: | | | Patient Name: KAREN GONZALEZ Date of : | | | 02/06/1859 Medical Record: [id number] Account: [id number] | | | Exam Date/Time: 11/23/2010 05:00 Ordering | | | Physician: LAUREN CHRISTINE Order Detail: [id number] Exam Description: | | | XR CHEST 1 VIEW | | | | | | HISTORY: Evaluate tubes and lines. SCANNING PROTOCOL: One view | | | chest. FINDINGS: Compared with November 22, 2010. The previously | | | described area of hyperlucency in the left lower chest has resolved, | | | suggesting resolution of an anterior pneumothorax. A left pleural | | | drain is in place. Subcutaneous emphysema over the left chest has | | | decreased slightly. The left subclavian or IJ central venous | | | catheter tip is in the SVC. Endotracheal tube tip is 2 cm above the | | | dora. Nasogastric tube tip projects below the diaphragm. Again | | | noted are multiple left lower lateral rib fractures. There is a new | | | small left pleural effusion. There is mild bilateral interstitial | | | prominence, probably mild edema or fluid overload. IMPRESSION: 1. | | | Resolving hyperlucency in the left lower chest, suggesting | | | resolution of an anterior pneumothorax with a left pleural drain in | | | place. Other tube positions, as above. 2. New small left pleural | | | effusion. 3. Multiple left rib fractures, as before. 4. Mild | | | bilateral interstitial prominence, suggesting mild edema or fluid | | | overload. Electronically signed by Chu Liang MD on | | | 11/23/2010 7:21 AM | | + + + + + | Procedure Note | + + | Sebastián Lopez - 09/29/2018 11:03 AM PDT | | [facility] | | [facility] [address] | | | | | | Patient Name: KAREN GONZALEZ 26 | | Date of : 02/06/1859 | | Medical Record: [id number] | | Account: [id number] | | | | | | Exam Date/Time: 11/23/2010 05:00 | | Ordering Physician: LAUREN CHRISTINE | | Order Detail: [id number] | | Exam Description: XR CHEST 1 VIEW | | | | HISTORY: | | Evaluate tubes and lines. | | | | SCANNING PROTOCOL: | | One view chest. | | | | FINDINGS: | | Compared with November 22, 2010. The previously described area of | | hyperlucency in the left lower chest has resolved, suggesting resolution of | | an anterior pneumothorax. A left pleural drain is in place. Subcutaneous | | emphysema over the left chest has decreased slightly. The left subclavian | | or IJ central venous catheter tip is in the SVC. Endotracheal tube tip is | | 2 cm above the dora. Nasogastric tube tip projects below the diaphragm. | | Again noted are multiple left lower lateral rib fractures. There is a new | | small left pleural effusion. There is mild bilateral interstitial | | prominence, probably mild edema or fluid overload. | | | | IMPRESSION: | | 1. Resolving hyperlucency in the left lower chest, suggesting | | resolution of an anterior pneumothorax with a left pleural drain in place. | | Other tube positions, as above. | | 2. New small left pleural effusion. | | 3. Multiple left rib fractures, as before. | | 4. Mild bilateral interstitial prominence, suggesting mild edema or | | fluid overload. | | | | | + + XR Chest 1 Vw (11/22/2010 3:54 PM PDT) + + | Specimen | + + | | + + + + + | Narrative | Performed At | + + + | [facility] [id number] Ph: | | | Patient Name: TRAUMAKAREN 26 Date of : | | | 02/06/1859 Medical Record: [id number] Account: [id number] | | | Exam Date/Time: 11/22/2010 14:48 Ordering | | | Physician: LAUREN CHRISTINE Order Detail: [id number] Exam Description: | | | XR CHEST 1 VIEW | | | JONES | | | 26 TRAUMA XR CHEST 1 VIEW 11/22/2010 2:48 PM HISTORY: 89 | | | years. Female. Left-sided central line placement. TECHNIQUE: | | | A single AP portable view of the chest is obtained. Time: 1533 hrs | | | COMPARISON: 1331 hrs same day. FINDINGS: Left-sided central | | | line has been placed. The endotracheal tube is 5.6 cm by the | | | dora. Nasogastric tube is seen coursing through the mediastinum | | | and into the upper abdomen below the field of view. Left-sided chest | | | tube is noted. Multiple left-sided rib fractures are seen some in | | | several places suggesting flail chest. Subcutaneous emphysema is | | | noted along the left chest wall. The left upper lobe is slightly | | | dense suggesting pulmonary contusion. The inferior portion of the | | | left lung is hyperlucent which may indicate an anterior pneumothorax. | | | This is unchanged from the previous study. The right lung shows | | | slightly low volume but there is no pneumothorax or contusion on the | | | right. IMPRESSION: 1. ET tube, NG tube, left sided chest tube | | | and left-sided central line are in satisfactory position. 2. | | | Multiple left-sided rib fractures suggesting flail chest. 3. | | | Somewhat hyperlucent inferior aspect of left lung suggests anterior | | | pneumothorax. Electronically signed by Benoit Hernandez DO on | | | 11/22/2010 10:45 PM | | + + + + + | Procedure Note | + + | Sebastián Lopez - 09/29/2018 11:03 AM PDT | | [facility] | | [facility] [address] | | | | | | Patient Name: KAREN GONZALEZ | | Date of : 02/06/1859 | | Medical Record: [id number] | | Account: [id number] | | | | | | Exam Date/Time: 11/22/2010 14:48 | | Ordering Physician: LAUREN CHRISTINE | | Order Detail: [id number] | | Exam Description: XR CHEST 1 VIEW | | | | JONES 26 TRAUMA | | XR CHEST 1 VIEW | | 11/22/2010 2:48 PM | | | | HISTORY: | | 89 years. Female. Left-sided central line placement. | | | | TECHNIQUE: | | A single AP portable view of the chest is obtained. Time: 1533 hrs | | | | COMPARISON: | | 1331 hrs same day. | | | | FINDINGS: | | Left-sided central line has been placed. The endotracheal tube is 5.6 cm | | by the dora. Nasogastric tube is seen coursing through the mediastinum | | and into the upper abdomen below the field of view. Left-sided chest tube | | is noted. Multiple left-sided rib fractures are seen some in several | | places suggesting flail chest. Subcutaneous emphysema is noted along the | | left chest wall. The left upper lobe is slightly dense suggesting | | pulmonary contusion. The inferior portion of the left lung is hyperlucent | | which may indicate an anterior pneumothorax. This is unchanged from the | | previous study. The right lung shows slightly low volume but there is no | | pneumothorax or contusion on the right. | | | | IMPRESSION: | | 1. ET tube, NG tube, left sided chest tube and left-sided central line | | are in satisfactory position. | | 2. Multiple left-sided rib fractures suggesting flail chest. | | 3. Somewhat hyperlucent inferior aspect of left lung suggests anterior | | pneumothorax. | | | | | + + CT Angiogram Head and Neck w Contrast (11/22/2010 2:19 PM PDT) + + | Specimen | + + | | + + + + + | Narrative | Performed At | + + + | [facility] [address] Ph: | | | Patient Name: KAREN GONZALEZ Date of : | | | 02/06/1859 Medical Record: [id number] Account: [id number] | | | Exam Date/Time: 11/22/2010 12:59 Ordering | | | Physician: JOSE ALFREDO CORRAL Order Detail: [id number] Exam Description: | | | CT CTA HEAD/NECK | | | JONES | | | [address] CTA HEAD/NECK 11/22/2010 12:59 PM HISTORY: 89 | | | years. Female. Trauma with C2 fracture. Evaluate cerebral and | | | cervical vasculature TECHNIQUE: 5-mm axial precontrast and | | | post-contrast images of the head were acquired from the foramen | | | magnum through the cranial vertex. Axial 0.625-mm images were | | | acquired from the skull base to the cranial vertex and then axial 1.25 | | | mm arterial phase images were acquired through the neck according to | | | a CT angiography protocol. Multiplanar CT angiographic MIP | | | reconstructions were performed. The data set was also examined with | | | Strawberry energy 3D software for evaluation of the cerebral vasculature. The | | | patient has slightly diminished GFR. The emergency department was | | | apprised of this and requested the procedure be performed. The | | | patient is being hydrated. IV contrast: 80 mL IsoVue 370 | | | COMPARISON: Today's cross-sectional imaging of the neck head and | | | chest. For all cross-sectional imaging information not directly | | | associated with the CT angiogram, see prior report. FINDINGS: | | | CT ANGIOGRAM HEAD: Posterior Circulation: Vertebral | | | Dominance: Codominant. Right vertebral artery: Normal. Left | | | vertebral artery: Normal. Posterior inferior cerebellar arteries: | | | Normal. Anterior inferior cerebellar arteries: Normal. Basilar | | | artery: Normal. Superior cerebellar arteries: Normal. Right | | | posterior cerebral artery: Normal. Left posterior cerebral artery: | | | Normal. [place]: Anterior communicating artery: Normal. | | | Right posterior communicating artery: Normal. Left posterior | | | communicating artery: Normal. Anterior Circulation: Distal | | | Internal Carotids: Right Internal carotid: Widely patent. Left | | | Internal carotid: Widely patent. Right Anterior cerebral artery: | | | A1 segment: Normal. A2 segment: Normal. Right MCA: M1 segment: | | | Normal. Post bifurcation M1 segment: Normal. M2 segments: Normal. | | | Left Anterior cerebral artery: A1 segment: Normal. A2 segment: | | | Normal. Left MCA: M1 segment: Normal. Post bifurcation M1 | | | segment: Normal. M2 segments: Normal. 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 No dissection, aneurysm or stenosis is seen in the | | | aorta or great vessels. Ascending Aorta: Mild mixed calcified and | | | soft plaque identified. No evidence of aneurysm, dissection or | | | stenosis. Right Brachiocephalic: Mild mixed calcified and soft plaque | | | identified. No evidence of aneurysm, dissection or stenosis. Right | | | Common Carotid Origin: Mild mixed calcified and soft plaque | | | identified. No evidence of aneurysm, dissection or stenosis. Right | | | Subclavian: Mild mixed calcified and soft plaque identified. No | | | evidence of aneurysm, dissection or stenosis. Left Common Carotid | | | Origin: Mild mixed calcified and soft plaque identified. No | | | evidence of aneurysm, dissection or stenosis. Left Subclavian: Mild | | | mixed calcified and soft plaque identified. No evidence of | | | aneurysm, dissection or stenosis. Carotids: Right Common carotid: | | | Mild calcified plaque Right External carotid: Mild calcified plaque. | | | No flow limiting stenosis. Right Internal carotid: Mild calcified | | | plaque. See measurements below: Left Common carotid: Mild | | | calcified plaque. No flow limiting stenosis. Left External carotid: | | | Mild calcified plaque. No flow limiting stenosis. Left Internal | | | carotid: Mild calcified plaque. See measurements below: | | | Vertebrals: The left foramen transversarium at C 3 has bony tissue | | | centrally. Based upon this examination, it is not traumatic but rather | | | associated with a large amount of facet hypertrophy on the left | | | side. The foramen does allow passage of a small but patent vertebral | | | artery without impingement or evidence of dissection through it The | | | vertebral arteries are co-dominant. Right Vertebral artery: Widely | | | patent. Left Vertebral artery: Widely patent. IMPRESSION: And no | | | evidence of trauma to left C3 foramen transversarium. Bony tissue | | | within is large osteophyte from the C3-4 articular facet complex, left | | | side. No evidence of left subclavian artery trauma. The first | | | rib fracture is located more anterior than the vessel is located. | | | Cross-sectional imaging data are submitted on separate dictation | | | performed earlier today Minor calcified plaque formation both | | | common and internal carotid arteries. No evidence of stenosis or | | | occlusion observed. Electronically signed by Noé Walker MD on | | | 11/22/2010 2:51 PM | | + + + + + | Procedure Note | + + | Sebastián Lopez Conversion - 09/29/2018 11:03 AM PDT | | [facility] | | [facility] [address] | | | | | | Patient Name: TRAUMA, KAREN Luciano | | Date of : 02/06/1859 | | Medical Record: [id number] | | Account: [id number] | | | | | | Exam Date/Time: 11/22/2010 12:59 | | Ordering Physician: JOSE ALFREDO CORRAL | | Order Detail: [id number] | | Exam Description: CT CTA HEAD/NECK | | | | JONES 26 TRAUMA | | CT CTA HEAD/NECK | | 11/22/2010 12:59 PM | | | | HISTORY: | | 89 years. Female. Trauma with C2 fracture. Evaluate cerebral and | | cervical vasculature | | | | TECHNIQUE: | | 5-mm axial precontrast and post-contrast images of the head were acquired | | from the foramen magnum through the cranial vertex. Axial 0.625-mm images | | were acquired from the skull base to the cranial vertex and then axial 1.25 | | mm arterial phase images were acquired through the neck according to a CT | | angiography protocol. Multiplanar CT angiographic MIP reconstructions were | | performed. The data set was also examined with Strawberry energy 3D software for | | evaluation of the cerebral vasculature. The patient has slightly diminished | | GFR. The emergency department was apprised of this and requested the | | procedure be performed. The patient is being hydrated. | | IV contrast: 80 mL IsoVue 370 | | | | COMPARISON: | | Today's cross-sectional imaging of the neck head and chest. For all | | cross-sectional imaging information not directly associated with the CT | | angiogram, see prior report. | | | | FINDINGS: | | | | | | CT ANGIOGRAM HEAD: | | | | Posterior Circulation: | | Vertebral Dominance: Codominant. | | Right vertebral artery: Normal. | | Left vertebral artery: Normal. | | Posterior inferior cerebellar arteries: Normal. | | Anterior inferior cerebellar arteries: Normal. | | Basilar artery: Normal. | | Superior cerebellar arteries: Normal. | | Right posterior cerebral artery: Normal. | | Left posterior cerebral artery: Normal. | | | | [place]: | | Anterior communicating artery: Normal. | | Right posterior communicating artery: Normal. | | Left posterior communicating artery: Normal. | | | | Anterior Circulation: | | Distal Internal Carotids: | | Right Internal carotid: Widely patent. | | Left Internal carotid: Widely patent. | | | | Right Anterior cerebral artery: | | A1 segment: Normal. | | A2 segment: Normal. | | | | Right MCA: | | M1 segment: Normal. | | Post bifurcation M1 segment: Normal. | | M2 segments: Normal. | | | | Left Anterior cerebral artery: | | A1 segment: Normal. | | A2 segment: Normal. | | | | Left MCA: | | M1 segment: Normal. | | Post bifurcation M1 segment: Normal. | | M2 segments: Normal. 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 No | | dissection, aneurysm or stenosis is seen in the aorta or great vessels. | | Ascending Aorta: Mild mixed calcified and soft plaque identified. No | | evidence of aneurysm, dissection or stenosis. | | Right Brachiocephalic: Mild mixed calcified and soft plaque identified. | | No evidence of aneurysm, dissection or stenosis. | | Right Common Carotid Origin: Mild mixed calcified and soft plaque | | identified. No evidence of aneurysm, dissection or stenosis. | | Right Subclavian: Mild mixed calcified and soft plaque identified. No | | evidence of aneurysm, dissection or stenosis. | | Left Common Carotid Origin: Mild mixed calcified and soft plaque | | identified. No evidence of aneurysm, dissection or stenosis. | | Left Subclavian: Mild mixed calcified and soft plaque identified. No | | evidence of aneurysm, dissection or stenosis. | | | | Carotids: | | Right Common carotid: Mild calcified plaque | | Right External carotid: Mild calcified plaque. No flow limiting stenosis. | | Right Internal carotid: Mild calcified plaque. See measurements below: | | | | Left Common carotid: Mild calcified plaque. No flow limiting stenosis. | | Left External carotid: Mild calcified plaque. No flow limiting stenosis. | | Left Internal carotid: Mild calcified plaque. See measurements below: | | | | Vertebrals: The left foramen transversarium at C 3 has bony tissue | | centrally. Based upon this examination, it is not traumatic but rather | | associated with a large amount of facet hypertrophy on the left side. The | | foramen does allow passage of a small but patent vertebral artery without | | impingement or evidence of dissection through it | | The vertebral arteries are co-dominant. | | Right Vertebral artery: Widely patent. | | Left Vertebral artery: Widely patent. | | | | IMPRESSION: | | And no evidence of trauma to left C3 foramen transversarium. Bony tissue | | within is large osteophyte from the C3-4 articular facet complex, left | | side. | | | | No evidence of left subclavian artery trauma. The first rib fracture is | | located more anterior than the vessel is located. | | | | Cross-sectional imaging data are submitted on separate dictation performed | | earlier today | | | | Minor calcified plaque formation both common and internal carotid arteries. | | No evidence of stenosis or occlusion observed. | | | | | + + XR Chest 1 Vw (11/22/2010 2:17 PM PDT) + + | Specimen | + + | | + + + + + | Narrative | Performed At | + + + | JONES 26 TRAUMA XR CHEST 1 VIEW 11/22/2010 1:20 PM HISTORY: | | | 89 years. Female. Trauma patient. TECHNIQUE: PA and lateral | | | views of the chest are obtained using dual energy technique. | | | COMPARISON: X-ray chest 11/22/[address] chest 11/22/2010 | | | at 1213 hrs FINDINGS: The endotracheal tube tip is 6.7 cm above | | | the dora. Left-sided chest tube is noted. Multiple contiguous | | | left-sided rib fractures are seen suggesting flail chest. A contusion | | | of the left upper lobe is noted. Large amount of subcutaneous | | | emphysema is seen near the rib fractures and chest tube insertion | | | site. The heart is normal in size. The pulmonary vascular | | | pattern is normal. Lucency is noted over the lower portion of the | | | left lung suggesting anterior pneumothorax, similar in comparison to | | | the prior CT exam. IMPRESSION: 1. Endotracheal tube and | | | left-sided chest tube are in satisfactory position. 2. Contusion | | | of left upper lobe noted. 3. Lucency suggesting anterior | | | pneumothorax in the left lung region similar in comparison to the | | | prior CT exam. 4. Multiple left-sided rib fractures suggesting | | | flail chest. 5. Subcutaneous emphysema along left chest wall. | | | * * | | | * * ADDENDUM #1 * * * * Clarification of title and technique | | | requested for billing purposes. The title is correct. The | | | technique is incorrect and should read as follows: Technique: A | | | single AP supine portable view of the chest is obtained at 1331 hrs. | | | | | + + + + + | Procedure Note | + + | John, Sebastián Conversion - 09/29/2018 11:03 AM PDT JONES 26 TRAUMA | | XR CHEST 1 VIEW | | 11/22/2010 1:20 PM | | | | HISTORY: | | 89 years. Female. Trauma patient. | | | | TECHNIQUE: | | PA and lateral views of the chest are obtained using dual energy technique. | | | | COMPARISON: | | X-ray chest 11/22/[address] chest 11/22/2010 at 1213 hrs | | | | FINDINGS: | | The endotracheal tube tip is 6.7 cm above the dora. Left-sided chest | | tube is noted. Multiple contiguous left-sided rib fractures are seen | | suggesting flail chest. A contusion of the left upper lobe is noted. Large | | amount of subcutaneous emphysema is seen near the rib fractures and chest | | tube insertion site. The heart is normal in size. The pulmonary vascular | | pattern is normal. Lucency is noted over the lower portion of the left | | lung suggesting anterior pneumothorax, similar in comparison to the prior | | CT exam. | | | | IMPRESSION: | | 1. Endotracheal tube and left-sided chest tube are in satisfactory | | position. | | 2. Contusion of left upper lobe noted. | | 3. Lucency suggesting anterior pneumothorax in the left lung region | | similar in comparison to the prior CT exam. | | 4. Multiple left-sided rib fractures suggesting flail chest. | | 5. Subcutaneous emphysema along left chest wall. | | | | | | * * * * ADDENDUM #1 * * * * | | Clarification of title and technique requested for billing purposes. The | | title is correct. The technique is incorrect and should read as follows: | | Technique: A single AP supine portable view of the chest is obtained at | | 1331 hrs. | | | | | + + CT Head Cerv Spin wo Ches Eleazar Bull (11/22/2010 2:01 PM PDT) + + | Specimen | + + | | + + + + + | Narrative | Performed At | + + + | Addendum Begins ADDENDUM #1 For the | | | purposes of clarification, impression one. There is a | | | voice-recognition syntax error. The report should state as follows: | | | Head CT demonstrates brain atrophy and a hematoma over the left | | | parietal bone subjacent to the vertex. No evidence of intracranial | | | trauma | | | 8:40 AM Addendum [facility] | | | [place] [address] Patient Name: KAREN GONZALEZ | | | Date of : 02/06/1859 Medical Record: [id number] Account: | | | [id number] Exam Date/Time: 11/22/2010 | | | 11:20 Ordering Physician: JOSE ALFREDO Mujica Detail: 5000 | | | Exam Description: CT HEAD/CSPINE UN CHEST/ABD/PEL W | | | JONES | | | [address] HEAD/CSPINE UN CHEST/ABD/PEL W 11/22/2010 11:20 AM | | | HISTORY: 89 years. Female. Trauma TECHNIQUE: 5-mm axial | | | noncontrast images were acquired from the foramen magnum through the | | | cranial vertex. In addition, axial 1.25-mm images of the cervical | | | spine were acquired and reconstructed in coronal and sagittal planes. | | | 5-mm axial images were acquired through the chest, abdomen and | | | pelvis. Oral Contrast:Readi-Cat IV contrast:100 mL [id number] | | | COMPARISON: None. FINDINGS: CT HEAD: There is some motion | | | artifact. Moderate atrophy is noted. Patient's age is not stated but | | | is probably advanced. There is a moderate scalp hematoma immediately | | | subjacent to the vertex left side. The brain parenchyma does not | | | demonstrate acute intraaxial hemorrhage, midline shift, mass effect, | | | or cerebral edema. The ventricles, cisterns, and sulci are normal | | | in size and configuration allowing for degree of atrophy. Normal | | | welsh-white matter differentiation is preserved. No extraaxial fluid | | | collections are noted. The orbits and their contents are normal. | | | The paranasal sinuses are well aerated. No mucosal thickening or | | | air-fluid levels are noted. The mastoid air cells show normal | | | pneumatization bilaterally. No mastoid fluid noted. The osseous | | | structures of the calvaria do not demonstrate fracture. No lytic or | | | blastic lesions are noted. CT CERVICAL SPINE: The vertebral | | | bodies are normal in height. No lytic or blastic lesions are seen. | | | The patient has sustained a complete fracture through the posterior | | | aspect of the C2 vertebral body immediately anterior to the pedicles. | | | The distance of separation is about 4 mmon the left and 5 mm. on the | | | right There is some motion artifact but there may be bonafide | | | compromise of the left foramen transversarium on image 85/3 through | | | which the left vertebral artery necessarily passes. Slight anterior | | | translation of C4 relative to C5 which is probably due to facet | | | hypertrophy rather than trauma. No jumped or perched facets are | | | observed at this level nor elsewhere. Regarding degenerative | | | change in this patient, it is identified at multiple levels, C1-2, | | | left C2-3 foramen, image 91/3, right C56 foramen, image 126/3 with | | | slight anterior translation of C4 relative to C5, without evidence of | | | fracture. CHEST ABDOMEN AND PELVIS CHEST: There is a left | | | thyroid lobe mass which 1.4 cm. See image 9/10 No bulky adenopathy | | | is seen in the lower pb stations of the neck, axillary regions, | | | mediastinum or hilar regions. A left-sided aortic arch is noted | | | with a 3 vessel arch configuration. No dissection, aneurysm or | | | stenosis is seen in the aorta or great vessels. The pulmonary | | | arteries are normal in caliber. No intraluminal filling defects are | | | seen to suggest the presence of pulmonary emboli. The study is | | | not optimized for the detection of small pulmonary emboli. The | | | heart is normal in size. No pericardial abnormality is noted. No | | | filling defects are seen in the chambers of the heart to suggest clot | | | or tumor. Left pneumothorax treated with chest tube. Nearly all | | | ribs on the left side are fractured based upon the images submitted, | | | including the left first and second ribs. The thoracic esophagus is | | | normal. No hiatal hernia is seen. There is no evidence of a | | | ruptured aorta although ample calcifications are seen. No pericardial | | | fluid is identified ABDOMEN:The liver, spleen, pancreas, adrenal | | | glands and kidneys are normal in size, position, and contour. No | | | solid masses are seen in these organs. There is no evidence of | | | hydronephrosis. The aorta and vena cava are normal in caliber | | | throughout their visualized course including the iliac and femoral | | | vessels. No free fluid or free air is seen. No adenopathy is seen | | | in the abdomen or pelvis. The stomach, duodenum, ileocecal valve | | | are normal. No air-fluid levels are seen to suggest obstruction. | | | The appendix is not discretely visualized and may be surgically | | | absent. The ascending colon, transverse colon, descending colon, | | | sigmoid colon and rectum demonstrate normal wall thickness. No | | | diverticulosis is noted.1 there is a solitary calcified gallstone | | | measuring 2.2 cm with out secondary evidence of inflammation. There | | | is fatty liver infiltration. Left renal cortical cyst, benign small | | | umbilical fat only hernia. Mesenteric hemorrhage seen on multiple | | | images commencing immediately beneath the fourth portion of duodenum, | | | image 84/10 and to the mid pelvis, image 105/10 some jejunal loops | | | are thickened suggesting hemorrhage. No free air is identified. No | | | free fluid is identified. There is a Leos catheter in the small | | | bladder. This female patient has had a hysterectomy. IMPRESSION: 1. | | | Head CT demonstrates atrophy and a hematoma a left parietal lobe | | | subjacent to the vertex. No evidence of intracranial trauma. 2. | | | Complete transverse fracture of the C2 vertebral body with | | | separation of the pedicles on both sides, an unstable fracture. | | | Possible impingement upon the left foramen transversarium at C2. | | | Consider vertebral artery compromise. This result was relayed to | | | Elver in the emergency department. 3. Degenerative disk disease | | | noted principally at C5-6 with some foraminal impairment. 4. | | | Multiple rib fractures on the left side with flail chest phenomena | | | and left sided chest tube. Small amount of hemorrhage noted in the | | | chest cavity. 5. Small amount of hemorrhage in the anterior | | | mediastinum immediately posterior to the sternum. No obvious sternal | | | fracture is seen. 6. Calcified gallstone without evidence of | | | inflammation 7. thyroid lobe nodule left side. Advise ultrasound | | | when patient is able to cooperate. 8. Small esophageal hiatal | | | hernia. 9. mild fatty infiltration of the liver 10. | | | Umbilical hernia, small 11. Mesenteric hemorrhage without | | | evidence of bowel rupture. Some loops of bowel are thickened, | | | probably due to trauma of blunt nature. This may predispose the | | | patient to ileus. 12. Small fat only umbilical hernia. Prior | | | hysterectomy. 13. Leos catheter in place Electronically | | | signed by Noé Walker MD on 11/22/2010 1:35 PM | | + + + + + | Procedure Note | + + | Sebastián Lopez Conversion - 09/29/2018 11:03 AM PDT | | Addendum Begins | | | | ADDENDUM #1 | | For the purposes of clarification, impression one. There is a | | voice-recognition syntax error. The report should state as follows: Head CT | | demonstrates brain atrophy and a hematoma over the left parietal bone | | subjacent to the vertex. No evidence of intracranial trauma | | | | | | | | Addendum Ends | | | | [facility] | | [facility] [address] | | | | | | Patient Name: KAREN GONZALEZ | | Date of : 02/06/1859 | | Medical Record: [id number] | | Account: [id number] | | | | | | Exam Date/Time: 11/22/2010 11:20 | | Ordering Physician: JOSE ALFREDO CORRAL | | Order Detail: [id number] | | Exam Description: CT HEAD/CSPINE UN CHEST/ABD/PEL W | | | | JONES 26 TRAUMA | | CT HEAD/CSPINE UN CHEST/ABD/PEL W | | 11/22/2010 11:20 AM | | | | HISTORY: | | 89 years. Female. Trauma | | | | TECHNIQUE: | | 5-mm axial noncontrast images were acquired from the foramen magnum through | | the cranial vertex. In addition, axial 1.25-mm images of the cervical spine | | were acquired and reconstructed in coronal and sagittal planes. 5-mm axial | | images were acquired through the chest, abdomen and pelvis. | | Oral Contrast:Readi-Cat | | IV contrast:100 mL [id number] | | | | COMPARISON: | | None. | | | | FINDINGS: | | CT HEAD: There is some motion artifact. Moderate atrophy is noted. | | Patient's age is not stated but is probably advanced. There is a moderate | | scalp hematoma immediately subjacent to the vertex left side. | | The brain parenchyma does not demonstrate acute intraaxial hemorrhage, | | midline shift, mass effect, or cerebral edema. The ventricles, cisterns, | | and sulci are normal in size and configuration allowing for degree of | | atrophy. Normal welsh-white matter differentiation is preserved. No | | extraaxial fluid collections are noted. The orbits and their contents are | | normal. The paranasal sinuses are well aerated. No mucosal thickening or | | air-fluid levels are noted. The mastoid air cells show normal | | pneumatization bilaterally. No mastoid fluid noted. The osseous | | structures of the calvaria do not demonstrate fracture. No lytic or | | blastic lesions are noted. | | | | CT CERVICAL SPINE: | | The vertebral bodies are normal in height. No lytic or blastic lesions are | | seen. The patient has sustained a complete fracture through the posterior | | aspect of the C2 vertebral body immediately anterior to the pedicles. The | | distance of separation is about 4 mmon the left and 5 mm. on the right | | There is some motion artifact but there may be bonafide compromise of the | | left foramen transversarium on image 85/3 through which the left vertebral | | artery necessarily passes. Slight anterior translation of C4 relative to C5 | | which is probably due to facet hypertrophy rather than trauma. No jumped or | | perched facets are observed at this level nor elsewhere. | | | | Regarding degenerative change in this patient, it is identified at multiple | | levels, C1-2, left C2-3 foramen, image 91/3, right C56 foramen, image 126/3 | | with slight anterior translation of C4 relative to C5, without evidence of | | fracture. | | | | CHEST ABDOMEN AND PELVIS | | | | CHEST: There is a left thyroid lobe mass which 1.4 cm. See image 9/10 No | | bulky adenopathy is seen in the lower pb stations of the neck, axillary | | regions, mediastinum or hilar regions. 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 No dissection, aneurysm or stenosis is | | seen in the aorta or great vessels. The pulmonary arteries are normal in | | caliber. No intraluminal filling defects are seen to suggest the presence | | of pulmonary emboli. The study is not optimized for the detection of | | small pulmonary emboli. The heart is normal in size. No pericardial | | abnormality is noted. No filling defects are seen in the chambers of the | | heart to suggest clot or tumor. Left pneumothorax treated with chest tube. | | Nearly all ribs on the left side are fractured based upon the images | | submitted, including the left first and second ribs. The thoracic | | esophagus is normal. No hiatal hernia is seen. | | There is no evidence of a ruptured aorta although ample calcifications are | | seen. No pericardial fluid is identified | | ABDOMEN:The liver, spleen, pancreas, adrenal glands and kidneys are normal | | in size, position, and contour. No solid masses are seen in these organs. | | There is no evidence of hydronephrosis. The aorta and vena cava are normal | | in caliber throughout their visualized course including the iliac and | | femoral vessels. No free fluid or free air is seen. No adenopathy is seen | | in the abdomen or pelvis. The stomach, duodenum, ileocecal valve are | | normal. No air-fluid levels are seen to suggest obstruction. The appendix | | is not discretely visualized and may be surgically absent. The ascending | | colon, transverse colon, descending colon, sigmoid colon and rectum | | demonstrate normal wall thickness. No diverticulosis is noted.1 there is a | | solitary calcified gallstone measuring 2.2 cm with out secondary evidence | | of inflammation. There is fatty liver infiltration. Left renal cortical | | cyst, benign small umbilical fat only hernia. | | | | Mesenteric hemorrhage seen on multiple images commencing immediately | | beneath the fourth portion of duodenum, image 84/10 and to the mid pelvis, | | image 105/10 some jejunal loops are thickened suggesting hemorrhage. No | | free air is identified. No free fluid is identified. There is a Leos | | catheter in the small bladder. This female patient has had a hysterectomy. | | IMPRESSION: | | 1. Head CT demonstrates atrophy and a hematoma a left parietal lobe | | subjacent to the vertex. No evidence of intracranial trauma. | | | | 2. Complete transverse fracture of the C2 vertebral body with | | separation of the pedicles on both sides, an unstable fracture. Possible | | impingement upon the left foramen transversarium at C2. Consider vertebral | | artery compromise. This result was relayed to Dr. Corral in the emergency | | department. | | | | 3. Degenerative disk disease noted principally at C5-6 with some | | foraminal impairment. | | 4. Multiple rib fractures on the left side with flail chest phenomena | | and left sided chest tube. Small amount of hemorrhage noted in the chest | | cavity. | | | | 5. Small amount of hemorrhage in the anterior mediastinum immediately | | posterior to the sternum. No obvious sternal fracture is seen. | | | | 6. Calcified gallstone without evidence of inflammation | | 7. thyroid lobe nodule left side. Advise ultrasound when patient is | | able to cooperate. | | | | 8. Small esophageal hiatal hernia. | | | | 9. mild fatty infiltration of the liver | | | | 10. Umbilical hernia, small | | | | 11. Mesenteric hemorrhage without evidence of bowel rupture. Some loops | | of bowel are thickened, probably due to trauma of blunt nature. This may | | predispose the patient to ileus. | | | | 12. Small fat only umbilical hernia. Prior hysterectomy. | | | | 13. Leos catheter in place | | | | | + + Gram Stain, reflex Sputum Culture (11/22/2010 1:26 PM PDT) + + | Specimen | + + | | + + + + + | Narrative | Performed At | + + + | Specimen Description TRACHEAL TUBE GRAM STAIN | EXTERNAL LAB | | LESS THAN 10 SEC/LPF | | | LESS THAN 10 WBCS/LPF | | | NO ORGANISMS SEEN | | | REVIEW OF SMEAR BY | | | MICROBIOLOGY SHOWS THE FOLLOWING: | | | GREATER THAN 10 WBCS/LPF | | | Testing performed at [facility], [facility] [address] [facility] | | | [place] [address] CULTURE | | | 1+ NORMAL UPPER RESPIRATORY FERNANDA | | | Testing performed at [facility], [address] [facility] | | | [place] [address] REPORT STATUS | | | 11/24/2010 FINAL | | + + + + +---------+ + + | Performing | Address | City/State/Zipcode | Phone Number | | Organization | | | | + +---------+ + + | EXTERNAL LAB | | | | + +---------+ + + XR Hand Left 3 + Vw (11/22/2010 12:48 PM PDT) + + | Specimen | + + | | + + + + + | Narrative | Performed At | + + + | [facility] [address] Ph: | | | Patient Name: KAREN GONZALEZ Date of : | | | 02/06/1859 Medical Record: [id number] Account: [id number] | | | Exam Date/Time: 11/22/2010 11:55 Ordering | | | Physician: JOSE ALFREDO CORRAL Order Detail: [id number] Exam Description: | | | XR HAND LEFT | | | JONES | | | 26 TRAUMA XR HAND LEFT 11/22/2010 11:55 AM HISTORY: 89 years. | | | Female. Trauma TECHNIQUE: 3 view(s) obtained. | | | COMPARISON: None. FINDINGS: The regional osseous structures | | | demonstrate normal mineralization and trabeculation. No fracture, | | | dislocation or subluxation is noted. Moderate osteoarthritis is seen | | | at the first carpometacarpal joint and at the scaphotrapezoid joint. | | | Marked soft tissue swelling is noted along the dorsum of the wrist | | | over the metacarpophalangeal joints. No radiopaque foreign bodies | | | are noted. No soft tissue calcifications are present. IMPRESSION: | | | 1. No fracture, dislocation, subluxation or degenerative changes | | | seen. | | | 2:42 PM | | + + + + + | Procedure Note | + + | John, Sebastián Conversion - 09/29/2018 11:03 AM PDT | | [facility] | | [facility] [address] | | | | | | Patient Name: CARLOS, KAREN Luciano | | Date of : 02/06/1859 | | Medical Record: [id number] | | Account: [id number] | | | | | | Exam Date/Time: 11/22/2010 11:55 | | Ordering Physician: JOSE ALFREDO CORRAL | | Order Detail: [id number] | | Exam Description: XR HAND LEFT | | | | JONES 26 TRAUMA | | XR HAND LEFT | | 11/22/2010 11:55 AM | | | | HISTORY: | | 89 years. Female. Trauma | | | | TECHNIQUE: | | 3 view(s) obtained. | | | | COMPARISON: | | None. | | | | FINDINGS: | | The regional osseous structures demonstrate normal mineralization and | | trabeculation. | | No fracture, dislocation or subluxation is noted. 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 | | Marked soft tissue swelling is noted along the dorsum of the wrist over the | | metacarpophalangeal joints. | | No radiopaque foreign bodies are noted. | | No soft tissue calcifications are present. | | | | IMPRESSION: | | 1. No fracture, dislocation, subluxation or degenerative changes seen. | | | | | + + XR Forearm Right 2 Vw (11/22/2010 12:48 PM PDT) + + | Specimen | + + | | + + + + + | Narrative | Performed At | + + + | [facility] [address] Ph: | | | Patient Name: KAREN GONZALEZ Date of : | | | 02/06/1859 Medical Record: [id number] Account: [id number] | | | Exam Date/Time: 11/22/2010 11:20 Ordering | | | Physician: JOSE ALFREDO Mujica Detail: [id number] Exam Description: | | | XR FOREARM RIGHT | | | JONES | | | 26 TRAUMA XR FOREARM RIGHT 11/22/2010 11:20 AM HISTORY: 89 | | | years. Female. Trauma. TECHNIQUE: 2 view(s) obtained. | | | COMPARISON: None. FINDINGS: The regional osseous structures | | | demonstrate osteopenia. No fracture, dislocation or subluxation is | | | noted. Osteoarthritis is seen in the wrist at the first | | | carpometacarpal joint and at the scaphotrapezoid joint. Soft tissue | | | lacerations are seen the region of the elbow and medial lower arm. | | | Radiopaque foreign bodies are seen in the region of the elbow | | | laceration. A IV is seen in the antecubital region. No soft tissue | | | calcifications are present. IMPRESSION: 1. No definite fracture | | | or dislocation noted. 2. Soft tissue lacerations in the region of | | | the elbow. 3. An opaque foreign body seen in the region of the soft | | | tissue lacerations. 4. 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 | | | | | + + + + + | Procedure Note | + + | JohnSebastián palmer Conversion - 09/29/2018 11:03 AM PDT | | [facility] | | [facility] [address] | | | | | | Patient Name: TRAUMA, KAREN 26 | | Date of : 02/06/1859 | | Medical Record: [id number] | | Account: [id number] | | | | | | Exam Date/Time: 11/22/2010 11:20 | | Ordering Physician: JOSE ALFREDO CORRAL | | Order Detail: [id number] | | Exam Description: XR FOREARM RIGHT | | | | JONES 26 TRAUMA | | XR FOREARM RIGHT | | 11/22/2010 11:20 AM | | | | HISTORY: | | 89 years. Female. Trauma. | | | | TECHNIQUE: | | 2 view(s) obtained. | | | | COMPARISON: | | None. | | | | FINDINGS: | | The regional osseous structures demonstrate osteopenia. | | No fracture, dislocation or subluxation is noted. 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 | | Soft tissue lacerations are seen the region of the elbow and medial lower | | arm. | | Radiopaque foreign bodies are seen in the region of the elbow laceration. | | A IV is seen in the antecubital region. | | No soft tissue calcifications are present. | | | | IMPRESSION: | | 1. No definite fracture or dislocation noted. | | 2. Soft tissue lacerations in the region of the elbow. | | 3. An opaque foreign body seen in the region of the soft tissue | | lacerations. | | 4. 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 | | | | | + + XR Chest 1 Vw (11/22/2010 12:09 PM PDT) + + | Specimen | + + | | + + + + + | Narrative | Performed At | + + + | [facility] [address] Ph: | | | Patient Name: KAREN GONZALEZ Date of : | | | 02/06/1859 Medical Record: [id number] Account: [id number] | | | Exam Date/Time: 11/22/2010 11:56 Ordering | | | Physician: JOSE ALFREDO Mujica Detail: [id number] Exam Description: | | | XR CHEST 1 VIEW | | | JONES | | | 26 TRAUMA XR CHEST 1 VIEW 11/22/2010 11:56 AM HISTORY: 89 | | | years. Female. Trauma patient. TECHNIQUE: A single AP | | | portable view of the chest is obtained. Time: 1205 hrs | | | COMPARISON: Same day, 1122 hrs. FINDINGS: Multiple contiguous | | | left-sided rib fractures are seen some of which are broken in several | | | places suggesting flail chest. A left-sided chest tube has been | | | placed. Extensive left-sided subcutaneous emphysema is seen at the | | | site of rib fracture and chest tube placement. A small left-sided | | | pneumothorax is present however there is no evidence of significant | | | collapse of the left lung. The right lung is well aerated. The heart | | | is normal in size. IMPRESSION: 1. Left-sided chest tube in | | | satisfactory position. 2. Multiple contiguous left-sided rib | | | fractures suggesting flail chest. | | + + + + + | Procedure Note | + + | Sebastián Lopez Conversion - 09/29/2018 11:03 AM PDT | | [facility] | | [facility] [address] | | | | | | Patient Name: TRAUMA, KAREN Luciano | | Date of : 02/06/1859 | | Medical Record: [id number] | | Account: [id number] | | | | | | Exam Date/Time: 11/22/2010 11:56 | | Ordering Physician: JOSE ALFREDO CORRAL | | Order Detail: [id number] | | Exam Description: XR CHEST 1 VIEW | | | | KAREN 26 TRAUMA | | XR CHEST 1 VIEW | | 11/22/2010 11:56 AM | | | | HISTORY: | | 89 years. Female. Trauma patient. | | | | TECHNIQUE: | | A single AP portable view of the chest is obtained. Time: 1205 hrs | | | | COMPARISON: | | Same day, 1122 hrs. | | | | FINDINGS: | | Multiple contiguous left-sided rib fractures are seen some of which are | | broken in several places suggesting flail chest. A left-sided chest tube | | has been placed. Extensive left-sided subcutaneous emphysema is seen at | | the site of rib fracture and chest tube placement. A small left-sided | | pneumothorax is present however there is no evidence of significant | | collapse of the left lung. The right lung is well aerated. The heart is | | normal in size. | | | | IMPRESSION: | | 1. Left-sided chest tube in satisfactory position. | | 2. Multiple contiguous left-sided rib fractures suggesting flail chest. | | | | | + + XR Chest 1 Vw (11/22/2010 11:36 AM PDT) + + | Specimen | + + | | + + + + + | Narrative | Performed At | + + + | [facility] [address] Ph: | | | Patient Name: KAREN GONZALEZ Date of : | | | 02/06/1859 Medical Record: [id number] Account: [id number] | | | Exam Date/Time: 11/22/2010 11:20 Ordering | | | Physician: JOSE ALFREDO Mujica Detail: [id number] Exam Description: | | | XR CHEST 1 VIEW | | | | | | HISTORY: Left-sided chest wall trauma TECHNIQUE: A single AP | | | view of the chest is obtained. COMPARISON: None. FINDINGS: | | | Numerous left-sided rib fractures. See CT scan for additional detail. | | | It appears that most ribs on the left are fractured. The heart size | | | is not enlarged there is no large amount of fluid accumulation. Right | | | side is clear. IMPRESSION: 1. Numerous left-sided rib fractures | | | with laceration and pneumothorax. No large amount of blood is noted | | | in the pleural space, however. Right side remains fully expanded | | | | | + + + + + | Procedure Note | + + | Sebastián Lopez Conversion - 09/29/2018 11:03 AM PDT | | [facility] | | [facility] [address] | | | | | | Patient Name: KAREN GONZALEZ | | Date of : 02/06/1859 | | Medical Record: [id number] | | Account: [id number] | | | | | | Exam Date/Time: 11/22/2010 11:20 | | Ordering Physician: JOSE ALFREDO CORRAL | | Order Detail: [id number] | | Exam Description: XR CHEST 1 VIEW | | | | HISTORY: | | Left-sided chest wall trauma | | | | TECHNIQUE: | | A single AP view of the chest is obtained. | | | | COMPARISON: | | None. | | | | FINDINGS: | | Numerous left-sided rib fractures. See CT scan for additional detail. It | | appears that most ribs | | on the left are fractured. The heart size is not enlarged there is no large | | amount of fluid accumulation. Right side is clear. | | IMPRESSION: | | 1. Numerous left-sided rib fractures with laceration and pneumothorax. | | No large amount of blood is noted in the pleural space, however. Right side | | remains fully expanded | | | | | + + MRSA NAAT (11/22/2010 6:01 AM PDT) + + | Specimen | + + | | + + + + + | Narrative | Performed At | + + + | [facility] | EXTERNAL LAB | | Testing performed at [facility];[address] [place] [address];[place] [address] MRSA PCR | | | NEGATIVE Testing performed at | | | [facility];[address] [place] [address];[place] [address] | | + + + + +---------+ + + | Performing | Address | City/State/Zipcode | Phone Number | | Organization | | | | + +---------+ + + | EXTERNAL LAB | | | | + +---------+ + + documented in this encounter Visit Diagnoses Not on filedocumented in this encounter"
--- OUTSIDE RECORDS SUMMARY | ~2019-01-30 | XMS | Clinical Summary ---
Demographics + + + | Address | [address] | | | [place] [address] | + + + | Home Phone | | + + + | Preferred Language | Unknown | + + + | Marital Status | | + + + | Restorationist Affiliation | Unknown | + + + | Race | Unknown | + + + | Ethnic Group | Unknown | + + + Author + + + | Author | [facility] | | | and [place] | + + + | Organization | [facility] | | | and [place] | + + + | Address | Unknown | + + + | Phone | Unavailable | + + + Support + + + + + | Name | Relationship | Address | Phone | + + + + + | Vera Somers | ECON | [place] | | | | | [id number] | | + + + + + | John Casillas | ECON | Unknown | | + + + + + Care Team Providers + +------+ + | Care Acoustic Intelligence Specialist Name | Role | Phone | + +------+ + | Manuel Adames | PCP | | | MD | | | + +------+ + Allergies Not on File Medications Not on [...] | + + + + + | Vaccine: | | | | | Dtap/Tdap/Td (1 - | 7 | | | | Tdap) | | | | + + + + + | Vaccine: Zoster (1 | | | | | of 2) | 6 | | | + + + + + | Vaccine: | | | | | Pneumococcal 65+ (1 | 1 | | | | of 2 - PCV13) | | | | + + + + + | Vaccine: Influenza | | | | | (#1) | 9 | | | + + + + + Results Not on filefrom Last 3 Months"
--- OUTSIDE RECORDS SUMMARY | ~2019-01-30 | XMS | Clinical Summary ---
Demographics + + + | Address | [address] | | | [place] [address] | + + + | Home Phone | | + + + | Preferred Language | Unknown | + + + | Marital Status | | + + + | Confucianist Affiliation | Unknown | + + + | Race | Unknown | + + + | Ethnic Group | Unknown | + + + Author + + + | Author | [facility] (Historical as of | | | 09-22-18) | + + + | Organization | [facility] (Historical as of | | | 09-22-18) | + + + | Address | Unknown | + + + | Phone | Unavailable | + + + Support + + + + + | Name | Relationship | Address | Phone | + + + + + | Vera Somers | ECON | [place] | | | | | [phone] | | + + + + + | John Casillas | ECON | Unknown | | + + + + + Care Team Providers + +------+ + | Care Cotton Grader Name | Role | Phone | + +------+ + | Manuel Adames MD | PP | | + +------+ + Allergies + + + + + + | Active Allergy | Reactions | Severity | Noted | Comments | | | | | Date | | + + + + + + | Cephalexin | Other (See Comments) | Medium | 1030/20 | unknown | | | | | 11 | | + + + + + + | Penicillins | Other (See Comments) | Medium | 20 | unknown | | | | | 11 | | + + + + + + | Saccharin | Other (See Comments) | Medium | 3020 | unknown | | | | | 11 | | + + + + + + | Sulfa Antibiotics | Other (See Comments) | Medium | 103020 | unknown | | | | | 11 | | + + + + + + Current Medications + + +---------+---------+------+------+-------+ | Prescription | Sig. | Disp. | Refills | Star | End | Statu | | | | | | t | Date | s | | | | | | Date | | | + + +---------+---------+------+------+-------+ | Calcium | Take 1 tablet by | | | | | Activ | | Citrate-Vitamin D | mouth 2 (two) times | | | | | e | | 200-250 MG-UNIT TABS | daily. | | | | | | + + +---------+---------+------+------+-------+ | cholecalciferol | Take 1,000 Units by | | | | | Activ | | (VITAMIN D-3) 400 | mouth daily. | | | | | e | | UNIT TABS | | | | | | | + + +---------+---------+------+------+-------+ | glimepiride | Take 2 mg by mouth | | | | | Activ | | (AMARYL) 1 MG tablet | every morning before | | | | | e | | | breakfast. | | | | | | + + +---------+---------+------+------+-------+ | fenofibrate | Take 160 mg by mouth | | | | | Activ | | (LOFIBRA) 160 MG | daily. | | | | | e | | tablet | | | | | | | + + +---------+---------+------+------+-------+ | cyanocobalamin 100 | Take 1,000 mcg by | | | | | Activ | | MCG tablet | mouth daily. | | | | | e | + + +---------+---------+------+------+-------+ | meclizine | Take 25 mg by mouth | | | | | Activ | | (ANTIVERT) 12.5 MG | as needed. | | | | | e | | tablet | | | | | | | + + +---------+---------+------+------+-------+ | metformin | Take 500 mg by mouth | | | | | Activ | | (GLUCOPHAGE) 500 MG | 2 (two) times daily | | | | | e | | tablet | with meals. | | | | | | + + +---------+---------+------+------+-------+ | Specialty Vitamins | Take by mouth | | | | | Activ | | Products (CENTRUM | daily. 4 tabs daily | | | | | e | | PERFORMANCE) TABS | | | | | | | + + +---------+---------+------+------+-------+ | simvastatin | Take 40 mg by mouth | | | | | Activ | | (ZOCOR) 40 MG tablet | nightly. | | | | | e | + + +---------+---------+------+------+-------+ | Cranberry 300 MG | Take by mouth. | | | | | Activ | | tablet | Cranberry cap no | | | | | e | | | dose noted | | | | | | + + +---------+---------+------+------+-------+ | | Take by mouth 3 | | | | | Activ | | glucosamine-chondroi | (three) times daily. | | | | | e | | tin 500-400 MG | No dose given | | | | | | | tablet | | | | | | | + + +---------+---------+------+------+-------+ | amlodipine | Take 2 tablets by | 30 | 0 | 11/0 | | Activ | | (NORVASC) 5 MG | mouth daily. | tablet | | 4/20 | | e | | tablet | | | | 11 | | | + + +---------+---------+------+------+-------+ | | Place 1 drop into | 30 mL | 0 | 11/0 | | Activ | | carboxymethylcellulo | the right eye 3 | | | 4/20 | | e | | se (REFRESH PLUS) | (three) times daily | | | 11 | | | | 0.5 % SOLN | as needed. | | | | | | + + +---------+---------+------+------+-------+ Active Problems + + + | Problem | Noted Date | + + + | Unspecified essential hypertension | 12/10/2010 | + + + | Type II or unspecified type diabetes mellitus with other | 12/10/2010 | | specified manifestations, not stated as uncontrolled | | + + + | Other and unspecified hyperlipidemia | 12/10/2010 | + + + | Multiple fractures of ribs of left side | 12/10/2010 | + + + | Puncture wound of elbow, right, complicated | 12/07/2010 | + + + + + | Last Assessment & Plan: The patient received 2 weeks of | | antibiotics following debridement in the operating room. No signs | | of infection. | + + + + + | Cervical spine fracture | 12/07/2010 | + + + | Hemothorax on left | 12/07/2010 | + + + + + | Last Assessment & Plan: Appreciate pulmonary management. | | Chest tube has been removed. Repeat chest x-rays going to be | | performed later this morning. | + + Resolved Problems + + + + | Problem | Noted | Resolved | | | Date | Date | + + + + | Leukocytosis | 12/08/19 | | | | 11 | 1 | + + + + + + | Last Assessment & Plan: Resolved, No worsening off | | antibiotics. | + + +-------+ + + | Fever | 12/08/19 | | | | 11 | 1 | +-------+ + + + + | Last Assessment & Plan: The patient continues to have | | intermittent low-grade fevers, without any new symptoms. | | Clinically, she continues to make progress. These fevers unlikely | | related to reabsorption of blood from the chest cavity, and I | | would anticipate that they will persist for 4-6 weeks. I've | | advised the patient and her to monitor for any new | | symptoms such as worsening cough, sputum production, joint pain, | | abdominal pain. If she is otherwise doing well, no further workup | | of his fevers as needed. | + + + + + + | Feeding difficulty | 12/08/19 | | | | 11 | 1 | + + + + Social History + [...] on file | | + + + Last Filed Vital Signs + + + + | Vital Sign | Reading | Time Taken | + + + + | Blood Pressure | 177/78 | 12/10/2010 11:08 AM PDT | + + + + | Pulse | 99 | 12/10/2010 11:08 AM PDT | + + + + | Temperature | 37.1 C (98.7 F) | 12/10/2010 11:08 AM PDT | + + + + | Respiratory Rate | 22 | 12/10/2010 11:08 AM PDT | + + + + | Oxygen Saturation | 96% | 12/10/2010 11:08 AM PDT | + + + + | Inhaled Oxygen | - | - | | Concentration | | | + + + + | Weight | 88.4 kg (194 lb 14.2 | 12/09/2010 7:05 PM PDT | | | oz) | | + + + + | Height | 170.2 cm (5' 7") | 12/05/2010 1:11 PM PDT | + + + + | Body Mass Index | 30.52 | 12/09/2010 7:05 PM PDT | + + + + Plan of Treatment + [...] | + + + + + | DEXA SCAN SCREENING | | | | | | 1 | | | + + + + + | Vaccine: | | | | | Pneumococcal 65+ | 1 | | | | Low/Medium Risk (1 | | | | | of 2 - PCV13) | | | | + + + + + | Vaccine: Influenza | | | | | (#1) | 9 | | | + + + + + Results Not on filefrom Last 3 Months Insurance + +--------+ +--------+-------+---------+ | Payer | Benefi | Subscriber | Type | Phone | Address | | | t Plan | ID | | | | | | / | | | | | | | Group | | | | | + +--------+ +--------+-------+---------+ | [place] [employer] | [place] | [id number] | Medica | | | | FAMILY | [place] | | re | | | | | RE | | | | | | | FAMILY | | | | | + +--------+ +--------+-------+---------+ + +--------+ +--------+ + + | Guarantor Name | Accoun | Relation to | Date | Phone | Billing Address | | | t Type | Patient | of | | | | | | | | | | + +--------+ +--------+ + + | MAGDALENA CASILLAS | Person | Self [birth year] Home: | [address] | | | al/Fam | | 1935 | [phone] | [place] | | | [place] | | | [phone] | [phone] | + +--------+ +--------+ + + | MAGDALENA CASILLAS | Third | Self [birth year] | Home: | [address] | | | [place] | | [phone] | [phone] | [place] | | | [place] | | | [phone] | [phone] | | | ity | | | | | + +--------+ +--------+ + +
--- OUTSIDE RECORDS SUMMARY | ~2019-01-30 | XMS | Encounter Summary ---
Demographics + + + | Address | [address] | | | [place] [address] | + + + | Home Phone | | + + + | Preferred Language | Unknown | + + + | Marital Status | | + + + | Moravian Affiliation | Unknown | + + + | Race | Unknown | + + + | Ethnic Group | Unknown | + + + Author + + + | Author | [facility] | | | and [place] | + + + | Organization | [facility] | | | and [place] | + + + | Address | Unknown | + + + | Phone | Unavailable | + + + Support + + + + + | Name | Relationship | Address | Phone | + + + + + | Vera Somers | ECON | [place] | | | | | [address] | | + + + + + | John Casillas | ECON | Unknown | | + + + + + Care Team Providers + +------+ + | Care Industrial Hygiene Manager Name | Role | Phone | + [...] [place] | | | | | [place] | [address] | | | | | [address] | | | | | | [phone] | | | +--------+ + + + [...] | | 2.48 cm SV(Teich): 15.29 ml Optical Goods Drill Operator: LOBITO Authenticated by: | | | Butch [...] cmLVIDd: 3.07 cmLVPWd: 1.25 cmLVOT Area: 3.66 vd9DGQU Diam: 2.15 | | cm%FS: 19.27 %EF(Teich): 41.01 %ESV(Teich): 22.00 mlLVIDs: 2.48 cmSV(Teich): | | 15.29 ml Optical Goods Drill Operator: ZEINAButhenticated by: Butch Ballesteros Date/Time: 03-15-2018 | [...] | |SV(Teich): 15.29 ml | | | |Optical Goods Drill Operator: LOBITO | |Authenticated by: Butch Tapia | [...]
--- OUTSIDE RECORDS SUMMARY | ~2019-01-30 | XMS | Encounter Summary ---
Demographics + + + | Address | [address] | | | [place] [address] | + + + | Home Phone | | + + + | Preferred Language | Unknown | + + + | Marital Status | | + + + | Methodist Affiliation | Unknown | + + + | Race | Unknown | + + + | Ethnic Group | Unknown | + + + Author + + + | Author | [facility] | | | and [place] | + + + | Organization | [facility] | | | and [place] | + + + | Address | Unknown | + + + | Phone | Unavailable | + + + Support + + + + + | Name | Relationship | Address | Phone | + + + + + | Vera Somers | ECON | [place] | | | | | [address] | | + + + + + | John Casillas | ECON | Unknown | | + + + + + Care Team Providers + +------+ + | Care Head Piece Assembler Name | Role | Phone | + +------+ + | Manuel Adames | PCP | | | MD | | | + +------+ + Encounter Details +--------+ + + + + | Date | Type | Department | Care Team | Description | +--------+ + + + + | 04/16/ | Orders Only | [facility] | Shruti Pino | | | 2015 | | [address] | [address] | | | | | [address] | [address] | | | | | [address] | [place] | | | | | [address] | [address] | | | | | [phone] | [phone] | | | | | | | [...] + | ECHO INTERPRETATION | Routin | 04/17/2015 | | Results for this | | OF OUTSIDE FILMS | e | 12:28 PM | | procedure are in the | | | | PST | | results section. | + +--------+ + + + documented in this encounter Results ECHO Interpretation of Outside Films (04/17/2015 12:28 PM PST) + + | Specimen | + + | | + + + + + | Impressions | Performed At | + + + | 1. See Dictation | | + + + + + + | Narrative | Performed At | + + + | Patient Name: Magdalena Casillas Date of : 1935 | | | Performing Physician: Dionicio Baltazar DO | | | | | | INDICATIONS valve disorder CONCLUSIONS | | | 1. See Dictation FINDINGS -------- MEASUREMENTS | | | Crepe Laminator Operator: LOBITO Authenticated by: Dionicio Baltazar DO | | | Report Date/Time: -- [id number] | | + + + + + | Procedure Note | + + | John, Rad Conversion - 09/27/2018 9:16 PM PDT | | Patient Name: Magdalena Casillas | | Date of : 1935 | | | | | | | | Performing Physician: Dionicio Baltazar DO | | | | INDICATIONS | | | | valve disorder | | | | CONCLUSIONS | | | | 1. See Dictation | | | | FINDINGS | | -------- | | | | MEASUREMENTS | | | | | | Crepe Laminator Operator: LOBITO | | Authenticated by: Dionicio Baltazar DO | | Report Date/Time: -- [id number] | | | | IMPRESSION: | | 1. See Dictation | + + documented in this encounter Visit Diagnoses Not on filedocumented in this encounter"
--- OUTSIDE RECORDS SUMMARY | ~2019-01-30 | XMS | Encounter Summary ---
Demographics + + + | Address | [address] | | | [place] [address] | + + + | Home Phone | | + + + | Preferred Language | Unknown | + + + | Marital Status | | + + + | Voodoo Affiliation | Unknown | + + + [...] Team Providers + +------+ + | Care Intellectual Property Manager Name | Role | Phone | + +------+ + | Manuel Adames MD | PCP | | + +------+ + Encounter Details +--------+ + + + + | Date | Type | Department | Care Team | Description | +--------+ + + + + | 05/02/ | Document-Sc | Health Information | Unknown . | | | 2018 | anned | [id number] | | | | | [address] | | | | | | Mailcode: [id number] | | | | | | [facility] | | | | | | [place], [place] | | | | | | [address] | | | | | | [phone] | | | +--------+ + + + [...]
--- OUTSIDE RECORDS SUMMARY | ~2019-01-30 | XMS | Encounter Summary ---
Demographics + + + | Address | [address] | | | [place] [address] | + + + | Home Phone | | + + + | Preferred Language | Unknown | + + + | Marital Status | | + + + | Protestant Affiliation | Unknown | + + + | Race | Unknown | + + + | Ethnic Group | Unknown | + + + Author + + + | Author | [facility] | | | and [place] | + + + | Organization | [facility] | | | and [place] | + + + | Address | Unknown | + + + | Phone | Unavailable | + + + Support + + + + + | Name | Relationship | Address | Phone | + + + + + | Vera Somers | ECON | [place] | | | | | [address] | | + + + + + | John Gómez | ECON | Unknown | | + + + + + Care Team Providers + +------+ + | Care It Architecture Consultant Name | Role | Phone | + +------+ + | Manuel Adames | PCP | | | MD | | | + +------+ + Encounter Details +--------+ + + + + | Date | Type | Department | Care Team | Description | +--------+ + + + + | 12/05/ | Orders Only | [facility] | Jessica Booth MD | | | 2010 | | [facility] | [address] | | | | | CARE FLOOR [address] | [address] [facility] | | | | | [address] | [place] [address] | | | | | [place], [place] | [phone] | | | | | [address] | | | | | | [phone] | | | +--------+ + + + [...] | + + + | MAGDALENA Chun OxatisKEY XR CHEST 2 VIEW FRONTAL AND LATERAL [...] Performed At | + + + | [facility] [address] Ph: | | | Patient Name: MAGDALENA GÓMEZ Date of : | | | 1935 Medical Record: [id number] Account: [id number] | | | Exam Date/Time: 12/05/2010 11:01 [...] - 09/29/2018 11:03 AM PDT | | [facility] | | [facility] [address] | | | | | | Patient Name: MAGDALENA GÓMEZ | | Date of : 1935 | | Medical Record: [id number] | | Account: [id number] | | | | | | Exam [...] Performed At | + + + | [facility] [address] Ph: | | | Patient Name: MAGDALENA GÓMEZ Date of : | | | 1935 Medical Record: [id number] Account: [id number] | | | Exam Date/Time: 12/05/2010 11:05 [...] - 09/29/2018 11:03 AM PDT | | [facility] | | [facility] [address] | | | | | | Patient Name: MAGDALENA GÓMEZ | | Date of : 1935 | | Medical Record: [id number] | | Account: [id number] | | | | | | Exam [...] EXTERNAL LAB | | Testing performed at [facility];[address];[place] [address] COLOR | | | RED Testing | | | performed at [facility];[address];[place] [address] APPEARANCE | | | CLOUDY Testing performed at [facility];[address];[place] [address] RBC'S | | | [id number] Testing performed at [facility];[address];[place] [address] TOTAL NUCLEATED CELLS 4770 | | | Testing performed at [facility];[address];[place] [address] | | | NEUTROPHILS 90 Testing | | | performed at [facility];[address];[place] [address] LYMPHOCYTES | | | 8 Testing performed at | | | [facility];[address];[place] [address] MONOCYTES/MACROPHAGES | | | 2 Testing performed at [facility];[address];[place] [address] CELLS COUNTED | | | 100 Testing performed at [facility], [place] | | | [address] | | + + + + +---------+ [...] EXTERNAL LAB | | Testing performed at [facility];[address] [place] [address];[place] [address] | | + + + + +---------+ [...] | EXTERNAL LAB | | not a tax record clerk validated sample type for this method. No | | | reference ranges have been established. Testing performed at [facility];[address];[place] [address] FLUID TP SOURCE | | | PLEURAL FLUID Testing performed at [facility];[address];[place] [address] | | + + + + +---------+ + + | Performing | Address | City/State[facility] | Phone Number | | Organization [...] | EXTERNAL LAB | | not a tax record clerk validated sample type for this method. No | | | reference ranges have been established. Testing performed at [facility] | | | [facility];[place] [address] Glucose, Fluid Type | | | PLEURAL FLUID Testing performed at [facility];[address] [place] [address];[place], [place] | | | [address] | | + + + + +---------+ [...] EXTERNAL LAB | | Testing performed at [facility];[address] [place] [address];[place] [address] | | + + + + +---------+ [...] | EXTERNAL LAB | | performed at [facility];[address] [place] [address];[place] [address] | | + + + + +---------+ [...] Performed At | + + + | [facility] [address] Ph: | | | Patient Name: MAGDALENA GÓMEZ Date of : | | | 1935 Medical Record: [id number] Account: [id number] | | | Exam Date/Time: 12/04/2010 18:49 [...] - 09/29/2018 11:03 AM PDT | | [facility] | | [facility] [address] | | | | | | Patient Name: MAGDALENA GÓMEZ | | Date of : 1935 | | Medical Record: [id number] | | Account: [id number] | | | | | | Exam [...] Performed At | + + + | [facility] [address] Ph: | | | Patient Name: MAGDALENA GÓMEZ Date of : | | | 1935 Medical Record: [id number] Account: [id number] | | | Exam Date/Time: 12/04/2010 16:29 [...] - 09/29/2018 11:03 AM PDT | | [facility] | | [facility] [address] | | | | | | Patient Name: MAGDALENA GÓMEZ | | Date of : 1935 | | Medical Record: [id number] | | Account: [id number] | | | | | | Exam [...] Performed At | + + + | [facility] [address] Ph: | | | Patient Name: MAGDALENA GÓMEZ Date of : | | | 1935 Medical Record: [id number] Account: [id number] | | | Exam Date/Time: 12/04/2010 10:57 [...] - 09/29/2018 11:03 AM PDT | | [facility] | | [facility] [address] | | | | | | Patient Name: MAGDALENA GÓMEZ | | Date of : 1935 | | Medical Record: [id number] | | Account: [id number] | | | | | | Exam [...] EXTERNAL LAB | | Testing performed at [facility];[address] [place] [address];[place] [address] MRSA PCR | | | NEGATIVE Testing performed at | | | [address];[place] [address] | | + + + + +---------+ [...] Performed At | + + + | [facility] [address] Ph: | | | Patient Name: MAGDALENA GÓMEZ Date of : | | | 1935 Medical Record: [id number] Account: [id number] | | | Exam Date/Time: 11/30/2010 19:01 Ordering | | | Physician: DISHA Mujica Detail: [id number] Exam Description: XR | | | CHEST [...] - 09/29/2018 11:03 AM PDT | | [facility] | | [facility] [address] | | | | | | Patient Name: MAGDALENA GÓMEZ | | Date of : 1935 | | Medical Record: [id number] | | Account: [id number] | | | | | | Exam [...] Performed At | + + + | [facility] [address] Ph: | | | Patient Name: MAGDALENA GÓMEZ Date of : | | | 1935 Medical Record: [id number] Account: [id number] | | | Exam Date/Time: 11/30/2010 17:15 [...] - 09/29/2018 11:03 AM PDT | | [facility] | | [facility] [address] | | | | | | Patient Name: MAGDALENA GÓMEZ | | Date of : 1935 | | Medical Record: [id number] | | Account: [id number] | | | | | | Exam [...] Performed At | + + + | [facility] [address] Ph: | | | Patient Name: MAGDALENA GÓMEZ Date of : | | | 1935 Medical Record: [id number] Account: [id number] | | | Exam Date/Time: 11/29/2010 05:00 [...] - 09/29/2018 11:03 AM PDT | | [facility] | | [facility] [address] | | | | | | Patient Name: MAGDALENA GÓMEZ | | Date of : 1935 | | Medical Record: [id number] | | Account: [id number] | | | | | | Exam [...] Performed At | + + + | [facility] [address] Ph: | | | Patient Name: MAGDALENA GÓMEZ Date of : | | | 1935 Medical Record: [id number] Account: [id number] | | | Exam Date/Time: 11/28/2010 00:30 Ordering | | | Physician: LUIS ALBERTO Mujica Detail: 5000 Exam Description: US | | | VENOUS UPPER EXT UNILATERAL | | | LEFT | | | UPPER EXTREMITY DOPPLER ULTRASOUND HISTORY: Left arm and neck | | | swelling. TECHNIQUE: Real-time sonographic vascular imaging was | | | performed by the rn employee health through the upper extremity utilizing | | | both color-flow and Doppler flow analysis. Multiple sales representative publications | | | static images were saved [...] - 09/29/2018 11:03 AM PDT | | [facility] | | [facility] [address] | | | | | | Patient Name: HICKEY, MAGDALENA M | | Date of : 1935 | | Medical Record: [id number] | | Account: [id number] | | | | | | Exam [...] imaging was performed by the | | rn employee health through the upper extremity utilizing both color-flow and | | Doppler flow analysis. Multiple sales representative publications static images were saved for | | [...] Performed At | + + + | [facility] [address] Ph: | | | Patient Name: MAGDALENA GÓMEZ Date of : | | | 1935 Medical Record: [id number] Account: [id number] | | | Exam Date/Time: 11/28/2010 05:00 [...] - 09/29/2018 11:03 AM PDT | | [facility] | | [facility] [address] | | | | | | Patient Name: MAGDALENA GÓMEZ | | Date of : 1935 | | Medical Record: [id number] | | Account: [id number] | | | | | | Exam [...] Performed At | + + + | [facility] [address] Ph: | | | Patient Name: MAGDALENA GÓMEZ Date of : | | | 1935 Medical Record: [id number] Account: [id number] | | | Exam Date/Time: 11/27/2010 19:00 [...] - 09/29/2018 11:03 AM PDT | | [facility] | | [facility] [address] | | | | | | Patient Name: MAGDALENA GÓMEZ | | Date of : 1935 | | Medical Record: [id number] | | Account: [id number] | | | | | | Exam [...] Performed At | + + + | [facility] [address] Ph: | | | Patient Name: MAGDALENA GÓMEZ Date of : | | | 1935 Medical Record: [id number] Account: [id number] | | | Exam Date/Time: 11/27/2010 05:00 [...] - 09/29/2018 11:03 AM PDT | | [facility] | | [facility] [address] | | | | | | Patient Name: MAGDALENA GÓMEZ | | Date of : 1935 | | Medical Record: [id number] | | Account: [id number] | | | | | | Exam [...] Performed At | + + + | [facility] [address] Ph: | | | Patient Name: MAGDALENA GÓMEZ Date of : | | | 1935 Medical Record: [id number] Account: [id number] | | | Exam Date/Time: 11/26/2010 05:00 [...] - 09/29/2018 11:03 AM PDT | | [facility] | | [facility] [address] | | | | | | Patient Name: MAGDALENA GÓMEZ | | Date of : 1935 | | Medical Record: [id number] | | Account: [id number] | | | | | | Exam [...] Performed At | + + + | [facility] [address] Ph: | | | Patient Name: RICO MAGDALENA Chun Date of : | | | 1935 Medical Record: [id number] Account: [id number] | | | Exam Date/Time: 11/25/2010 07:18 [...] - 09/29/2018 11:03 AM PDT | | [facility] | | [facility] [address] | | | | | | Patient Name: MAGDALENA GÓMEZ | | Date of : 1935 | | Medical Record: [id number] | | Account: [id number] | | | | | | Exam [...] Performed At | + + + | [facility] [address] Ph: | | | Patient Name: MAGDALENA GÓMEZ Date of : | | | 1935 Medical Record: [id number] Account: [id number] | | | Exam Date/Time: 11/25/2010 06:19 [...] - 09/29/2018 11:03 AM PDT | | [facility] | | [facility] [address] | | | | | | Patient Name: MAGDALENA GÓMEZ | | Date of : 1935 | | Medical Record: [id number] | | Account: [id number] | | | | | | Exam [...] Vickers MD on 11/25/10 07:16. Addendum Ends [facility] | | | [facility] [address] | | | Patient Name: MAGDALENA GÓMEZ Date of : 1935 | | | Medical Record: [id number] Account: [id number] Accession: | | | [id number] Exam Date/Time: 11/25/2010 05:00 Ordering Physician: | [...] | Addendum Ends | | | | [facility] | | [facility] [address] | | | | | | Patient Name: MAGDALENA GÓMEZ | | Date of : 1935 | | Medical Record: [id number] | | Account: [id number] | | | | | | Exam [...] Performed At | + + + | [facility] [address] Ph: | | | Patient Name: MAGDALENA GÓMEZ Date of : | | | 1935 Medical Record: [id number] Account: [id number] | | | Exam Date/Time: 11/24/2010 05:00 Ordering | | | Physician: SERGIO JENNINGS Order Detail: [id number] Exam Description: | | | XR CHEST [...] - 09/29/2018 11:03 AM PDT | | [facility] | | [facility] [address] | | | | | | Patient Name: HICKEY, MAGDALENA M | | Date of : 1935 | | Medical Record: [id number] | | Account: [id number] | | | | | | Exam [...] Performed At | + + + | [facility] [address] Ph: | | | Patient Name: MAGDALENA GÓMEZ Adiel Date of : | | | 1935 Medical Record: [id number] Account: [id number] | | | Exam Date/Time: 11/23/2010 16:31 [...] - 09/29/2018 11:03 AM PDT | | [facility] | | [facility] [address] | | | | | | Patient Name: MAGDALENA GÓMEZ | | Date of : 1935 | | Medical Record: [id number] | | Account: [id number] | | | | | | Exam [...] Performed At | + + + | [facility] [address] Ph: | | | Patient Name: KAREN GONZALEZ Date of : | | | 02/06/1859 Medical Record: [id number] Account: [id number] | | | Exam Date/Time: 11/23/2010 05:00 [...] - 09/29/2018 11:03 AM PDT | | [facility] | | [facility] [address] | | | | | | Patient Name: KAREN GONZALEZ 26 | | Date of : 02/06/1859 | | Medical Record: [id number] | | Account: [id number] | | | | | | Exam [...] Performed At | + + + | [facility] [address] Ph: | | | Patient Name: TRAUMAKAREN 26 Date of : | | | 02/06/1859 Medical Record: [id number] Account: [id number] | | | Exam Date/Time: 11/22/2010 14:48 [...] - 09/29/2018 11:03 AM PDT | | [facility] | | [facility] [address] | | | | | | Patient Name: KAREN GONZALEZ | | Date of : 02/06/1859 | | Medical Record: [id number] | | Account: [id number] | | | | | | Exam [...] Performed At | + + + | [facility] [address] Ph: | | | Patient Name: KAREN GONZALEZ Date of : | | | 02/06/1859 Medical Record: [id number] Account: [id number] | | | Exam Date/Time: 11/22/2010 12:59 [...] was also examined with | | | [employer] 3D software for evaluation of the cerebral [...] posterior cerebral artery: | | | Normal. [place]: Anterior communicating artery: Normal. | [...] - 09/29/2018 11:03 AM PDT | | [facility] | | [facility] [address] | | | | | | Patient Name: TRAUMA, KAREN Luciano | | Date of : 02/06/1859 | | Medical Record: [id number] | | Account: [id number] | | | | | | Exam [...] The data set was also examined with [employer] 3D software for | | evaluation of [...] cerebral artery: Normal. | | | | [place]: | | Anterior communicating artery: [...] | | | 8:[address] [facility] | | | [place] [address] Patient Name: KAREN GONZALEZ | | | Date of : 02/06/1859 Medical Record: [id number] Account: | | | [id number] Exam Date/Time: 11/22/2010 | | | 11:20 [...] | pelvis. Oral Contrast:Readi-Cat IV contrast:100 mL [id number] | | | COMPARISON: None. FINDINGS: CT [...] | Addendum Ends | | | | [facility] | | [facility] [address] | | | | | | Patient Name: KAREN GONZALEZ | | Date of : 02/06/1859 | | Medical Record: [id number] | | Account: [id number] | | | | | | Exam [...] Oral Contrast:Readi-Cat | | IV contrast:100 mL [id number] | | | | COMPARISON: | | [...] WBCS/LPF | | | Testing performed at [facility], [facility] [address] [facility] | | | [place] [address] CULTURE | | | 1+ NORMAL UPPER RESPIRATORY FERNANDA | | | Testing performed at [facility], [address] | | | [place] [address] REPORT STATUS | | | 11/24/2010 FINAL [...] Performed At | + + + | [facility] [address] Ph: | | | Patient Name: KAREN GONZALEZ Date of : | | | 02/06/1859 Medical Record: [id number] Account: [id number] | | | Exam Date/Time: 11/22/2010 11:55 [...] - 09/29/2018 11:03 AM PDT | | [facility] | | [facility] [address] | | | | | | Patient Name: CARLOS, KAREN Luciano | | Date of : 02/06/1859 | | Medical Record: [id number] | | Account: [id number] | | | | | | Exam [...] Performed At | + + + | [facility] [address] Ph: | | | Patient Name: KAREN GONZALEZ Date of : | | | 02/06/1859 Medical Record: [id number] Account: [id number] | | | Exam Date/Time: 11/22/2010 11:20 Ordering | | | Physician: JOSE ALFREDO Mujica Detail: [id number] Exam Description: | | | XR FOREARM RIGHT | | | JOENS | | | 26 TRAUMA XR FOREARM [...] - 09/29/2018 11:03 AM PDT | | [facility] | | [facility] [address] | | | | | | Patient Name: TRAUMA, KAREN 26 | | Date of : 02/06/1859 | | Medical Record: [id number] | | Account: [id number] | | | | | | Exam [...] Performed At | + + + | [facility] [address] Ph: | | | Patient Name: KAREN GONZALEZ Date of : | | | 02/06/1859 Medical Record: [id number] Account: [id number] | | | Exam Date/Time: 11/22/2010 11:56 [...] - 09/29/2018 11:03 AM PDT | | [facility] | | [facility] [address] | | | | | | Patient Name: TRAUMA, KAREN Luciano | | Date of : 02/06/1859 | | Medical Record: [id number] | | Account: [id number] | | | | | | Exam [...] Performed At | + + + | [facility] [address] Ph: | | | Patient Name: KAREN GONZALEZ Date of : | | | 02/06/1859 Medical Record: [id number] Account: [id number] | | | Exam Date/Time: 11/22/2010 11:20 [...] - 09/29/2018 11:03 AM PDT | | [facility] | | [facility] [address] | | | | | | Patient Name: KAREN GONZALEZ | | Date of : 02/06/1859 | | Medical Record: [id number] | | Account: [id number] | | | | | | Exam [...] EXTERNAL LAB | | Testing performed at [facility];[address] [place] [address];[place] [address] MRSA PCR | | | NEGATIVE Testing performed at | | | [facility];[address] [place] [address];[place] [address] | | + + + + +---------+ + + | Performing | Address | City/State/Zipcode | Phone Number | | Organization | | | | + +---------+ + + | EXTERNAL LAB | | | | + +---------+ + + documented in this encounter Visit Diagnoses Not on filedocumented in this encounter"
--- OUTSIDE RECORDS SUMMARY | ~2019-01-30 | XMS | Clinical Summary ---
Demographics + + + | Address | [address] | | | [place] [address] | + + + | Home Phone | | + + + | Preferred Language | Unknown | + + + | Marital Status | | + + + | Orthodoxy Affiliation | Unknown | + + + | Race | Unknown | + + + | Ethnic Group | Unknown | + + + Author + + + | Author | [facility] | | | and [place] | + + + | Organization | [facility] | | | and [place] | + + + | Address | Unknown | + + + | Phone | Unavailable | + + + Support + + + + + | Name | Relationship | Address | Phone | + + + + + | Vera Somers | ECON | [place] | | | | | [address] | | + + + + + | John Casillas | ECON | Unknown | | + + + + + Care Team Providers + +------+ + | Care Finishing Area Supervisor Name | Role | Phone | + [...]
--- OUTSIDE RECORDS SUMMARY | ~2019-01-30 | XMS | Clinical Summary ---
Demographics + + + | Address | [address] | | | [place] [address] | + + + | Home Phone | | + + + | Preferred Language | Unknown | + + + | Marital Status | | + + + | Faith Affiliation | Unknown | + + + | Race | Unknown | + + + | Ethnic Group | Unknown | + + + Author + + + | Author | [facility] (Historical as of | | | 09-22-18) | + + + | Organization | [facility] (Historical as of | | | 09-22-18) | + + + | Address | Unknown | + + + | Phone | Unavailable | + + + Support + + + + + | Name | Relationship | Address | Phone | + + + + + | Vera Somers | ECON | [place] | | | | | [address] | | + + + + + | John Casillas | ECON | Unknown | | + + + + + Care Team Providers + +------+ + | Care Data Network Architect Name | Role | Phone | + [...] | MA - [employer] | MA-PRE | [phone] | [employer] | | | | FAMILY [...] | Self | [birth year] | Home: | [address] | | | al/Fam | | 1935 | [phone] | [place] | | | shannan | | | [phone] | [phone] | + +--------+ +--------+ + + | MAGDALENA CASILLAS | Third | Self [birth year] | Home: | [address] | | | Democrat | | [phone] | [place] | | | [place] | | | [phone] | [address] | | | ity | | | | | + +--------+ +--------+ + +
--- OUTSIDE RECORDS SUMMARY | ~2019-01-30 | XMS | Encounter Summary ---
Demographics + + + | Address | [address] | | | [place] [address] | + + + | Home Phone | | + + + | Preferred Language | Unknown | + + + | Marital Status | | + + + | Yazidi Affiliation | Unknown | + + + | Race | Unknown | + + + | Ethnic Group | Unknown | + + + Author + + + | Author | [facility] | | | and [place] | + + + | Organization | [facility] | | | and [place] | + + + | Address | Unknown | + + + | Phone | Unavailable | + + + Support + + + + + | Name | Relationship | Address | Phone | + + + + + | Vera Somers | ECON | [place] | | | | | [address] | | + + + + + | John Casillas | ECON | Unknown | | + + + + + Care Team Providers + +------+ + | Care Director Of Market Intelligence Name | Role | Phone | + [...] Provider Unknown | | | | | [phone] | [phone] | | | | | | | [...]
--- OUTSIDE RECORDS SUMMARY | ~2019-01-30 | XMS | Encounter Summary ---
Demographics + + + | Address | [address] | | | [place] [address] | + + + | Home Phone | | + + + | Preferred Language | Unknown | + + + | Marital Status | | + + + | Baptism Affiliation | Unknown | + + + | Race | Unknown | + + + | Ethnic Group | Unknown | + + + Author + + + | Author | [facility] | | | and [place] | + + + | Organization | [facility] | | | and [place] | + + + | Address | Unknown | + + + | Phone | Unavailable | + + + Support + + + + + | Name | Relationship | Address | Phone | + + + + + | Vera Somers | ECON | [place] | | | | | [address] | | + + + + + | John Caslilas | ECON | Unknown | | + + + + + Care Team Providers + +------+ + | Care Clinical Services Consultant Name | Role | Phone | [...] | | | | INTERFACES | [address] [place], [place] | | | | | [phone] | [address] | | | | | | | [...] | + + + | MAGDALENA Chun [place] [address] CERVICAL SPINE WO CONTRAST 02/03/2011 4:06 [...]
--- OUTSIDE RECORDS SUMMARY | ~2019-01-30 | XMS | Encounter Summary ---
Demographics + + + | Address | [address] | | | [place] [address] | + + + | Home Phone | | + + + | Preferred Language | Unknown | + + + | Marital Status | | + + + | Alevism Affiliation | Unknown | + + + | Race | White | + + + | Ethnic Group | Other Race | + + + Author + + + | Author | [facility] | + + + | Organization | [facility] | + + + | Address | Unknown | + + + | Phone | Unavailable | + + + Support + + +---------+ + | Name | Relationship | Address | Phone | + + +---------+ + | John Casillas | ECON | Unknown | | + + +---------+ + Care Team Providers + +------+ + | Care Air Tester Name | Role | Phone | + +------+ + | Manuel Adames MD | PCP | | + +------+ + Encounter Details +--------+ + + + + | Date | Type | Department | Care Team | Description | +--------+ + + + + | 04/24/ | Documentati | Neurophysiology | Jw Bettencourt | | | 2018 | on | EEG at [facility] [address] | G, DO [address] | | | | | [address] | [facility] | | | | | Mailcode: CR120 | [place], [place] | | | | | [facility] | [address] | | | | | [place], [place] | [phone] | | | | | [address] | | | | | | [phone] | | | +--------+ + + + [...] 04/24/2017 Place of | | | Service: [facility] Department: RICKY EEG TELEMEDICINE - | | | [id number] STAT EEG Reason for Exam: Evaluate for [...] directly to | | | Aman at [facility] on 4:23pm on 04/24/2017. Jw | | | DO Bettencourt MFA Electronically signed on 04/24/2017 at 4:19 PM | | | JW BETTENCOURT DO. Suggested CPT: 29710 - EEG Routine Awake | | | & Asleep Suggested Dx: G93.49 Other encephalopathy | | + + + documented in this encounter Visit Diagnoses Not on filedocumented in this encounter"
--- OUTSIDE RECORDS SUMMARY | ~2019-01-30 | XMS | Encounter Summary ---
Demographics + + + | Address | [address] | | | [place] [address] | + + + | Home Phone [...] + + | Author | [facility] | + + + | Organization | [facility] | + + + | Address | Unknown | + + + | Phone | Unavailable | + + + Support + + +---------+ + | Name | Relationship | Address | Phone | + + +---------+ + | John Casillas | ECON | Unknown | | + + +---------+ + Care Team Providers + +------+ + | Care Occupational Medicine Physician Name | Role | Phone | + +------+ + | Manuel Adames MD | PCP | | + +------+ + Encounter Details +--------+ + + + + | Date | Type | Department | Care Team | Description | +--------+ + + + + | 04/24/ | Documentati | Neurophysiology | Jw Bettencourt | | | 2018 | on | EEG at [facility] [address] | G, DO [address] | | | | | [address] | [facility] | | | | | Mailcode: CR120 | [place], [place] | | | | | [facility] | [address] | | | | | [place], [place] | [phone] | | | | | [address] | | | | | | [phone] | | | +--------+ + + + [...] 04/24/2017 Place of | | | Service: [facility] Department: RICKY EEG TELEMEDICINE - | | | [id number] STAT EEG Reason for Exam: Evaluate for [...] directly to | | | Aman at [facility] on 4:23pm on 04/24/2017. Jw | | | DO Bettencourt MFA Electronically signed on 04/24/2017 at 4:19 PM | | | JW BETTENCOURT DO. Suggested CPT: 25386 - EEG Routine Awake | | | & Asleep Suggested Dx: G93.49 Other encephalopathy | | + + + documented in this encounter Visit Diagnoses Not on filedocumented in this encounter"
--- OUTSIDE RECORDS SUMMARY | ~2019-01-30 | XMS | Encounter Summary ---
Demographics + + + | Address | [address] | | | [place] [address] | + + + | Home Phone | | + + + | Preferred Language | Unknown | + + + | Marital Status | | + + + | Voodoo Affiliation | Unknown | + + + | Race | Unknown | + + + | Ethnic Group | Unknown | + + + Author + + + | Author | [facility] | | | and [place] | + + + | Organization | [facility] | | | and [place] | + + + | Address | Unknown | + + + | Phone | Unavailable | + + + Support + + + + + | Name | Relationship | Address | Phone | + + + + + | Vera Somers | ECON | [place] | | | | | [address] | | + + + + + | John Casillas | ECON | Unknown | | + + + + + Care Team Providers + +------+ + | Care Education Associate Name | Role | Phone | + [...] [place] | | | | | [place] | [id number] | | | | | [address] | | | | | | [phone] | | | +--------+ + + + [...] | | 2.48 cm SV(Teich): 15.29 ml Food Chemist: LOBITO Authenticated by: | | | Butch [...] cmLVIDd: 3.07 cmLVPWd: 1.25 cmLVOT Area: 3.66 tz3JOAM Diam: 2.15 | | cm%FS: 19.27 %EF(Teich): 41.01 %ESV(Teich): 22.00 mlLVIDs: 2.48 cmSV(Teich): | | 15.29 ml Food Chemist: ZEINAButhenticated by: Butch Ballesteros Date/Time: 03-15-2018 | [...] | |SV(Teich): 15.29 ml | | | |Food Chemist: LOBITO | |Authenticated by: Butch Tapia | [...]
--- OUTSIDE RECORDS SUMMARY | ~2019-01-30 | XMS | Encounter Summary ---
Demographics + + + | Address | [address] | | | [place] [address] | + + + | Home Phone | | + + + | Preferred Language | Unknown | + + + | Marital Status | | + + + | Presybeterian Affiliation | Unknown | + + + | Race | Unknown | + + + | Ethnic Group | Unknown | + + + Author + + + | Author | [facility] | | | and [place] | + + + | Organization | [facility] | | | and [place] | + + + | Address | Unknown | + + + | Phone | Unavailable | + + + Support + + + + + | Name | Relationship | Address | Phone | + + + + + | Vera Somers | ECON | [place] | | | | | [address] | | + + + + + | John Casillas | ECON | Unknown | | + + + + + Care Team Providers + +------+ + | Care Consulting Sales Executive Name | Role | Phone | + [...] | | | | [employer] | Drive [place], [place] | | | | | [phone] | [address] | | | | | | | [...] | + + + | MAGDALENA Chun [employer] CT CERVICAL SPINE WO CONTRAST 02/03/2011 4:06 [...]
--- OUTSIDE RECORDS SUMMARY | ~2019-01-30 | XMS | Encounter Summary ---
Demographics + + + | Address | [address] | | | [place] [address] | + + + | Home Phone | | + + + | Preferred Language | Unknown | + + + | Marital Status | | + + + | Yazidism Affiliation | Unknown | + + + [...] Team Providers + +------+ + | Care Vocal Teacher Name | Role | Phone | + +------+ + | Manuel Adames MD | PCP | | + +------+ + Encounter Details +--------+ + + + + | Date | Type | Department | Care Team | Description | +--------+ + + + + | 05/02/ | Document-Sc | Health Information | Unknown . | | | 2018 | anned | Services [phone] | | | | | [address] | | | | | | Mailcode: OP17A | | | | | | [facility] | | | | | | [place], [place] | | | | | | [address] | | | | | | [phone] | | | +--------+ + + + [...]
--- OUTSIDE RECORDS SUMMARY | ~2019-01-30 | XMS | Clinical Summary ---
Demographics + + + | Address | [address] | | | [place] [address] | + + + | Home Phone | | + + + | Preferred Language | Unknown | + + + | Marital Status | | + + + | Uatsdin Affiliation | Unknown | + + + [...] Team Providers + +------+ + | Care Planning And Analysis Manager Name | Role | Phone | + +------+ + | Manuel Adames MD | PCP | | + +------+ + Source Comments DANIA is fully live on both [facility] Ambulatory and [facility] InPatient.[facility] Allergies Not on File Medications [...] RE HMO | | sent | | [place], | | | | | | | | [place] [address] | | + +--------+ +--------+ + +--------+ + +--------+ +--------+ + + | Guarantor Name | Accoun | Relation to | Date | Phone | Billing Address | | | t Type | Patient | of | | | | | | | | | | + +--------+ +--------+ + + | Magdalena Casillas | Person | Self [birth year] | [address] | | | al/Fam | | 1936 | [phone] | [place] | | | [place] | | | [address] (Home) | [address] | + +--------+ +--------+ + +"
--- OUTSIDE RECORDS SUMMARY | ~2019-01-30 | XMS | Encounter Summary ---
Demographics + + + | Address | [address] | | | [place] [address] | + + + | Home Phone | | + + + | Preferred Language | Unknown | + + + | Marital Status | | + + + | Judaism Affiliation | Unknown | + + + | Race | Unknown | + + + | Ethnic Group | Unknown | + + + Author + + + | Author | [facility] | | | and [place] | + + + | Organization | [facility] | | | and [place] | + + + | Address | Unknown | + + + | Phone | Unavailable | + + + Support + + + + + | Name | Relationship | Address | Phone | + + + + + | Vera Somers | ECON | [place] | | | | | [address] | | + + + + + | John Casillas | ECON | Unknown | | + + + + + Care Team Providers + +------+ + | Care Bag Patcher Name | Role | Phone | + [...] Provider Unknown | | | | | [phone] | [phone] | | | | | | | [...]
--- OUTSIDE RECORDS SUMMARY | ~2019-01-30 | XMS | Encounter Summary ---
Demographics + + + | Address | [address] | | | [place] [address] | + + + | Home Phone | | + + + | Preferred Language | Unknown | + + + | Marital Status | | + + + | Advent Affiliation | Unknown | + + + | Race | Unknown | + + + | Ethnic Group | Unknown | + + + Author + + + | Author | [facility] | | | and [place] | + + + | Organization | [facility] | | | and [place] | + + + | Address | Unknown | + + + | Phone | Unavailable | + + + Support + + + + + | Name | Relationship | Address | Phone | + + + + + | Vera Somers | ECON | [place] | | | | | [address] | | + + + + + | John Casillas | ECON | Unknown | | + + + + + Care Team Providers + +------+ + | Care Contracting Specialist Name | Role | Phone | [...] [place] | | | | | [address] | [address] | | | | | [phone] | [phone] | | | | | | | [...] Dictation FINDINGS -------- MEASUREMENTS | | | Statistical Secretary: LOBITO Authenticated by: Dionicio Baltazar DO | | | Report Date/Time: -- [id number] | | + + + + + [...] MEASUREMENTS | | | | | | Statistical Secretary: LOBITO | | Authenticated by: Dionicio Baltazar DO | | Report Date/Time: -- [id number] | | | | IMPRESSION: | | 1. See Dictation | + + documented in this encounter Visit Diagnoses Not on filedocumented in this encounter"
--- OUTSIDE RECORDS SUMMARY | ~2019-01-30 | XMS | Encounter Summary ---
Demographics + + + | Address | [address] | | | [place] [address] | + + + | Home Phone [...] [place] | | | | | [address] | | + + + + + | John Casillas | ECON | Unknown | | + + + + + Care Team Providers + +------+ + | Care Public Information Director Name | Role | Phone | [...] Provider Unknown | | | | | [phone] | [phone] | | | | | | | [...]
[~2019-01-30 12:56] MED LIST changes: +CARVEDILOL25 MG PO; +TESSALON PERLE100 MG PO
--- OUTSIDE RECORDS SUMMARY | 2019-01-30 13:00 | XMS ---
PreManage Notification: EUGENIO GÓMEZ Security Nuclear Criticality Safety Engineer Events No recent Security Events currently on file CRITERIA MET - [facility] - 2 Visits in 30 Days CARE PROVIDERS LESLIE ADAMES [facility] 10/24/2017-Current PHONE: Unknown [facility] Case or Scientist Engineer Current HEALTH AND HOSPICE PHONE: [phone] Leslie Adames MD PHONE: Unknown [facility] has no Care Guidelines for this patient. E.D. VISIT COUNT (12 MO.) 7 [facility] Rodriguez TOTAL 7 NOTE: Visits indicate total known visits. ED/UCC VISIT TRACKING (12 MO.) 01/30/2019 12:57 [facility] [place] TYPE: Emergency COMPLAINT: - ALT.LOC 01/26/2019 08:14 [facility] [place] TYPE: Emergency COMPLAINT: - ALTERED LOC DIAGNOSES: - Unspecified atrial fibrillation - Unspecified dementia without behavioral disturbance - Shortness of breath - alf (current) use of aspirin - alf (current) use of oral hypoglycemic drugs - Other usp (current) drug therapy - Allergy status to narcotic agent status - Hyperlipidemia, unspecified - Personal history of nicotine dependence 01/16/2019 19:35 [facility] [place] TYPE: Emergency COMPLAINT: - VOMITING/DIARRHEA 01/04/2019 05:35 [facility] [place] TYPE: Emergency COMPLAINT: - RECTAL BLEEDING DIAGNOSES: - Other terminal carman (current) drug therapy - Melena - Allergy status to narcotic agent status - Unspecified atrial fibrillation - Hyperlipidemia, unspecified - Unspecified dementia without behavioral disturbance - Allergy status to sulfonamides status - alf (current) use of aspirin - Personal history of nicotine dependence - termite technician (current) use of oral hypoglycemic drugs - 1 Type 2 diabetes mellitus without complications - Essential (primary) hypertension 07/20/2018 22:13 [facility] [place] TYPE: Emergency COMPLAINT: - FALL/WEAKNESS DIAGNOSES: - Essential (primary) hypertension - 1 Type 2 diabetes mellitus without complications - Other usp (current) drug therapy - Fall on same [...] LEVELS LOW INPATIENT VISIT TRACKING (12 MO.) 01/16/2019 23:36 [facility] [place] TYPE: Medical Surgical COMPLAINT: - FLU B DIAGNOSES: - Other usp (current) drug therapy - Dehydration - 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 - Dysphagia, oropharyngeal phase - Chronic diastolic (congestive) heart failure - Allergy status to sulfonamides status - Allergy status to oth drug/meds/biol subst status - Other hypotension - 1 Chronic kidney disease, stage 3 (moderate) - termite technician (current) use of oral hypoglycemic drugs - Flu due to unidentified influenza virus w oth resp manifest - Unspecified glaucoma - alf (current) use of aspirin - Unspecified dementia without behavioral disturbance - Hyperlipidemia, unspecified - Chronic atrial fibrillation, unspecified - Chronic respiratory failure with hypoxia 05/21/2018 11:03 [facility] [place] TYPE: Medical Surgical COMPLAINT: - CHF DIAGNOSES: - alf (current) use of oral hypoglycemic drugs - Allergy status to sulfonamides status - Dependence on supplemental oxygen - Personal history of nicotine dependence - Acute on chronic diastolic (congestive) heart failure - alf (current) use of aspirin - Unspecified dementia without behavioral disturbance - Allergy status to narcotic agent status - Other terminal carman (current) drug therapy - Unspecified atrial fibrillation [...] chronic diastolic (congestive) heart failure - Other terminal carman (current) drug therapy - alf (current) use of oral hypoglycemic drugs - Allergy status to narcotic agent status - Other terminal carman (current) drug therapy - Unspecified dementia with behavioral disturbance - Hypertensive heart disease with heart failure - Hypertensive heart disease with heart failure - Unspecified atrial fibrillation - Acute on chronic diastolic (congestive) heart failure - 1 Type 2 diabetes mellitus without complications - termite technician (current) use of oral hypoglycemic drugs - Restlessness and agitation - Dysphagia, oropharyngeal phase - Unspecified dementia with behavioral disturbance - Acute and chronic respiratory failure with hypoxia - 1 Type 2 diabetes mellitus without complications - Metabolic encephalopathy - Allergy status to narcotic agent status - Restlessness and agitation [email or web address]
--- NOTE | 2019-01-31 06:44 | EKG ---
[facility] [address] [facility] [place] [address] Signed Atrial fibrillation with rapid ventricular response Minimal voltage criteria for LVH, may be normal variant Nonspecific ST and T wave abnormality Abnormal ECG When compared with ECG of 26-JAN-2019 08:28, Nonspecific T wave abnormality now evident in Inferior leads Nonspecific T wave abnormality now evident in Anterior leads Confirmed by GALI KNIGHT MD ([id number]) on 01/31/2019 6:44:24 AM Electronically Signed By: GALI KNIGHT MD 01/31/19 0644 PATIENT NAME: EUGENIO GÓMEZ Electrocardiogram DATE OF : 35 PHYSICIAN: GALI KNIGHT MD REPORT #: [id number] REPORT IS CONFIDENTIAL AND NOT TO BE RELEASED WITHOUT AUTHORIZATION
== END 2019-01-30 15:31 | disposition home or self-care (01) ==
LOC: ED 12:56
PROC: 0T9B70Z Drainage of Bladder with Drainage Device, Via Natural or Artificial Opening (ICD-10-PCS; principal; 2019-01-30)
DX: F03.90 Unspecified dementia, unspecified severity, without behavioral disturbance, psychotic disturbance, mood disturbance, and anxiety (principal); I48.91 Unspecified atrial fibrillation; E78.5 Hyperlipidemia, unspecified; Z88.2 Allergy status to sulfonamides; Z88.5 Allergy status to narcotic agent; Z79.899 Other long term (current) drug therapy; Z79.82 Long term (current) use of aspirin
CPT/HCPCS: 51701; 70450; 71045; 80053; 81001; 83605; 83880; 84484; 85025; 85610; 85730; 93005; 93010; 99284-25; G0480